=== PATIENT | male | born 1955 | race Two or more races ===

== ENCOUNTER 2020-02-11 11:14 | Outpatient (REF) | payer MEDICAID, SELFPAY ==
[2020-02-11 12:42] LABS: Anion Gap 13 (12-20); Blood Urea Nitrogen 17 mg/dL (9-16); Calcium 9.3 mg/dL (8.4-10.2); Carbon Dioxide 27 mmol/L (22-29); Chloride 105 mmol/L (96-108); Estimated Glomerular Filt Rate > 60; Glucose Random 96 mg/dL (60-115); Potassium 4.1 mmol/l (3.3-5.1); Sodium 141 mmol/L (135-145)
== END 2020-02-11 11:15 | disposition home or self-care (01) ==
LOC: HO.LAB 11:14
PROVIDERS: PCP Internal Medicine; Visit Provider Physician Assistant Medical
DX: I10 Essential (primary) hypertension (principal)
CPT/HCPCS: 80048

== ENCOUNTER 2020-03-25 12:41 | Outpatient (REF) | payer MEDICARE, MEDICAID, SELFPAY ==
[2020-03-25 14:29] LABS: Albumin Level 4.1 g/dL (3.5-5.0); Anion Gap 12 (12-20); Blood Urea Nitrogen 13 mg/dL (9-16); Calcium 9.3 mg/dL (8.4-10.2); Carbon Dioxide 28 mmol/L (22-29); Chloride 104 mmol/L (96-108); Estimated Glomerular Filt Rate > 60; Magnesium 2.3 mg/dL (1.6-2.6); Phosphorus 3.1 mg/dL (2.7-4.5); Potassium 3.9 mmol/l (3.3-5.1); Sodium 140 mmol/L (135-145)
[2020-03-25 14:44] LABS: Glucose Urine UA 100 MG/DL (NEG); Leukocyte Esterase Urine TRACE (NEG); Nitrite Urine NEG (NEG); PH 6.5 (5.0-8.0); Urine Blood NEG (NEG); Urine Ketones NEG (NEG); Urine Protein 2+ MG/DL (NEG-TRACE)
[2020-03-25 14:50] LABS: Appearance Urine HAZY; Color Urine YELLOW
[2020-03-25 15:06] LABS: Mucus Urine TRACE /LPF; RBC Urine 0 /HPF (0); Squamous Epithelial Cell Urine TRACE /LPF; WBC Urine 0-2 /HPF (0-4)
[2020-03-25 15:27] LABS: Creatinine Urine 194.05 mg/dL
[2020-03-25 15:28] LABS: Creatinine Urine 192.04 mg/dL
[2020-03-25 15:39] LABS: Renal w Reflex Lab Use Only Order verified
[2020-03-25 15:44] LABS: Protein/Creatinine Ratio, Ur 1.49 (<0.2); Total Protein Urine Random 287 mg/dL (<12)
[2020-03-25 15:58] LABS: Microalbum/Creatinine Ratio Ur 1035.8 ug/mg cr
[2020-03-26 12:12] LABS: Complement C3 168 mg/dL (82-185)
[2020-03-27 13:27] LABS: Anti Nuclear Antibody Screen NEGATIVE (NEGATIVE)
[2020-03-28 06:12] LABS: IgA 370 mg/dL (70-320); IgG 1319 mg/dL (600-1540); IgM 68 mg/dL (50-300)
== END 2020-03-25 12:42 | disposition home or self-care (01) ==
LOC: HO.LAB 12:41
PROVIDERS: PCP Internal Medicine; Visit Provider Internal Medicine Nephrology
DX: E11.9 Type 2 diabetes mellitus without complications (principal); E78.5 Hyperlipidemia, unspecified; I10 Essential (primary) hypertension
CPT/HCPCS: 36415; 80051; 81001; 82040; 82043; 82310; 82565; 82784; 83735; 84100; 84156; 84520; 86038; 86039; 86160; 86334; 87086

== ENCOUNTER 2020-08-13 10:23 | Outpatient (REF) | payer MEDICARE, MEDICAID, SELFPAY ==
[2020-08-13 11:42] LABS: Prostate Specific Antigen 0.61 ng/mL (<0.05-4.0)
== END 2020-08-13 10:24 | disposition home or self-care (01) ==
LOC: HO.LAB 10:23
PROVIDERS: PCP Internal Medicine; Visit Provider Urology
DX: N40.1 Benign prostatic hyperplasia with lower urinary tract symptoms (principal); Z12.5 Encounter for screening for malignant neoplasm of prostate
CPT/HCPCS: 36415; 84153

== ENCOUNTER 2020-12-25 10:38 | Outpatient (REF) | payer MEDICARE, MEDICAID, SELFPAY ==
[2020-12-25 11:12] LABS: MANUAL DIFF FLAG NO
[2020-12-25 11:27] LABS: Basophils Percent Auto 0.4 % (0-2); Eosinophils Absolute Auto 0.1 X10*3/uL (0.0-0.4); Eosinophils Percent Auto 1.2 % (0-4); Hemoglobin 14.1 g/dl (14.0-18.0); Imm Gran Abs Auto 0.02 X10*3/uL (0.00-0.03); Imm Gran Pct Auto 0.3 % (0.0-0.4); Lymphocytes Absolute Auto 2.2 X10*3/uL (1.2-4.9); Lymphocytes Percent Auto 28.5 % (20-40); Mean Corpuscular HGB Conc 33.6 g/dl (31.0-36.0); Mean Corpuscular Hemoglobin 29.6 pg (27.0-33.0); Mean Corpuscular Volume 88.1 fL (80-98); Mean Platelet Volume 10.8 fL (9.4-12.4); Monocytes Absolute Auto 0.7 X10*3/uL (0.1-1.2); Monocytes Percent Auto 8.6 % (2-11); Neutrophils Absolute Auto 4.7 X10*3/uL (2.0-8.3); Platelet Count 192 X10*3/uL (160-400); Red Blood Count 4.77 X10*6/uL (4.60-5.80); Red Cell Distribution Width 12.6 % (11.0-16.0); White Blood Count 7.6 X10*3/uL (4.8-10.8)
[2020-12-25 11:30] LABS: Glucose Urine UA NEG (NEG); Leukocyte Esterase Urine NEG (NEG); Nitrite Urine NEG (NEG); Specific Gravity - Urine 1.025 (1.005-1.025); Urine Blood NEG (NEG); Urine Ketones 5 MG/DL (NEG); Urine Protein 2+ MG/DL (NEG-TRACE)
[2020-12-25 11:32] LABS: Appearance Urine CLEAR; Color Urine YELLOW
[2020-12-25 11:44] LABS: Anion Gap 12 (12-20); Blood Urea Nitrogen 11 mg/dL (9-16); Carbon Dioxide 26 mmol/L (22-29); Chloride 108 mmol/L (96-108); Estimated Glomerular Filt Rate > 60; Phosphorus 2.6 mg/dL (2.7-4.5); Potassium 3.8 mmol/L (3.3-5.1); Sodium 142 mmol/L (135-145); Total Protein 7.7 g/dL (6.5-8.0)
[2020-12-25 12:05] LABS: Mucus Urine 2+ /LPF; RBC Urine 0-2 /HPF (0); Squamous Epithelial Cell Urine TRACE /LPF; WBC Urine 0-2 /HPF (0-4)
[2020-12-25 12:21] LABS: Creatinine Urine 309.04 mg/dL; Protein/Creatinine Ratio, Ur 0.54 (<0.2); Total Protein Urine Random 168 mg/dL (<12)
[2020-12-25 12:36] LABS: Microalbum/Creatinine Ratio Ur 332.9 ug/mg cr
[2020-12-25 12:41] LABS: Calcium 9.2 mg/dL (8.4-10.2)
[2020-12-25 12:42] LABS: Renal w Reflex Lab Use Only Order verified
[2020-12-26 17:51] LABS: Calcium (PTHI) 9.2 mg/dL (8.6-10.3); PTHI 45 pg/mL (14-64)
== END 2020-12-25 10:39 | disposition home or self-care (01) ==
LOC: HO.LAB 10:38
PROVIDERS: PCP Internal Medicine; Visit Provider Internal Medicine Nephrology
DX: E11.29 Type 2 diabetes mellitus with other diabetic kidney complication (principal); E78.5 Hyperlipidemia, unspecified; I12.9 Hypertensive chronic kidney disease with stage 1 through stage 4 chronic kidney disease, or unspecified chronic kidney disease; N18.1 Chronic kidney disease, stage 1; E11.22 Type 2 diabetes mellitus with diabetic chronic kidney disease; R80.8 Other proteinuria
CPT/HCPCS: 36415; 80051; 81001; 82043; 82306; 82308; 82310; 82565; 83970; 84100; 84155; 84156; 84520; 85025

== ENCOUNTER 2021-07-14 13:47 | Outpatient (REF) | payer MEDICARE, MEDICAID, SELFPAY ==
[2021-07-14 15:04] LABS: Anion Gap 14 (12-20); Blood Urea Nitrogen 11 mg/dL (9-16); Calcium 8.9 mg/dL (8.4-10.2); Carbon Dioxide 25 mmol/L (22-29); Chloride 105 mmol/L (96-108); Estimated Glomerular Filt Rate > 60; Sodium 140 mmol/L (135-145)
[2021-07-14 15:16] LABS: Creatinine Urine 136.43 mg/dL; Protein/Creatinine Ratio, Ur 0.39 (<0.2); Total Protein Urine Random 53 mg/dL (<12)
== END 2021-07-14 13:48 | disposition home or self-care (01) ==
LOC: HO.LAB 13:47
PROVIDERS: PCP Internal Medicine; Visit Provider Internal Medicine Nephrology
DX: I12.9 Hypertensive chronic kidney disease with stage 1 through stage 4 chronic kidney disease, or unspecified chronic kidney disease (principal); E11.22 Type 2 diabetes mellitus with diabetic chronic kidney disease; N18.1 Chronic kidney disease, stage 1; E11.21 Type 2 diabetes mellitus with diabetic nephropathy; R80.1 Persistent proteinuria, unspecified
CPT/HCPCS: 36415; 80051; 82043; 82310; 82565; 84156; 84520

== ENCOUNTER 2021-12-10 09:36 | Outpatient (REF) | payer MEDICARE, MEDICAID, SELFPAY ==
--- NOTE | 2021-12-10 09:39 | EMG_ITS ---
Right tibial and peroneal motor studies were performed. Right superficial peroneal and sural sensory studies were performed and tibial H-reflex was obtained. Paraspinal muscles were tested with a needle. IMPRESSION: [id number] axonal sensory motor peripheral neuropathy. MD WILIAM Jimenez/JANINE / [id number]
== END 2021-12-10 09:37 | disposition home or self-care (01) ==
LOC: HO.NEURO 09:36
PROVIDERS: PCP Internal Medicine; Visit Provider Internal Medicine
DX: M79.604 Pain in right leg (principal); M79.605 Pain in left leg
CPT/HCPCS: 95886; 95909

== ENCOUNTER 2022-05-13 15:45 | Outpatient (REF) | payer MEDICARE, MEDICAID, SELFPAY ==
--- NOTE | ~2022-05-13 | XR_ITS ---
EXAMINATION: XR RIBS, BILATERAL CLINICAL INFORMATION: Right-sided rib cage pain, status post fall COMPARISON: None TECHNIQUE: 3 views of the bilateral ribs were obtained. FINDINGS: The lungs are hypoexpanded with platelike atelectasis right lung base. Heart size and pulmonary vascularity is normal. There is moderate spondylosis mid and lower dorsal spine. XR/XR ribs BI min 4V w CXR1V IMPRESSION: 1. Platelike atelectasis right lung base. 2. Moderate spondylosis mid and lower dorsal spine.
== END 2022-05-13 15:46 | disposition home or self-care (01) ==
LOC: HO.XRAY 15:45
PROVIDERS: PCP Internal Medicine; Visit Provider Internal Medicine
DX: R07.81 Pleurodynia (principal)
CPT/HCPCS: 71111

== ENCOUNTER 2023-01-17 12:19 | Emergency (ER) | payer MEDICARE, SELFPAY ==
--- NOTE | ~2023-01-17 | CT_ITS ---
EXAMINATION: CT CERVICAL SPINE WITHOUT CONTRAST CLINICAL INFORMATION: Right posterior neck pain radiating down right arm COMPARISON: None available. TECHNIQUE: Axial images through the cervical spine without contrast. Sagittal images workstation were performed. This CT examination was performed using dose optimization techniques as appropriate, variously including the following: *Automated exposure control *Adjustment of mA and/or kV according to patient size (this includes techniques or standardized protocols for targeted exams where dose is matched to indication/reason for exam; i.e. extremities or head) *Use of iterative reconstruction technique DLP: 662 mGy-cm FINDINGS: Bone alignment is normal. No fracture or dislocation. Degenerative spondylosis at C5-C6 and C6-C7. At C2-C3 there is left paracentral disc bulge. At C3-C4 and C4-C5 there is central disc protrusion. At C5-C6 there is diffuse bulge. At C6-C7 and C7-T1 there is no disc herniation protrusion or bulge. Prevertebral soft tissues are normal. Lung apices are clear. CT/CT cervical spine wo IV con IMPRESSION: Mild degenerative changes. Fleischner guidelines were followed.
--- NOTE | 2023-01-17 13:10 | ED_ITS ---
HPI - General Adult General Chief complaint: Ear Problems Stated complaint: pain r side Time Seen by Provider: 01/17/23 16:13 Source: patient Mode of arrival: ambulatory Limitations: no limitations History of Present Illness HPI narrative: 67-year-old male presents to ED for posterior neck pain radiating down right shoulder right neck for the past 3 days. Patient denies any trauma, weakness right upper extremity, dizziness, headache, chest pain, or shortness of breath. Denies any facial droop or new weakness. Patient has chronic left upper and left lower extremity weakness due to stroke in the past. Patient denies any recent neck trauma or recent neck work by chiropractor. Related Data Previous Rx's Medication Instructions Recorded acetaminophen 325 mg capsule 325 mg PO QID PRN fever or pain 7 01/17/23 days #28 caps oxycodone 5 mg capsule 5 mg PO TID PRN pain 3 days #9 caps 01/17/23 prednisone 20 mg tablet 40 mg (2 x 20 mg) PO DAILY 5 days 01/17/23 #10 tabs Allergies Allergy/AdvReac Type Severity Reaction Status Date / Time niacin [NIACIN] Allergy Intermediate RASH Unverified 01/10/20 15:56 Review of Systems 2 Review of Systems: Posterior neck pain radiating down right shoulder Yes all other systems are reviewed and are negative PMFSH Social History Social History Advance Directives: No Advance Directives Information Provided: No Physical Exam ED Vital Signs: Vital Signs - 24 hr 01/17/23 17:53 Temperature 97.4 F Pulse Rate 60 Respiratory Rate 16 Blood Pressure 147/58 H Pulse Oximetry 98 Oxygen Delivery Method Room Air BMI result Body Mass Index 39.0 Const General: cooperative, healthy appearing, comfortable, no acute distress, well developed, alert, awake and Physically active Orientation/consciousness: oriented to person, oriented to place, oriented to time and patient oriented x3 HENMT Head: Yes normal to inspection, Yes No palpable skull fracture present, Yes normocephalic, Yes atraumatic and No abrasion Ears: hearing grossly normal bilaterally, external ears normal, TM's normal bilaterally, TM normal on the right, TM normal on the left, EAC's normal, mastoids normal and no periauricular adenopathy Eyes General: appearance normal, both eyes and all related structures Neck Neck: Yes normal visual inspection, Yes full ROM, Yes no lymphadenopathy, Yes no meningeal signs, Yes trachea midline, Yes supple, No anterior neck swelling and Yes tender (Posterior Cervical Tenderness) Neck images: 2 1. positive for tenderness on palpation. Negative for crepitus, ecchymosis, or deformity Chest Chest palpation & inspection: normal inspection of the chest and normal palpation of entire chest wall Resp Effort & Inspection: normal respiratory effort and able to speak in complete sentences Auscultation: clear to auscultation bilaterally Cardio Jugular venous distension: no JVD Heart sounds: S1 normal heart sound present and S2 normal heart sound present GI Inspection: Yes normal to inspection and No abdominal wall ecchymosis Palpation (GI): Soft to palpation, not firm, nontender, no guarding and not rigid General: No CVA tenderness and Yes no CVA tenderness Back/Spine/Pelvis Back: no CVA tenderness, No CVA tenderness and No back tenderness Skin General skin exam: no rashes or lesions noted and elasticity normal Neuro Other: chronic left upper and left lower extremity as stated by patient. General: oriented to person, oriented to place, oriented to time, patient oriented x3, gait normal, tone normal, moves all extremities, Normal light touch and pain sensation, no meningeal signs, no focal motor deficits, CN's II-XI intact bilaterally and normal sensation to monofilament Extrem General: Yes normal to inspection and Yes full ROM Psych Appearance: grossly normal, well kempt and not disheveled Course Course Course Narrative: RME performed by Kym Silva PA-C. Patient is a 67 year old assigned male at presenting to the emergency department with right sided neck pain that radiates from his right ear into his right shoulder. Pain is worse with movement. Patient has taken advil will no relief. Patient placed back in the waiting room pending room availability. Medications Administered Discontinued Medications Generic Name Dose Route Start Last Admin Trade Name Freq PRN Reason Stop Dose Admin Ketorolac Tromethamine 30 mg 01/17/23 19:06 01/17/23 19:19 Ketorolac Tromethamine 30 Mg/Ml Vial IM 01/17/23 19:07 30 mg ONCE ONE Administration Prednisone 40 mg 01/17/23 19:06 01/17/23 19:19 Prednisone 20 Mg Tablet PO 01/17/23 19:07 40 mg ONCE ONE Administration Medical Decision Making Medical Decision Making MDM Narrative: 67-year-old male presents to ED for posterior neck pain radiating down the right side of neck and right shoulder for the past 3 days patient states pain on range of motion. Patient denies any slurred speech, facial droop, paralysis of extremities, recent trauma, or any recent head neck manipulation by chiropractor. Patient denies any recent aggressive of sudden neck movement or exercises. Patient is sent for cervical spine CT scan to rule out radiculopathy. Sign out to ASHTYN CARTER. negative for any neuro deficits. Negative for signs of meningitis Differential Diagnosis Differential Diagnoses: The differential diagnosis associated with the presentation includes ( cervical spine fracture, meningitis, cervical spine strain. Tension headache) Admission/Observation Consideration of admission/observation: Escalation of care including admission/observation considered Discharge Plan Discharge Clinical Impression: Cervical radiculopathy Patient Disposition: Home, Self-Care Instructions: Cervical Radiculopathy (ED) Additional Instructions: Regrese al servicio de urgencias de inmediato si el dolor de mathew empeora, debilidad o par?lisis de las extremidades superiores, dificultad para hablar, ca?da facial, dolor de laura, dolor de pecho, dificultad para respirar, dolor de o?do, babeo, p?rdida de visi?n, empeoramiento del dolor de mathew o cualquier otro s?ntoma preocupante. . Por favor pranay un seguimiento con el proveedor de atenci?n primaria. Prescriptions: New prednisone 20 mg tablet 40 mg PO DAILY 5 Days Qty: 10 0RF oxycodone 5 mg capsule 5 mg PO TID PRN (Reason: pain) 3 Days Qty: 9 0RF Rx Instructions: Partial Fill upon patient request. acetaminophen 325 mg capsule 325 mg PO QID PRN (Reason: fever or pain) 7 Days Qty: 28 0RF Discharge Date/Time: 01/17/23 19:54 Print Language: Bur[place]ian
[2023-01-17 13:11] VITALS: BP 156/72; PULSE 63; RESP 20; TEMP 36.4; O2SAT 98; BMI 39.0
[2023-01-17 17:53] VITALS: BP 147/58; PULSE 60; RESP 16; TEMP 36.3; O2SAT 98
[2023-01-17] MEDS: predniSONE 20 MG TABLET 40 MG PO (19:19)
[2023-01-17] MEDS: Ketorolac Tromethamine 30 MG/ML VIAL IM (19:19)
== END 2023-01-17 19:54 | disposition home or self-care (01) ==
PROVIDERS: Emergency Provider Emergency Medicine; PCP Internal Medicine
DX: M54.12 Radiculopathy, cervical region (principal)
CPT/HCPCS: 72125; 96372; 99283; 99284; J1885

== ENCOUNTER 2023-02-09 11:35 | Outpatient (REF) | payer OTHER, MEDICAID, SELFPAY ==
[2023-02-09 13:04] LABS: Appearance Urine Clear; Color Urine Yellow; Glucose Urine UA >=1000 mg/dL (Negative); Leukocyte Esterase Urine Negative (Negative); Nitrite Urine Negative (Negative); PH 6.5 (5.0-9.0); UMIC TRIGGER UA YES; Urine Blood Negative (Negative); Urine Ketones Negative (Negative); Urine Protein 300 (3+) mg/dL (Neg-Trace)
[2023-02-09 13:06] LABS: Bacteria Urine None Seen (None Seen); Hyaline Casts Urine 0-2 /LPF (0-2); RBC Urine 0-2 /HPF (0-2); Squamous Epithelial Cell Urine 0-2 /HPF (0-2); WBC Urine 0-5 /HPF (0-5)
[2023-02-09 13:13] LABS: Anion Gap 13 (12-20); Blood Urea Nitrogen 9 mg/dL (9-16); Carbon Dioxide 27 mmol/L (22-29); Chloride 105 mmol/L (96-108); Estimated Glomerular Filt Rate > 60; Potassium 3.7 mmol/L (3.3-5.1); Sodium 141 mmol/L (135-145)
[2023-02-09 15:39] LABS: Creatinine Urine 27.81 mg/dL
[2023-02-09 16:25] LABS: Protein/Creatinine Ratio, Ur 8.34 (<0.2); Total Protein Urine Random 232 mg/dL (<12)
== END 2023-02-09 11:36 | disposition home or self-care (01) ==
LOC: HO.LAB 11:35
PROVIDERS: Visit Provider Internal Medicine Nephrology
DX: E11.22 Type 2 diabetes mellitus with diabetic chronic kidney disease (principal); N18.2 Chronic kidney disease, stage 2 (mild); R80.9 Proteinuria, unspecified
CPT/HCPCS: 36415; 80051; 81001; 82043; 82310; 82565; 82570; 84156; 84520

== ENCOUNTER 2023-02-24 15:57 | Outpatient (REF) | payer OTHER, SELFPAY ==
[2023-02-24 17:38] LABS: Prothrombin Time 11.9 SEC (11.1-13.3)
[2023-02-24 17:38] LABS: Appearance Urine Clear; Color Urine Yellow; Glucose Urine UA >=1000 mg/dL (Negative); Leukocyte Esterase Urine Negative (Negative); Nitrite Urine Negative (Negative); Specific Gravity - Urine 1.025 (1.005-1.025); UMIC TRIGGER UA YES; Urine Blood Trace (Negative); Urine Ketones Negative (Negative); Urine Protein 300 (3+) mg/dL (Neg-Trace)
[2023-02-24 17:44] LABS: Bacteria Urine None Seen (None Seen); Hyaline Casts Urine 0-2 /LPF (0-2); RBC Urine 0-2 /HPF (0-2); Squamous Epithelial Cell Urine 0-2 /HPF (0-2); WBC Urine 0-5 /HPF (0-5)
[2023-02-24 17:57] LABS: Creatinine Urine 73.24 mg/dL
[2023-02-24 18:15] LABS: Microalbum/Creatinine Ratio Ur 2730.7 ug/mg cr (<30); Microalbumin Urine > 2000.0 mg/L
[2023-03-11 10:13] LABS: Phospholipase A2 IgG ELISA <4 RU/mL; Phospholipase A2 IgG IFA NEGATIVE (NEGATIVE)
== END 2023-02-24 15:58 | disposition home or self-care (01) ==
LOC: HO.LAB 15:57
PROVIDERS: PCP Internal Medicine; Visit Provider Internal Medicine Nephrology
DX: R80.1 Persistent proteinuria, unspecified (principal); E11.22 Type 2 diabetes mellitus with diabetic chronic kidney disease; N18.9 Chronic kidney disease, unspecified
CPT/HCPCS: 36415; 81001; 82043; 82570; 83520; 85610; 86255

== ENCOUNTER 2023-05-08 12:38 | Emergency (ER) | payer OTHER, SELFPAY ==
[2023-05-08] VITALS (7 sets, daily range): BP systolic 162–210; BP diastolic 44–91; PULSE 62–78; RESP 10–20; TEMP 36.7–37.2; O2SAT 96–97; BMI 35.3
--- NOTE | ~2023-05-08 | CT_ITS ---
EXAMINATION: CT HEAD WITHOUT CONTRAST CLINICAL INFORMATION: Left-sided weakness. COMPARISON: Head CT 12/27/2019. TECHNIQUE: Contiguous axial imaging was performed from the skull base to vertex without intravenous administration of contrast. This CT examination was performed using dose optimization techniques as appropriate, variously including the following: *Automated exposure control *Adjustment of mA and/or kV according to patient size (this includes techniques or standardized protocols for targeted exams where dose is matched to indication/reason for exam; i.e. extremities or head) *Use of iterative reconstruction technique DLP: 705 mGy-cm. FINDINGS: There is no intracranial hemorrhage, extra-axial collection, mass effect, or acute large territorial infarction. 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 There is moderate to severe hypoattenuation within the white matter typical of chronic microangiopathy. There is a mild degree of brain parenchymal volume loss. The calvarium is unremarkable. The paranasal sinuses and mastoid air cells are clear. CT/CT head/brain wo IV con IMPRESSION: No acute intracranial abnormality. 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 If there is concern for acute ischemia an MRI could be performed. Background changes of chronic microangiopathy and mild brain parenchymal volume loss.
--- NOTE | ~2023-05-08 | CT_ITS ---
EXAMINATION: CT ABDOMEN AND PELVIS WITH CONTRAST CLINICAL INFORMATION: Abdominal pain and vomiting. COMPARISON: CT abdomen 11/28/2017 TECHNIQUE: Multidetector volumetric images were obtained from the superior aspect of the liver through the pubic symphysis following administration 85 mL of Omnipaque 350 intravenous contrast. Sagittal and coronal reformatted images were obtained on the technologist's workstation. Oral contrast: No This CT examination was performed using dose optimization techniques as appropriate, variously including the following: *Automated exposure control *Adjustment of mA and/or kV according to patient size (this includes techniques or standardized protocols for targeted exams where dose is matched to indication/reason for exam; i.e. extremities or head) *Use of iterative reconstruction technique DLP: 806 mGy-cm FINDINGS: LUNG BASES: The visualized lung bases are unremarkable. LIVER, GALLBLADDER, AND BILIARY TREE: The liver is normal in size, shape, and attenuation. No focal hepatic lesion or biliary ductal dilatation is present. The gallbladder is unremarkable with no evidence of radiopaque gallstones, gallbladder wall thickening, or obvious pericholecystic inflammatory changes. PANCREAS: Unremarkable. SPLEEN: The spleen is normal size with punctate calcified granulomas. ADRENAL GLANDS: Unremarkable. KIDNEYS AND URETERS: The kidneys are normal in size, shape, and attenuation. No hydronephrosis, hydroureter, or calculi seen. No perinephric stranding. BLADDER: The bladder is mildly distended. No bladder wall thickening or radiopaque calculi. GASTROINTESTINAL TRACT: There is moderate scattered stool and gas seen throughout the colon without any significant distention. There is no mural thickening or pericolic fat stranding. Small bowel loops are normal caliber. Appendix is normal caliber. ABDOMINAL WALL: Small umbilical hernia containing fat is noted. LYMPH NODES: Normal. VASCULAR: Unremarkable. PELVIC VISCERA: The prostate gland is mildly enlarged. No abnormal pelvic lymph nodes. No inguinal hernia seen. OSSEOUS STRUCTURES: Mild ventral spondylosis seen throughout lumbar spine. CT/CT abdomen pelvis w IV con IMPRESSION: 1. No acute intra-abdominal process seen. 2. Mild constipation. Fleischner guidelines were followed.
--- NOTE | 2023-05-08 14:01 | ED_ITS ---
HPI - Abdominal Pain General Chief Complaint: Weakness Stated Complaint: Abd pain/Vomiting Time Seen by Provider: 05/08/23 19:07 Source: patient, family, RN notes reviewed, old records reviewed and research intern Mode of arrival: ambulatory Limitations: language barrier History of Present Illness HPI narrative: 68-year-old male past medical history significant for CVA, diabetes, hypertension presents for evaluation of multiple complaints Apparently the patient has been decompensating over the last 2 weeks. He has had increased weakness of last 2 weeks. Since this morning the patient has been unable to ambulate Per his family the patient was lying in bed all day yesterday and did not get out of bed at all He was vomiting several times earlier this morning and has been incontinent of urine He had a previous CVA approximately 3 years ago Family seem think he has had increased left-sided weakness but is unsure exactly of the onset The patient's family also reports some facial asymmetry over the last 2 weeks but is unable to specify exactly what looks different Related Data Previous Rx's Medication Instructions Recorded acetaminophen 325 mg capsule 325 mg PO QID PRN fever or pain 7 01/17/23 days #28 caps oxycodone 5 mg capsule 5 mg PO TID PRN pain 3 days #9 caps 01/17/23 prednisone 20 mg tablet 40 mg (2 x 20 mg) PO DAILY 5 days 01/17/23 #10 tabs Allergies Allergy/AdvReac Type Severity Reaction Status Date / Time niacin [NIACIN] Allergy Intermediate RASH Verified 05/08/23 19:24 Review of Systems Constitutional: Denies body ache(s), Denies chills, Denies fever(s), Reports malaise and Reports weakness Eyes: Denies blurry vision Denies sore throat Cardiovascular: Denies chest pain and Denies dyspnea Respiratory: Denies cough and Denies dyspnea Gastrointestinal: Reports abdominal pain, Reports nausea and Reports vomiting Musculoskeletal: Denies back pain Skin/Breast: Denies rash Reports focal weakness and Reports weakness PMFSH Social History Social History Smoked in Last 30 Days: No Use of substances other than those prescribed or required for medical reasons: No Advance Directives: No Advance Directives Information Provided: No Physical Exam ED Vital Signs: Vital Signs - 24 hr 05/08/23 14:07 05/08/23 17:32 05/08/23 18:31 Temperature 98.1 F 98.9 F Pulse Rate 78 62 66 Respiratory Rate 18 10 L 20 Blood Pressure 162/75 H 192/75 H 180/84 H Pulse Oximetry 97 97 97 Oxygen Delivery Method Room Air Room Air 05/08/23 20:27 05/08/23 20:53 05/08/23 22:27 Temperature 98.9 F Pulse Rate 63 67 62 Respiratory Rate 15 15 14 Blood Pressure 183/79 H 190/77 H 177/44 H Pulse Oximetry 96 97 97 Oxygen Delivery Method Room Air Room Air Room Air BMI result Body Mass Index 35.3 Const General: healthy appearing, comfortable, no acute distress, alert and awake Nutritional Appearance: well nourished Orientation/consciousness: patient oriented x3 HENMT Head: Yes normocephalic and Yes atraumatic Eyes Eyelids: Yes eyelids normal Conjunctivae: conjunctivae normal Sclerae: sclerae normal Corneas: corneas normal Pupils: Equal, round and reactive pupils present EOM: EOMs intact bilaterally Neck Neck: Yes full ROM Resp Effort & Inspection: normal respiratory effort, able to speak in complete sentences, no audible wheezes and not labored Auscultation: clear to auscultation bilaterally Cardio Rate: regular rate Rhythm: regular rhythm GI Other: Soft, distended abdomen, no guarding on palpation. Palpation (GI): Soft to palpation, not firm, nontender, no guarding and not rigid Skin General skin exam: elasticity normal Neuro Other: Patient appears to have global 4/5 weakness however his left lower extremity appears slightly weaker with 3/5 strength to major muscle groups. There is no left upper extremity weakness when compared to his right upper extremity General: patient oriented x3 Cranial nerves: Yes CN's II-XII intact bilaterally, Yes Equal, round and reactive pupils present and Yes Bilaterally intact EOM present Cognition (Neuro): normal cognition Motor exam (neuro): strength not 5/5 throughout, No no tremor noted, No no asterixis and fasciculations noted Extrem Other: Moving all extremities well without any obvious deformities Course Course Course Narrative: This is an RME: Additional HPI, ROS, PE not included below will be deferred to primary provider. This is a [id number]-male, with a hx of CVA, diabetes, HLD, presenting to the emergency department with a complaint of increased left-sided weakness. Patient states that he noticed 2 weeks ago he has had decreased appetite, weakness. He states that this morning he has had difficulty ambulating given left-sided weakness specifically in his leg. Patient reports that he did have a fall 2 weeks ago, was seen by primary care Plan: Labs, CT head, POC Reevaluation(s) Reevaluation #1: Patient was given a L of IV fluids for mild CLAUDY Time: 22:13 Reevaluation #2: Patient's workup largely unremarkable, he is on Plavix for TIA/CVA prophylaxis as he has a history of both. His workup today was nonfocal, CT scan did not show any acute findings. Given the failure to thrive I offered consideration for rehab placement in the patient and family declined. They collectively feel that he is safe at home and has family around for support. He was instructed to return for any new or worsening symptoms. He was instructed to follow up with his primary doctor for his increasing weakness. Patient's blood pressure improved with labetalol Time: 22:57 Medical Decision Making Medical Decision Making [facility] Narrative: 68-year-old male with past medical history significant for CVA, diabetes presents for evaluation of multiple complaints. Reports increasing weakness over the last 2 weeks. It is possible he had a subacute CVA, CT scan is not show any acute findings but does show small lacunar infarcts. Given that his symptoms started over 2 weeks ago, angiography was not ordered, as the patient is well outside any window for thrombectomy and has a reassuring neruo exam. Given the vomiting earlier today will get a CT scan the abdomen pelvis. Patient's labs did not show any concerning findings. He has a slightly elevated creatinine of 1.45, glucose 215 without any evidence of DKA. Patient is quite hypertensive as high as 208 over 112. Will treat with labetalol Differential Diagnosis Differential Diagnoses: The differential diagnosis associated with the presentation includes Subacute CVA TIA CVA Hypertensive urgency Diabetes DKA Failure to thrive Viral syndrome Admission/Observation Consideration of admission/observation: Escalation of care including admission/observation considered Lab Data [facility] Lab Attestation statement: I reviewed the patient's lab results. No leukocytosis or anemia, no significant electrolyte abnormalities. Mild creatinine elevation to 1.45. Mild hyperglycemia 05/27/2016, no evidence of DKA 05/08/23 15:52 05/08/23 14:56 Labs: Lab Results 05/08/23 05/08/23 05/08/23 Range/Units 14:56 15:01 15:52 WBC 9.6 (4.8-10.8) X10*3/uL RBC 5.14 (4.60-5.80) X10*6/uL Hgb 15.2 (14.0-18.0) g/dl Hct 43.9 (42.0-52.0) % MCV 85.4 (80.0-98.0) fL MCH 29.6 (27.0-33.0) pg MCHC 34.6 (31.0-36.0) g/dl RDW 13.1 (11.0-16.0) % Plt Count 175 (160-400) X10*3/uL MPV 11.0 (9.4-12.4) fL Immature Gran % (Auto) 0.3 (0.0-0.4) % Neut % (Auto) 74.0 H (45-73) % Lymph % (Auto) 18.3 L (20-40) % Foard % (Auto) 6.4 (2-11) % Eos % (Auto) 0.6 (0-4) % Baso % (Auto) 0.4 (0-2) % Lymph # (Auto) 1.8 (1.2-4.9) X10*3/uL Foard # (Auto) 0.6 (0.1-1.2) X10*3/uL Eos # (Auto) 0.1 (0.0-0.4) X10*3/uL Baso # (Auto) 0.0 (0.0-0.2) X10*3/uL Abs Immat Gran (auto) 0.03 (0.00-0.03) X10*3/uL Absolute Neuts (auto) 7.1 (2.0-8.3) x10*3/uL Absolute Nucleated RBC 0.000 (0.0-0.012) X10*3/uL Nucleated RBC % (auto) 0.0 (0.0-0.2) /100WBC PT 12.1 (11.1-13.3) SEC INR 1.0 (0.9-1.1) APTT 29.1 (26.0-36.4) SEC VBG pH 7.54 H (7.32-7.43) VBG pCO2 28 mmHg VBG pO2 75 mmHg VBG HCO3 24 (22-26) mmol/L VBG O2 Saturation 98.0 % VBG Base Excess 3.6 mmol/L Sodium 142 (135-145) mmol/L Potassium 3.4 (3.3-5.1) mmol/L Chloride 105 (96-108) mmol/L Carbon Dioxide 27 (22-29) mmol/L Anion Gap 13 (12-20) BUN 12 (9-16) mg/dL Creatinine 1.45 H (0.5-1.4) mg/dL Estim Creat Clear Calc 51.9 Estimated GFR 48 POC Glucose (60-115) mg/dL Random Glucose 217 H (60-115) mg/dL Calcium 9.4 (8.4-10.2) mg/dL Magnesium 2.2 (1.6-2.6) mg/dL Total Bilirubin 0.7 (0.0-1.0) mg/dL Direct Bilirubin 0.2 (0.0-0.5) mg/dL AST 19 (5-37) U/L ALT 11 (0-40) U/L Alkaline Phosphatase 117 (39-117) U/L Troponin I High Sens 16.4 (<3.5-35.0) ng/L Total Protein 7.5 (6.5-8.0) g/dL Albumin 3.2 L (3.5-5.0) g/dL Lipase 8 (8-78) U/L Beta-Hydroxybutyrate 0.48 H (0.02-0.27) mmol/L Urine Color Urine Appearance Urine pH (5.0-9.0) Ur Specific [place] (1.005-1.025) Urine Protein (Neg-Trace) mg/dL Urine Glucose (UA) (Negative) mg/dL Urine Ketones (Negative) mg/dL Urine Blood (Negative) Urine Nitrite (Negative) Ur Leukocyte Esterase (Negative) Urine RBC (0-2) /HPF Urine WBC (0-5) /HPF Ur Squamous Epith Cells (0-2) /HPF Urine Bacteria (None Seen) Hyaline Casts (0-2) /LPF Granular Casts COVID-19 (SHAN) Negative (Negative) COVID-19 Clin Com See Note Influenza Type A (MARYAN) Negative (Negative) Influenza Type B (MARYAN) Negative (Negative) Influenza A & B Note See Note 05/08/23 05/08/23 Range/Units 17:30 20:51 WBC (4.8-10.8) X10*3/uL RBC (4.60-5.80) X10*6/uL Hgb (14.0-18.0) g/dl Hct (42.0-52.0) % MCV (80.0-98.0) fL MCH (27.0-33.0) pg MCHC (31.0-36.0) g/dl RDW (11.0-16.0) % Plt Count (160-400) X10*3/uL MPV (9.4-12.4) fL Immature Gran % (Auto) (0.0-0.4) % Neut % (Auto) (45-73) % Lymph % (Auto) (20-40) % Foard % (Auto) (2-11) % Eos % (Auto) (0-4) % Baso % (Auto) (0-2) % Lymph # (Auto) (1.2-4.9) X10*3/uL Foard # (Auto) (0.1-1.2) X10*3/uL Eos # (Auto) (0.0-0.4) X10*3/uL Baso # (Auto) (0.0-0.2) X10*3/uL Abs Immat Gran (auto) (0.00-0.03) X10*3/uL Absolute Neuts (auto) (2.0-8.3) x10*3/uL Absolute Nucleated RBC (0.0-0.012) X10*3/uL Nucleated RBC % (auto) (0.0-0.2) /100WBC PT (11.1-13.3) SEC INR (0.9-1.1) APTT (26.0-36.4) SEC VBG pH (7.32-7.43) VBG pCO2 mmHg VBG pO2 mmHg VBG HCO3 (22-26) mmol/L VBG O2 Saturation % VBG Base Excess mmol/L Sodium (135-145) mmol/L Potassium (3.3-5.1) mmol/L Chloride (96-108) mmol/L Carbon Dioxide (22-29) mmol/L Anion Gap (12-20) BUN (9-16) mg/dL Creatinine (0.5-1.4) mg/dL Estim Creat Clear Calc Estimated GFR POC Glucose 215 H (60-115) mg/dL Random Glucose (60-115) mg/dL Calcium (8.4-10.2) mg/dL Magnesium (1.6-2.6) mg/dL Total Bilirubin (0.0-1.0) mg/dL Direct Bilirubin (0.0-0.5) mg/dL AST (5-37) U/L ALT (0-40) U/L Alkaline Phosphatase (39-117) U/L Troponin I High Sens (<3.5-35.0) ng/L Total Protein (6.5-8.0) g/dL Albumin (3.5-5.0) g/dL Lipase (8-78) U/L Beta-Hydroxybutyrate (0.02-0.27) mmol/L Urine Color Yellow Urine Appearance Clear Urine pH 6.5 (5.0-9.0) Ur Specific [place] >= 1.030 H (1.005-1.025) Urine Protein >=1000 (4+) H (Neg-Trace) mg/dL Urine Glucose (UA) >=1000 H (Negative) mg/dL Urine Ketones Trace (Negative) mg/dL Urine Blood Trace H (Negative) Urine Nitrite Negative (Negative) Ur Leukocyte Esterase Negative (Negative) Urine RBC 3-5 H (0-2) /HPF Urine WBC 0-5 (0-5) /HPF Ur Squamous Epith Cells 3-5 (0-2) /HPF Urine Bacteria None Seen (None Seen) Hyaline Casts >20 (0-2) /LPF Granular Casts Present COVID-19 (SHAN) (Negative) COVID-19 Clin Com Influenza Type A (MARYAN) (Negative) Influenza Type B (MARYAN) (Negative) Influenza A & B Note Independent Interpretation I performed an independent interpretation of an: EKG (Normal sinus rhythm with a rate of 70 beats per minute. No ST segment elevation TX) and CT Scan (Agree with radiology interpretation) Radiology Impression Discussion of test interpretation with radiology: I have reviewed the radiologist's reading. Radiologist Impression: No acute intracranial abnormality. Multiple chronic lacunar infarcts are seen in the bilateral basal ganglia, thalami and uriah. If there is concern for acute ischemia an MRI could be performed Medications Administered Generic Name Dose Route Start Last Admin Trade Name Freq PRN Reason Stop Dose Admin Sodium Chloride 1,000 mls @ 999 mls/hr 05/08/23 22:15 05/08/23 22:26 Ns IV 05/08/23 23:15 999 mls/hr .Q1H1M REBECCA Administration Discontinued Medications Generic Name Dose Route Start Last Admin Trade Name Freq PRN Reason Stop Dose Admin Sodium Chloride 1,000 mls @ 999 mls/hr 05/08/23 19:15 05/08/23 22:04 Ns IV 05/08/23 20:15 Infused .Q1H1M REBECCA Infusion Iohexol 85 ml 05/08/23 20:39 05/08/23 20:39 Iohexol 350 Mg/Ml 100 Ml Infus..Btl IV 05/08/23 20:40 85 ml ONCE ONE Administration Labetalol HCl 10 mg 05/08/23 19:09 05/08/23 20:20 Labetalol Hcl 100 Mg/20 Ml Vial IVPUSH 05/08/23 19:10 10 mg ONCE ONE Administration Discharge Plan Discharge Clinical Impression: Weakness, Hyperglycemia, Hypertension Patient Disposition: Home, Self-Care Instructions: Weakness (ED) Additional Instructions: Your workup in the emergency room today was reassuring This includes your CT scans, blood work Your blood pressure was high and was treated in the ER I recommend that you call your primary doctor tomorrow morning to schedule follow-up for your increasing weakness and your blood pressure Return for new or worsening symptoms Prescriptions: No Action prednisone 20 mg tablet 40 mg PO DAILY 5 Days Qty: 10 0RF oxycodone 5 mg capsule 5 mg PO TID PRN (Reason: pain) 3 Days Qty: 9 0RF Rx Instructions: Partial Fill upon patient request. acetaminophen 325 mg capsule 325 mg PO QID PRN (Reason: fever or pain) 7 Days Qty: 28 0RF
--- NOTE | 2023-05-08 14:10 | ECG_ITS ---
Test Reason : WEAKNESS Blood Pressure : / mmHG Vent. Rate : 070 BPM Atrial Rate : 070 BPM P-R Int : 130 ms QRS Dur : 086 ms QT Int : 406 ms P-R-T Axes : 056 037 162 degrees QTc Int : 438 ms Normal sinus rhythm Minimal voltage criteria for LVH, may be normal variant ( Henrique product ) ST & T wave abnormality, consider lateral ischemia Abnormal ECG When compared with ECG of 16-DEC-2019 06:49, Criteria for Inferior infarct are no longer Present Referred By: Jojo Walker Electronically Signed By:NATALIE HUGHES
[2023-05-08 15:09] LABS: VBG Base Excess 3.6 mmol/L; VBG HCO3 24 mmol/L (22-26); VBG pCO2 28 mmHg; VBG pH 7.54 (7.32-7.43); VBG pO2 75 mmHg
[2023-05-08 15:11] LABS: Prothrombin Time 12.1 SEC (11.1-13.3)
[2023-05-08 15:14] LABS: Partial Thromboplastin Time 29.1 SEC (26.0-36.4)
[2023-05-08 15:19] LABS: Venous Blood Gas Refer to POC result
[2023-05-08 15:21] LABS: Beta-Hydroxybutyrate 0.48 mmol/L (0.02-0.27); COVID-19 Test Negative (Negative); IDNOW Serial# 08D9AD1C; IDNOW Serial# 152EDE1D
[2023-05-08 15:22] LABS: Influenza A Negative (Negative); Influenza B2 Negative (Negative)
[2023-05-08 15:24] LABS: Alanine Aminotransferase 11 U/L (0-40); Albumin Level 3.2 g/dL (3.5-5.0); Alkaline Phosphatase 117 U/L (39-117); Anion Gap 13 (12-20); Aspartate Amino Transferase 19 U/L (5-37); Bilirubin Direct 0.2 mg/dL (0.0-0.5); Bilirubin Total 0.7 mg/dL (0.0-1.0); Blood Urea Nitrogen 12 mg/dL (9-16); Calcium 9.4 mg/dL (8.4-10.2); Carbon Dioxide 27 mmol/L (22-29); Chloride 105 mmol/L (96-108); Creatinine Clr Calc Pharmacy 51.9; Estimated Glomerular Filt Rate 48; Glucose Random 217 mg/dL (60-115); Lipase 8 U/L (8-78); Magnesium 2.2 mg/dL (1.6-2.6); Potassium 3.4 mmol/L (3.3-5.1); Sodium 142 mmol/L (135-145); Total Protein 7.5 g/dL (6.5-8.0)
[2023-05-08 15:30] LABS: Troponin-I High Sensitivity 16.4 ng/L (<3.5-35.0)
[2023-05-08 16:15] LABS: Basophils Percent Auto 0.4 % (0-2); Eosinophils Absolute Auto 0.1 X10*3/uL (0.0-0.4); Eosinophils Percent Auto 0.6 % (0-4); Hematocrit 43.9 % (42.0-52.0); Hemoglobin 15.2 g/dl (14.0-18.0); Imm Gran Abs Auto 0.03 X10*3/uL (0.00-0.03); Imm Gran Pct Auto 0.3 % (0.0-0.4); Lymphocytes Absolute Auto 1.8 X10*3/uL (1.2-4.9); Lymphocytes Percent Auto 18.3 % (20-40); Mean Corpuscular HGB Conc 34.6 g/dl (31.0-36.0); Mean Corpuscular Hemoglobin 29.6 pg (27.0-33.0); Mean Corpuscular Volume 85.4 fL (80.0-98.0); Monocytes Absolute Auto 0.6 X10*3/uL (0.1-1.2); Monocytes Percent Auto 6.4 % (2-11); Neutrophils Absolute Auto 7.1 x10*3/uL (2.0-8.3); Platelet Count 175 X10*3/uL (160-400); Red Blood Count 5.14 X10*6/uL (4.60-5.80); Red Cell Distribution Width 13.1 % (11.0-16.0); White Blood Count 9.6 X10*3/uL (4.8-10.8)
[2023-05-08 17:35] LABS: Glucose, Whole Blood 215 mg/dL (60-115)
--- NOTE | 2023-05-08 20:14 | PC.NURSE ---
medication delayed. pt a hard stick
[2023-05-08] MEDS: 0.9 % Sodium Chloride 1,000 ML 999 ML IV ×2 (20:19→22:26)
[2023-05-08] MEDS: Labetalol HCL 100 MG/20 ML VIAL 10 MG IVPUSH ×2 (20:20→23:35)
[2023-05-08] MEDS: iohexoL 350 MG/ML 100 ML INFUS..BTL 85 ML IV (20:39)
[2023-05-08 21:20] LABS: Appearance Urine Clear; Color Urine Yellow; Glucose Urine UA >=1000 mg/dL (Negative); Leukocyte Esterase Urine Negative (Negative); Nitrite Urine Negative (Negative); PH 6.5 (5.0-9.0); Specific Gravity - Urine >= 1.030 (1.005-1.025); UMIC TRIGGER UACC YES; Urine Blood Trace (Negative); Urine Ketones Trace mg/dL (Negative); Urine Protein >=1000 (4+) mg/dL (Neg-Trace)
[2023-05-08 21:35] LABS: Bacteria Urine None Seen (None Seen); Granular Casts Urine Present; Hyaline Casts Urine >20 /LPF (0-2); WBC Urine 0-5 /HPF (0-5)
--- NOTE | 2023-05-08 23:53 | PC.NURSE ---
BP high, provider aware. medicated per MAR.
[2023-05-09 00:45] VITALS: BP 174/66; PULSE 64; RESP 18; TEMP 37.1; O2SAT 96
== END 2023-05-09 00:54 | disposition home or self-care (01) ==
PROVIDERS: Emergency Medicine; Physician Assistant Medical; Emergency Provider Internal Medicine; PCP Internal Medicine
DX: R53.1 Weakness (principal); I10 Essential (primary) hypertension; E11.65 Type 2 diabetes mellitus with hyperglycemia; R11.10 Vomiting, unspecified; R10.9 Unspecified abdominal pain; R26.2 Difficulty in walking, not elsewhere classified; R32 Unspecified urinary incontinence; Z11.52 Encounter for screening for COVID-19; Z79.899 Other long term (current) drug therapy; Z86.73 Personal history of transient ischemic attack (TIA), and cerebral infarction without residual deficits
CPT/HCPCS: 36415; 70450; 74177; 80053; 81001; 81003; 82010; 82248; 82803; 82947; 83690; 83735; 84484; 85025; 85610; 85730; 87502; 87635; 93005; 96361; 96374; 96376; 99284; 99285; J1920; Q9967

== ENCOUNTER → 2023-05-08 14:10 | Outpatient (BNV) | payer OTHER, SELFPAY | PROVIDERS: Emergency Provider Internal Medicine; PCP Internal Medicine; Visit Provider Internal Medicine | DX: R94.31 Abnormal electrocardiogram [ECG] [EKG] (principal) | CPT/HCPCS: 93010 ==

== ENCOUNTER 2023-05-25 10:16 | Outpatient (REF) | payer OTHER, SELFPAY ==
--- NOTE | ~2023-05-25 | US_ITS ---
EXAMINATION: US ABDOMEN LIMITED CLINICAL INFORMATION: Abdominal wall masses. COMPARISON: CT abdomen and pelvis with contrast 05/08/2023. Ultrasound abdomen complete 01/23/2015. TECHNIQUE: Real-time imaging of the right lower quadrant and left lower quadrant at level of umbilicus. FINDINGS: The cutaneous and fascial layers are unremarkable. In the anterior abdominal subcutaneous layer, there are 2 bilateral prominent foci of subcutaneous fat, without focal abnormality. Specifically, no mass, cyst or fluid collection is seen. There is no lymphadenopathy. No foreign body is seen. US/US abdomen limited IMPRESSION: There are bilateral abdominal foci of increased subcutaneous fat, without associated focal mass, fluid or lymphadenopathy. This corresponds with CT findings dated 05/08/2023.
[2023-05-25 13:46] LABS: Alanine Aminotransferase 11 U/L (0-40); Alkaline Phosphatase 107 U/L (39-117); Anion Gap 11 (12-20); Aspartate Amino Transferase 16 U/L (5-37); Bilirubin Direct 0.2 mg/dL (0.0-0.5); Bilirubin Total 0.4 mg/dL (0.0-1.0); Blood Urea Nitrogen 12 mg/dL (9-16); Calcium 8.8 mg/dL (8.4-10.2); Carbon Dioxide 28 mmol/L (22-29); Chloride 104 mmol/L (96-108); Cholesterol 245 mg/dL (<200); Estimated Glomerular Filt Rate 50; Glucose Random 268 mg/dL (60-115); HDL Cholesterol 33 mg/dL (>40); Potassium 2.8 mmol/L (3.3-5.1); Sodium 140 mmol/L (135-145); Triglycerides 538 mg/dL (<150)
[2023-05-25 13:51] LABS: Appearance Urine Clear; Color Urine Yellow; Glucose Urine UA >=1000 mg/dL (Negative); Leukocyte Esterase Urine Negative (Negative); Nitrite Urine Negative (Negative); PH 5.5 (5.0-9.0); Specific Gravity - Urine >= 1.030 (1.005-1.025); UMIC TRIGGER UA YES; Urine Blood Trace (Negative); Urine Ketones Negative (Negative); Urine Protein >=1000 (4+) mg/dL (Neg-Trace)
[2023-05-25 14:08] LABS: Creatinine Urine 158.46 mg/dL
[2023-05-25 14:17] LABS: Bacteria Urine None Seen (None Seen); Hyaline Casts Urine >20 /LPF (0-2); RBC Urine 0-2 /HPF (0-2); WBC Urine 0-5 /HPF (0-5)
[2023-05-25 14:25] LABS: Microalbum/Creatinine Ratio Ur 1262.1 ug/mg cr (<30); Microalbumin Urine > 2000.0 mg/L
[2023-05-25 14:28] LABS: Reflex LDLD? Yes
[2023-05-26 18:14] LABS: LDL Cholesterol Direct 96 mg/dL (<100)
[2023-06-02 12:39] LABS: Phospholipase A2 IgG ELISA <4 RU/mL; Phospholipase A2 IgG IFA NEGATIVE (NEGATIVE)
== END 2023-05-25 10:17 | disposition home or self-care (01) ==
LOC: HO.HMGCX 10:16
PROVIDERS: Internal Medicine Nephrology; PCP Internal Medicine; Visit Provider Internal Medicine
DX: R80.1 Persistent proteinuria, unspecified (principal); E11.22 Type 2 diabetes mellitus with diabetic chronic kidney disease; I12.9 Hypertensive chronic kidney disease with stage 1 through stage 4 chronic kidney disease, or unspecified chronic kidney disease; N18.9 Chronic kidney disease, unspecified; R22.2 Localized swelling, mass and lump, trunk; E87.6 Hypokalemia
CPT/HCPCS: 36415; 76705; 80048; 80061; 80076; 81001; 82043; 82570; 83520; 83721; 85610; 86255

== ENCOUNTER 2023-06-28 11:01 | Outpatient (REF) | payer OTHER, SELFPAY ==
[2023-06-28 12:27] LABS: Anion Gap 10 (12-20); Blood Urea Nitrogen 13 mg/dL (9-16); Calcium 9.4 mg/dL (8.4-10.2); Carbon Dioxide 24 mmol/L (22-29); Chloride 108 mmol/L (96-108); Estimated Glomerular Filt Rate 42; Glucose Random 195 mg/dL (60-115); Magnesium 2.3 mg/dL (1.6-2.6); Sodium 138 mmol/L (135-145)
== END 2023-06-28 11:02 | disposition home or self-care (01) ==
LOC: HO.HHCL 11:01
PROVIDERS: Visit Provider Internal Medicine
DX: E87.6 Hypokalemia (principal)
CPT/HCPCS: 36415; 80048; 83735

== ENCOUNTER 2023-08-30 12:35 | Outpatient (REF) | payer OTHER, SELFPAY ==
[2023-08-30 13:27] LABS: MANUAL DIFF FLAG NO
[2023-08-30 13:32] LABS: Basophils Percent Auto 0.4 % (0-2); Eosinophils Absolute Auto 0.2 X10*3/uL (0.0-0.4); Eosinophils Percent Auto 1.8 % (0-4); Hematocrit 41.7 % (42.0-52.0); Hemoglobin 14.2 g/dl (14.0-18.0); Imm Gran Abs Auto 0.05 X10*3/uL (0.00-0.03); Imm Gran Pct Auto 0.6 % (0.0-0.4); Lymphocytes Absolute Auto 2.3 X10*3/uL (1.2-4.9); Lymphocytes Percent Auto 25.2 % (20-40); Mean Corpuscular HGB Conc 34.1 g/dl (31.0-36.0); Mean Corpuscular Hemoglobin 30.3 pg (27.0-33.0); Mean Corpuscular Volume 89.1 fL (80.0-98.0); Mean Platelet Volume 11.5 fL (9.4-12.4); Monocytes Absolute Auto 0.6 X10*3/uL (0.1-1.2); Monocytes Percent Auto 6.7 % (2-11); Neutrophils Absolute Auto 5.9 x10*3/uL (2.0-8.3); Neutrophils Percent Auto 65.3 % (45-73); Platelet Count 205 X10*3/uL (160-400); Red Blood Count 4.68 X10*6/uL (4.60-5.80); Red Cell Distribution Width 13.1 % (11.0-16.0)
[2023-08-30 17:14] LABS: Alanine Aminotransferase 7 U/L (0-40); Albumin Level 3.9 g/dL (3.5-5.0); Alkaline Phosphatase 75 U/L (39-117); Anion Gap 15 (12-20); Aspartate Amino Transferase 12 U/L (5-37); Bilirubin Total 0.3 mg/dL (0.0-1.0); Blood Urea Nitrogen 22 mg/dL (9-16); Calcium 9.9 mg/dL (8.4-10.2); Carbon Dioxide 23 mmol/L (22-29); Chloride 106 mmol/L (96-108); Estimated Glomerular Filt Rate 42; Glucose Random 92 mg/dL (60-115); Sodium 140 mmol/L (135-145)
== END 2023-08-30 12:36 | disposition home or self-care (01) ==
LOC: HO.HHCL 12:35
PROVIDERS: Visit Provider Internal Medicine
DX: E11.22 Type 2 diabetes mellitus with diabetic chronic kidney disease (principal); N18.1 Chronic kidney disease, stage 1; Z79.4 Long term (current) use of insulin
CPT/HCPCS: 36415; 80053; 85025

== ENCOUNTER 2024-01-19 13:44 | Outpatient (REF) | payer OTHER, SELFPAY ==
[2024-01-19 16:21] LABS: MANUAL DIFF FLAG NO
[2024-01-19 16:24] LABS: Basophils Absolute Auto 0.1 X10*3/uL (0.0-0.2); Basophils Percent Auto 0.6 % (0-2); Eosinophils Absolute Auto 0.2 X10*3/uL (0.0-0.4); Eosinophils Percent Auto 2.4 % (0-4); Hematocrit 42.3 % (42.0-52.0); Hemoglobin 14.2 g/dl (14.0-18.0); Imm Gran Abs Auto 0.02 X10*3/uL (0.00-0.03); Imm Gran Pct Auto 0.2 % (0.0-0.4); Lymphocytes Absolute Auto 2.2 X10*3/uL (1.2-4.9); Lymphocytes Percent Auto 24.4 % (20-40); Mean Corpuscular HGB Conc 33.6 g/dl (31.0-36.0); Mean Corpuscular Hemoglobin 30.1 pg (27.0-33.0); Mean Corpuscular Volume 89.8 fL (80.0-98.0); Monocytes Absolute Auto 0.6 X10*3/uL (0.1-1.2); Monocytes Percent Auto 6.9 % (2-11); Neutrophils Absolute Auto 5.9 x10*3/uL (2.0-8.3); Neutrophils Percent Auto 65.5 % (45-73); Platelet Count 197 X10*3/uL (160-400); Red Blood Count 4.71 X10*6/uL (4.60-5.80); Red Cell Distribution Width 13.5 % (11.0-16.0)
[2024-01-19 16:53] LABS: Alanine Aminotransferase 13 U/L (0-40); Albumin Level 3.9 g/dL (3.5-5.0); Alkaline Phosphatase 87 U/L (39-117); Anion Gap 12 (12-20); Aspartate Amino Transferase 16 U/L (5-37); Bilirubin Total 0.4 mg/dL (0.0-1.0); Blood Urea Nitrogen 15 mg/dL (9-16); Calcium 9.6 mg/dL (8.4-10.2); Carbon Dioxide 24 mmol/L (22-29); Chloride 109 mmol/L (96-108); Cholesterol 205 mg/dL (<200); Estimated Glomerular Filt Rate 50; Glucose Random 80 mg/dL (60-115); HDL Cholesterol 31 mg/dL (>40); LDL Cholesterol Calculated 106 mg/dL (<100); Potassium 4.2 mmol/L (3.3-5.1); Sodium 141 mmol/L (135-145); Total Protein 7.9 g/dL (6.5-8.0); Triglycerides 341 mg/dL (<150)
== END 2024-01-19 13:45 | disposition home or self-care (01) ==
LOC: HO.HHCL 13:44
PROVIDERS: Referring Provider Nurse Practitioner Family; Visit Provider Internal Medicine
DX: I10 Essential (primary) hypertension (principal); I63.9 Cerebral infarction, unspecified; F01.50 Vascular dementia, unspecified severity, without behavioral disturbance, psychotic disturbance, mood disturbance, and anxiety; E78.2 Mixed hyperlipidemia
CPT/HCPCS: 36415; 80053; 80061; 85025

== ENCOUNTER 2024-05-24 12:19 | Outpatient (REF) | payer OTHER, SELFPAY ==
[2024-05-24 13:53] LABS: Anion Gap 9 (12-20); Blood Urea Nitrogen 16 mg/dL (9-16); Calcium 8.4 mg/dL (8.4-10.2); Carbon Dioxide 24 mmol/L (22-29); Chloride 111 mmol/L (96-108); Estimated Glomerular Filt Rate > 60; Glucose Random 106 mg/dL (60-115); Potassium 3.9 mmol/L (3.3-5.1); Sodium 140 mmol/L (135-145)
--- OUTSIDE RECORDS SUMMARY | 2024-05-24 16:07 | XMS_ITS | Encounter Summary ---
Author Organization [employer] Address [address] [facility] [address] [place] [address] Care Team Providers Care Game Programer Name Role Phone Felipe Rogers MD Primary Care Provide r Annabel Hope PharmD Unavailable [phone] Reason for Visit * Reason Onset Date Comments Durable Medical Equipment 11/11/2023 Encounter Details Date Type Department Care Team (Late st Contact Info) Description 11/11/2023 Telephone [facility] [address] [place], [place] [phone] Felipe Rogers MD [address] [place], [place] [phone] Durable Medical Equipment Social History Tobacco Use Types Packs/Day Years Used Date Smoking Tobacco: Never Passive Smoke Exposure: Never Smokeless Tobacco: Never Alcohol Use Standard Drinks/Week Comments Never 0 (1 standard drink = 0.6 oz pur e alcohol) Depression Answer Date Recorded Patient Health Questionnaire-9 Score 11 06/28/2023 Patient Health Questionnaire-9 Score 11 06/28/2023 Last PHQ-9: Questionnaire Data Not on file 0 06/28/2023 Housing Stability Answer Date Recorded What is your housing situation today? I have faizan mcdermott 06/03/[address] you li ve. Do you have problems with any of the following? None of the above 06/03/2023 Food Insecurity Answer Date Recorded Within the past 12 months, y ou worried that your food would run out before you got money to buy more: Never True 06/03/2023 Within the past 12 months,th e food you bought just didn't last and you didn't have enough money to get more: Never True 12/2023 Transportation Answer Date Recorded In the past 12 months, has l ack of transportation kept you from medical appts, meetings, work or from getting things needed for daily living? No 06/03/2023 Utilities Answer Date Recorded In the past 12 months, has t he electric, gas, oil or water company threatened to shut off services in your home? No 06/03/2023 Depression Answer Date Recorded Patient Health Questionnaire-2 Score 3 06/28/2023 Sex and Gender Information Value Date Recorded Sex Assigned at Male 02/22/2022 10:14 AM EDT Legal Sex Male 10:14 AM EDT Gender Identity Male 02/22/2022 10:14 AM EDT Sexual Orientation Choose not to disclose 2021 10:14 AM EDT documented as of this encounter Miscellaneous Notes * Telephone Encounter - Marilyn Hope - 11/11/2023 2:04 PM EDT Tc from Leah requesting DME (Electric recliner) To be fax to [employer] documented in this encounter Plan of Treatment Upcoming Encounters Date Type Department Care Team (Late st Contact Info) Description 05/28/2024 11:30 AM EST Medication Management [facility] [address] [place] [address] Annabel Hope PharmD [address] [place] [address] documented as of this encounter Visit Diagnoses Not on filedocumented in this encounter Additional Health Concerns Assessment Noted Time PHQ-9 Depression Total Score: 11 024 10:52 AM EST documented as of this encounter Care Teams Game Programer Relationship Specialty Start Date End Date Felipe Rogers MD [address] [place] [id number] PCP - General Internal Medicine 03/16/16 Annabel Hope PharmD [address] [place] [id number] Pharmacist Internal Medicine 03/30/24 [employer] 09/03/23 documented as of this encounter
--- OUTSIDE RECORDS SUMMARY | 2024-05-24 16:07 | XMS_ITS | Encounter Summary ---
Author Organization [facility] Address [address] [place] [address] 7 [place] [address] Care Team Providers Care Supervisor Byproducts Name Role Phone Felipe Rogers MD Primary Care Provide r Annabel Hope PharmD Unavailable [phone] Encounter Details Date Type Department Care Team (Late st Contact Info) Description 04/14/2022 Orders Only [facility] [address] [place] [address] Fartun Mesa LPN Social History Tobacco Use Types Packs/Day Years Used Date Smoking Tobacco: Never Assessed Sex and Gender Information Value Date Recorded Sex Assigned at Male 02/22/2022 10:14 AM EDT Legal Sex Male 10:14 AM EDT Gender Identity Male 02/22/2022 10:14 AM EDT Sexual Orientation Choose not to disclose 2021 10:14 AM EDT documented as of this encounter Plan of Treatment Upcoming Encounters Date Type Department Care Team (Late st Contact Info) Description 05/28/2024 11:30 AM EST Medication Management [facility] [address] [place] [address] Annabel Hope PharmD [address] [place] [address] documented as of this encounter Visit Diagnoses Not on filedocumented in this encounter Care Teams Supervisor Byproducts Relationship Specialty Start Date End Date Felipe Rogers MD [address] [place] [address] PCP - General Internal Medicine 03/16/16 Annabel Hope PharmD [address] [place] [phone] Pharmacist Internal Medicine 03/30/24 [email or web address] 09/03/23 documented as of this encounter
--- OUTSIDE RECORDS SUMMARY | 2024-05-24 16:07 | XMS_ITS | Encounter Summary ---
Author Organization [employer] Address [address] [facility] [address] [place] [address] Care Team Providers Care Upsetter Helper Name Role Phone Felipe Rogers MD Primary Care Provide r Annabel Hope PharmD Unavailable [phone] Reason for Visit * Reason Comments Pre-visit Planning SDOH Screening negat zeyad and Tobacco screening negative Encounter Details Date Type Department Care Team ([facility] st Contact Info) Description 05/11/2024 Patient Outreach [facility] [address] [place], [place] [phone] Felipe Rogers MD [address] [place], [place] [phone] Pre-visit Planning (SDOH Screening negative and Tobacco screening negative) Social History Tobacco Use Types Packs/Day Years Used Date Smoking Tobacco: Never Passive Smoke Exposure: Never Smokeless Tobacco: Never Alcohol Use Standard Drinks/Week Comments Never 0 (1 standard drink = 0.6 oz pur e alcohol) Depression Answer Date Recorded Patient Health Questionnaire-9 Score 0 01/19/2024 Patient Health Questionnaire-9 Score 0 01/19/2024 Last PHQ-9: Questionnaire Data Not on file 0 01/19/2024 Housing Stability Answer Date Recorded What is [...] Answer Date Recorded Patient Health Questionnaire-2 Score 0 01/19/2024 Internet Access Answer Date Recorded Internet Access Q1 Yes 05/11/2024 Internet Access Q2 Not on file 05/11/2024 Sex and Gender Information Value Date Recorded Sex Assigned at Male 02/22/2022 10:14 AM EDT Legal Sex Male 10:14 AM EDT Gender Identity Male 02/22/2022 10:14 AM EDT Sexual Orientation Choose not to disclose 2021 10:14 AM EDT documented as of this encounter Progress Notes * Jennifer Aviles - 05/11/2024 2:19 PM EST CC Jennifer Tyler placed successful outbound call to patient for pre-visit planning. Patient name and confirmed. Patient confirms appt date and time, and has transportation arrangements. Biggest concern for appointment at this time is no concerns for now. Patient advised to bring to appointment a photo id and insurance card. Appropriate screenings completed in anticipation of appointment. documented in this encounter Plan of Treatment Upcoming Encounters Date Type Department Care Team (Late st Contact Info) Description 05/28/2024 11:30 AM EST Medication Management [facility] [address] [place] [address] Annabel Hope, PharmD [address] [place] [address] documented as of this encounter Visit Diagnoses Not on filedocumented in this encounter Additional Health Concerns Assessment Noted Time PHQ-9 Depression Total Score: 0 01/19/20 24 1:15 PM EDT documented as of this encounter Care Teams Upsetter Helper Relationship Specialty Start Date End Date Felipe Rogers MD [address] [place] [address] PCP - General Internal Medicine 03/16/16 Annabel Hope PharmD [address] [place] [address] Pharmacist Internal Medicine 03/30/24 [facility] 09/03/23 documented as of this encounter
--- OUTSIDE RECORDS SUMMARY | 2024-05-24 16:07 | XMS_ITS | Clinical Summary ---
Author Organization [facility] Address [address] [place] [address] Phone Care Team Providers Care Signal Operator Technical Name Role Phone Felipe Barrett MD Primary Care Provi caron Allergies Active Allergy Reactions Criticality Noted Date Comments Morphine Unknown 09/11/2023 Niacin 09/11/2023 Other Reaction(s): PER PACU ASSESSMENT Medications Medication Sig Dispensed Refills Start Date End Date Status atorvastatin (LIPITOR) 80 mg tablet Take 1 tablet (80 mg total) by mouth at bedtime. 11/02/2023 Active clopidogreL (PLAVIX) 75 mg tablet Take 1 tablet (75 mg total) by mouth 1 (one) time each day in the morning. 11/29/2023 Active famotidine (PEPCID) 20 mg tablet Take 1 tablet (20 mg total) by mouth 2 times daily. 12/22/2020 Active hydrALAZINE (APRESOLINE) 50 mg tablet 1 tablet (50 mg total) 3 (three) times a day. Active memantine (NAMENDA) 10 mg tablet Take 1 tablet (10 mg total) by mouth 2 (two) times a day. Active metoprolol succinate (TOPROL-XL) 25 mg 24 hr tablet Take 1 tablet (25 mg total) by mouth 1 (one) time each day in the morning. Active Januvia 50 mg tablet Take 1 tablet (50 mg total) by mouth 1 (one) time each day. 03/28/2024 Active terazosin (HYTRIN) 2 mg capsule Take 1 capsule (2 mg total) by mouth 1 (one) time each day in the evening. Active valsartan (DIOVAN) 320 mg tablet Take 1 tablet (320 mg total) by mouth 1 (one) time each day in the morning. Active furosemide (LASIX) 20 mg tablet Take 1 tablet (20 mg total) by mouth 1 (one) time each day. Active insulin degludec (TRESIBA) 100 unit/mL injection Inject 40 Units under the skin at bedtime. 05/02/2024 Active insulin degludec (TRESIBA) 100 unit/mL injection Inject 60 Units under the skin at bedtime. 05/02/2024 Discontinued Active Problems Problem Noted Date Diagnosed Date TIA (transient ischemic attack) 05/01/2024 Abdominal wall mass 04/26/2023 Vascular dementia, unspecifi ed severity, without behavioral disturbance, psychotic disturbance, mood disturbance, and anxiety 09/14/2022 Overview (05/01/2024): Last Assessment & Plan: Pt with hx of previous thalamic infarcts, now with c/o worsening forgetfulness. Most recent CT of brain 05/2022 showed brain volume loss Early Dementia ? Neurology consult with Dr Farr\ appreciated diagnosed with vasculr dementia started on Memantine 5 mg BID Diabetic peripheral neuropathy 05/13/2022 Overview (05/01/2024): Last Assessment & Plan: Pt with c/o bilateral LE pain described as burning, mainly on his lower legs and feet, with associated tingling EMG showed: [id number] axonal sensory motor peripheral neuropathy. On Gabapentin 300 mg po TID I recommended a transport wheelchair given his severe peripheral neuropathy Thalamic infarction 05/13/2022 Overview (05/01/2024): Last Assessment & Plan: Pt doing ok at the moment Previously admitted to [facility] after he had been c/o one week of left sided numbness. patient is very poor historian. He was initially brought o [facility] by ambulance to rule out CVA. CTA head and neck at that time was negative for acute stroke. He subsequently developed facial numbness and eventually was admitted to rule out TIA/CVA. MRI showed acute bilateral thalamic CVAs. He was seen by Neurology and Cardiology who recommended outpatient event monitor. Patient was seen by physical therapy recommended acute rehab however patient refused and was sent home with VNA. He was to continue aspirin 81 mg and his Lipitor was increased to 80 mg, he was also started on Plavix 75 mg daily. Pt reports left sided weakness, numbness and unsteady gait Pt has been already seen by Cardiology and was also seen by Dr Yordan Painter (Neurologist ) 12/24/2019 who recommended to continue aggressive risk factor modification Class 2 obesity 01/21/2022 Type 2 diabetes mellitus wit h diabetic chronic kidney disease 01/21/2022 Overview (05/01/2024): Pharmacotherapy: Updated 11/14/23 - Humalog Kiwkpen 13 units breakfast, 25 units with lunch and dinner. - Januvia 50mg daily - Tresiba 60 units daily History: Updated 11/14/23 Established CDTM 11/14/23. takes care of patient. Hx of CVA. Metformin in past, stopped - unknown. Januvia stopped in past due to beth infection in genital area. reports at home BG within 70-130 for fasting and less than 180 for post prandial. Discussed importance of DM control today. Not interested in using CGM, continue with onetouch fingerstick. - On ASA: Y - On Statin: Y - Last Eye Exam: unknown - Last Dental Exam: unknown Chronic back pain 07/17/2021 Overview (05/01/2024): Last Assessment & Plan: He has chronic low back pain Previous NCS showed evidence of a peroneal neuropathy and bilateral chronic lumbar radiculopathy, MRI of his LS spine was done on 06/04/2013 showed: Stable postsurgical changes after left-sided decompression at L4-L5. Stable small left paracentral disc extrusion, possibly contacting the ventral margin of the traversing left L5 nerve root. Left sided epidural enhancement compatible with granulation tissue/scar, unchanged. Otherwise stable minimal spondylosis. Of note pt has a Hx of chronic low back pain. Plan: Continue Tramadol 50 mg po q 8 hrs prn, add Tizanidine 2 mg q 8 hrs prn . He was seen at [facility] and completed PT with good results he was last seen 08/09/2018 Benign hypertensive renal disease 01/05/2021 Essential hypertension 01/05/2021 Hyperlipidemia 02/19/2013 Benign prostatic hyperplasia 10/07/2011 Erectile dysfunction 10/07/2011 Resolved Problems Problem Noted Date Diagnosed Date Resolved Date Hypokalemia 06/28/2023 05/02/2024 Encounters Date Type Department Care Team Description 05/01/2024 2:31 PM EST - 05/02/2024 5:48 PM EST Emergency [facility] [address] [place] [id number] Jovanni Jacome DO Bukalo, Nermina, MD Seralathan, Manikandan, MD TIA (transient ischemic attack) (Primary Dx); CLAUDY (acute kidney injury) ([facility]) Discharge Disposition: Home-Health Care Svc from Last 3 Months Medical History Medical History Date Comments Diabetes mellitus ([facility]) GERD (gastroesophageal reflux disease) Hypercholesteremia Hypertension Chronic kidney disease Neuromuscular disorder ([facility]) CVA (cerebral vascular accident) ([facility]) Social History Tobacco Use Types Packs/Day Years Used Date Smoking Tobacco: Never Smokeless Tobacco: Never Tobacco Cessation:Counseling Given: Not Answered Alcohol Use Standard Drinks/Week Comments Not Currently 0 (1 standard drink = 0.6 oz pur e alcohol) Interpersonal Safety Answer Date Record ed Physical Abuse 05/02/2024 Verbal Abuse 05/02/2024 Sex and Gender Information Value Date Recorded Sex Assigned at Not on file Gender Identity Not on file Sexual Orientation Not on file Job Start Date Occupation Industry Not on file Not on file Not on file Obstetrics History Last Filed Vital Signs Vital Sign Reading Time Taken Comments Blood Pressure 153/77 05/02/2024 11:23 AM EST Pulse 65 05/02/2024 11:23 AM EST Temperature 36.9 ??C (98.5 ??F) 05/02/2024 11:[address] Respiratory Rate 18 05/02/2024 11:23 AM EST Oxygen Saturation 97% 05/02/2024 11:23 AM EST Inhaled Oxygen Concentration - - Weight 91.2 kg (201 lb 1.6 oz) 05/01/2024 2:56 P M EST Height 167.6 cm (5' 6 ) 05/01/2024 2:56 PM EST Body Mass Index 32.46 05/01/2024 2:56 PM EST Plan of Treatment Health Maintenance Due Date Last Done Comments Diabetes: Annual Foot Exam 1965 Diabetes: Annual Retina Eye Exam 1965 Hepatitis B Vaccines (2 of 3 - 19+ 3-dose series) 10/13/2006 09/15/2006 Pneumococcal Vaccine: 65+ Years (2 of 2 - PCV) 03/03/2011 03/03/2010 RSV Immunization Patients 60+ Years Old (1 - Risk 60-74 years 1-dose series) 2015 Zoster Vaccines (3 of 3) 04/06/2019 02/09/2019, 02/24 Colorectal Cancer Screening: Colonoscopy 05/20/2023 Hepatitis C Screening 05/20/2023 Social Influencers of Health Screening 05/20/2023 COVID-19 Vaccine ( season) 2023 03/18/2021, 08/04/2020, 07/07/2020 Diabetes: Annual Urine Albumin-Creatinine Ratio (uACR) 05/01/2024 Diabetes: Blood Sugar Control Test (HGBA1C) 10/30/2024 05/02/2024, 01/19/2024 Depression Screening 01/18/2025 01/19/2024 Diabetes: Annual GFR (Glomerular Filtration Rate) 05/02/2025 05/02/2024, 05/01/2024 Falls Risk Assessment 05/02/2025 05/02/2024 Hypertension/CHF/CAD Annual BMP Blood Test 05/02/2025 05/02/2024, 05/01/2024 DTaP,Tdap,and Td Vaccines (3 - Td or Tdap) 03/16/2026 03/16/2016, 01/14/2006 Cholesterol Screening (Lipid Panel) 05/02/2029 05/02/2024, 01/19/2024 Influenza Vaccine Completed 01/19/2024, , 01/14/2022, Additional history exists HIB Vaccines Aged Out No longer eligi ble based on patient's age to complete this topic HPV Vaccines Aged Out No longer eligi ble based on patient's age to complete this topic Hepatitis A Vaccines Aged Out No long er eligible based on patient's age to complete this topic IPV Vaccines Aged Out No longer eligi ble based on patient's age to complete this topic MMR Vaccines Aged Out No longer eligi ble based on patient's age to complete this topic Meningococcal ACWY Vaccine Aged Out N o longer eligible based on patient's age to complete this topic RSV Immunization Patients Under 20 months Aged Out No longer eligible based on patient's age to complete this topic Varicella Vaccines Aged Out No longer eligible based on patient's age to complete this topic Procedures Procedure Name Priority Date/Time Associated Diagnosis Comments POCT GLUCOSE BLOOD Routine 05/02/2024 11 :23 AM EST POCT GLUCOSE BLOOD Routine 05/02/2024 8: 02 AM EST HEMOGLOBIN A1C Routine 05/02/2024 5:59 AM EST LIPID PANEL WITH REFLEX TO DIRECT LDL Routine 05/02/2024 5:59 AM EST BASIC METABOLIC PANEL Routine 05/02/2024 5:59 AM EST POCT GLUCOSE BLOOD Routine 05/01/2024 8: 41 PM EST MR BRAIN WO CONTRAST Routine 05/01/2024 7:35 PM EST POCT GLUCOSE BLOOD Routine 05/01/2024 4: 40 PM EST XR CHEST 1 VIEW STAT 05/01/2024 4:23 PM EST CBC WITH AUTO DIFFERENTIAL STAT 05/01/2024 3:23 PM EST ACTIVATED PARTIAL THROMBOPLASTIN TIME STAT 05/01/2024 3:23 PM EST PROTHROMBIN TIME WITH INR STAT 05/01/2024 3:23 PM EST BASIC METABOLIC PANEL STAT 05/01/2024 3:23 PM EST CBC AND DIFFERENTIAL STAT 05/01/2024 3:23 PM EST ECG 12-LEAD STAT 05/01/2024 3:[address] ANGIO HEAD/NECK STROKE WO AND/OR W CONTRAST STAT 05/01/2024 2:[address] HEAD STROKE WO CONTRAST STAT 05/01/2024 2:50 PM EST ECG ANNOTATED 05/01/2024 from Last 3 Months Results * (ABNORMAL) POCT Glucose, blood (05/02/2024 11:23 AM EST) Only the most recent of4 resultswithin the time period is included. Glucose POCT 254(H) 70 - 100 mg/dL 05/02/2024 11:24 AM EST [facility] Blood Capillary blood specimen / Unknown 05/02/2024 11:23 AM EST 05/02/2024 11:26 AM EST Devan Li MD LAB POINT OF CA RE TEST DOCKED DEVICE UNSOLICITED RESULTS [facility] [address] [place] [address], [place] [phone] * (ABNORMAL) Lipid panel with reflex to direct LDL (05/02/2024 5:59 AM EST) [facility] Cholesterol 196 0 - 200 mg/dL LAB CHEMISTRY METHOD 05/02/2024 8:24 AM EST [facility] Triglycerides 280(H) 0 - 150 mg/dL LAB CHEMISTRY METHOD 05/02/2024 8:24 AM EST [facility] HDL 36(L) >=40 mg/dL LAB CHEMISTRY METHOD 05/02/2024 8:24 AM EST [facility] LDL Calculated 104(H) 0 - 100 mg/dL LAB CHEMISTRY METHOD 05/02/2024 8:24 AM [facility] VLDL Cholesterol Naman 56 mg/dL LAB CHEMISTRY METHOD 05/02/2024 8:24 AM [facility] Non HDL Chol. (LDL+VLDL) 160(H) <145 mg/dL LAB CHEMISTRY METHOD 05/02/2024 8:24 AM EST [facility] Chol/HDL Ratio 5.4(H) 0.0 - 4.4 LAB CHEMISTRY METHOD 05/02/2024 8:24 AM EST [facility] Blood Venous blood specimen / Unknown Venipuncture / Unknown 05/02/2024 5:59 AM EST 05/02/2024 7:17 AM EST Riri CHAMORRO LAB BLOOD ORDERABLES Performing Organization Address City/[facility]/ZIP Co de Phone Number [facility] [address] [place] [address], * (ABNORMAL) Hemoglobin A1c (05/02/2024 5:59 AM EST) Hemoglobin A1C 7.5(H) <6.5 % LAB CHEMISTRY METHOD 05/02/2024 1:04 PM EST [facility] Mean Bld Glu Estim. 169 mg/dL LAB CHEMISTRY METHOD 05/02/2024 1:04 PM EST [facility] Blood Venous blood specimen / Unknown Venipuncture / Unknown 05/02/2024 5:59 AM EST 05/02/2024 7:16 AM EST Riri CHAMORRO LAB BLOOD ORDERABLES Performing Organization Address City/[facility]/ZIP Co de Phone Number [facility] [address] [place] [address], [place] [phone] * (ABNORMAL) Basic metabolic panel (05/02/2024 5:59 AM EST) Only the most recent of2 resultswithin the time period is included. Sodium 140 133 - 145 mmol/L LAB CHEMISTRY METHOD 05/02/2024 8:24 AM EST [facility] Potassium 3.7 3.5 - 5.5 mmol/L LAB CHEMISTRY METHOD 05/02/2024 8:24 AM [facility] Chloride 107 96 - 110 mmol/L LAB CHEMISTRY METHOD 05/02/2024 8:24 AM [facility] CO2 25 21 - 32 mmol/L LAB CHEMISTRY METHOD 05/02/2024 8:24 AM [facility] Anion Gap 8 3 - 11 LAB CHEMISTRY METHOD 05/02/2024 8:24 AM [facility] Glucose 221(H) 70 - 100 mg/dL LAB CHEMISTRY METHOD 05/02/2024 8:24 AM [facility] BUN 17 5 - 25 mg/dL LAB CHEMISTRY METHOD 05/02/2024 8:24 AM [facility] Creatinine 1.36(H) 0.70 - 1.30 mg/dL LAB CHEMISTRY METHOD 05/02/2024 8:24 AM [facility] eGFR 56(L) >=60 mL/min/1. 73m2 LAB CHEMISTRY METHOD 05/02/2024 8:24 AM [facility] Comment:Calculation based on the??Chronic Kidney Disease Epidemiology Collaboration (CKD-EPI) equation refit??without adjustment for race. BUN/Creatinine Ratio 12.5 LAB CHEMISTRY METHOD 05/02/2024 8:24 AM [facility] Calcium 8.3(L) 8.5 - 10.5 mg/dL LAB CHEMISTRY METHOD 05/02/2024 8:24 AM [facility] Blood Venous blood specimen / Unknown Venipuncture / Unknown 05/02/2024 5:59 AM EST 05/02/2024 7:17 AM EST Cordell Centeno MD LAB BLOOD ORDERABLES [facility] [address] [place] [address], * MR Brain wo Contrast (05/01/2024 7:35 PM EST) Anatomical Region Laterality Modality Head and Neck Magnetic Resonan ce 05/01/2024 7:52 PM EST Impressions 05/01/2024 7:52 PM EST Impression: 1. No acute intracranial abnormalities. This document has been electronically signed by: Juan M Kiran MD on 05/01/2024 19:52:31 Narrative 05/01/2024 7:52 PM EST Exam: Nonenhanced MRI brain. Comparison: None. Findings: There is no cerebral edema or mass effect. White matter reveals diffuse multifocal areas of T2 hyperintensity common nonspecific although likely sequela of chronic microangiopathic ischemic disease. Moderate involutional changes are present.. Diffusion weighted imaging reveals no restricted diffusion or MR evidence of acute ischemia. Susceptibility weighted imaging reveals no susceptibility artifact or evidence of intracranial hemorrhage. No sellar or parasellar lesions. Ventricular size and configuration are within normal limits. Cerebral cisterns are preserved. No significant signal abnormality seen within the paranasal sinuses or mastoid air cells. Preserved flow signal voids are present within visualized intracranial vasculature. Procedure Note Juan M Kiran MD - 05/01/2024 Exam: Nonenhanced MRI brain. Comparison: None. Findings: There is no cerebral edema or mass effect. White matterreveals diffuse multifocal areas of T2 hyperintensity common nonspecificalthough likely sequela of chronic microangiopathic ischemic disease. Moderate involutional changes are present.. Diffusion weighted imaging reveals no restricted diffusion or MR evidence of acute ischemia. Susceptibility weighted imaging reveals no susceptibility artifact or evidence of intracranial hemorrhage. No sellar or parasellar lesions. Ventricular size and configuration are within normal limits. Cerebral cisterns are preserved. No significant signal abnormality seen within the paranasal sinuses or mastoid air cells. Preserved flow signal voids are present within visualized intracranial vasculature. IMPRESSION: Impression: 1. No acute intracranial abnormalities. This document has been electronically signed by: Juan M Kiran MD on 05/01/2024 19:52:31 Riri CHAMORRO IMG MRI PROCEDURES * XR Chest 1 View (05/01/2024 4:23 PM EST) Anatomical Region Laterality Modality Body Radiographic Dilma ging 05/01/2024 4:30 PM EST Impressions 05/01/2024 4:31 PM EST Impression: 1. Poor inspiration. 2. No active pulmonary process. Telerad ASHTYN ([id number]) -------- FINAL REPORT -------- Dictated By: Mayte Quinteros Dictated Date: 05/01/2024 16:30 ET Assigned Physician: Mayte Quinteros Reviewed and Electronically Signed By: Mayte Quinteros Signed Date: 05/01/2024 16:31 ET Workstation ID: [id number] Transcribed By: Self Edit Transcribed Date: 05/01/2024 16:30 ET Narrative 05/01/2024 4:31 PM EST History: Stroke. Comparison: 06/17/23 Findings: Portable AP upright chest at 4:20 PM. This is a poor inspiration. The cardiac silhouette appears mildly enlarged, unchanged. Hilar contours and pulmonary vascularity appear normal. The lungs are grossly clear. The costophrenic angles are sharp. Procedure Note Mayte Quinteros MD - 05/01/2024 History: Stroke. Comparison: 06/17/23 Findings: Portable AP upright chest at 4:20 PM. This is a poor inspiration. Thecardiac silhouette appears mildly enlarged, unchanged. Hilar contours andpulmonary vascularity appear normal. The lungs are grossly clear. Thecostophrenic angles are sharp. IMPRESSION: Impression: 1. Poor inspiration. 2. No active pulmonary process. Telerad ASHTYN ([id number]) -------- FINAL REPORT -------- Dictated By: Mayte Quinteros Dictated Date: 05/01/2024 16:30 ET Assigned Physician: Mayte Quinteros Reviewed and Electronically Signed By: Mayte Quinteros Signed Date: 05/01/2024 16:31 ET Workstation ID: [id number] Transcribed By: Self Edit Transcribed Date: 05/01/2024 16:30 ET Jovanni Jacome DO IMG XR PROCEDURES * (ABNORMAL) CBC auto differential (05/01/2024 3:23 PM EST) WBC 9.0 4.8 - 10.8 K/mcL LAB HEMETOLOGY METHOD 05/01/2024 3:49 PM [facility] RBC 4.50 4.50 - 5.50 M/mcL LAB HEMETOLOGY METHOD 05/01/2024 3:49 PM [facility] Hemoglobin 13.8 13.5 - 17.5 g/dL LAB HEMETOLOGY METHOD 05/01/2024 3:49 PM [facility] Hematocrit 41.0(L) 42.0 - 54.0 % LAB HEMETOLOGY METHOD 05/01/2024 3:49 PM [facility] MCV 90.9 79.0 - 98.0 FL LAB HEMETOLOGY METHOD 05/01/2024 3:49 PM [facility] MCH 30.6 27.0 - 32.0 pcg LAB HEMETOLOGY METHOD 05/01/2024 3:49 PM [facility] MCHC 33.7 32.0 - 37.0 g/dL LAB HEMETOLOGY METHOD 05/01/2024 3:49 PM [facility] RDW 13.0 11.0 - 15.0 % LAB HEMETOLOGY METHOD 05/01/2024 3:49 PM [facility] Platelets 173 130 - 400 K/mcL LAB HEMETOLOGY METHOD 05/01/2024 3:49 PM [facility] MPV 11.6(H) 7.0 - 11.0 FL LAB HEMETOLOGY METHOD 05/01/2024 3:49 PM [facility] NRBC 0.0 <1.0 % LAB HEMETOLOGY METHOD 05/01/2024 3:49 PM [facility] NRBC Absolute 0.00 <0.10 K/mcL LAB HEMETOLOGY METHOD 05/01/2024 3:49 PM [facility] Neutrophils Relative 71.8 % LAB HEMETOLOGY METHOD 05/01/2024 3:49 PM [facility] Lymphocytes Relative 17.7 % LAB HEMETOLOGY METHOD 05/01/2024 3:49 PM [facility] Monocytes Relative 8.0 % LAB HEMETOLOGY METHOD 05/01/2024 3:49 PM [facility] Eosinophils Relative 1.6 % LAB HEMETOLOGY METHOD 05/01/2024 3:49 PM [facility] Basophils Relative 0.3 % LAB HEMETOLOGY METHOD 05/01/2024 3:49 PM [facility] Immature Granulocytes Relative 0.6 % LAB HEMETOLOGY METHOD 05/01/2024 3:49 PM [facility] Neutrophils Absolute 6.49 1.50 - 7.00 K/mcL LAB HEMETOLOGY METHOD 05/01/2024 3:49 PM [facility] Lymphocytes Absolute 1.60 1.00 - 5.00 K/mcL LAB HEMETOLOGY METHOD 05/01/2024 3:49 PM [facility] Monocytes Absolute 0.72 0.20 - 1.00 K/mcL LAB HEMETOLOGY METHOD 05/01/2024 3:49 PM [facility] Eosinophils Absolute 0.14 0.00 - 0.50 K/mcL LAB HEMETOLOGY METHOD 05/01/2024 3:49 PM [facility] Basophils Absolute 0.03 0.00 - 0.20 K/mcL LAB HEMETOLOGY METHOD 05/01/2024 3:49 PM [facility] Immature Granulocytes Absolute 0.05(H) 0.00 - 0.03 K/mcL LAB HEMETOLOGY METHOD 05/01/2024 3:49 PM [facility] Blood Venous blood specimen / Unknown Venipuncture / Unknown 05/01/2024 3:23 PM EST 05/01/2024 3:45 PM EST Jovanni Jacome DO LAB BLOOD ORDERABLE S Performing Organization Address [facility]/ZIP Co de Phone Number [facility] [address] [place] [address], [place] [phone] * Activated partial thromboplastin time (05/01/2024 3:23 PM EST) aPTT 31.2 24.1 - 39.3 sec LAB COAGULATION METHOD 05/01/2024 3:59 PM EST [facility] Blood Venous blood specimen / Unknown Venipuncture / Unknown 05/01/2024 3:23 PM EST 05/01/2024 3:45 PM EST Jovanni Martin Michaelmatimaggie LAB BLOOD ORDERABLE S Performing Organization Address [facility] Co de Phone Number [facility] [address] [place] [address], * Prothrombin time with INR (05/01/2024 3:23 PM EST) Pathologist [facility] Protime 11.7 10.6 - 13.9 sec LAB COAGULATION METHOD 05/01/2024 3:59 PM EST [facility] INR 0.9 LAB COAGULATION METHOD 05/01/2024 3:59 PM EST [facility] Blood Venous blood specimen / Unknown Venipuncture / Unknown 05/01/2024 3:23 PM EST 05/01/2024 3:45 PM EST Jovanni Jacome DO LAB BLOOD ORDERABLE S Performing Organization Address City/[facility]/ZIP Co de Phone Number [facility] [address] [place] [address], [place] [phone] * ECG 12 lead (05/01/2024 3:02 PM EST) Ventricular Rate ECG 59 BPM GEMUSE Atrial Rate 59 BPM GEMUSE P-R Interval 148 ms GEMUSE QRS Duration 92 ms GEMUSE Q-T Interval 448 ms GEMUSE QTc 443 ms GEMUSE P Wave [place] 27 degrees GEMUSE T [place] 116 degrees GEMUSE ECG Interpretation Sinus bradycardia Voltage criteria for left ventricular hypertrophy Nonspecific T wave abnormality Abnormal ECG When compared with ECG of 11-SEP-2023 13:06, No significant change was found Confirmed by KIRILL WHALEY ([id number]) on 05/01/2024 8:44:40 PM GEMUSE 05/01/2024 3:02 PM EST 05/01/2024 8:44 PM EST Jovanni Jacome DO ECG ORDERABLES GEMUSE * CT Head Stroke wo Contrast (05/01/2024 2:50 PM EST) Anatomical Region Laterality Modality Head and Neck Computed Tomogra phy 05/01/2024 2:50 PM EST Impressions 05/01/2024 2:56 PM EST Impression: 1. No acute hemorrhage or intracranial mass effect. 2. 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 3. Extensive, nonspecific deep white matter changes compatible with chronic microvascular ischemia. The findings were conveyed to the referring provider at the time of interpretation on 05/01/24 by secure text message (Spreedly). Liliya CHAMORRO ([id number]) A Critical Document Only message has been documented for the office of JOVANNI JACOME in the [employer] Actionable Findings ??system on 05/01/2024 2:56 PM, Message ID [id number]. -------- FINAL REPORT -------- Dictated By: Mayte Quinteros Dictated Date: 05/01/2024 14:50 ET Assigned Physician: Mayte Quinteros Reviewed and Electronically Signed By: Mayte Quinteros Signed Date: 05/01/2024 14:56 ET Workstation ID: [id number] Transcribed By: Self Edit Transcribed Date: 05/01/2024 14:50 ET Narrative 05/01/2024 2:56 PM EST History: Stroke. Comparison: 09/11/23, brain MRI 09/11/23 Technique: Contiguous axial images were obtained at 2.5 mm intervals through the posterior fossa and at 5 mm intervals through the remainder of the brain without intravenous contrast. DLP: 808.85 mGy/cm GE Ici Montreuilpeed VCT Iterative reconstruction technique Findings: Moderate generalized cerebral volume loss is again demonstrated. Extensive patchy deep white matter hypodensity is again seen bilaterally, unaccompanied by mass effect or hemorrhage and unchanged. A chronic right thalamic lacunar infarct is again seen. There are discrete foci of diminished attenuation within the left paramidline uriah, consistent with a lacunar infarct, now chronic, that was acute at the time of the previous study. Chronic pontine small vessel ischemic changes are noted to the right of midline, unchanged. No abnormal intra- or extraaxial masses or fluid collections are seen. There is no evidence of acute intracranial hemorrhage. The included portions of the paranasal sinuses and mastoid air cells are clear. The calvarium is intact. Procedure Note Mayte Quinteros MD - 05/01/2024 History: Stroke. Comparison: 09/11/23, brain MRI 09/11/23 Technique: Contiguous axial images were obtained at 2.5 mm intervalsthrough the posterior fossa and at 5 mm intervals through the remainder ofthe brain without intravenous contrast. DLP: 808.85 mGy/cm GE Ici Montreuilpeed VCT Iterative reconstruction technique Findings: Moderate generalized cerebral volume loss is again demonstrated. Extensivepatchy deep white matter hypodensity is again seen bilaterally,unaccompanied by mass effect or hemorrhage and unchanged. A chronic rightthalamic lacunar infarct is again seen. There are discrete foci ofdiminished attenuation within the left paramidline uriah, consistent with alacunar infarct, now chronic, that was acute at the time of the previousstudy. Chronic pontine small vessel ischemic changes are noted to theright of midline, unchanged. No abnormal intra- or extraaxial masses or fluid collections are seen.There is no evidence of acute intracranial hemorrhage. The included portions of the paranasal sinuses and mastoid air cells areclear. The calvarium is intact. IMPRESSION: Impression: 1. No acute hemorrhage or intracranial mass effect. 2. 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 3. Extensive, nonspecific deep white matter changes compatible withchronic microvascular ischemia. The findings were conveyed to the referring provider at the time ofinterpretation on 05/01/24 by secure text message (haiku). Telerad ASHTYN ([id number]) A Critical Document Only message has been documented for the office ofMACHRISTEL JACOME in the [employer] system on05/01/2024 2:56 PM, Message ID [id number]. -------- FINAL REPORT -------- Dictated By: Mayte Quinteros Dictated Date: 05/01/2024 14:50 ET Assigned Physician: Mayte Quinteros Reviewed and Electronically Signed By: Mayte Quinteros Signed Date: 05/01/2024 14:56 ET Workstation ID: [id number] Transcribed By: Self Edit Transcribed Date: 05/01/2024 14:50 ET Jovanni Jacome DO IMG CT PROCEDURES * CT Angio Head/Neck Stroke wo and/or w Contrast (05/01/2024 2:50 PM EST) Anatomical Region Laterality Modality Head and Neck Computed Tomogra phy 05/01/2024 3:18 PM EST Impressions 05/01/2024 3:27 PM EST Stable exam compared to 09/11/2023. ??No high-grade stenosis or occlusion in the cervical or intracranial arterial vasculature. -------- FINAL REPORT -------- Dictated By: DOC MOSQUERA Dictated Date: 05/01/2024 15:18 ET Assigned Physician: DOC MOSQUERA Reviewed and Electronically Signed By: DOC MOSQUERA Signed Date: 05/01/2024 15:27 ET Workstation ID: [id number] Transcribed By: Self Edit Transcribed Date: 05/01/2024 15:18 ET Narrative 05/01/2024 3:27 PM EST PROCEDURE: Head/neck CTA INDICATION: Stroke TECHNIQUE: CTA of the head and neck with intravenous contrast. Multiplanar reformats. The examination was performed utilizing dose reduction techniques.3-D or MIP images were produced with postprocessing on an independent computer workstation. ??90 mL [id number]-370 injected intravenously without complication. COMPARISON: ??Same day head CT and CTA 09/11/2023 FINDINGS: ?? CTA Neck: There is a left-sided aortic arch. Major branching arteries arising from the aortic arch are patent. Common carotid and internal carotid arteries are patent in the neck. Cervical vertebral arteries are patent. Visualized lung apices are clear. ??Small left paraspinal lipoma at the level of C4 posteriorly. ??Soft tissues of the neck are otherwise within normal limits.. ??Mild degenerative changes seen throughout the cervical spine. CTA Head: Intracranial portions of the internal carotid arteries are patent. ??Atherosclerotic irregularity and calcified plaque throughout the carotid siphons without significant stenosis. M1 and A1 segments are patent. Distal middle cerebral and anterior cerebral arteries are patent. Vertebrobasilar system is patent. Unchanged narrowing of the distal right intracranial vertebral artery. ??Left intracranial vertebral artery is dominant. Unchanged atherosclerotic irregularity of the left posterior cerebral artery at the mid P2 segment without high-grade stenosis. ??Superior cerebellar and posterior cerebral arteries are patent. No intracranial aneurysm or vascular malformation. Procedure Note Doc Mosquera MD - 05/01/2024 PROCEDURE: Head/neck CTA INDICATION: Stroke TECHNIQUE: CTA of the head and neck with intravenous contrast. Multiplanarreformats. The examination was performed utilizing dose reductiontechniques.3-D or MIP images were produced with postprocessing on anindependent computer workstation. 90 mL ISOVUE-370 injected intravenouslywithout complication. COMPARISON: Same day head CT and CTA 09/11/2023 FINDINGS: CTA Neck: There is a left-sided aortic arch. Major branching arteries arising from the aortic arch are patent. Commoncarotid and internal carotid arteries are patent in the neck. Cervicalvertebral arteries are patent. Visualized lung apices are clear. Small left paraspinal lipoma at thelevel of C4 posteriorly. Soft tissues of the neck are otherwise withinnormal limits.. Mild degenerative changes seen throughout the cervicalspine. CTA Head: Intracranial portions of the internal carotid arteries are patent.Atherosclerotic irregularity and calcified plaque throughout the carotidsiphons without significant stenosis. M1 and A1 segments are patent. Distal middle cerebral and anteriorcerebral arteries are patent. Vertebrobasilar system is patent. Unchanged narrowing of the distal rightintracranial vertebral artery. Left intracranial vertebral artery isdominant. Unchanged atherosclerotic irregularity of the left posterior cerebralartery at the mid P2 segment without high-grade stenosis. Superiorcerebellar and posterior cerebral arteries are patent. No intracranial aneurysm or vascular malformation. IMPRESSION: Stable exam compared to 09/11/2023. No high-grade stenosis or occlusionin the cervical or intracranial arterial vasculature. -------- FINAL REPORT -------- Dictated By: DOC MOSQUERA Dictated Date: 05/01/2024 15:18 ET Assigned Physician: DOC MOSQUERA Reviewed and Electronically Signed By: DOC MOSQUERA Signed Date: 05/01/2024 15:27 ET Workstation ID: [id number] Transcribed By: Self Edit Transcribed Date: 05/01/2024 15:18 ET Jovanni Jacome DO IMG CT PROCEDURES * ECG-Annotated (05/01/2024) Provider Onbase ECG ORDERABLES from Last 3 Months Advance Directives Documents on File Type Date Recorded Patient X Ray Physician Expl anation Health Care Decision (hx) 09/13/2023 Leah MORGAN DIRECTIVE * Full Code - Default (Latest Code Status on File) Date Activated Date Inactivated Comments 05/01/2024 3:42 PM 05/02/2024 7:48 PM This is order is used when code status has not been discussed with the patient, or code status is otherwise unknown/unconfirmed To update the patient's code status, place a code status order. Do not modify or discontinue any currently active code status orders. Healthcare Agents on File Name Relationship Healthcare Agent [facility] Communication Leah Pitts Spouse Health Care Agent Care Teams Signal Operator Technical Relationship Specialty Start Date End Date Felipe Barrett MD [address] [place] [phone] PCP - General Internal Medicine 05/01/24
--- OUTSIDE RECORDS SUMMARY | 2024-05-24 16:07 | XMS_ITS | Encounter Summary ---
Author Organization [facility] Address [address] [facility] 7t [place] [address] Care Team Providers Care Rice Milling Supervisor Name Role Phone Felipe Rogers MD Primary Care Provide r Annabel Hope PharmD Unavailable [phone] Encounter Details Date Type Department Care Team (Late st Contact Info) Description 05/25/2023 Orders Only [facility] MEDICINE [address], [place] [phone] Edith Galeano MD [address] [place] [address] Social History Tobacco Use Types Packs/Day Years Used Date Smoking Tobacco: Never Passive Smoke Exposure: Never Smokeless Tobacco: Never Alcohol Use Standard Drinks/Week Comments Never 0 (1 standard drink = 0.6 oz pur e alcohol) Depression Answer Date Recorded Patient Health Questionnaire-9 Score 0 05/13/2022 Housing Stability Answer Date Recorded What is your housing situation today? I have faizan mcdermott 02/07/[address] you li ve. Do you have problems with any of the following? None of the above 02/07/2023 Food Insecurity Answer Date Recorded Within the past 12 months, y ou worried that your food would run out before you got money to buy more: Never True 02/07/2023 Within the past 12 months,th e food you bought just didn't last and you didn't have enough money to get more: Never True Transportation Answer Date Recorded In the past 12 months, has l ack of transportation kept you from medical appts, meetings, work or from getting things needed for daily living? No 02/07/2023 Utilities Answer Date Recorded In the past 12 months, has t he electric, gas, oil or water company threatened to shut off services in your home? No 02/07/2023 Depression Answer Date Recorded Patient Health Questionnaire-2 Score 0 05/13/2022 Sex and Gender Information Value Date Recorded [...] Description 05/28/2024 11:30 AM EST Medication Management [facility] MEDICINE [address] [place], [place] [phone] Annabel Hope, PharmD [address] [place], [place] [phone] documented as of this encounter Procedures Procedure Name Priority Date/Time Associated Diagnosis Comments DIRECT LDL Routine 05/25/2023 2:28 PM EST PHOSPHOLIPASE A2 RECEPTOR (PLA2R) AB PANEL Routine 05/25/2023 11:02 AM EST ALBUMIN, RANDOM URINE W/CREATININE Routine 05/25/2023 11:02 AM EST documented in this encounter Results * Direct LDL (05/25/2023 2:28 PM EST) LDL Direct 96 <100 mg/dL [facility] Comment:Greatly elevated Tri glycerides values (>1200 mg/dL)interfere with the dLDL assay. As no Triglyceridestesting was ordered, interpret results with caution.Desirable range <100 mg/dL for primary prevention;<70 mg/dL for patients with CHD or diabetic patientswith > or = 2 CHD risk factors.THIS TEST WAS PERFORMED AT:[facility] [place] [id number] GÓMEZ MD 05/25/2023 2:28 PM EST 05/25/2023 2:28 PM EST us Felipe Abrams MD LAB BLOOD ORDERABLES Final Result Performing Organization Address [facility] Co de Phone Number [facility] [address] [place] [phone] * Phospholipase A2 Receptor (PLA2R) Antibody Panel (05/25/2023 11:02 AM EST) Phospholipase A2 Receptor (PLA2R) Ab, CORONA <4 RU/mL [facility] Comment:Reference Range: <14 : NEGATIVE 14-19: BORDERLINE >19: POSITIVE Phospholipase A2 Receptor (PLA2R) Ab, IFA NEGATIVE NEGATIVE [facility] Comment:THIS TEST WAS PERFOR MED AT:[facility] [id number] [place] [id number] CURIEL MD,PHD,BAN 05/25/2023 11:0 2 AM EST 05/25/2023 1:03 PM EST us Generic External Data Provider LAB BLOOD ORDERAB LES Final Result Performing Organization Address [facility] Co de Phone Number [facility] [address] [place] [phone] * (ABNORMAL) Albumin, Random Urine W/Creatinine (05/25/2023 11:02 AM EST) Creatinine, Urine 158.46 mg/dL [facility] Microalbumin Urine >2,000.0 mg/L [facility] Microalbum Creatinine Ratio Ur 1,262.1(H ) <30 ug/mg cr [facility] Comment:Albumin/Creatinine R atio Reference Ranges: Normal: < 30 ug/mg creatinine Microalbuminuria: 30 - 300 ug/mg creatinineClinical Albuminuria: > 300 ug/mg creatinine 05/25/2023 11:0 2 AM EST 05/25/2023 1:21 PM EST us Generic External Data Provider LAB URINE ORDERAB LES Final Result [facility] [address] [place] [phone] [phone] documented in this encounter Visit Diagnoses Not on filedocumented in this encounter Additional Health Concerns Assessment Noted Time PHQ-9 Depression Total Score: 0 05/13/19 23 2:32 PM EST documented as of this encounter Care Teams Rice Milling Supervisor Relationship Specialty Start Date End Date Felipe Rogers MD [address] [place] [address] PCP - General Internal Medicine 03/16/16 Annabel Hope PharmD [address] [place] [address] Pharmacist Internal Medicine 03/30/24 [employer] 09/03/23 documented as of this encounter
--- OUTSIDE RECORDS SUMMARY | 2024-05-24 16:07 | XMS_ITS | Encounter Summary ---
Author Organization [facility] Address [address] [place] [address] 7 [place] [address] Care Team Providers Care Candles Pourer Name Role Phone Felipe Rogers MD Primary Care Provide r Annabel Hope PharmD Unavailable [phone] Reason for Visit * Reason Comments Med Refill Encounter Details Date Type Department Care Team (Late st Contact Info) Description 04/01/2022 Refill [facility] [address] [place] [phone] Rosina Greer ANP [address] [place] [address] Social History Tobacco Use Types Packs/Day Years [...] Description 05/28/2024 11:30 AM EST Medication Management [facility] MEDICINE [address] [place] [address] Annabel Hope, PharmD [address] [place] [address] documented as of this encounter Visit Diagnoses Not on filedocumented in this encounter Care Teams Candles Pourer Relationship Specialty Start Date End Date Felipe Rogers MD [address] [place] [address] PCP - General Internal Medicine 03/16/16 Annabel Hope PharmD [address] [place] [address] Pharmacist Internal Medicine 03/30/24 [employer] 09/03/23 documented as of this encounter
--- OUTSIDE RECORDS SUMMARY | 2024-05-24 16:07 | XMS_ITS | Encounter Summary ---
Author Organization [employer] Address [address] [facility] 7t [place] [address] Care Team Providers Care Cask Maker Name Role Phone Felipe Rogers MD Primary Care Provide r Annable Hope PharmD Unavailable [phone] Reason for Visit * Reason Comments Med Refill Encounter Details Date Type Department Care Team (Late st Contact Info) Description 04/26/2024 Refill [facility] MEDICINE [address] [place], [place] [phone] Rosina Greer ANP [address] [place] [address] Diabetic peripheral neuropathy (CMS/HCC) Social History Tobacco Use Types Packs/Day Years [...] Recorded Patient Health Questionnaire-2 Score 0 01/19/2024 Sex and Gender Information Value Date Recorded [...] Description 05/28/2024 11:30 AM EST Medication Management [facility] [address] [place] [phone] Annabel Hope PharmD [address] [place] [address] documented as of this encounter Visit Diagnoses Diagnosis Diabetic peripheral neuropathy (CMS/HCC) Type II or unspecified type diabetes mellitus with neurological manifestations, not stated as uncontrolled documented in this encounter Additional Health Concerns Assessment Noted Time PHQ-9 Depression Total Score: 0 01/19/20 24 1:15 PM EDT documented as of this encounter Care Teams Cask Maker Relationship Specialty Start Date End Date Felipe Rogers MD [address] [place] [phone] PCP - General Internal Medicine 03/16/16 Annabel Hope PharmD [address] [place] [address] [phone] Pharmacist Internal Medicine 03/30/24 [employer] 09/03/23 documented as of this encounter
--- OUTSIDE RECORDS SUMMARY | 2024-05-24 16:07 | XMS_ITS | Encounter Summary ---
Author Organization [employer] Address [address] [facility] 7t [place] [address] Care Team Providers Care Appliance Line Assembler Name Role Phone Felipe Rogers MD Primary Care Provide r Annabel Hope PharmD Unavailable [phone] Encounter Details Date Type Department Care Team (Late st Contact Info) Description 04/27/2024 Refill [facility] MEDICINE [address] [place], [place] [phone] Felipe Rogers MD [address] [place], [place] [phone] Diabetic peripheral neuropathy (CMS/HCC) Social History Tobacco [...] your housing situation today? I have faizan baldemar 06/03/[address] you li [...] Description 05/28/2024 11:30 AM EST Medication Management [facility] MEDICINE [address] [place] [phone] Annabel Hope PharmD [address] [place] [phone] documented as of this encounter Visit Diagnoses Diagnosis Diabetic peripheral neuropathy (CMS/[facility]) Type II or unspecified type diabetes mellitus with neurological manifestations, not stated as uncontrolled documented in this encounter Additional Health Concerns Assessment Noted Time PHQ-9 Depression Total Score: 0 01/19/20 24 1:15 PM EDT documented as of this encounter Care Teams Appliance Line Assembler Relationship Specialty Start Date End Date Felipe Rogers MD [address] [place] [phone] PCP - General Internal Medicine 03/16/16 Annabel Hope PharmD [address] [place] [phone] Pharmacist Internal Medicine 03/30/24 [employer] 09/03/23 documented as of this encounter
--- OUTSIDE RECORDS SUMMARY | 2024-05-24 16:07 | XMS_ITS | Clinical Summary ---
Author Organization [employer] Address [address] [facility] [address] [place] [address] Care Team Providers Care Puppy Sitter Name Role Phone Felipe Rogers MD Primary Care Provide r Annabel Hope PharmD Unavailable [phone] Allergies Active Allergy Reactions Criticality Noted Date Comments Metformin 07/20/2021 Other reaction(s): GI pain Morphine Other 01/19/2024 Niacin Rash Medium 04/11/2012 Rosiglitazone 11/22/2019 Medications valsartan (Diovan) 320 MG tablet Take 320 mg by mouth in the morning. 022 Active Easy Touch Pen [place] 31G X 5 MM misc USE DIRECTED FIVE TIMES DAILY 022 Active albuterol (2.5 MG/3ML) 0.083% nebulizer solution Take 2.5 mg by nebulization if needed in the morning, at noon, in the evening, and at bedtime. 021 Active Ventolin HFA 108 (90 Base) MCG/ACT inhaler INHALE 2 PUFFS BY MOUTH EVERY 4 TO 6 HOURS NEEDED 18 g 11 023 Active Acetaminophen Extra Strength 500 MG tabletIndicatio ns:Knee pain, unspecified chronicity, unspecified laterality TAKE 1 TABLET BY MOUTH EVERY 8 HOURS NEEDED FOR PAIN OR FEVER 30 tablet 1 023 Active ketotifen (Zaditor) 0.025 % ophthalmic solution INSTILL 1 DROP INTO THE AFFECTED EYE(S) EVERY 12 HOURS DIRECTED 5 mL 3 024 Active memantine (Namenda) 10 MG tablet Take 10 mg by mouth 2 times daily. 023 Active terazosin (Hytrin) 2 MG capsule Take 2 mg by mouth at bedtime. 014 Active furosemide (Lasix) 20 MG tablet TAKE 2 TABLETS BY MOUTH ONCE DAILY IN THE MORNING Active oxybutynin XL (Ditropan-XL) 5 MG 24 hr tablet Take 5 mg by mouth at bedtime. Active atorvastatin (Lipitor) 80 MG tablet TAKE 1 TABLET BY MOUTH AT BEDTIME 90 tablet 3 024 Active hydrALAZINE (Apresoline) 50 MG tablet Take 50 mg by mouth 3 times daily. Active clotrimazole (Lotrimin) 1 % cream APPLY TO THE AFFECTED AREA(S) TOPICALLY TWICE DAILY FOR 28 DAYS Active clopidogrel (Plavix) 75 MG tabletIndicatio ns:Type 2 diabetes mellitus with stage 1 chronic kidney disease, with long-term current use of insulin (CMS/[facility]) TAKE 1 TABLET BY MOUTH EVERY MORNING 90 tablet 3 024 Active docusate sodium (Colace) 100 MG capsule TAKE 1 CAPSULE BY MOUTH EVERY TWELVE HOURS 180 capsule 1 Active Continuous Glucose Hotel Concierge (FreeStyle Martín 3 [place]) deviceIndicatio ns:Type 2 diabetes mellitus with stage 3a chronic kidney disease, with long-term current use of insulin (CMS/HCC) 1 each 3 times daily. Use daily as directed for CGM 1 each Active glucose blood (FreeStyle Precision Anish Test) test stripIndication s:Type 2 diabetes mellitus with stage 3a chronic kidney disease, with long-term current use of insulin (CMS/HCC) Use to test blood sugar up to 5 times daily, as directed 100 each 11 Active Continuous Glucose Sensor (FreeStyle Martín 3 Sensor) miscIndications :Type 2 diabetes mellitus with stage 3a chronic kidney disease, with long-term current use of insulin (CMS/HCC) 1 each every 14 (fourteen) days. Apply 1 sensor as directed every 14 days for CGM. 2 each Active TRUEplus Lancets 33G miscIndications :Type 2 diabetes mellitus with stage 3a chronic kidney disease, with long-term current use of insulin (CMS/[facility]) Use to test blood sugar 5 time(s) daily 100 each Active Alcohol Swabs (Alcohol Prep Pad) 70 % padsIndications :Type 2 diabetes mellitus with stage 3a chronic kidney disease, with long-term current use of insulin ([facility]) 1 each 5 (five) times a day. For insulin or blood glucose monitoring 100 each Active glucose 4 g chewable tablet Chew 4 tablets (16 g) if needed for low blood sugar. 20 tablet 11 2024 Active Tresiba FlexTouch 100 UNIT/ML injectionIndica tions:Type 2 diabetes mellitus with stage 1 chronic kidney disease, with long-term current use of insulin ([facility]) Inject 60 Units under the skin at bedtime. 15 mL Active hydrALAZINE (Apresoline) 25 MG tabletIndicatio ns:Essential hypertension TAKE 1 TABLET BY MOUTH THREE TIMES DAILY IN THE MORNING, AT NOON, AND AT BEDTIME WITH 50MG TABLETS Active HumaLOG KWIKPEN 100 UNIT/ML injectionIndica tions:Type 2 diabetes mellitus with stage 1 chronic kidney disease, with long-term current use of insulin ([facility]) Inject TID AC as directed by sliding scale: If BG<100 mg/dL- 0 units of insulin; BG 101-150 mg/dL -10 units; BG 151-200 -12 units; BG 201-250 -14 units; BG 251-300 -16 units; >300 -18 units & call provider 10 mL 11 Active gabapentin (Neurontin) 300 MG capsuleIndicati ons:Diabetic peripheral neuropathy (CMS/HCC) TAKE 1 CAPSULE BY MOUTH THREE TIMES DAILY 90 capsule 025 Active Januvia 50 MG tablet TAKE 1 TABLET BY MOUTH EVERY MORNING 30 tablet 1 025 Active metoprolol succinate XL (Toprol XL) 25 MG 24 hr tabletIndicatio ns:Essential hypertension Take 0.5 tablets (12.5 mg) by mouth Once per day. Do not crush or chew. 15 tablet 3 025 Active metoprolol succinate XL (Toprol-XL) 25 MG 24 hr tablet Take 25 mg by mouth at bedtime. 024 2024 Discontinued(D ose adjustment) gabapentin (Neurontin) 300 MG capsuleIndicati ons:Diabetic peripheral neuropathy (CMS/HCC) TAKE 1 CAPSULE BY MOUTH THREE TIMES DAILY 90 capsule 024 2024 Discontinued Januvia 50 MG tablet Take 1 tablet (50 mg) by mouth in the morning. 30 tablet 1 024 2024 Discontinued Active Problems Problem Noted Date Diagnosed Date Bradycardia 05/24/2024 Assessment & Plan (05/24/2024 12:39 PM EST): HR 60, at home reports lower HR He is on Metoprolol XR 25 mg po daily (prescribed by cardiology) upon discharge he was instructed to HOLD it, but did not Plan: lower dose to 12.5 mg po daily Follow with cardiology Fecal incontinence 11/03/2023 Assessment & Plan (11/03/2023 9:08 AM EDT): After the CVA CVA (cerebral vascular accident) 09/16/2023 Overview (09/16/2023): Acute or subacute left paramedian pontine manager of regulatory affairs infarct 08/2023 Assessment & Plan (05/24/2024 12:03 PM EST): Pt here for a follow up Pt s/p CVA- pt was hospitalized at [facility] 09/10-09/12hx of left sided hemiparesis from previous stroke, on morning of 09/10 noted right sided weakness, pt was transported to hospital via ambulance, CTA of brain and neck demonstrated mild atheroscleorisis and luminal narrowing of right carotid siphon. MRI of brain demonstrated acute or subacute paramedian pontine manager of regulatory affairs infarct. Pt was started on plavix (hold aspirin) continue atorvastatin, thickened liquids Echo unremarkable, PT/OT evaluations, pt recommended for rehab but family and pt refused and he was subsequently discharged home Over the phone, pt's reports he is now completely disabled Has to do everything little by little with food and medication has difficulty swallowing Adequate food intake, good uop. 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 Has home supports - He was seen at [facility] 05/01/2024 presented to the emergency room when witnessed by family patient had acute confusion. According to family he was not responding as he normally would somewhat resistant to care. Also at that time [id number] was checked and was 68. Patient came into the emergency room for further medical follow-up. Electrolytes checked and essentially negative CT of the head showed no hemorrhage hemorrhagic or intracranial mass effect. Old old right thalamic and left pontine infarct was noted however EGD showed bradycardia normal sinus rhythm rest x-ray negative for acute infection. Patient was admitted for MRI of the brain for further follow-up and assessment. MRI results, no acute intracranial abnormalities noted. Per ED note Working diagnosis was suspected TIA, hypoglycemic episode causing mental status change. Pt's family told me that after he came out of the Hospital they increased the dose of his insulin again from 40 to 60 given hyperglycemia Assessment & Plan (11/03/2023 8:26 AM EDT): Televisit Pt s/p CVA- pt was hospitalized at [facility] 09/10-09/12hx of left sided hemiparesis from previous stroke, on morning of 09/10 noted right sided weakness, pt was transported to hospital via ambulance, CTA of brain and neck demonstrated mild atheroscleorisis and luminal narrowing of right carotid siphon. MRI of brain demonstrated acute or subacute paramedian pontine manager of regulatory affairs infarct. Pt was started on plavix (hold aspirin) continue atorvastatin, thickened liquids Echo unremarkable, PT/OT evaluations, pt recommended for rehab but family and pt refused and he was subsequently discharged home Over the phone, pt's reports he is now completely disabled Has to do everything little by little with food and medication has difficulty swallowing Adequate food intake, good uop. 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 Has home supports - [employer], 3 days per week, Ot- referred in home Plan: Continue with thickened liquids, monitor uop, ot and pt set up in home as well as visiting nursing. Assessment & Plan (10/28/2023 6:47 PM EDT): Continue with thickened liquids, monitor uop, pt was candidate for rehab admission, family declines, ot and pt set up in home as well as visiting nursing Will need updated in home supplies for new baseline Tinea cruris 08/30/2023 Assessment & Plan (08/30/2023 3:45 PM EDT): Evidence suggestive of this on exam Lamisil cream BID , continue x 1 week after symptom resolution Improve diabetes control Instructed follow up if no improvement or worsening Hospital discharge follow-up 06/28/2023 Assessment & Plan (06/28/2023 10:48 AM EST): Pt here for a HDF Admitted to [facility] from 06/23/2023 until 06/19/2023/ he presented to the hospital with altered mental status, reportedly he was noted to have his eyes rolled back of his head and he went down to the ground. No seizurelike activity was described. When he arrived to the Hospital CGS was 12 and glucose was normal. CTA head did not sjhow any acute findings and showed lacunar infarct in right thalamus. CT head and neck demonstrated intracranial atherosclerosis with moerate stenosis of right P2 segment ICE CREAM MIXER and focal short segment mid to moderate stenosis of the right P2 segment ICE CREAM MIXER and focal short segment mid to moderate stenosis of the left P3 segment ICE CREAM MIXER. MRI of the brain showed no acute strole. He was intubated for airway protection and admitted to the ICU. Routine testing also revealed that he was positive for Covid-19. Pt was extubated and transferred to medical floor on 06/16/2023 Pt needs a positioning bed, Metabolic encephalopathy 06/28/2023 Assessment & Plan (06/28/2023 10:44 AM EST): Pt here today, feels better , oriented in place During his hospitalization, Initial BP in the ED was 87/52 bot BP remained elevated in the hospital. EEG was done showed moderate encephalopathy but no epileptoid discharges. Neurology thought etiology could have been syncope or TIA, recommended to continue Plavix and statins. Pt recommended to go to rehab but family declined Pt has a follow up with neurology according to his son 07/12/2023 COVID-19 06/28/2023 Assessment & Plan (06/28/2023 10:10 AM EST): Treated with 3 days of remdesevir Hypokalemia 06/28/2023 Assessment & Plan (06/28/2023 10:12 AM EST): On replacement will repeat BMP Urinary incontinence 04/26/2023 Assessment & Plan (04/26/2023 12:37 PM EST): New onset of stress urinary incontinence Will refer to Urologist, script for adult diapers will be sent to [facility] Abdominal wall mass 04/26/2023 Assessment & Plan (04/26/2023 12:41 PM EST): Examination with 2 large bulging areas superficial abdomen, 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 family would like to proceed with an US for reassurance purposes Vascular dementia 09/14/2022 Assessment & Plan (10/28/2023 6:38 PM EDT): Continue atorvastatin 80 mg, plavix, hold aspirin Assessment & Plan (08/30/2023 12:05 PM EDT): Pt with hx of previous thalamic infarcts, with c/o worsening forgetfulness. CT of brain 05/2022 showed brain volume loss Seen by Neurology last note 06/14/2023 He is on Memantine thinks this is Multifactorial Dementia. Pt already has a follow up appointment with him in September Assessment & Plan (04/26/2023 12:35 PM EST): Pt with hx of previous thalamic infarcts, with c/o worsening forgetfulness. CT of brain 05/2022 showed brain volume loss Seen by Neurology 10/2022 started on Memantine thinks this is Multifactorial Dementia. Pt already has a follow up appointment with him later this month Assessment & Plan (12/07/2022 2:25 PM EDT): Pt with hx of previous thalamic infarcts, now with c/o worsening forgetfulness. Most recent CT of brain 05/2022 showed brain volume loss Early Dementia ? Neurology consult with Dr Farr\ appreciated diagnosed with vasculr dementia started on Memantine 5 mg BID Assessment & Plan (09/14/2022 10:35 AM EDT): Pt with hx of previous thalamic infarcts, now with c/o worsening forgetfulness. Most recent CT of brain 05/2022 showed brain volume loss Early Dementia ? Plan: Neurology consult. Seen in the past by Dr Farr, will refer back Thalamic infarction 05/13/2022 Assessment & Plan (05/13/2022 2:32 PM EST): Pt doing ok at the moment Previously admitted to [facility] after he had been c/o one week of left sided numbness. patient is very poor historian. He was initially brought o [facility] by ambulance to rule out CVA. CTA [...] recommended to continue aggressive risk factor modification Diabetic peripheral neuropathy 05/13/2022 Assessment & Plan (08/30/2023 12:09 PM EDT): Pt with c/o bilateral LE pain described as burning, mainly on his lower legs and feet, with associated tingling EMG showed: [id number] axonal sensory motor peripheral neuropathy. On Gabapentin 300 mg po TID I recommended a transport wheelchair given his severe peripheral neuropathy Assessment & Plan (05/13/2022 12:48 PM EST): Pt with c/o bilateral LE pain described as burning, mainly on his lower legs and feet, with associated tingling EMG showed: [id number] axonal sensory motor peripheral neuropathy. On Gabapentin 300 mg po TID I recommended a transport wheelchair given his severe peripheral neuropathy Other irritable bowel syndrome 05/13/2022 Assessment & Plan (05/13/2022 12:52 PM EST): Pt currently doing well. Hx of IBS Pt had a previous CT of his abdomen and pelvis with contrast and found NO significant abnormality. Pt has been evaluated for similar complaints in the past. He saw a GI specialist Dr Chan who did an EGD, Colonoscopy (03/2006). It as thought that his symptoms were likely due to IBS and was prescribed Bentyl at some point. Pt never followed up with them because symptoms had disappeared, He was evaluated by Dr Hood at [facility] on 05/26/2012 who recommended an EGD done on 06/06/12 that showed gastritis. and abdominal US done on 06/09/2012 [facility] care 05/13/2022 Assessment & Plan (05/13/2022 12:54 PM EST): Colonoscopy: Normal 2005 Dr Chan had repeat 05/18/2016: Syncope 05/13/2022 Assessment & Plan (04/26/2023 12:40 PM EST): Patient here with his son for a follow up, Apparently he had what it sounds like another brief syncopal episode at home. They did not seek medical attention attributing it to high blood sugars and high blood pressure Unclear etiology, vasovagal ? Work up done for previous episode included: US Carotids 05/26/2022 was Normal, Head CT showed microangiopathy and chronic lacunar infarcts ECHO 12/23/2022 unremarkable Last seen by his Plsql Developer 04/14/2023, Has an upcoming appointment for a f/u with his Neurologist I discussed with his son if he has further syncopal events he needs to be brought in to the ER. They verbalized understanding Assessment & Plan (12/07/2022 2:36 PM EDT): Patient here with his for a follow up, Previous visit they mentioned that apparently he had what it seemed like a syncopal episode at home a couple of weeks after he had his colonoscopy, paramedics went to his home but he had already regained consciousness and declined to be taken to the ER. Unclear etiology, vasovagal ? ( since pt had to take a bowel prep In the weeks prior ) Nevertheless he is a very high risk US Carotids 05/26/2022 was Normal, Head CT showed microangiopathy and chronic lacunar infarcts ECHO scheduled for 12/23/2022 He has a follow up with his flattening machine operator Assessment & Plan (09/14/2022 10:30 AM EDT): Patient here with his for a follow up, Previous visit they mentioned that apparently he had what it seemed like a syncopal episode at home a couple of weeks after he had his colonoscopy, paramedics went to his home but he had already regained consciousness and declined to be taken to the ER. Unclear etiology, vasovagal ? ( since pt had to take a bowel prep In the weeks prior ) Nevertheless he is a very high risk Plan: US Carotids 05/26/2022 was Normal, Head CT showed microangiopathy and chronic lacunar infarcts ECHO He has a follow up with his flattening machine operator Assessment & Plan (05/13/2022 4:54 PM EST): Patient here with his , apparently had what it seems like a syncopal episode at home a couple of weeks after he had his colonoscopy, paramedics went to his home but he had already regained consciousness and declined to be taken to the ER. Unclear etiology, vasovagal ? ( since pt had to take a bowel prep In the weeks prior ) Nevertheless he is a very high risk Plan: ECHO, US Carotids and Head CT. He has a follow up with his flattening machine operator as well per at some point Follow up after initial testing Stage 3a chronic kidney disease 01/21/2022 Assessment & Plan (05/24/2024 12:41 PM EST): Under the care of Dr witt, last seen 01/23/2024 Repeat BMP Assessment & Plan (01/19/2024 1:24 PM EDT): Under the care of Dr witt, last seen 06/06/2023 Has a follow up with him on Luis Assessment & Plan (11/03/2023 8:28 AM EDT): Under the care of Dr witt, last seen 05/2023 Assessment & Plan (10/28/2023 6:46 PM EDT): Hospital with aretha noted, will repeat labs Assessment & Plan (06/28/2023 4:52 PM EST): Under the care of Dr witt, last seen 05/2023 Class 2 obesity 01/21/2022 Type 2 diabetes mellitus wit h diabetic chronic kidney disease 01/21/2022 Overview (11/21/2023): Pharmacotherapy: Updated 11/14/23 - Humalog Kiwkpen 13 [...] Exam: unknown - Last Dental Exam: unknown Assessment & Plan (05/24/2024 12:05 PM EST): Patient is here for a follow up Did not bring Glucometer : Patient was under the care of Train Gateman at [facility] . 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 Eye exam was last done on: 01/2018 by (air traffic control equipment repairer) Dr Sherman Microalbumin checked on: 07/14/2021 was: 322 Pt on an ARB. pt is Not on an STEFFANIE due to cough Foot check risk of zero Pt reports compliance with Plavix 75 mg po daily 3 months f/u. Plan: lower Lantus to 50 units subcutaneous qhs Pt advised to: adhere to diabetic diet check your blood sugars regularly check your feet on a daily basis Assessment & Plan (01/19/2024 1:18 PM EDT): Patient is here for a follow up Did not bring Glucometer : Patient was under the care of Train Gateman at [facility] . 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 Eye exam was last done on: 01/2018 by (air traffic control equipment repairer) Dr Sherman Microalbumin checked on: 07/14/2021 was: 322 Pt on an ARB. pt is Not on an STEFFANIE due to cough Foot check risk of zero Pt reports compliance with Plavix 75 mg po daily 3 months f/u. Pt advised to: adhere to diabetic diet check your blood sugars regularly check your feet on a daily basis Assessment & Plan (11/21/2023 6:33 PM EDT): Assessment: - NOT at goal of A1c less than 7% or fasting BG between 70-130 mg/dL per ADA guidelines. Plan/ Recommendations: - F/U in 1 month to check at home SMBG. - REPEAT A1c at next visit Monitoring: Hemoglobin A1c (% of total Hgb) Date Value 10/22/2020 7.8 (H) 10/23/2019 9.4 (H) 10/23/2019 9.4 (H) 10/23/2019 9.4 (H) 10/23/2019 9.4 (H) Hemoglobin A1C (%) Date Value 08/30/2023 10.0 (A) 06/28/2023 9.3 (A) LDL Cholesterol (mg/dL (calc)) Date Value 06/16/2021 SEE COMMENT HDL Cholesterol (mg/dL) Date Value 06/16/2021 32 (L) No results found for: B12 Assessment & Plan (11/03/2023 8:30 AM EDT): Televisit Glucometer : Patient was under the care of Train Gateman at [facility] . He is on a regimen of: Tresiba 60 units sc q pm and Novolog 13 units with breakfast and 25 with lunch and 25 for dinner as well and Januvia 50 mg daily Pt developed beth infections in his penis due to farxiga (started by Dr witt) No longer on Metformin, No longer on Trulicity Hgb A1c 08/30/2023 was: 10 Previous visit he was referred to [facility], they decline to see him due to the fact that his Hgb A1c is < 8 Eye exam was last done on: 01/2018 by (air traffic control equipment repairer) Dr Sherman Microalbumin checked on: 07/14/2021 was: 322 Pt on an ARB. pt is Not on an STEFFANIE due to cough Foot check risk of zero Pt reports compliance with Plavix 75 mg po daily Patient tells me due to a change in his insurance his crusher supervisor told him they cannot longer see him Last visit he was referred back to endocrinology now that his A1c is 10 3 months f/u. Pt advised to: adhere to diabetic diet check your blood sugars regularly check your feet on a daily basis Assessment & Plan (08/30/2023 12:07 PM EDT): Pt here for a f/u, Did not bring Glucometer again Patient was under the care of Train Gateman at [facility] . He is on a regimen of: Tresiba 60 units sc q pm and Novolog 13 units with breakfast and 25 with lunch and 25 for dinner as well and Januvia 50 mg daily Pt developed beth infections in his penis due to farxiga (started by Dr witt) No longer on Metformin, No longer on Trulicity Hgb A1c 08/30/2023 was: 10 Previous visit he was referred to [facility], they decline to see him due to the fact that his Hgb A1c is < 8 Eye exam was last done on: 01/2018 by (air traffic control equipment repairer) Dr Sherman Microalbumin checked on: 07/14/2021 was: 322 Pt on an ARB. pt is Not on an STEFFANIE due to cough Foot check risk of zero Pt reports compliance with Plavix 75 mg po daily Patient tells me due to a change in his insurance his crusher supervisor told him they cannot longer see him Plan: Refer back to endocrinology now that his A1c is 10 3 months f/u. Pt advised to: adhere to diabetic diet check your blood sugars regularly check your feet on a daily basis Assessment & Plan (06/28/2023 10:45 AM EST): Pt here for a f/u, Did not bring Glucometer Patient was under the care of Train Gateman at [facility] . He is on a regimen of: Tresiba 60 units sc q pm and Novolog 13 units with breakfast and 25 with lunch and 25 for dinner as well and Januvia 50 mg daily Pt developed beth infections in his penis due to farxiga (started by Dr witt) No longer on Metformin, No longer on Trulicity Hgb A1c 06/28/2023 was: 9.3 Previous visit he was referred to [facility], they decline to see him due to the fact that his Hgb A1c is < 8 Eye exam was last done on: 01/2018 by (air traffic control equipment repairer) Dr Sherman Microalbumin checked on: 07/14/2021 was: 322 Pt on an ARB. pt is Not on an STEFFANIE due to cough Foot check risk of zero Pt reports compliance with Plavix 75 mg po daily Patient tells me due to a change in his insurance his crusher supervisor told him they cannot longer see him Plan: continue current regimen for now 3 months f/u. Pt advised to: adhere to diabetic diet check your blood sugars regularly check your feet on a daily basis Assessment & Plan (04/26/2023 12:38 PM EST): Pt here for a f/u, Glucometer shows BG between 75 and 255 Patient was under the care of [facility] at [facility] . He is on a regimen of: Tresiba 60 units sc q pm and Novolog 13 units with breakfast and 25 with lunch and 25 for dinner as well and Januvia 50 mg daily Pt developed beth infections in his penis due to farxiga (started by Dr witt) No longer on Metformin, No longer on Trulicity Hgb A1c 04/26/2023 was: 7.8 Previous visit he was referred to [facility], they decline to see him due to the fact that his Hgb A1c is < 8 Eye exam was last done on: 01/2018 by (air traffic control equipment repairer) Dr Sherman Microalbumin checked on: 07/14/2021 was: 322 Pt on an ARB. 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 Pt advised to: adhere to diabetic diet check your blood sugars regularly check your feet on a daily basis Assessment & Plan (12/07/2022 2:35 PM EDT): Pt here for a f/u, He forgot his glucometer Patient was under the care of [facility] at [facility] . He is on a regimen of: Tresiba 60 units sc q pm and Novolog 13 units with breakfast and 25 with lunch and 25 for dinner as well and Januvia 50 mg daily Pt developed beth infections in his penis due to farxiga (started by Dr witt) No longer on Metformin, No longer on Trulicity Hgb A1c 12/07/2022 was: 7.9 Previous visit he was referred to [facility], they decline to see him due to the fact that his Hgb A1c is < 8 Eye exam was last done on: 01/2018 by (air traffic control equipment repairer) Dr Sherman Microalbumin checked on: 07/14/2021 was: 322 Pt on an ARB. 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 Pt advised to: adhere to diabetic diet check your blood sugars regularly check your feet on a daily basis Assessment & Plan (09/14/2022 10:48 AM EDT): Pt here for a f/u Patient was under the care of [facility] at [facility] . He is on a regimen of: Tresiba 50 units sc q pm and Novolog 13 units with breakfast and 25 with lunch and 25 for dinner as well and Noeuvia Pt developed beth infections in his penis due to farxiga (started by Dr witt) No longer on Metformin, No longer on Trulicity Hgb A1c 09/14/2022 was: 7.6 Eye exam was last done on: 01/2018 by (air traffic control equipment repairer) Dr Sherman Microalbumin checked on: 07/14/2021 was: 322 Pt on an ARB. 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 Pt advised to: adhere to diabetic diet check your blood sugars regularly check your feet on a daily basis Assessment & Plan (05/13/2022 2:36 PM EST): Pt here for a f/u Patient under the care of [facility] at [facility] . He is on a regimen of: Tresiba 50 units sc q pm and Novolog 13 units with breakfast and 25 with lunch and 25 for dinner as well and Noeuvia Pt developed beth infections in his penis due to farxiga (started by Dr witt) I contacted our Pharmacy to discontinue, [facility] is aware. No longer on Metformin, No longer on Trulicity Hgb A1c 05/13/2022 was: Eye exam was last done on: 01/2018 by (air traffic control equipment repairer) Dr Sherman Microalbumin checked on: 07/14/2021 was: 322 Pt on an ARB. pt is Not on an STEFFANIE due to cough Foot check risk of zero Pt reports compliance with Plavix 75 mg po daily Plan: continue to follow with Endocrinology 4 months f/u. Pt advised to: adhere to diabetic diet check your blood sugars regularly check your feet on a daily basis Chronic back pain 07/17/2021 Assessment & Plan (05/13/2022 2:45 PM EST): He has chronic low back pain Previous [...] hrs prn . He was seen at [facility] and completed PT with good results he was last seen 08/09/2018 Vitamin D deficiency 07/17/2021 Essential hypertension 01/05/2021 Assessment & Plan (05/24/2024 12:40 PM EST): Here for a follow up He is on metoprolol XR 25 mg daily, Hydralazine 50 mg TID (increased again by Cardiology) and Valsartan 320 mg po daily Off Norvasc 7.5 mg po daily, and Furosemide 20 mg po daily previously started by Nephrology Most recent electrolytes, Bun and Creatinine done on: 11/17/2023 showed a Scr 1.68 Plan: Lower Metoprolol XR to 12.5 mg po daily patient advised to adhere to a low sodium diet, encouraged about medication compliance, counseled about weight loss. Assessment & Plan (01/19/2024 1:12 PM EDT): Here for a follow up He is on metoprolol 25 mg BID, Hydralazine 50 mg TID (increased again by Cardiology) and Valsartan 320 mg po daily Off Norvasc 7.5 mg po daily, and Furosemide 20 mg po daily previously started by Nephrology Most recent electrolytes, Bun and Creatinine done on: 11/17/2023 showed a Scr 1.68 Plan: Continue current regimen patient advised to adhere to a low sodium diet, encouraged about medication compliance, counseled about weight loss. Assessment & Plan (11/03/2023 8:28 AM EDT): Televisit He is on metoprolol 25 mg BID, Hydralazine 50 mg TID (increased again by Cardiology) and Valsartan 320 mg po daily Off Norvasc 7.5 mg po daily, and Furosemide 20 mg po daily previously started by Nephrology Most recent electrolytes, Bun and Creatinine done on: 08/30/2023 were abnormal Today I have placed an order for repeat labs Plan: Continue current regimen patient advised to adhere to a low sodium diet, encouraged about medication compliance, counseled about weight loss. Assessment & Plan (06/28/2023 10:44 AM EST): Pt is here for a f/u, BP low today 96/56 Post Hospital discharge he is on metoprolol 25 mg BID, Hydralazine 50 mg TID and Valsartan 320 mg po daily Off Norvasc 7.5 mg po daily, and Furosemide 20 mg po daily previously started by Nephrology Most recent electrolytes, Bun and Creatinine done on: 05/25/2023 were abnormal Today I have placed an order for repeat labs Plan:Lower hydralazine to 25 mg po TID patient advised to adhere to a low sodium diet, encouraged about medication compliance, counseled about weight loss. Assessment & Plan (04/26/2023 12:36 PM EST): Pt is here for a f/u He is supposed to be on a regimen of: Diovan 320 mg po daily, Norvasc 7.5 mg po daily, Toprol XL 25 mg po daily, and Furosemide 20 mg po daily started by Nephrology Most recent electrolytes, Bun and Creatinine done on: 07/14/2021 were wnl. Today I have placed an order for repeat labs Plan: continue current regimen as per Nephrology patient advised to adhere to a low sodium diet, encouraged about medication compliance, counseled about weight loss. Assessment & Plan (05/13/2022 2:33 PM EST): Pt is here for a f/u He is on a regimen of: Diovan 320 mg po daily, Norvasc 7.5 mg po daily, Toprol XL 25 mg po daily, and Furosemide 20 mg po daily started by Nephrology Most recent electrolytes, Bun and Creatinine done on: 07/14/2021 were wnl Plan: continue current regimen patient advised to adhere to a low sodium diet, encouraged about medication compliance, counseled about weight loss. Proteinuria 01/05/2021 Assessment & Plan (05/13/2022 12:53 PM EST): Under the care of Dr Witt, last seen 01/05/2021 recommended 6 month f/u 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 01/05/2021 Moderate persistent asthma without complication 08/04/2017 Assessment & Plan (05/13/2022 12:49 PM EST): No recent exacerbations Pt uses his inhalers daily he is on a regimen of: Spiriva, Flovent 110 mcg 1 puff BID, and Proair PRN Hyperlipidemia 02/19/2013 Assessment & Plan (05/24/2024 11:06 AM EST): Pt here for a f/u Most recent lipid profile from: Lab Results Component Value Date TRIG 341 (H) 01/19/2024 TRIG 538 (H) 05/25/2023 CHOL 205 (H) 01/19/2024 CHOL 245 (H) 05/25/2023 LDLCHOLCAL 106 (H) 01/19/2024 LDLCHOLCAL TNP 05/25/2023 HDL 31 (L) 01/19/2024 HDL 33 (L) 05/25/2023 Currently on a regimen of: Atorvastatin 80 mg po qhs,. Pt has a med box Plan: Continue current regimen and adherence to low fat diet, repeat Lipid profile advised to try to adhere to a low cholesterol diet, counseled and educated about diet and exercise, Patient encouraged to come up with a personal goal for weight loss. f/u 4 months Assessment & Plan (01/19/2024 1:30 PM EDT): Pt here for a f/u Most recent lipid profile from: Lab Results Component Value Date TRIG 538 (H) 05/25/2023 CHOL 245 (H) 05/25/2023 LDLCHOLCAL TNP 05/25/2023 HDL 33 (L) 05/25/2023 Currently on a regimen of: Atorvastatin 80 mg po qhs,. Pt has a med box Plan: Continue current regimen and adherence to low fat diet, repeat Lipid profile advised to try to adhere to a low cholesterol diet, counseled and educated about diet and exercise, Patient encouraged to come up with a personal goal for weight loss. f/u 4 months Assessment & Plan (05/13/2022 12:47 PM EST): Pt here for a f/u Most recent lipid profile from: 06/16/2021 shows a total cholesterol of: 172 triglycerides of: 457 HDL of: 32 and LDL of: TNP Currently on a regimen of: Atorvastatin 80 mg po qhs, and Fenofibrate 200 mg po daily . Pt has a med box Plan: Continue current regimen and adherence to low fat diet, repeat Lipid profile advised to try to adhere to a low cholesterol diet, counseled and educated about diet and exercise, Patient encouraged to come up with a personal goal for weight loss. f/u 4 months Sleep apnea 11/29/2011 Benign prostatic hyperplasia 10/07/2011 Depression, recurrent 10/07/2011 Assessment & Plan (11/03/2023 8:31 AM EDT): Pt used to have a psychiatrist at [facility] but they no longer see adults and I have continued to prescribe his medications. In the past I prompted him to try to open his case at a different agency such as [facility]. Assessment & Plan (05/13/2022 12:52 PM EST): Pt used to have a psychiatrist at [facility] but they no longer see adults and I have continued to prescribe his medications for now. I have prompted him to try to open his case at a different agency such as [facility]. Erectile dysfunction 10/07/2011 Encounters Date Type Department Care Team Description 05/24/2024 11:30 AM EST Office Visit [facility] [address] [place] [phone] Felipe Rogers MD Type 2 diabetes mellitus with stage 1 chronic kidney disease, with long-term current use of insulin ([facility]) (Primary Dx); Essential hypertension; Mixed hyperlipidemia; Cerebrovascular accident (CVA), unspecified mechanism ([facility]); Bradycardia; Stage 3a chronic kidney disease ([facility]) 05/24/2024 Travel 05/13/2024 Refill [facility] [address] [place] [address] Cookie Zuniga MD 05/11/2024 Patient Outreach [facility] [address] [place] [address] Felipe Rogers MD Pre-visit Planning (SDOH Screening negative and Tobacco screening negative) 05/11/2024 Telephone [facility] [address] [place] [address] Felipe Rogers MD Chart Prep 05/04/2024 Telephone [facility] [address] [place] [address] Felipe Rogers MD DME [facility] 04/27/2024 Refill [facility] [address] [place] [address] Felipe Rogers MD Diabetic peripheral neuropathy ([facility]) 04/26/2024 Refill [facility] [address] [place] [address] Rosina Greer ANP Diabetic peripheral neuropathy ([facility]) 04/20/2024 Refill [facility] [address] [place] [address] Rosina Greer ANP Diabetic peripheral neuropathy ([facility]) 04/19/2024 Telephone [facility] [address] [place] [address] Ericka Pappas MA DME from [facility] 03/30/2024 1:00 PM EST Telemedicine [facility] [address] [place], [place] [phone] Annabel Hope, PharmD Type 2 diabetes mellitus with stage 1 chronic kidney disease, with long-term current use of insulin ([facility]) (Primary Dx); Essential hypertension; Stage 3a chronic kidney disease ([facility]); Type 2 diabetes mellitus with stage 3a chronic kidney disease, with long-term current use of insulin ([facility]); Encounter for immunization 03/30/2024 Travel 03/28/2024 Refill [facility] [address] [facility] [place] [address] Felipe Rogers MD 03/22/2024 Refill [facility] [address] [place] [address] Felipe Rogers MD Diabetic peripheral neuropathy ([facility]) 03/16/2024 Telephone [facility] [address] [place] [address] Annabel Hope PharmD 03/07/2024 2:00 PM EST Telemedicine [facility] [address] [place] [address] Annabel Hope PharmD Type 2 diabetes mellitus with stage 1 chronic kidney disease, with long-term current use of insulin ([facility]) 03/07/2024 Travel 2024 11:30 AM EST Telemedicine [facility] [address] [place] [address] Annabel Hope PharmD Type 2 diabetes mellitus with stage 1 chronic kidney disease, with long-term current use of insulin ([facility]) 03/01/2024 Telephone [facility] [address] [place] [address] Felipe Rogers MD Verbal order 02/27/2024 Refill [facility] [address] [place] [address] Felipe Rogers MD Diabetic peripheral neuropathy ([facility]) from Last 3 Months Immunizations Name Administration Dates Next Due Hep B, adult 09/15/2006 INFLUENZA INJECTABLE QUADRIV ALANT CCIIV4 MDCK Multi-dose vial 01/12/2020 Influenza High-dose Quadriva lent Preservative Free 01/27/2023,01/14/2022 Influenza Injectable Quadriv alant Preservative Free IIV4 MDCK 01/08/2019 Influenza injectable quadriv alent IIV4 with preservative 01/15/2016,02/25/2015 Influenza injectable quadriv alent preservative free 01/21/2018,12/24/2016 Influenza, High Dose Seasona l, Preservative Free 01/19/2024 Influenza, IIV3, injectable 01/23/2014, 2,12/24/2010 Influenza, Split (incl. hemanth fied surface antigen) 01/22/2013 Influenza, Unspecified 01/23/2014,03/03/2012,04/2010 Pneumococcal Polysaccharide PPSV23 03/03/2010 TD (adult), 2 Lf tetanus tox oid, preservative free, adsorbed 01/14/2006 Tdap 03/16/2016 Zoster, Recombinant 02/09/2019 Zoster, live 03/16/2016 Social History Tobacco Use Types Packs/Day Years Used Date Smoking Tobacco: Never Passive Smoke Exposure: Never Smokeless Tobacco: Never Tobacco Cessation:Counseling Given: Not Answered Alcohol Use Standard Drinks/Week Comments Never 0 [...] not to disclose 2021 10:14 AM EDT Last Filed Vital Signs Vital Sign Reading Time Taken Comments Blood Pressure 156/84 05/24/2024 11:58 AM EST Pulse 60 05/24/2024 11:58 AM EST Temperature 36.3 ??C (97.3 ??F) 05/24/2024 11:[address] Respiratory Rate 16 05/24/2024 11:58 AM EST Oxygen Saturation 98% 05/24/2024 11:58 AM EST Inhaled Oxygen Concentration - - Weight 80.7 kg (178 lb) 05/24/2024 11:58 AM EST Height 165.1 cm (5' 5 ) 05/24/2024 11:58 AM EST Body Mass Index 29.62 05/24/2024 11:58 AM EST Plan of Treatment Upcoming Encounters Date Type Department Care Team (Late st Contact Info) Description 05/28/2024 11:30 AM EST Medication Management [facility] [address] [place] [address] Annabel Hope, PharmD [address] [place] [address] Health Maintenance Due Date Last Done Comments CT Colonography 1955 FIT DNA/Cologuard 1955 FIT 1955 FOBT 1955 Sigmoidoscopy 1955 Diabetes: Foot Exam 1965 Eye Exam 1965 Alcohol/Substance Use Screening 1967 Hepatitis C Screening 1973 Hepatitis B Vaccines (2 of 3 - 19+ 3-dose series) 10/13/2006 09/15/2006 Pneumococcal Vaccine: 50+ Years (2 of 2 - PCV) 03/03/2011 03/03/2010 RSV Patients and Patients Aged 60 years or older (1 - Risk 60-74 years 1-dose series) 2015 Zoster Vaccines (3 of 3) 04/06/2019 02/09/2019, 02/24 Colonoscopy 05/18/2021 05/18/2016 Colorectal Cancer Screening 05/18/2021 COVID-19 Vaccine ( season) 2023 03/18/2021, 08/04/2020, 07/07/2020 Diabetes: Hemoglobin A1C 04/19/2024 024, 08/30/2023, 06/28/2023, Additional history exists SDOH Screening 06/03/2024 06/03/2023 Depression Screening 01/18/2025 01/19/2024, 01/19/20 Lipid Panel 01/18/2025 01/19/2024, 04/27, 05/25/2023, Additional history exists Tobacco Screening 05/24/2025 05/24/2024 DTaP/Tdap/Td Vaccines (2 - Td or Tdap) 03/16/2026 03/16/2016, 01/14/2006 Influenza Vaccine Completed 01/19/2024, , 01/14/2022, Additional [...] patient's age to complete this topic Meningococcal Vaccine Aged Out No carole rolando eligible based on patient's age to complete this topic RSV under 20 months Aged Out No longe r eligible based on patient's age to complete this topic Rotavirus Vaccines Aged Out No longer eligible based on patient's age to complete this topic Procedures Procedure Name Priority Date/Time Associated Diagnosis Comments BASIC METABOLIC PANEL Routine 05/24/2024 12:20 PM EST Essential hypertension POCT GLUCOSE Routine 05/24/2024 12:00 PM EST Type 2 diabetes mellitus with stage 1 chronic kidney disease, with long-term current use of insulin ([facility]) LIPID PANEL, STANDARD Routine 01/19/2024 1:54 PM EDT Mixed hyperlipidemia POCT GLYCATED HEMOGLOBIN, TOTAL Routine 01/19/2024 1:15 PM EDT Type 2 diabetes mellitus with stage 1 chronic kidney disease, with long-term current use of insulin ([facility]) COLONOSCOPY Routine 05/18/2016 from Last 3 Months or Most Recently Relevant to Health Maintenance Results * (ABNORMAL) Basic Metabolic Panel (05/24/2024 12:20 PM EST) Sodium 140 135 - 145 mmol/L [facility] Potassium 3.9 3.3 - 5.1 mmol/L [facility] Chloride 111(H) 96 - 108 mmol/L [facility] Carbon Dioxide 24 22 - 29 mmol/L [facility] Anion Gap 9(L) 12 - 20 [facility] Urea Nitrogen (BUN) 16 9 - 16 mg/dL [facility] Creatinine, Serum 1.07 0.5 - 1.4 mg/dL [facility] Estimated Glomerular Filt Rate >60 [facility] Comment:Chronic Kidney Disea se: Estimated GFR < 60 mL/min/[id number] Kidney Disease: Estimated GFR < 15 mL/min/1.73m2 Glucose 106 60 - 115 mg/dL [facility] Calcium 8.4 8.4 - 10.2 mg/dL [facility] Blood Venous blood specimen / Unknown 05/24/2024 12:20 PM EST 05/24/2024 12:55 PM EST Felipe Abrams MD LAB BLOOD ORDERABLES Final Result [facility] [address] [place] [phone] * POCT Glucose (05/24/2024 12:00 PM EST) Glucose Blood, POC 114 60 - 200 mg/dL QC Media Lot # [id number] Lot# Expiration Date Blood Capillary blood specimen / Unknown 05/24/2024 12:00 PM EST Felipe Abrams MD POINT OF CARE TEST EN TER/EDIT ORDERABLES Final Result * (ABNORMAL) Lipid Panel, Standard (01/19/2024 1:54 PM EDT) Triglycerides 341(H) <150 mg/dL [facility] Comment:Desirable Triglyceri de: less than 150 mg/dLBorderline High Triglyceride 150-199 mg/dLHigh Triglyceride: 200-499 mg/dLVery High Triglyceride: greater than or equal to 5OO mg/dL Cholesterol 205(H) <200 mg/dL [facility] Comment:Desirable Cholestero l: less than 200 mg/dLBorderline High Cholesterol: 200-239 mg/dLHigh Cholesterol: greater than 239 mg/dL LDL Cholesterol Calculated 106(H) <100 mg/dL [facility] Comment:Desirable LDL: less than 100 mg/dLNear Optimal/Above Optimal LDL: 110- 129 mg/dLBorderline High LDL: 130-159 mg/dLHigh LDL: 160-189 mg/dLVery High LDL: greater than or equal to 190 mg/dL HDL Cholesterol 31(L) >40 mg/dL [facility] Comment:Desirable HDL: great er than 40 mg/dL Note: This HDL assay may give artificially low results in patients with liver disease. Blood Venous blood specimen / Unknown 01/19/2024 1:54 PM EDT 01/19/2024 4:17 PM EDT Felipe Abrams MD LAB BLOOD ORDERABLES Final Result [facility] [address] [place] [phone] [phone] * (ABNORMAL) POCT HGB A1C (01/19/2024 1:15 PM EDT) Hemoglobin A1C 8.8(A) 4.0 - 6.0 % QC Media Lot # [id number] Lot# Expiration Date Blood 01/19/2024 1:15 PM EDT Felipe Abrams MD POINT OF CARE TEST EN TER/EDIT ORDERABLES Final Result * Colonoscopy (05/18/2016) Colonoscopy Normal Normal Historical Provider HEALTH MAINTENANCE Final Result from Last 3 Months or Most Recently Relevant to Health Maintenance Insurance Care Teams Puppy [employer]itter Relationship Specialty Start Date End Date Felipe Rogers MD [address] [place] [phone] PCP - General Internal Medicine 03/16/16 Annabel Hope PharmD [address] [place] [phone] Pharmacist Internal Medicine 03/30/24 [id number] 09/03/23
--- OUTSIDE RECORDS SUMMARY | 2024-05-24 16:07 | XMS_ITS | Encounter Summary ---
Author Organization 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 Installer Name Role Phone Felipe Barrett MD Primary Care Provi caron Reason for Visit * Reason Comments Stroke LKWT 12pm today via ems from home * Auth/Cert (Routine) Specialty Diagnoses / Procedures Referred By Wilder t Referred To Contact Diagnoses TIA (transient ischemic attack) Procedures [id number] Cordell Centeno MD [address] [place] [address] [address] Referral ID Status Reason Start Date Expiration Date Visits Re quested Visits Authorized [id number] 1 1 Encounter Details Date Type Department Care Team (Late st Contact Info) Description 05/01/2024 2:31 PM EST - 05/02/2024 5:[address] [facility] Care Unit [address] [place] [address] Jovanni Jacome DO [address] [place], [place] [id number] Cordell Centeno MD [address] [place] [address] Devan Li MD [address] [place], [place] [id number] TIA (transient ischemic attack) (Primary Dx); CLAUDY (acute kidney injury) (CMS/[facility]) Discharge Disposition: Home-Health Care Svc Social History Tobacco Use Types Packs/Day Years [...] file Not on file Not on file documented as of this encounter Last Filed Vital Signs Vital Sign Reading [...] Mass Index 32.46 05/01/2024 2:56 PM EST documented in this encounter Functional Status Functional Status Response Date of Assess ment Are you deaf or do you have serious difficulty h earing? No 05/01/2024 Are you blind or do you have serious difficulty seeing, even when wearing glasses? No 05/01/2024 Do you have serious difficul ty walking or climbing stairs? Yes 05/01/2024 Do you have serious difficulty dressing or bathi ng? Yes 05/01/2024 Because of a physical, menta l, or emotional condition, do you have serious difficulty doing errands alone such as visiting the doctor? Yes 05/01/2024 Cognitive Status Response Date of Assessm ent Because of a physical, menta l, or emotional condition, do you have serious difficulty concentrating, remembering, or making decisions? (5 years old or older) Yes 05/01/2024 documented as of this encounter Discharge Summaries * Devan Li MD - 05/02/2024 11:02 AM EST Images from the original note were not included. 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 Accordingto family he was not responding as he normally would somewhat resistant to care. Also at that time p [id number] was checked and was 68. Patient came into the emergency room for further medical follow-up. Electrolytes checked and essentially negative CT of the head showed no hemorrhage hemorrhagic or intracranial mass effect. Old old right thalamic and left pontine infarct was noted however EGD showed bradycardia normal sinus rhythm rest x-ray negative for acute infection. Patient will be admitted for MRI of the brain for further follow-up and assessment. Review of Systems At this time patient lying in bed his is at the bedside as well as son Mickie. Translation service used #[id number]. Family did not bring medication list in but called [facility] pharmacy and reviewed med list with patient's who is at the bedside. She states at baseline he has confusion and some mild right-sided weakness uses a wheeled walker for 10 to 15 feet of household distance. She states at the time of the incident he has some sort of electronic Dexcom which was alertingblood sugar to be 68. She states now as well as son confirming he is at a normal baseline for mental status. Eating and drinking well up through today no fever or chills no recent sick exposures other silva 14 point review of systems negative Hospital course # Altered mental status, resolved, suspect hypoglycemic episode, question TIA. # Vascular dementia -Patient has prior history of CVA, dementia. Upon chart review it appears that patient takes insulin at night and blood sugar in the morning was around 68. -Vital signs reviewed, patient was hypertensive upon presentation, blood pressure improved this morning. Labs reviewed, noted mild CLAUDY. Lipid panel abnormal with elevated triglycerides, LDL. Reviewed MRI results, no acute intracranial abnormalities noted. -Suspect TIA, hypoglycemic episode causing mental status change. Discussed with patient's son over the phone about management plan. Upon discharge we will decrease the nighttime insulin to 40 units and follow strict diabetic diet and monitor blood sugars closely. Patient is to follow-up with primary care physician regarding further management of diabetes. -Continue memantine for dementia. -Continue atorvastatin, clopidogrel. # Type 2 diabetes mellitus, insulin-dependent -Modified insulin regimen as mentioned above, decrease nighttime insulin to 40 units. -Monitor sugar levels closely to avoid hypoglycemia. # CLAUDY # Chronic kidney disease stage III -Creatinine 1.36. Recommended repeat BMP as outpatient to check creatinine. PCP follow-up. # History of hypertension -Patient takes metoprolol succinate 25 mg p.o. daily, valsartan 320 mg p.o. daily, hydralazine 50 mg 3 times daily. Will continue the same regimen. Given the bradycardia metoprolol was held. Patient needs to follow-up with applied mathematician as outpatient to further evaluate bradycardia. # Disposition -Pending physical therapy evaluation. Stable for discharge today. Management plan discussed with patient's family member over the phone. Total time spent 35minutes doing chart review, interviewing patient, gathering information, performing physical exam, formulating plan, explaining management plan to patient, coordinating care with son, coordinating care with RN, documentation and placing orders. This dictation was performed using voice recognition software. Word substitution may have occurred and may have gone unnoticed and uncorrected Follow-Up Instructions and Recommendations Felipe Barrett MD [address] [place] [id number] Schedule an appointment as soon as possible for a visit in 3 day(s) for transition of care visit Discharge Procedure Orders Basic metabolic panel Standing Status: Future Standing Exp. Date: 05/02/25 Discharge Diet: Cardiac Heart Healthy Diet (Low Cholesterol / Low Fat / No Added Salt); Fiber, fruits and vegetables are encouraged to avoid constipation. Order Specific Question Answer Comments Discharge diet you should follow at home Cardiac Heart Healthy Diet (Low Cholesterol / Low Fat / NoAdded Salt) General Instructions for your diet at home Fiber, fruits and vegetables are encouraged to avoid constipation. There are no outpatient Patient Instructions on file for this admission. Discharge Medications Your medication list CHANGE how you take these medications Instructions Last Dose Given Next Dose Due insulin degludec 100 unit/mL injection Commonly known as: TRESIBA What changed: how much to take Inject 40 Units under the skin at bedtime. CONTINUE taking these medications Instructions Last Dose Given Next Dose Due atorvastatin 80 mg tablet Commonly known as: LIPITOR Take 1 tablet (80 mg total) by mouth at bedtime. clopidogreL 75 mg tablet Commonly known as: PLAVIX Take 1 tablet (75 mg total) by mouth 1 (one) time each day in the morning. famotidine 20 mg tablet Commonly known as: PEPCID Take 1 tablet (20 mg total) by mouth 2 times daily. furosemide 20 mg tablet Commonly known as: LASIX Take 1 tablet (20 mg total) by mouth 1 (one) time each day. hydrALAZINE 50 mg tablet Commonly known as: APRESOLINE 1 tablet (50 mg total) 3 (three) times a day. Januvia 50 mg tablet Generic drug: SITagliptin phosphate Take 1 tablet (50 mg total) by mouth 1 (one) time each day. memantine 10 mg tablet Commonly known as: NAMENDA Take 1 tablet (10 mg total) by mouth 2 (two) times a day. metoprolol succinate 25 mg 24 hr tablet Commonly known as: TOPROL-XL Take 1 tablet (25 mg total) by mouth 1 (one) time each day in the morning. terazosin 2 mg capsule Commonly known as: HYTRIN Take 1 capsule (2 mg total) by mouth 1 (one) time each day in the evening. valsartan 320 mg tablet Commonly known as: DIOVAN Take 1 tablet (320 mg total) by mouth 1 (one) time each day in the morning. Where to Get Your Medications Information about where to get these medications is not yet available Ask your nurse or doctor about these medications insulin degludec 100 unit/mL injection Physical Exam at time of Discharge Physical Exam Constitutional: General: He is not in acute distress. Appearance: Normal appearance. He is not ill-appearing, toxic-appearing or diaphoretic. HENT: Head: Normocephalic and atraumatic. Mouth/Throat: Mouth: Mucous membranes are moist. Pharynx: No oropharyngeal exudate. Eyes: Conjunctiva/sclera: Conjunctivae normal. Cardiovascular: Rate and Rhythm: Normal rate and regular rhythm. Pulses: Normal pulses. Heart sounds: Normal heart sounds. Pulmonary: Effort: Pulmonary effort is normal. No respiratory distress. Breath sounds: Normal breath sounds. No wheezing. Abdominal: General: Bowel sounds are normal. There is no distension. Palpations: Abdomen is soft. Tenderness: There is no abdominal tenderness. There is no guarding. Neurological: Mental Status: He is alert. Mental status is at baseline. Psychiatric: Mood and Affect: Mood normal. Behavior: Behavior normal. Vitals Visit Vitals BP (!) 154/54 (BP Location: Right arm, Patient Position: Lying) Pulse 63 Temp 36.6 ??C (97.9 ??F) (Temporal) Resp 18 Temp (24hrs), Av.9 ??C (98.5 ??F), Min:36.6 ??C (97.9 ??F), Max:37.3 ??C (99.2 ??F) Body mass index is 32.46 kg/m??. No results found for: PTWT , PTHT documented in this encounter Discharge Instructions * Attachments The following attachments cannot be sent through Care Everywhere. * Diabetes: Carb Counting and Eating Well: General Info ([place]ian) * Hypoglycemia in Diabetes: General Info ([place]ian) documented in this encounter Medications at Time of Discharge Medication Sig Dispensed Refills Start Date End Date atorvastatin (LIPITOR) 80 mg tablet Take 1 tablet (80 mg total) by mouth at bedtime. 11/02/2023 clopidogreL (PLAVIX) 75 mg tablet Take 1 tablet (75 mg total) by mouth 1 (one) time each day in the morning. 11/29/2023 famotidine (PEPCID) 20 mg tablet Take 1 tablet (20 mg total) by mouth 2 times daily. 12/22/2020 furosemide (LASIX) 20 mg tablet Take 1 tablet (20 mg total) by mouth 1 (one) time each day. hydrALAZINE (APRESOLINE) 50 mg tablet 1 tablet (50 mg total) 3 (three) times a day. insulin degludec (TRESIBA) 100 unit/mL injection Inject 40 Units under the skin at bedtime. 05/02/2024 Januvia 50 mg tablet Take 1 tablet (50 mg total) by mouth 1 (one) time each day. 03/28/2024 memantine (NAMENDA) 10 mg tablet Take 1 tablet (10 mg total) by mouth 2 (two) times a day. metoprolol succinate (TOPROL-XL) 25 mg 24 hr tablet Take 1 tablet (25 mg total) by mouth 1 (one) time each day in the morning. terazosin (HYTRIN) 2 mg capsule Take 1 capsule (2 mg total) by mouth 1 (one) time each day in the evening. valsartan (DIOVAN) 320 mg tablet Take 1 tablet (320 mg total) by mouth 1 (one) time each day in the morning. documented as of this encounter Ordered Prescriptions Prescription Sig Dispensed Refills Start Date End Da te insulin degludec (TRESIBA) 100 unit/mL injection Inject 40 Units under the skin at bedtime. 05/02/2024 documented in this encounter Discharge Disposition Disposition Code Departure Means Destination Comment s Home-Health Care [facility] documented in this encounter Progress Notes * Ofelia Renae, PT - 05/02/2024 2:[address] [facility] Physical Therapy Evaluation & Treatment PT Discharge Recommendations: Home independent Staff Recommendations for safe patient handlin person assist with wwalker Precautions Medical Precautions: Fall Risk Safety Interventions: Call levine within reach, ID band on, Bed alarm, Side rails up x1 RUE Weight Bearing Status: Full LUE Weight Bearing Status: Full RLE Weight Bearing Status: Full LLE Weight Bearing Status: Full Fall prevention education provided including use of call light in hospital, use of appropriate assistive device, safe mobility techniques, and safety measures at home. PT Received On: 05/02/24 PT Start Time: 1200 PT Stop Time: 1230 PT Time Calculation (min): 30 min Precautions Medical Precautions: Fall Risk Safety Interventions: Call levine within reach, ID band on, Bed alarm, Side rails up x1 RUE Weight Bearing Status: Full LUE Weight Bearing Status: Full RLE Weight Bearing Status: Full LLE Weight Bearing Status: Full Cognition Overall Cognitive Status: Impaired Arousal/Alertness: Delayed responses to stimuli Orientation Level: Able to orient with prompts Hearing: Intact Vision: Intact Speech: Impaired Integumentary: intact History of Present Illness: Patient is a 69 y.o. male admitted to [facility] on 05/01/2024. Patient Active Problem List Diagnosis TIA (transient ischemic attack) Abdominal wall mass Benign hypertensive renal disease Benign prostatic hyperplasia Chronic back pain Class 2 obesity Diabetic peripheral neuropathy ([facility]) Erectile dysfunction Essential hypertension Hyperlipidemia Thalamic infarction ([facility]) Type 2 diabetes mellitus with diabetic chronic kidney disease ([facility]) Vascular dementia, unspecified severity, without behavioral disturbance, psychotic disturbance, mood disturbance, and anxiety ([facility]) Past Medical History: Diagnosis Date Chronic kidney disease CVA (cerebral vascular accident) ([facility]) Diabetes mellitus ([facility]) GERD (gastroesophageal reflux disease) Hypercholesteremia Hypertension Neuromuscular disorder ([facility]) History reviewed. No pertinent surgical history. Social History Home Living Environment: Home Living Type of Home: House Lives With: Family Home Adaptive Equipment: Walker - rolling Home Layout: One level Home Access: Stairs to enter with rails Entrance Stairs-Rails: Rail on the left going up Entrance Stairs-Number of Steps: 3 Prior Function Level of [place]: Independent with mobility and functional transfers Ambulation Status: Household ambulator Receives Help From: Family Indoor Mobility Assistance: Needed Some Help Stairs Assistance : Needed Some Help Prior Device Use: Walker Do you drive?: No Which is your dominant hand?: Right General Assessment 05/02/24 1200 PT Last Visit PT Received On 05/02/24 PT Time Calculation PT Start Time 1200 PT Stop Time 1230 PT Time Calculation (min) 30 min Precautions Medical Precautions Fall Risk Safety Interventions Call levine within reach;ID band on;Bed alarm;Side rails up x1 RUE Weight Bearing Status Full LUE Weight Bearing Status Full RLE Weight Bearing Status Full LLE Weight Bearing Status Full Oxygen Therapy Oxygen Therapy None (Room air) Cognition Overall Cognitive Status Impaired Arousal/Alertness Delayed responses to stimuli Orientation Level Able to orient with prompts Home Living Type of Home House Lives With Family Home Adaptive Equipment Walker - rolling Home Layout One level Home Access Stairs to enter with rails Entrance Stairs-Rails Rail on the left going up Entrance Stairs-Number of Steps 3 Prior Function Level of [place] Independent with mobility and functional transfers Ambulation Status Household ambulator Receives Help From Family Indoor Mobility Assistance Needed Some Help Stairs Assistance Needed Some Help Prior Device Use Walker Do you drive? No Activity Tolerance Endurance Tolerates 10 - 20 min exercise with multiple rests Sensation Light Touch No apparent deficits Static Sitting Balance Static Sitting-Level of Assistance Standby assistance Static Standing Balance Static Standing-Level of Assistance Standby assistance Bed Mobility Rolling Left and Right Assistance Minimum assistance Rolling Left and Right Deficit Steadying;Verbal cueing;Assist with left leg;Assist with right leg Lying to Sitting Assistance Minimum assistance Lying to Sitting Deficit Assist to push upper body to upright Transfers Sit to Stand Assistance Contact guard Sit to Stand Deficit Steadying;Verbal cueing;Supervision/safety awareness;Increased time to complete Chair/Bed to Chair/Bed Transfer Assistance Contact guard Chair/Bed to Chair/Bed Transfer Deficit Steadying;Supervision/safety awareness Ambulation Walking Assistance Standby assistance Walking Deficit Steadying;Verbal cueing;Supervision/safety awareness;Increased time to complete Device Rolling walker Distance Ambulated (ft) 60 Stairs Reason(s) not performed: Other (Comment) (family said they will help him up the stairs) RUE Assessment RUE Assessment Within Functional Limits LUE Assessment LUE Assessment Within Functional Limits RLE Assessment RLE Assessment Within Functional Limits LLE Assessment LLE Assessment Within Functional Limits PT Assessment PT Assessment Results At baseline Prognosis Good Evaluation/Treatment Tolerance Patient tolerated treatment well Medical Staff Made Aware Yes Plan PT Plan No skilled PT No Skilled PT Safe to return home PT Discharge Recommendations Home independent PT - Evaluation Status Complete PT - OK to Discharge Yes PT Evaluation Time Entry PT Evaluation (Moderate) Time Entry 30 Treatment performed during evaluation: None performed ADDITIONAL COMMENTS: Chart reviewed. RN clears pt for session. Pt agrees to participate and presented in in bed upon PT arrival. All lines in place. Gait belt utilized throughout treatment to maximize safety. Medical precautions observed appropriately. Initiated education on the importance of PT, bed mobility safety, Transfer Safety, Ambulation Safety , Therapy Plan of Care, Home Safety, Energy Conservations strategies, and importance of OOB activity . Pt verbalized understanding. EXIT STATUS: Session ended with patient in chair, tray table and call light within reach, and RN made aware. Physical Therapy Assessment/Plan Brain Kelly is a 69 y.o. male admitted to [facility] on 05/01/2024 for TIA (transient ischemic attack) [G45.9] . Pt presents with decreased BLE strength, balance deficits, decreased activity tolerance, and far below functional baseline. Pt performed bed mobility Minimal assist, Bedrail, HOB elevated, and Therapist assist, Transfers with Contact guard, FWW and ambulates Stand by assist and Contact guard with FWW 60 ft . Pt will benefit from skilled acute PT during hospital stay to improve the deficits listed above and optimize function. PT recommends Home independent when medically stable for safe discharge and to optimize functional mobility and independence. Goals Encounter Problems Encounter Problems (Active) There are no active problems. Encounter Problems (Resolved) There are no resolved problems. Education Documentation Home Exercise Program, taught by Ofelia Renae PT at 05/02/2024 2:03 PM. Learner: Family, Patient Readiness: Eager Method: Explanation, Demonstration Response: Verbalizes Understanding, Demonstrated Understanding Mobility Training, taught by Ofelia Renae PT at 05/02/2024 2:03 PM. Learner: Family, Patient Readiness: Eager Method: Explanation, Demonstration Response: Verbalizes Understanding, Demonstrated Understanding Education Comments No comments found. Ofelia Renae PT * Saray Sykes RN - 05/02/2024 1:55 PM EST 05/02/24 1355 Initial Transition Plan Initial Transition Plan Home Back up Transition Plan Back up Transition plan Home Discharge Planning Living Arrangements Spouse/significant other Type of Residence Private residence Assistive Devices None Support Systems Spouse/significant other Medication Coverage Has Med Coverage Under Insurance Plan Yes Medication Affordability No concerns related to payment for meds Anticipated Discharge Needs Discipline following for SNF placement [facility] Tester Informed Choice Informed Choice Given? Yes Transportation Transportation at discharge Family What day is the transport expected? 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 Accordingto family he was not responding as he normally would somewhat resistant to care. Also at that time p [id number] was checked and was 68. Patient came into the emergency room for further medical follow-up. Electrolytes checked and essentially negative CT of the head showed no hemorrhage hemorrhagic or intracranial mass effect. Old old right thalamic and left pontine infarct was noted however EGD showed bradycardia normal sinus rhythm rest x-ray negative for acute infection. Patient will be admitted for MRI of the brain for further follow-up and assessment. Review of Systems At this time patient lying in bed his is at the bedside as well as son Mickie. Translation service used #[id number]. Family did not bring medication list in but called [facility] pharmacy and reviewed med list with patient's who is at the bedside. She states at baseline he has confusion and some mild right-sided weakness uses a wheeled walker for 10 to 15 feet of household distance. She states at the time of the incident he has some sort of electronic Dexcom which was alertingblood sugar to be 68. She states now as well as son confirming he is at a normal baseline for mental status. Eating and drinking well up through today no fever or chills no recent sick exposures other silva 14 point review of systems negative Hospital course # Altered mental status, resolved, suspect hypoglycemic episode, question TIA. # Vascular dementia -Patient has prior history of CVA, dementia. Upon chart review it appears that patient takes insulin at night and blood sugar in the morning was around 68. -Vital signs reviewed, patient was hypertensive upon presentation, blood pressure improved this morning. Labs reviewed, noted mild CLAUDY. Lipid panel abnormal with elevated triglycerides, LDL. Reviewed MRI results, no acute intracranial abnormalities noted. -Suspect TIA, hypoglycemic episode causing mental status change. Discussed with patient's son over the phone about management plan. Upon discharge we will decrease the nighttime insulin to 40 units and follow strict diabetic diet and monitor blood sugars closely. Patient is to follow-up with primary care physician regarding further management of diabetes. -Continue memantine for dementia. -Continue atorvastatin, clopidogrel. # Type 2 diabetes mellitus, insulin-dependent -Modified insulin regimen as mentioned above, decrease nighttime insulin to 40 units. -Monitor sugar levels closely to avoid hypoglycemia. # CLAUDY # Chronic kidney disease stage III -Creatinine 1.36. Recommended repeat BMP as outpatient to check creatinine. PCP follow-up. # History of hypertension -Patient takes metoprolol succinate 25 mg p.o. daily, valsartan 320 mg p.o. daily, hydralazine 50 mg 3 times daily. Will continue the same regimen. Given the bradycardia metoprolol was held. Patient needs to follow-up with applied mathematician as outpatient to further evaluate bradycardia. # Disposition -Pending physical therapy evaluation. Stable for discharge today. Management plan discussed with patient's family member over the phone. Total time spent 35minutes doing chart review, interviewing patient, gathering information, performing physical exam, formulating plan, explaining management plan to patient, coordinating care with son, coordinating care with RN, documentation and placing orders. This dictation was performed using voice recognition software. Word substitution may have occurred and may have gone unnoticed and uncorrected * Dakota Rios RN - 05/01/2024 11:29 PM EST Goals: Problem: Skin Integrity: Pressure Injury Actual or Risk of Goal: Will not develop new pressure injury Outcome: Progressing Goal: Skin integrity will improve Outcome: Progressing Goal: Risk for impaired skin integrity will decrease Outcome: Progressing Problem: Activity:Pressure Injury Actual or Risk of Goal: Mobility will improve Outcome: Progressing Problem: Nutritional:Pressure Injury Actual or Risk of Goal: Nutritional status will improve Outcome: Progressing Problem: Patient Specific Problem: Pressure Injury Actual or Risk of Goal: Patient Specific Outcome Outcome: Progressing Identify possible barriers to meeting goals/advancing plan of care: neurovascular status Stability of the patient: Moderately Stable - Low risk of patient condition declining or worsening End of Shift Summary: * Nguyen Amezcua RN - 05/01/2024 6:43 PM EST ED RN HANDOFF (All Carrillo Below Must Be Completed) Reason/Diagnosis for Admission: MRI of brain and further follow up Type of Admission: [] Medsurg, [x] Telemetry Already in a Hospital Bed: [] Yes / [x] No Room Considerations/Precautions (ex: fever, diarrhea, or any infectious concerns): [] Yes / [x] No Residential Team Leader: [x] Yes / [] No If YES, Cardiac Rhythm: [] NSR, [x] SB, [] ST, [] A-FIB, [] A-Flutter, [] Pacemaker, [] 1st Degree HB, [] 2nd Degree HB, [] 3rd Degree HB Reason for Residential Team Leader: Sinus Marino VS: Visit Vitals BP (!) 183/52 (BP Location: Left arm, Patient Position: Sitting) Pulse (!) 48 Temp 36.8 ??C (98.3 ??F) (Oral) Resp 14 Ht 1.676 m (66 ) Wt 91.2 kg (201 lb 1.6 oz) SpO2 97% BMI 32.46 kg/m?? Smoking Status Never BSA 2 m?? Current Mental Status: A/O x []4, []3, []2, [x]1 Dementia, Current Ambulation Status: Unknown IV Access: [x] Yes / [] No Field IV present: [] Yes / [x] No Hx of Violence: [] Yes / [x] No / [] Unknown Fall Risk:[x] Yes / [] No Yellow Bracelet Applied [x] Yes / [] No Yellow Socks Applied [x] Yes / [] No Patient Belongings inventoried and BL completed: [x] Yes / [] No Patient belongings stored in the security closet: [] Yes (If Yes please supply Security bag #): [x] No Patient Medications stored in Pharmacy: [] Yes (If Yes please supply Medication Security bag #): [x] No ED Summary of Care: Pt initially a stroke rule-out, CT scan negative. Hx of CVA. Sinus marino on monitor, informed this RN his HR is usually in the 50's. POC at 1640 = 90, insulin held. Lantus ordered however questioned provider whether or not it should be held due to low sugars today. Providerinstructed to feed pt dinner then recheck POC and give Lantus at 2100 if POC is above 100. Dementia, cymro speaking. Submitted by and Phone Extension: Nguyen Rivera RN * Nguyen Amezcua RN - 05/01/2024 6:39 PM EST NURSING SWALLOW SCREEN Exclusing Criteria: (choose one) exclusion criteria: No Exclusion Criteria - Proceed to 3 oz water trial Please Note: Only proceed with screen if 'No exclusion criteria' is selected. If 'no risk factors' selected proceed with diet per order. This is for someone with No aspiration risk factor. Stroke pts ARE a risk factor. If any exclusion criteria selected (except for 'No Risk Foctors' or 'No Exclusion Criteria') order Swallowing Evaluation /FEES by Speech /Language Pathologist. Screen may be repeated if patient shows clinical improvement (Clinical improvement is defined as patient not showing signs of any exclusion criteria. Assessment (3 oz Water Swallow Challenge): Pass/Fail: Pass Perform Water Swallow Challenge and Document Pass/Fail Instructions for completing water swallow challenge >Sit patient upright 80-90 degrees > Patients with HOB elevated 30-80 degrees are eligible for aspiration screen >Ask patient to drink 3 oz water (90 ml) from cup or through straw in sequential swallows without stopping (cup or straw can be held by patient or staff) >Assess for coughing, choking, or cleonng throat during swallowing immediately after completion of drinking Pass: Able to drink 3 ounces of i-rater with sequential swallows without coughing, clearing throat,or change in vocal quality during and / or immediately after. Notify MD of results and obtain diet order Fail: Inability to perform sequential swallows Cough, clearing throat, or change in vocal quality during and/or immediately after drinking. Notify MD of results Keep NPO including medication. Order Swallov Evaluation / FEES by Speech / Language Pathologist. 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 Emergency Physician: Jovanni Jacome DO History of Present Illness Chief Complaint: Chief Complaint Patient presents with Stroke LKWT 12pm today via ems from home HPI: History is obtained via EMS and prior chart reviews. 69-year-old male with a history of vascular dementia presents today via EMS for stroke. Reportedly patient was eating lunch today around 12:00 PM when he slumped over to the right and was drooling. Family concern for stroke so they called EMS, upon arrival of EMS they noted that he had some right arm weakness. Speech was somewhat garbled per family. .ROS: I have performed a ROS with the pertinent positives and negatives documented in the history of present illness. Previous History No past medical history on file. No past surgical history on file. No family history on file. is allergic to morphine and niacin. No current facility-administered medications on file prior to encounter. No current outpatient medications on file prior to encounter. Physical Exam ED Triage Vitals Temp Pulse Resp BP -- -- -- -- SpO2 Temp src Heart Rate Source Patient Position -- -- -- -- BP Location FiO2 (%) -- -- General: awake, calm, cooperative, lying on stretcher Skin: warm, dry Eyes: PERRLA, EOMI ENT: mucosa moist, Neck: soft/supple, full range of motion Respiratory: clear to auscultation Cardiovascular: regular rate and rhythm Musculoskeletal: moving all extremities Neurological: Alert to person, place and time, follows commands, strength 5/5 upper and lower extremities, no pronator drift, mild dysarthria (unsure if baseline?) Psychiatric: stable mood and affect Results Labs Reviewed CBC AND DIFFERENTIAL Narrative: The following orders were created for panel order CBC and differential. Procedure Abnormality Status --------- ------ CBC auto differential[[id number]] Please view results for these tests on the individual orders. BASIC METABOLIC PANEL PROTHROMBIN TIME WITH INR ACTIVATED PARTIAL THROMBOPLASTIN TIME CBC WITH AUTO DIFFERENTIAL POC GLUCOSE Abnormal Labs Reviewed - No abnormal labs to display CT Head Stroke wo Contrast Final Result Impression: 1. No acute hemorrhage or intracranial mass effect. 2. 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 3. Extensive, nonspecific deep white matter changes compatible with chronic microvascular ischemia. The findings were conveyed to the referring provider at the time of interpretation on 05/01/24 by secure text message (Vigme). Arctrievalsudhakar CHAMORRO ([id number]) A Critical Document Only message has been documented for the office of JOVANNI JACOME in the Face[employer] system on 05/01/2024 2:56 PM, Message ID [id number]. -------- FINAL REPORT -------- Dictated By: Mayte Quinteros Dictated Date: 05/01/2024 14:50 ET Assigned Physician: Mayte Quinteros Reviewed and Electronically Signed By: Mayte Quinteros Signed Date: 05/01/2024 14:56 ET Workstation ID: [id number] Transcribed By: Self Edit Transcribed Date: 05/01/2024 14:[address] Angio Head/Neck Stroke wo and/or w Contrast Final Result Stable exam compared to 09/11/2023. No high-grade stenosis or occlusion in the cervical or intracranial arterial vasculature. -------- FINAL REPORT -------- Dictated By: DOC DUENAS Dictated Date: 05/01/2024 15:18 ET Assigned Physician: DOC DUENAS Reviewed and Electronically Signed By: DOC DUENAS Signed Date: 05/01/2024 15:27 ET Workstation ID: [id number] Transcribed By: Self Edit Transcribed Date: 05/01/2024 15:18 ET XR Chest 1 View (Results Pending) I have discussed the incidental/abnormal imaging and/or lab abnormalities with the patient and haveinstructed them the need for further evaluation and workup with their primary care doctor. I have provided the patient with a paper copy of the abnormality. The laboratory results, imaging results and other diagnostic exam results were reviewed in the EMR. EKG Interpretation Critical Care Time None ? Medical Decision Making 69 year old male with history of vascular dementia presents today as a stroke alert via EMS. Patient has an NIH stroke scale of 1 due to mild dysarthria this is baseline, regardless a stroke alert was called. Patient CT scan is negative, pending CTA of head and neck. If these are negative would consider admission for MRI given his history of CVA's. Medications sodium chloride 0.9 % flush 10 mL (10 mL intravenous Given 05/01/24 1443) iopamidoL (ISOVUE-370) 370 mg iodine /mL (76 %) injection 90 mL (90 mL intravenous Given 05/01/24 1444) ED Course as of 05/01/24 1536 Tue May 01, 2024 1507 IMPRESSION: Impression: 1. No acute hemorrhage or intracranial mass effect. 2. 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 3. Extensive, nonspecific deep white matter changes compatible with chronic microvascular ischemia. [MC] 1522 Patient signed out end of his shift pending CTA and blood work. [NG] 1535 Nonacute. CTA does not show any LVO. Patient will be brought to the hospital for workup for TIA versus stroke not seen on CT. He had no indication for lytics given NIH score of essentially 0 with baseline dementia. [MC] ED Course User Index [MC] Jovanni Jacome DO [NG] ASHTYN Olea Clinical Impressions as of 05/01/24 1536 TIA (transient ischemic attack) Procedures Procedures Diagnosis 1. TIA (transient ischemic attack) Disposition Admit to Inpatient ED Prescriptions None Physician Attestation This is a split/shared visit with ASHTYN Olea. I personally performed the medical decision making (MDM) for the care of this patient on 05/01/24 as documented below Patient seen and examined. This was a stroke alert from EMS. Patient was sitting and eating with family. Last well-known time is 12:00 today 05/01/2024. He started did not talk normal and was drooling and slumped to the right. According to family and EMS the patient has some dementia but his speech and cognition was baseline on their arrival per the family which is how he arrives here to the emergency department. In addition EMS states he was not talking much at all and not really responding appropriately at the house and possibly had some weakness in the right arm. All of this is resolved. He was seen out at triage and a stroke alert was called and continued. Patient is euglycemic. There is no seizure history. In August he had a stroke with a positive MRI for right-sided symptoms. He had subacute stroke on imaging. His medical record reports left- sided hemiaplasia although I examined this patient and he does not appear to have any lateralizing weakness. His speech is somewhat slow and unclear but as reported above this is baseline. He does not have any drift. He answers basic questions.He does not have any gross ataxia. His NIH score is 1. This NIH score is based on his speech which is baseline. The patient does not appear to have any new or lasting neurologic symptoms and is not acandidate for lytic therapy. He will undergo the stroke alert to get imaging. Will need reevaluation following imaging. Doubtful this is an LVO Jovanni Jacome DO 05/01/24 3:36 PM EST DO Monse Valiente PA 05/01/24 1432 Monse Andrestas, PA 05/01/24 1436 Monse S [place], PA 05/01/24 1438 Jovanni Jacome DO 05/01/24 1442 Monse S [place], ASHTYN 05/01/24 1444 Monse Andrestas, PA 05/01/24 1509 Monse S [place], PA 05/01/24 1523 Jovanni Jacome DO 05/01/24 1536 documented in this encounter H&P Notes * ASHTYN Saha - 05/01/2024 5:22 PM EST Images from the original note were not included. [facility] Please contact author [ASHTYN Saha] via [employer]. 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 According to family he was not responding as he normally would somewhat resistant to care. Also at that time po int-of-care was checked and was 68. Patient came into the emergency room for further medical follow-up. Electrolytes checked and essentially negative CT of the head showed no hemorrhage hemorrhagic or intracranial mass effect. Old old right thalamic and left pontine infarct was noted however EGD showed bradycardia normal sinus rhythm rest x-ray negative for acute infection. Patient will be admitted for MRI of the brain for further follow-up and assessment. Review of Systems At this time patient lying in bed his is at the bedside as well as son Mickie. Translation service used #[id number]. Family did not bring medication list in but called [facility] pharmacy and reviewed med list with patient's who is at the bedside. She states at baseline he has confusion and some mild right-sided weakness uses a wheeled walker for 10 to 15 feet of household distance. She states at the time of the incident he has some sort of electronic Dexcom which was alertingblood sugar to be 68. She states now as well as son confirming he is at a normal baseline for mental status. Eating and drinking well up through today no fever or chills no recent sick exposures other silva 14 point review of systems negative MEDICAL HISTORY Past Medical History CVA thalamic right-sided hemiparesis Vascular dementia Diabetes insulin-dependent GERD Dyslipidemia Hypertension Stage III kidney disease secondary to diabetes Hypertension BPH Past Surgical History History reviewed. No pertinent surgical history. Social History reports that he has never smoked. He has never used smokeless tobacco. He reports that he does not currently use alcohol. Family History family history is not on file. Allergies is allergic to morphine and niacin. Home Medications No current facility-administered medications on file prior to encounter. Current Outpatient Medications on File Prior to Encounter Medication Sig Dispense Refill atorvastatin (LIPITOR) 80 mg tablet Take 1 tablet (80 mg total) by mouth at bedtime. clopidogreL (PLAVIX) 75 mg tablet Take 1 tablet (75 mg total) by mouth 1 (one) time each day in themorning. famotidine (PEPCID) 20 mg tablet Take 1 tablet (20 mg total) by mouth 2 times daily. hydrALAZINE (APRESOLINE) 50 mg tablet 1 tablet (50 mg total) 3 (three) times a day. insulin degludec (TRESIBA) 100 unit/mL injection Inject 60 Units under the skin at bedtime. Januvia 50 mg tablet Take 1 tablet (50 mg total) by mouth 1 (one) time each day. memantine (NAMENDA) 10 mg tablet Take 1 tablet (10 mg total) by mouth 2 (two) times a day. metoprolol succinate (TOPROL-XL) 25 mg 24 hr tablet Take 1 tablet (25 mg total) by mouth 1 (one) time each day in the morning. terazosin (HYTRIN) 2 mg capsule Take 1 capsule (2 mg total) by mouth 1 (one) time each day in the evening. valsartan (DIOVAN) 320 mg tablet Take 1 tablet (320 mg total) by mouth 1 (one) time each day in themorning. OBJECTIVE Vitals Visit Vitals BP (!) 178/59 (BP Location: Right arm) Pulse 60 Temp 36.8 ??C (98.3 ??F) (Oral) Resp 16 Temp (24hrs), Av.8 ??C (98.3 ??F), Min:36.8 ??C (98.3 ??F), Max:36.8 ??C (98.3 ??F) Body mass index is 32.46 kg/m??. No results found for: PTWT , PTHT Physical Examination Patient lying in bed in no acute distress. HEENT: Head is normocephalic and atraumatic, PERRLA, EOMI, no JVD Cardiac: S1-S2 regular rate and rhythm no rubs murmurs gallops Lungs: Clear to auscultation bilaterally Abdomen: Soft, nontender,bowel sounds in all 4 quadrants Extremities: Patient without pitting edema. 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 Poor inspiration. 2. No active pulmonary process. Liliya CHAMORRO () -------- FINAL REPORT -------- Dictated By: Mayte Quinteros Dictated Date: 05/01/2024 16:30 ET Assigned Physician: Mayte Quinteros Reviewed and Electronically Signed By: Mayte Quinteros Signed Date: 05/01/2024 16:31 ET Workstation ID: [id number] Transcribed By: Self Edit Transcribed Date: 05/01/2024 16:[address] Head Stroke wo Contrast Final Result Impression: 1. No acute hemorrhage or intracranial mass effect. 2. 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 3. Extensive, nonspecific deep white matter changes compatible with chronic microvascular ischemia. The findings were conveyed to the referring provider at the time of interpretation on 05/01/24 by secure text message (Vigme). Liliya CHAMORRO () A Critical Document Only message has been documented for the office of JOVANNI JACOME in the [employer] system on 05/01/2024 2:56 PM, Message ID [id number]. -------- FINAL REPORT -------- Dictated By: Mayte Quinteros Dictated Date: 05/01/2024 14:50 ET Assigned Physician: Mayte Quinteros Reviewed and Electronically Signed By: Mayte Quinteros Signed Date: 05/01/2024 14:56 ET Workstation ID: [id number] Transcribed By: Self Edit Transcribed Date: 05/01/2024 14:[address] Angio Head/Neck Stroke wo and/or w Contrast Final Result Stable exam compared to 09/11/2023. No high-grade stenosis or occlusion in the cervical or intracranial arterial vasculature. -------- FINAL REPORT -------- Dictated By: DOC DUENAS Dictated Date: 05/01/2024 15:18 ET Assigned Physician: DOC DUENAS Reviewed and Electronically Signed By: DOC DUENAS Signed Date: 05/01/2024 15:27 ET Workstation ID: [id number] Transcribed By: Self Edit Transcribed Date: 05/01/2024 15:18 ET MR Brain wo Contrast (Results Pending) ASSESSMENT & PLAN #Neuro: Acute mental status change Patient with a history of CVA right thalamic and left pontine infarcts with acute mental status change witnessed by family now resolved. CT scan of the head negative as well as CTA. Will obtain MRI of the brain for further assessment Monitor on telemetry. If MRI is positive we will proceed with neurology consultation Patient is maintained on Plavix and high-dose statin check HA1C, TSH and lipid panel in a.m. Is possible patient had a hypoglycemic reaction as an acute mental status change. 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 Low bloodsugar was noted this morning during this event at 68. Will interchange to Lantus generally have to dose reduce by 20% per pharmacy recommendations for now we will use 30 units. Blood sugar at this time is 90 he will eat dinner if blood sugars greater than 110 would give basilar insulin Continues on Januvia for diabetic control #Hypertension uncontrolled at this time systolic blood pressure 179 due for hydralazine 50 mg 3 times a day Also on losartan 320 mg daily and metoprolol 25 mg daily. Family does note he has a history of low heart rate today ranging between 40 and 50 would hold metoprolol. Denies any known history of prior DE. Is seen outpatient by [facility] PCP notes reviewed no specific mention of cardiomyopathy or CHF but does have Lasix 20 units daily in the morning as well #Vascular dementia continue Namenda 10 mg daily family denies any impulsive behavior would invoke healthcare proxy however #BPH with urinary incontinence No longer on oxybutynin according to Continue Hatch and 2 mg at at bedtime Case discussed with Dr. Centeno who agrees with the care plan above Admission checklist [x] Code status: Full Code - Default Dietary Orders (From admission, onward) Start Ordered 05/01/24 1719 Adult diet [facility]; Diabetic; 60 gm carb/Meal Diet effectivenow Question Answer Comment Location [facility] Diet Type (req) Diabetic Diabetic 60 gm carb/Meal 05/01/24 1720 Health Care proxy Leah [phone] Associated attestation - Cordell Centeno MD - 05/02/2024 5:55 PM EST This is a split/shared visit with ASHTYN Saha. I personally performed the medical decision making (MDM) for the care of this patient on 05/01/24 as documented below This is a 69-year-old male with vascular dementia and history of thalamic infarct with right-sided hemiparesis at baseline as well as type 2 diabetes and stage III chronic kidney disease who is currently presenting with acute confusional state. Hypoglycemic. I reviewed CT of the head and there was no intracranial hemorrhage or intracranial masses. EKG did show sinus bradycardia. X-ray was negative for acute pneumonia. Vital signs are within normal limits except slightly elevated blood pressure. Patient has been held with the emergency room team and final decision has been made to admit the patient to the hospital for further evaluation and treatment. Differential diagnosis would be acute CVA resulting in behavioral disturbance versus worsening dementia with behavioral disturbance versus sleep deprivation. Continue Plavix and aspirin, MRI of the brain for further assessment. Watch blood sugar. Do not cover with Lantus or short acting insulin for now. I agree with dose reduction of Lantus as of tomorrow. Hold Kenia Centeno MD 05/02/24 5:52 PM EST documented in this encounter Plan of Treatment Pending Results Name Type Priority Associated Diagnoses Date /Time POC glucose manually resulted Point of Care Testing STAT 05/02/2024 9:49 AM EST Scheduled Orders Name Type Priority Associated Diagnoses Orde r Schedule POC glucose manually resulted Point of Care Testing STAT Once for 1 Occurrences starting 05/01/2024 until 05/01/2024 Basic metabolic panel Lab Routine CLAUDY (acute kidney injury) ([facility]) Expected: 05/09/2024, Expires: 05/02/2025 documented as of this encounter Procedures Procedure Name Priority Date/Time Associated Diagnosis Comments POCT GLUCOSE BLOOD Routine 05/02/2024 11 :23 AM EST POCT GLUCOSE BLOOD Routine 05/02/2024 8: 02 AM EST LIPID PANEL WITH REFLEX TO DIRECT LDL Routine 05/02/2024 5:59 AM EST HEMOGLOBIN A1C Routine 05/02/2024 5:59 AM EST BASIC METABOLIC [...] WITH INR STAT 05/01/2024 3:23 PM EST CBC AND DIFFERENTIAL STAT 05/01/2024 3:23 PM EST BASIC METABOLIC PANEL STAT 05/01/2024 3:23 PM EST ECG 12-LEAD STAT 05/01/2024 3:[address] HEAD STROKE WO CONTRAST STAT 05/01/2024 2:[address] ANGIO HEAD/NECK STROKE WO AND/OR W CONTRAST STAT 05/01/2024 2:50 PM EST ECG ANNOTATED 05/01/2024 documented in this encounter Results * (ABNORMAL) POCT Glucose, blood (05/02/2024 11:23 AM EST) Glucose POCT 254(H) 70 - 100 mg/dL 05/02/2024 11:24 AM EST [facility] Blood Capillary blood specimen / Unknown 05/02/2024 11:23 AM EST 05/02/2024 11:26 AM EST Devan Li MD LAB POINT OF CA RE TEST DOCKED DEVICE UNSOLICITED RESULTS [facility] [address] [place] [address], * (ABNORMAL) POCT Glucose, blood (05/02/2024 8:02 AM EST) Glucose POCT 236(H) 70 - 100 mg/dL 05/02/2024 8:03 AM EST [facility] Blood Capillary blood specimen / Unknown 05/02/2024 8:02 AM EST 05/02/2024 8:04 AM EST Devan Li MD LAB POINT OF CA RE TEST DOCKED DEVICE UNSOLICITED RESULTS Performing Organization Address City/[facility]/ZIP Co de Phone Number [facility] [address] [place] [address], [place] [phone] * (ABNORMAL) Hemoglobin A1c (05/02/2024 5:59 AM EST) Hemoglobin A1C 7.5(H) <6.5 % LAB CHEMISTRY METHOD 05/02/2024 1:04 PM EST [facility] Mean Bld Glu Estim. 169 mg/dL LAB CHEMISTRY METHOD 05/02/2024 1:04 PM [facility] Blood Venous blood specimen / Unknown Venipuncture / Unknown 05/02/2024 5:59 AM EST 05/02/2024 7:16 AM EST Rrii CHAMORRO LAB BLOOD ORDERABLES [facility] [address] [place] [address], [place] [phone] * (ABNORMAL) Lipid panel with reflex to direct LDL (05/02/2024 5:59 AM EST) Cholesterol 196 0 - 200 mg/dL LAB CHEMISTRY METHOD 05/02/2024 8:24 AM EST [facility] Triglycerides 280(H) 0 - 150 mg/dL LAB CHEMISTRY METHOD 05/02/2024 8:24 AM EST [facility] HDL 36(L) >=40 mg/dL LAB CHEMISTRY METHOD 05/02/2024 8:24 AM EST [facility] LDL Calculated 104(H) 0 - 100 mg/dL LAB CHEMISTRY METHOD 05/02/2024 8:24 AM EST [facility] VLDL Cholesterol Naman 56 mg/dL LAB CHEMISTRY METHOD 05/02/2024 8:24 AM EST [facility] Non HDL Chol. (LDL+VLDL) 160(H) <145 mg/dL LAB CHEMISTRY METHOD 05/02/2024 8:24 AM [facility] Chol/HDL Ratio 5.4(H) 0.0 - 4.4 LAB CHEMISTRY METHOD 05/02/2024 8:24 AM [facility] Blood Venous blood specimen / Unknown Venipuncture / Unknown 05/02/2024 5:59 AM EST 05/02/2024 7:17 AM EST Riri CHAMORRO LAB BLOOD ORDERABLES [facility] [address] [place] [address], * (ABNORMAL) Basic metabolic panel (05/02/2024 5:59 AM EST) Sodium 140 133 - 145 mmol/L LAB CHEMISTRY METHOD 05/02/2024 8:24 AM [facility] Potassium 3.7 3.5 - 5.5 mmol/L LAB CHEMISTRY METHOD 05/02/2024 8:24 AM [facility] Chloride 107 96 - 110 mmol/L LAB CHEMISTRY METHOD 05/02/2024 8:24 AM [facility] CO2 25 21 - 32 mmol/L LAB CHEMISTRY METHOD 05/02/2024 8:24 AM [facility] Anion Gap 8 3 - 11 LAB CHEMISTRY METHOD 05/02/2024 8:24 AM [facility] Glucose 221(H) 70 - 100 mg/dL LAB CHEMISTRY METHOD 05/02/2024 8:24 AM [facility] BUN 17 5 - 25 mg/dL LAB CHEMISTRY METHOD 05/02/2024 8:24 AM [facility] Creatinine 1.36(H) 0.70 - 1.30 mg/dL LAB CHEMISTRY METHOD 05/02/2024 8:24 AM EST [facility] eGFR 56(L) >=60 mL/min/1. 73m2 LAB CHEMISTRY METHOD 05/02/2024 8:24 AM EST [facility] Comment:Calculation based on the??Chronic Kidney Disease Epidemiology Collaboration (CKD-EPI) equation refit??without adjustment for race. BUN/Creatinine Ratio 12.5 LAB CHEMISTRY METHOD 05/02/2024 8:24 AM EST [facility] Calcium 8.3(L) 8.5 - 10.5 mg/dL LAB CHEMISTRY METHOD 05/02/2024 8:24 AM [facility] Blood Venous blood specimen / Unknown Venipuncture / Unknown 05/02/2024 5:59 AM EST 05/02/2024 7:17 AM EST Cordell Centeno MD LAB BLOOD ORDERABLES [facility] [address] [place] [address], [place] [phone] * (ABNORMAL) POCT Glucose, blood (05/01/2024 8:41 PM EST) [facility] Glucose POCT 138(H) 70 - 100 mg/dL 05/01/2024 8:42 PM EST [facility] Blood Capillary blood specimen / Unknown 05/01/2024 8:41 PM EST 05/01/2024 8:43 PM EST Cordell Centeno MD LAB POINT OF CARE TE ST DOCKED DEVICE UNSOLICITED RESULTS [facility] [address] [place] [address], [place] [phone] * MR Brain wo Contrast (05/01/2024 7:35 [...] Kiran MD on 05/01/2024 19:52:31 Riri CHAMORRO [facility] PROCEDURES * POCT Glucose, blood (05/01/2024 4:40 PM EST) Glucose POCT 90 70 - 100 mg/dL 05/01/2024 4:41 PM EST [facility] Blood Capillary blood specimen / Unknown 05/01/2024 4:40 PM EST 05/01/2024 4:42 PM EST Cordell Centeno MD LAB POINT OF CARE TE ST DOCKED DEVICE UNSOLICITED RESULTS [facility] [address] [place] [address], * XR Chest 1 View (05/01/2024 4:23 PM EST) Anatomical Region Laterality Modality Body Radiographic Dilma ging 05/01/2024 4:30 PM EST Impressions 05/01/2024 4:31 PM EST Impression: 1. Poor inspiration. 2. No active pulmonary process. Telerad ASHTYN ([id number]) -------- FINAL REPORT -------- Dictated By: Mayte Quinteros Dictated Date: 05/01/2024 16:30 ET Assigned Physician: Mayte Quinteros Reviewed and Electronically Signed By: Mayte Quinteros Signed Date: 05/01/2024 16:31 ET Workstation ID: [id number] Transcribed By: Self Edit Transcribed Date: 05/01/2024 [...] 2. No active pulmonary process. Telerad ASHTYN ([id number]) -------- FINAL REPORT -------- Dictated By: Mayte Quinteros Dictated Date: 05/01/2024 16:30 ET Assigned Physician: Mayte Quinteros Reviewed and Electronically Signed By: Mayte Quinteros Signed Date: 05/01/2024 16:31 ET Workstation ID: [id number] Transcribed By: Self Edit Transcribed Date: 05/01/2024 16:30 ET Jovanni Jacome DO IMG XR PROCEDURES * (ABNORMAL) CBC auto differential (05/01/2024 3:23 PM EST) [facility] WBC 9.0 4.8 - 10.8 K/mcL LAB HEMETOLOGY METHOD 05/01/2024 3:49 PM [facility] RBC 4.50 4.50 - 5.50 M/mcL LAB HEMETOLOGY METHOD 05/01/2024 3:49 PM [facility] Hemoglobin 13.8 13.5 - 17.5 g/dL LAB HEMETOLOGY METHOD 05/01/2024 3:49 PM [facility] Hematocrit 41.0(L) 42.0 - 54.0 % LAB HEMETOLOGY METHOD 05/01/2024 3:49 PM [facility] MCV 90.9 79.0 - 98.0 FL LAB HEMETOLOGY METHOD 05/01/2024 3:49 PM [facility] MCH 30.6 27.0 - 32.0 pcg LAB HEMETOLOGY METHOD 05/01/2024 3:49 PM [facility] MCHC 33.7 32.0 - 37.0 g/dL LAB HEMETOLOGY METHOD 05/01/2024 3:49 PM [facility] RDW 13.0 11.0 - 15.0 % LAB HEMETOLOGY METHOD 05/01/2024 3:49 PM [facility] Platelets 173 130 - 400 K/mcL LAB HEMETOLOGY METHOD 05/01/2024 3:49 PM [facility] MPV 11.6(H) 7.0 - 11.0 FL LAB HEMETOLOGY METHOD 05/01/2024 3:49 PM [facility] NRBC 0.0 <1.0 % LAB HEMETOLOGY METHOD 05/01/2024 3:49 PM [facility] NRBC Absolute 0.00 <0.10 K/mcL LAB HEMETOLOGY METHOD 05/01/2024 3:49 PM [facility] Neutrophils Relative 71.8 % LAB HEMETOLOGY METHOD 05/01/2024 3:49 PM [facility] Lymphocytes Relative 17.7 % LAB HEMETOLOGY METHOD 05/01/2024 3:49 PM [facility] Monocytes Relative 8.0 % LAB HEMETOLOGY METHOD 05/01/2024 3:49 PM [facility] Eosinophils Relative 1.6 % LAB HEMETOLOGY METHOD 05/01/2024 3:49 PM [facility] Basophils Relative 0.3 % LAB HEMETOLOGY METHOD 05/01/2024 3:49 PM [facility] Immature Granulocytes Relative 0.6 % LAB HEMETOLOGY METHOD 05/01/2024 3:49 PM [facility] Neutrophils Absolute 6.49 1.50 - 7.00 K/mcL LAB HEMETOLOGY METHOD 05/01/2024 3:49 PM [facility] Lymphocytes Absolute 1.60 1.00 - 5.00 K/mcL LAB HEMETOLOGY METHOD 05/01/2024 3:49 PM [facility] Monocytes Absolute 0.72 0.20 - 1.00 K/mcL LAB HEMETOLOGY METHOD 05/01/2024 3:49 PM [facility] Eosinophils Absolute 0.14 0.00 - 0.50 K/mcL LAB HEMETOLOGY METHOD 05/01/2024 3:49 PM [facility] Basophils Absolute 0.03 0.00 - 0.20 K/[facility] LAB HEMETOLOGY METHOD 05/01/2024 3:49 PM EST [facility] Immature Granulocytes Absolute 0.05(H) 0.00 - 0.03 [facility] LAB HEMETOLOGY METHOD 05/01/2024 3:49 PM EST [facility] Blood Venous blood specimen / Unknown Venipuncture / Unknown 05/01/2024 3:23 PM EST 05/01/2024 3:45 PM EST Jovanni Mario Jacome DO LAB BLOOD ORDERABLE S Performing Organization Address City/[facility]/ZIP Co de Phone Number [facility] [address] [place] [address], [place] [phone] * Activated partial thromboplastin time (05/01/2024 3:23 PM EST) aPTT 31.2 24.1 - 39.3 sec LAB COAGULATION METHOD 05/01/2024 3:59 PM EST [facility] Blood Venous blood specimen / Unknown Venipuncture / Unknown 05/01/2024 3:23 PM EST 05/01/2024 3:45 PM EST Jovanni Mario Jacome DO LAB BLOOD ORDERABLE S [facility] [address] [place] [address], [place] [phone] * Prothrombin time with INR (05/01/2024 3:23 PM EST) Protime 11.7 10.6 - 13.9 sec LAB COAGULATION METHOD 05/01/2024 3:59 PM EST [facility] INR 0.9 LAB COAGULATION METHOD 05/01/2024 3:59 PM EST [facility] Blood Venous blood specimen / Unknown Venipuncture / Unknown 05/01/2024 3:23 PM EST 05/01/2024 3:45 PM EST Jovanni Martin Naa CHONG LAB BLOOD ORDERABLE S [facility] [address] [place] [address], * (ABNORMAL) Basic metabolic panel (05/01/2024 3:23 PM EST) Sodium 136 133 - 145 mmol/L LAB CHEMISTRY METHOD 05/01/2024 4:08 PM [facility] Potassium 3.5 3.5 - 5.5 mmol/L LAB CHEMISTRY METHOD 05/01/2024 4:08 PM [facility] Chloride 105 96 - 110 mmol/L LAB CHEMISTRY METHOD 05/01/2024 4:08 PM [facility] CO2 26 21 - 32 mmol/L LAB CHEMISTRY METHOD 05/01/2024 4:08 PM [facility] Anion Gap 5 3 - 11 LAB CHEMISTRY METHOD 05/01/2024 4:08 PM [facility] Glucose 76 70 - 100 mg/dL LAB CHEMISTRY METHOD 05/01/2024 4:08 PM [facility] BUN 18 5 - 25 mg/dL LAB CHEMISTRY METHOD 05/01/2024 4:08 PM [facility] Creatinine 1.22 0.70 - 1.30 mg/dL LAB CHEMISTRY METHOD 05/01/2024 4:08 PM [facility] eGFR 64 >=60 mL/min/1. 73m2 LAB CHEMISTRY METHOD 05/01/2024 4:08 PM [facility] Comment:Calculation based on the??Chronic Kidney Disease Epidemiology Collaboration (CKD-EPI) equation refit??without adjustment for race. BUN/Creatinine Ratio 14.8 LAB CHEMISTRY METHOD 05/01/2024 4:08 PM EST [facility] Calcium 7.7(L) 8.5 - 10.5 mg/dL LAB CHEMISTRY METHOD 05/01/2024 4:08 PM EST [facility] ([facility] Blood Venous blood specimen / Unknown Venipuncture / Unknown 05/01/2024 3:23 PM EST 05/01/2024 3:45 PM EST Jovanni Jacome DO LAB BLOOD ORDERABLE S Performing Organization Address [facility] Co de Phone Number [facility] [address] [place] [address], [place] [phone] * ECG 12 lead (05/01/2024 3:02 PM EST) Ventricular Rate ECG 59 BPM GEMUSE Atrial Rate 59 BPM GEMUSE P-R Interval 148 ms GEMUSE QRS Duration 92 ms GEMUSE Q-T Interval 448 ms GEMUSE QTc 443 ms GEMUSE P Wave [place] 27 degrees GEMUSE T [place] 116 degrees GEMUSE ECG Interpretation Sinus bradycardia Voltage criteria for left ventricular hypertrophy Nonspecific T wave abnormality Abnormal ECG When compared with ECG of 11-SEP-2023 13:06, No significant change was found Confirmed by KIRILL WHALEY ([id number]) on 05/01/2024 8:44:40 PM GEMUSE 05/01/2024 3:02 PM EST 05/01/2024 8:44 PM EST Jovanni Jacome DO ECG ORDERABLES Performing Organization Address [facility] Co de Phone Number GEMUSE * CT Angio Head/Neck Stroke wo and/or w Contrast (05/01/2024 2:50 PM EST) Anatomical Region Laterality Modality Head and Neck Computed Tomogra phy 05/01/2024 3:18 PM EST Impressions 05/01/2024 3:27 PM EST Stable exam compared to 09/11/2023. ??No high-grade stenosis or occlusion in the cervical or intracranial arterial vasculature. -------- FINAL REPORT -------- Dictated By: DOC DUENAS Dictated Date: 05/01/2024 15:18 ET Assigned Physician: DOC DUENAS Reviewed and Electronically Signed By: DOC DUENAS Signed Date: 05/01/2024 15:27 ET Workstation ID: [id number] Transcribed By: Self Edit Transcribed Date: 05/01/2024 [...] aneurysm or vascular malformation. Procedure Note Doc Duenas MD - 05/01/2024 PROCEDURE: Head/neck CTA INDICATION: [...] -------- FINAL REPORT -------- Dictated By: DOC DUENAS Dictated Date: 05/01/2024 15:18 ET Assigned Physician: DOC DUENAS Reviewed and Electronically Signed By: DOC DUENAS Signed Date: 05/01/2024 15:27 ET Workstation ID: [id number] Transcribed By: Self Edit Transcribed Date: 05/01/2024 15:18 ET Jovanni Jacome DO IMG CT PROCEDURES * CT Head Stroke wo Contrast (05/01/2024 [...] interpretation on 05/01/24 by secure text message (Vigme). Telerad [place] ([id number]) A Critical Document Only message has been documented for the office of JOVANNI JACOME in the [facility] Actionable Findings ??system on 05/01/2024 2:56 PM, Message ID [id number]. -------- FINAL REPORT -------- Dictated By: Mayte Quinteros Dictated Date: 05/01/2024 14:50 ET Assigned Physician: Mayte Quinteros Reviewed and Electronically Signed By: Mayte Quinteros Signed Date: 05/01/2024 14:56 ET Workstation ID: [id number] Transcribed By: Self Edit Transcribed Date: 05/01/2024 14:50 ET Narrative 05/01/2024 2:56 PM EST History: Stroke. Comparison: 09/11/23, brain MRI 09/11/23 Technique: Contiguous axial images were obtained at 2.5 mm intervals through the posterior fossa and at 5 mm intervals through the remainder of the brain without intravenous contrast. DLP: 808.85 mGy/cm GE LightSpeed VCT Iterative reconstruction technique Findings: Moderate generalized [...] without intravenous contrast. DLP: 808.85 mGy/cm GE LightSpeed VCT Iterative reconstruction technique Findings: Moderate generalized [...] ofinterpretation on 05/01/24 by secure text message (Vigme). Telerad ASHTYN ([id number]) A Critical Document Only message has been documented for the office ofJOVANNI JACOME in the [employer] system on05/01/2024 2:56 PM, Message ID [id number]. -------- FINAL REPORT -------- Dictated By: Mayte Quinteros Dictated Date: 05/01/2024 14:50 ET Assigned Physician: Mayte Quinteros Reviewed and Electronically Signed By: Mayte Quinteros Signed Date: 05/01/2024 14:56 ET Workstation ID: [id number] Transcribed By: Self Edit Transcribed Date: 05/01/2024 14:50 ET Jovanni Jacome DO IMG CT PROCEDURES * ECG-Annotated (05/01/2024) Provider Onbase MD ECG ORDERABLES documented in this encounter Visit Diagnoses Diagnosis TIA (transient ischemic attack)- Primary Unspecified transient cerebral ischemia TIA (transient ischemic attack) Unspecified transient cerebral ischemia CLAUDY (acute kidney injury) (CMS/HCC) Type 2 diabetes mellitus with diabetic chronic kidney disease (CMS/HCC) Vascular dementia, unspecified severity, without behavioral disturbance, psychotic disturbance, mood disturbance, and anxiety (CMS/HCC) Abdominal wall mass Abdominal or pelvic swelling, mass or lump, unspecified site 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, or unspecified Benign prostatic hyperplasia Unspecified hyperplasia of prostate without urinary obstruction and other lower urinary tract symptoms (LUTS) Chronic back pain Unspecified backache Class 2 obesity Diabetic peripheral neuropathy (CMS/[facility]) Type II or unspecified type diabetes mellitus with neurological manifestations, not stated as uncontrolled Erectile dysfunction Impotence of organic origin Essential hypertension Unspecified essential hypertension Hyperlipidemia Other and unspecified hyperlipidemia Hypokalemia Hypopotassemia documented in this encounter Admitting Diagnoses Diagnosis TIA (transient ischemic attack) Unspecified transient cerebral ischemia documented in this encounter Administered Medications Inactive Administered Medications - up to 3 most recent administrations Medication Order MAR Action Action Date Dose Rate Site atorvastatin (LIPITOR) tablet 80 mg 80 mg, oral, Nightly, First dose on Tue05/01/24 at 2100 Given 05/01/2024 9:01 PM EST 80 mg clopidogreL (PLAVIX) tablet 75 mg 75 mg, oral, Every morning, First dose on Tue05/02/24 at 0700 Given 05/02/2024 6:17 AM EST 75 mg doxazosin (CARDURA) tablet 2 mg 2 mg, oral, Nightly, First dose on Tue05/01/24 at 2100 Given 05/01/2024 9:01 PM EST 2 mg famotidine (PEPCID) tablet 20 mg 20 mg, oral, 2 times daily, First dose on Tue05/01/24 at 2100 Given 05/02/2024 8:52 AM EST 20 mg Given 05/01/2024 9:01 PM EST 20 mg furosemide (LASIX) tablet 20 mg 20 mg, oral, Daily, First dose on Tue05/01/24 at 1807 Given 05/02/2024 8:52 AM EST 20 mg Given 05/01/2024 9:01 PM EST 20 mg hydrALAZINE (APRESOLINE) injection 5 mg 5 mg, intravenous, Once, On Tue05/01/24 at 2345, For 1 dose Given 05/01/2024 11:51 PM EST 5 mg hydrALAZINE (APRESOLINE) tablet 50 mg 50 mg, oral, 3 times daily, First dose on Tue05/01/24 at 2100 Given 05/02/2024 2:24 PM EST 50 mg Given 05/02/2024 8:52 AM EST 50 mg Given 05/01/2024 9:01 PM EST 50 mg insulin lispro injection 1-6 Units 1-6 Units, subcutaneous, 3 times daily before meals, First dose on Tue05/01/24 at 1721, Indication: Total Daily Dose (TDD) LESS than 40 units Correction Scale: Low Dose Administer with meal and/or mealtime dose of insulin to correct high blood glucose If mealtime insulin dose not given (e.g. patient NPO or not eating), still administer correction factor for high blood glucose Given 05/02/2024 12:15 PM EST 2 Units Left Lower Abdomen Given 05/02/2024 8:52 AM EST 2 Units Le ft Upper Arm (Back) iopamidoL (ISOVUE-370) 370 mg iodine /mL (76 %) injection 90 mL 90 mL, intravenous, Once in imaging, Starting on Tue05/01/24 at 1443, For 1 dose Given 05/01/2024 2:44 PM EST 90 mL memantine (NAMENDA) tablet 10 mg 10 mg, oral, 2 times daily, First dose on Tue05/01/24 at 2100 Given 05/02/2024 8:52 AM EST 10 mg Given 05/01/2024 9:01 PM EST 10 mg SITagliptin phosphate (JANUVIA) tablet 50 mg 50 mg, oral, Daily, First dose on Tue05/01/24 at 1721 Given 05/02/2024 8:53 AM EST 50 mg Given 05/01/2024 9:01 PM EST 50 mg sodium chloride 0.9 % flush 10 mL 10 mL, intravenous, Once, On Tue05/01/24 at 1444, For 1 dose Given 05/01/2024 2:43 PM EST 10 mL valsartan (DIOVAN) tablet 320 mg 320 mg, oral, Every morning, First dose on Tue05/02/24 at 0700 Given 05/02/2024 6:17 AM EST 320 mg documented in this encounter Discontinued Medications Medication Sig Discontinue Reason Start Date End Da te insulin degludec (TRESIBA) 100 unit/mL injection Inject 60 Units under the skin at bedtime. 05/02/2024 documented as of this encounter Historical Medications * This list may reflect changes made after this encounter. Medication Sig Dispensed Refills Start Date End Date furosemide (LASIX) 20 mg tablet Take 1 tablet (20 mg total) by mouth 1 (one) time each day. valsartan (DIOVAN) 320 mg tablet Take 1 tablet (320 mg total) by mouth 1 (one) time each day in the morning. terazosin (HYTRIN) 2 mg capsule Take 1 capsule (2 mg total) by mouth 1 (one) time each day in the evening. Januvia 50 mg tablet Take 1 tablet (50 mg total) by mouth 1 (one) time each day. 03/28/2024 metoprolol succinate (TOPROL-XL) 25 mg 24 hr tablet Take 1 tablet (25 mg total) by mouth 1 (one) time each day in the morning. memantine (NAMENDA) 10 mg tablet Take 1 tablet (10 mg total) by mouth 2 (two) times a day. hydrALAZINE (APRESOLINE) 50 mg tablet 1 tablet (50 mg total) 3 (three) times a day. famotidine (PEPCID) 20 mg tablet Take 1 tablet (20 mg total) by mouth 2 times daily. 12/22/2020 clopidogreL (PLAVIX) 75 mg tablet Take 1 tablet (75 mg total) by mouth 1 (one) time each day in the morning. 11/29/2023 atorvastatin (LIPITOR) 80 mg tablet Take 1 tablet (80 mg total) by mouth at bedtime. 11/02/2023 insulin degludec (TRESIBA) 100 unit/mL injection Inject 60 Units under the skin at bedtime. 05/02/2024 added in this encounter Active and Recently Administered Medications Times are shown in EST. Scheduled Medication Order 04/30/2024 05/01/2024 05/02/2024 atorvastatin (LIPITOR) tablet 80 mg 80 mg, oral, Nightly, First dose on Tue05/01/24 at 2100 2101 (Given - Provider: Dakota Rios RN) clopidogreL (PLAVIX) tablet 75 mg 75 mg, oral, Every morning, First dose on Tue05/02/24 at 0700 0617 (Given - Provid er: Dakota Rios RN) doxazosin (CARDURA) tablet 2 mg 2 mg, oral, Nightly, First dose on Tue05/01/24 at 2100 2101 (Given - Provider: Dakota Rios RN) famotidine (PEPCID) tablet 20 mg 20 mg, oral, 2 times daily, First dose on Tue05/01/24 at 2099 2100 (Given - Provider: Dakota Rios RN) 0852 (Given - Provider: Heidi Wilson RN) furosemide (LASIX) tablet 20 mg 20 mg, oral, Daily, First dose on Tue05/01/24 at 1807 2100 (Given - Provider: Dakota Rios RN) 0852 (Given - Provider: Heidi Wilson RN) hydrALAZINE (APRESOLINE) injection 5 mg (COMPLETED) 5 mg, intravenous, Once, On Tue05/01/24 at 2345, For 1 dose 2350 (Given - Provider: Dakota Rios RN) hydrALAZINE (APRESOLINE) tablet 50 mg 50 mg, oral, 3 times daily, First dose on Tue05/01/24 at 2099 2100 (Given - Provider: Dakota Rios RN) 0852 (Given - Provider: Heidi Wilson RN)1424 (Given - Provider: Heidi Wilson RN) insulin glargine (LANTUS) injection 30 Units 30 Units, subcutaneous, Once, On Tue05/01/24 at 172, For 1 dose 2100 (Not Given - Provider: Dakota Rios RN - Reason: Order parameters not met) insulin lispro injection 1-6 Units 1-6 Units, subcutaneous, 3 times daily before meals, First dose on Tue05/01/24 at 1721, Indication: Total Daily Dose (TDD) LESS than 40 units Correction Scale: Low Dose Administer with meal and/or mealtime dose of insulin to correct high blood glucose If mealtime insulin dose not given (e.g. patient NPO or not eating), still administer correction factor for high blood glucose 1726 (Not Given - Provider: Nguyen Amezcua RN - Reason: Order parameters not met) 0852 (Given - Provider: Heidi Wilson RN)1215 (Given - Provider: Heidi Wilson RN)1630 (Canceled Entry - Provider: Automatic Discharge Provider - Comment: Automatically canceled at discontinue of medication order) iopamidoL (ISOVUE-370) 370 mg iodine /mL (76 %) injection 90 mL (COMPLETED) 90 mL, intravenous, Once in imaging, Starting on Tue05/01/24 at 1443, For 1 dose 1444 (Given - Provider: Tim Linder) memantine (NAMENDA) tablet 10 mg 10 mg, oral, 2 times daily, First dose on Tue05/01/24 at 2100 2101 (Given - Provider: Dakota Rios RN) 0852 (Given - Provider: Heidi Wilson, SHARONA) metoprolol succinate (TOPROL-XL) 24 Hour tablet 25 mg 25 mg, oral, Every morning, First dose on Tue05/02/24 at 0700, Hold for HR less than 60 Do not crush or chew. 0615 (Not Given - Provider: Dakota Rios RN - Reason: Order parameters not met - Comment: HR 56) SITagliptin phosphate (JANUVIA) tablet 50 mg 50 mg, oral, Daily, First dose on Tue05/01/24 at 1721 2101 (Given - Provider: Dakota Rios RN) 0853 (Given - Provider: Heidi Wilson RN) sodium chloride 0.9 % flush 10 mL (COMPLETED) 10 mL, intravenous, Once, On Tue05/01/24 at 1444, For 1 dose 1443 (Given - Provider: Tim Linder) valsartan (DIOVAN) tablet 320 mg 320 mg, oral, Every morning, First dose on Tue05/02/24 at 0700 0617 (Given - Provid er: Dakota Rios RN) PRN Medication Order 04/30/2024 05/01/2024 05/02/2024 acetaminophen (TYLENOL) tablet 650 mg 650 mg, oral, Every 6 hours PRN, mild pain, Starting on Tue05/01/24 at 1719 bisacodyL (DULCOLAX) EC tablet 10 mg 10 mg, oral, Daily PRN, constipation, Starting on Tue05/01/24 at 1719, 1st line for treatment of constipation - give scheduled if no bowel movement in past 24 hours. Do not crush, chew, or split. dextrose (D50W) 50% injection 12.5 g 12.5 g, intravenous, Every 15 min PRN, low blood sugar, moderate hypoglycemia *Patient is Unconscious, NPO, unable to swallow: BG 54 - 69 mg/dl*, Starting on Tue05/01/24 at 1718 dextrose (D50W) 50% injection 25 g 25 g, intravenous, Every 15 min PRN, low blood sugar, severe hypoglycemia *Patient is Unconscious, NPO, unable to swallow: BG LESS than 54 mg/dL*, Starting on Tue05/01/24 at 1718 dextrose 15 gram/60 mL oral solution 15 g 15 g, oral, Every 15 min PRN, low blood sugar, hypoglycemia *Patient conscious AND able to drink and swallow safely*, Starting on Tue05/01/24 at 1718 dextrose 15 gram/60 mL oral solution 30 g 30 g, oral, Every 15 min PRN, low blood sugar, hypoglycemia *Patient conscious AND able to drink and swallow safely*, Starting on Tue05/01/24 at 1718 Glucagon HCl (rDNA) injection 1 mg 1 mg, intramuscular, Once as needed, low blood sugar, severe hypoglycemia, Starting on Tue05/01/24 at 1718, For 1 dose documented in this encounter Orders Medications Ordered That Aureliano ht Not Have Been Administered Count Last Ordered Date First Ordered Date acetaminophen (TYLENOL) tablet 650 mg 1 10/2024 bisacodyL (DULCOLAX) EC tablet 10 mg 10/2024 dextrose (D50W) 50% injection 12.5 g 10/2024 dextrose (D50W) 50% injection 25 g 1 2024 dextrose 15 gram/60 mL oral solution 15 g 05/01/2024 dextrose 15 gram/60 mL oral solution 30 g 05/01/2024 Glucagon HCl (rDNA) injection 1 mg 1 2024 insulin glargine (LANTUS) in jection 30 Units 05/01/2024 metoprolol succinate (TOPROL -XL) 24 Hour tablet 25 mg 1 05/01/2024 Lab Orders Without Results Count Last Ordered D ate First Ordered Date POCT GLUCOSE, BLOOD 3 05/02/2024 05/01/19 Diet Count Last Ordered Date First Orde red Date ADULT DISCHARGE DIET 1 05/02/2024 Nursing Count Last Ordered Date First Orde red Date NURSING SWALLOW SCREEN 1 05/01/2024 VITAL SIGNS 1 05/01/2024 IV Count Last Ordered Date First Orde red Date SALINE LOCK IV 1 05/01/2024 Admission Count Last Ordered Date First Orde red Date INITIATE OBSERVATION STATUS 1 05/01/2024 Transfer Count Last Ordered Date First Orde red Date ED TO FLOOR BED REQUEST 1 05/01/2024 Discharge Count Last Ordered Date First Orde red Date DISCHARGE PATIENT 1 05/02/2024 documented in this encounter Care Teams Composition Weatherboard Installer Relationship Specialty Start Date End Date Felipe Barrett MD [address] [place] [address] PCP - General Internal Medicine 05/01/24 documented as of this encounter
--- OUTSIDE RECORDS SUMMARY | 2024-05-24 16:07 | XMS_ITS | Encounter Summary ---
Author Organization [employer] Address [address] 7t [place] [address] Care Team Providers Care Glass Inserter Name Role Phone Felipe Rogers MD Primary Care Provide r Annabel Hope PharmD Unavailable [phone] Encounter Details Date Type Department Care Team (Latest Contact Info) Description 05/24/2024 Travel Social History Tobacco Use Types Packs/Day Years [...] the past 12 months, has t he [employer], gas, oil or water [employer] threatened to shut off services in your [...] Description 05/28/2024 11:30 AM EST Medication Management [facility] MEDICINE [address] [place] [address] Annabel Hope PharmD [address] [place] [address] documented as of this encounter Visit Diagnoses Not on filedocumented in this encounter Additional Health Concerns Assessment Noted Time PHQ-9 Depression Total Score: 0 01/19/20 24 1:15 PM EDT documented as of this encounter Care Teams Glass Inserter Relationship Specialty Start Date End Date Felipe Rogers MD [address] [place] [address] PCP - General Internal Medicine 03/16/16 Annabel Hope PharmD [address] [place] [address] Pharmacist Internal Medicine 03/30/24 [employer] 09/03/23 documented as of this encounter
--- OUTSIDE RECORDS SUMMARY | 2024-05-24 16:07 | XMS_ITS | Encounter Summary ---
Author Organization [employer] [facility] Address [address] [place] [address] 7t [place] [address] Care Team Providers Care Insurance Claims Supervisor Name Role Phone Felipe Rogers MD Primary Care Provide r Annabel Hope PharmD Unavailable [phone] Encounter Details Date Type Department Care Team ([facility] Contact Info) Description 05/13/2022 Orders Only [facility] MEDICINE [address] [place] [address] Fartun Mesa LPN Social History Tobacco Use Types Packs/Day Years Used Date Smoking Tobacco: Never Smokeless Tobacco: Never Alcohol Use Standard Drinks/Week Comments Never 0 (1 standard drink = 0.6 oz pur e alcohol) Depression Answer Date Recorded Patient Health Questionnaire-9 Score 0 05/13/2022 Depression Answer Date Recorded Patient Health Questionnaire-2 Score 0 05/13/2022 Sex and Gender Information Value Date Recorded Sex Assigned at Male 02/22/2022 10:14 AM EDT Legal Sex Male 10:14 AM EDT Gender Identity Male 02/22/2022 10:14 AM EDT Sexual Orientation Choose not to disclose 2021 10:14 AM EDT COVID-19 Exposure Response Date Recorded In the last 10 days, have yo u been in contact with someone who was confirmed or suspected to have Coronavirus/COVID-19? No / Unsure 05/13/2022 1:41 PM EST documented as of this encounter Plan of Treatment Upcoming Encounters Date Type Department Care Team (Late st Contact Info) Description 05/28/2024 11:30 AM EST Medication Management [address] [address] Annabel Hope, PharmD [address] [place] [address] documented as of this encounter Procedures Procedure Name Priority Date/Time Associated Diagnosis Comments XR RIBS 4 VIEWS BILATERAL Routine 05/13/2022 4:16 PM EST documented in this encounter Results * XR Ribs 4 Views Bilateral (05/13/2022 4:16 PM EST) Anatomical Region Laterality Modality Rib, Abdomen Bilateral Radiographic Dilma ging 05/13/2022 4:16 PM EST Narrative 05/18/2022 10:46 AM EST ? [facility] ?[address] ?[place] [address] ?XRay Report ? Signed ? Patient: Brain Hubbard ?MR#: [id number] ?? [id number] ? : 1955 ?Acct:[id number] ? Age/Sex: 67 / M ?ADM Date: 05/13/22 ? Loc: HO.XRAY ? Attending Dr: Felipe Barrett MD ? Ordering Physician: Felipe Barrett MD ?? Date of Service: 05/13/22 ?? Procedure(s): XR ribs BI min 4V w CXR1V ?? Accession Number(s): [id number] ? cc: Felipe Barrett MD ? EXAMINATION: ?? XR RIBS, BILATERAL ? CLINICAL INFORMATION: ?? Right-sided rib cage pain, status post fall ? COMPARISON: ?? None ? TECHNIQUE: ?? 3 views of the bilateral ribs were obtained. ? FINDINGS: ?? The lungs are hypoexpanded with platelike atelectasis right lung base. ?? Heart size and pulmonary vascularity is normal. There is moderate ?? spondylosis mid and lower dorsal spine. ? XR/XR ribs BI min 4V w CXR1V ?? IMPRESSION: ?? 1. ??Platelike atelectasis right lung base. ?? 2. ??Moderate spondylosis mid and lower dorsal spine. ? Dictated By: ?Alycia,Mendel S MD ? Signed By: ?<Electronically signed by Mendel S Alycia, MD in OV> ?05/18/22 1043 ? DD/ ? TD/TT: ? Litigation Secretary: JOSTIN ? Procedure Note Sulaiman, Image - 05/31/[address] [address] XRay Report Signed Patient: Brain HubbardMR#: [id number] : 5Acct:[id number] Age/Sex: 67 / MADM Date: 05/13/22 Loc: HO.XRAY Attending Dr: Felipe Barrett MD Ordering Physician: Felipe Barrett MD Date of Service: 05/13/22 Procedure(s): XR ribs BI min 4V w CXR1V Accession Number(s): [id number] cc: Felipe Barrett MD EXAMINATION: XR RIBS, BILATERAL CLINICAL INFORMATION: Right-sided rib cage pain, status post fall COMPARISON: None TECHNIQUE: 3 views of the bilateral ribs were obtained. FINDINGS: The lungs are hypoexpanded with platelike atelectasis right lung base. Heart size and pulmonary vascularity is normal. There is moderate spondylosis mid and lower dorsal spine. XR/XR ribs BI min 4V w CXR1V IMPRESSION: 1. Platelike atelectasis right lung base. 2. Moderate spondylosis mid and lower dorsal spine. Dictated By: Mendel Tong MD Signed By: <Electronically signed by Mendel Tong MD in OV> 05/18/22 1043 DD/ 1616 TD/TT: Litigation Secretary: JOSTIN [facility] External Provider IMG XR PROCEDURES Edited Result - Final documented in this encounter Visit Diagnoses Not on filedocumented in this encounter Additional Health Concerns Assessment Noted Time PHQ-9 Depression Total Score: 0 05/13/19 23 2:32 PM EST documented as of this encounter Care Teams Insurance Claims Supervisor Relationship Specialty Start Date End Date Felipe Rogers MD [address] [place] [address] PCP - General Internal Medicine 03/16/16 Annabel Hope PharmD [address] [place] [address] Pharmacist Internal Medicine 03/30/24 [employer] 09/03/23 documented as of this encounter
--- OUTSIDE RECORDS SUMMARY | 2024-05-24 16:07 | XMS_ITS | Encounter Summary ---
Author Organization [employer] Address [address] [facility] 7t [place] [address] Care Team Providers Care Hose Handler Name Role Phone Felipe Rogers MD Primary Care Provide r Annabel Hope PharmD Unavailable [phone] Reason for Visit * Reason Onset Date Comments Letter of necessity Needed 05/03/2023 Encounter Details Date Type Department Care Team ([facility] st Contact Info) Description 05/03/2023 Telephone [facility] MEDICINE [address] [place], [place] [phone] Felipe Rogers MD [address] [place], [place] [phone] Letter of necessity Needed Social History Tobacco Use Types Packs/Day Years [...] encounter Miscellaneous Notes * Telephone Encounter - Mag Snider RN - 05/17/2023 9:34 AM EST Telephone call to [employer] stating the note mentions Vascular dementia and Urinary incontinence but they will still need the CMN as the insurance needs it for the supplies. Stated they sent paperwork over 05/10. * Telephone Encounter - Neto Rhodes - 05/03/2023 10:33 AM EST Tc from Mary with [employer] stating that a Letter of necessity is needed for the Order of the Pull Ups and the Disposable Chucks due to clinical notes from Visit not stating a good reason in why patient needs them. Mary also informs that the wipes are not covered by his insurance. Please Fax @ [phone] If any questions please contact Mary @ [phone] documented in this encounter Plan of Treatment Upcoming Encounters Date Type Department Care Team (Late st Contact Info) Description 05/28/2024 11:30 AM EST Medication Management [facility] MEDICINE [address] [place] [address] Annabel Hope, JuanjoseD [address] [place] [address] documented as of this encounter Visit Diagnoses Not on filedocumented in this encounter Additional Health Concerns Assessment Noted Time PHQ-9 Depression Total Score: 0 05/13/19 23 2:32 PM EST documented as of this encounter Care Teams Hose Handler Relationship Specialty Start Date End Date Felipe Rogers MD [address] [place] [address] PCP - General Internal Medicine 03/16/16 Annabel Hope PharmD [address] [place] [address] Pharmacist Internal Medicine 03/30/24 [employer] 09/03/23 documented as of this encounter
--- OUTSIDE RECORDS SUMMARY | 2024-05-24 16:07 | XMS_ITS | Encounter Summary ---
Author Organization [employer] Address [address] [facility] 7t [place] [address] Care Team Providers Care Apron Worker Name Role Phone Felipe Rogers MD Primary Care Provide r Annabel Hope PharmD Unavailable [phone] Reason for Visit * Reason Onset Date Comments Med Refill 12/06/2023 Encounter Details Date Type Department Care Team (Late st Contact Info) Description 12/06/2023 Telephone [facility] MEDICINE [address] [place], [place] [phone] Felipe Rogers MD [address] [place], [place] [phone] Med Refill Social History Tobacco Use Types Packs/Day Years [...] encounter Miscellaneous Notes * Telephone Encounter - Rani Moe LPN - 12/06/2023 9:24 AM EDT Medication pended to PCP. * Telephone Encounter - Marilyn Hope - 12/06/2023 9:17 AM EDT TC from pt requesting medication refill. Medications needing refill : fenofibrate micronized (LoFibra) 200 MG capsule To be sent to: [facility] - [place], [place] - [address] [facility] documented in this encounter Plan of Treatment Upcoming Encounters Date Type Department Care Team (Late st Contact Info) Description 05/28/2024 11:30 AM EST Medication Management [facility] MEDICINE [address] [place] [address] Annabel Hope, PharmD [address] [place] [address] documented as of this encounter Visit Diagnoses Not on filedocumented in this encounter Additional Health Concerns Assessment Noted Time PHQ-9 Depression Total Score: 11 024 10:52 AM EST documented as of this encounter Care Teams Apron Worker Relationship Specialty Start Date End Date Felipe Rogers MD [address] [place] [address] PCP - General Internal Medicine 03/16/16 Annabel Hope PharmD [address] [place] [address] Pharmacist Internal Medicine 03/30/24 [employer] 09/03/23 documented as of this encounter
--- OUTSIDE RECORDS SUMMARY | 2024-05-24 16:07 | XMS_ITS | Encounter Summary ---
Author Organization [employer] Address [address] [facility] 7t [place] [address] Care Team Providers Care Career Consultant Name Role Phone Felipe Rogers MD Primary Care Provide r Annabel Hope PharmD Unavailable [phone] Reason for Visit * Reason Onset Date Comments Chart Prep 05/11/2024 Encounter Details Date Type Department Care Team ([facility] st Contact Info) Description 05/11/2024 Telephone [facility] MEDICINE [address] [place], [place] [phone] Felipe Rogers MD [address] [place], [place] [phone] Chart Prep Social History Tobacco Use Types Packs/Day Years [...] is your housing situation today? I have faizanabimbola mcdermott 06/03/[address] you [...] encounter Miscellaneous Notes * Telephone Encounter - Mary Bai MA - 05/11/2024 2:12 PM EST Chart Prep Labs: done Images: not applicable Vaccines due: Covid Due, Hep B Due, PCV20 Due, RSV in Pharmacy Due, and Shingles in pharmacy Due Referrals: Not Applicable Screenings: Colonoscopy , Eye Exam, and Foot Exam Overdue care gaps: Glucose, Sbirt, SDOH, and Oral Health Chart prep for upcoming appt with Dr.Esparza blanco. LB documented in this encounter Plan of Treatment Upcoming Encounters Date Type Department Care Team (Late st Contact Info) Description 05/28/2024 11:30 AM EST Medication Management [facility] MEDICINE [address] [place] [address] Annabel Hope, PharmD [address] [place] [address] documented as of this encounter Visit Diagnoses Not on filedocumented in this encounter Additional Health Concerns Assessment Noted Time PHQ-9 Depression Total Score: 0 01/19/20 24 1:15 PM EDT documented as of this encounter Care Teams Career Consultant Relationship Specialty Start Date End Date Felipe Rogers MD [address] [place] [address] PCP - General Internal Medicine 03/16/16 Annabel Hope PharmD [address] [place] [address] Pharmacist Internal Medicine 03/30/24 [employer] 09/03/23 documented as of this encounter
--- OUTSIDE RECORDS SUMMARY | 2024-05-24 16:07 | XMS_ITS | Encounter Summary ---
Author Organization [employer] [facility] Address [address] [facility] 7t [place] [address] Care Team Providers Care Occupational Therapy Aides Teacher Name Role Phone Felipe Rogers MD Primary Care Provide r Annabel Hope PharmD Unavailable [phone] Reason for Visit * Reason Onset Date Comments Call Back Request 10/31/2023 Appointment Request 10/31/2023 Encounter Details Date Type Department Care Team ([facility] st Contact Info) Description 10/31/2023 Telephone [facility] MEDICINE 230 [place], [place] [phone] Felipe Rogers MD 230 [place], [place] [phone] Call Back Request; Appointment Request Social History Tobacco Use Types Packs/Day Years [...] encounter Miscellaneous Notes * Telephone Encounter - Jay Jay Abrams - 10/31/2023 9:49 AM EDT Tc from the patients spouse calling in regards to the appt for 11/02 states had forgot to call for aambulance transport and would like to know if the appt can be changed to a Televisit documented in this encounter Plan of Treatment Upcoming Encounters Date Type Department Care Team (Late st Contact Info) Description 05/28/2024 11:30 AM EST Medication Management [facility] MEDICINE [address] [place] [address] Annabel Hope, PharmD [address] [place] [address] documented as of this encounter Visit Diagnoses Not on filedocumented in this encounter Additional Health Concerns Assessment Noted Time PHQ-9 Depression Total Score: 11 024 10:52 AM EST documented as of this encounter Care Teams Occupational Therapy Aides Teacher Relationship Specialty Start Date End Date Felipe Rogers MD [address] [place] [address] PCP - General Internal Medicine 03/16/16 Annabel Hope PharmD [address] [place] [address] Pharmacist Internal Medicine 03/30/24 [employer] 09/03/23 documented as of this encounter
--- OUTSIDE RECORDS SUMMARY | 2024-05-24 16:07 | XMS_ITS | Encounter Summary ---
Author Organization [employer] Address [address] [facility] 7t [place] [address] Care Team Providers Care Bowling Ball Assembler Name Role Phone Felipe Rogers MD Primary Care Provide r Annabel Hope PharmD Unavailable [phone] Reason for Visit * Reason Onset Date Comments Hospital Follow-up 06/03/2023 Encounter Details Date Type Department Care Team ([facility] st Contact Info) Description 06/03/2023 Telephone [facility] MEDICINE [address] [place], [place] [phone] Felipe Rogers MD [address] [place], [place] [phone] Hospital Follow-up Social History Tobacco Use Types Packs/Day Years [...] encounter Miscellaneous Notes * Telephone Encounter - Etta Enriquez - 06/03/2023 11:58 AM EST Tc from pt requesting a HDF appt. Hospital: [facility] Date of admission: 05/30 Discharge date: 06/01 Diagnosed: Hypokalemia documented in this encounter Plan of Treatment Upcoming Encounters Date Type Department Care Team (Late st Contact Info) Description 05/28/2024 11:30 AM EST Medication Management [facility] MEDICINE [address] [place] [address] Annabel Hope PharmD [address] [place] [address] documented as of this encounter Visit Diagnoses Not on filedocumented in this encounter Additional Health Concerns Assessment Noted Time PHQ-9 Depression Total Score: 0 05/13/19 23 2:32 PM EST documented as of this encounter Care Teams Bowling Ball Assembler Relationship Specialty Start Date End Date Felipe Rogers MD [address] [place] [address] PCP - General Internal Medicine 03/16/16 Annabel Hope PharmD [address] [place] [address] Pharmacist Internal Medicine 03/30/24 [employer] 09/03/23 documented as of this encounter
--- OUTSIDE RECORDS SUMMARY | 2024-05-24 16:07 | XMS_ITS | Encounter Summary ---
Author Organization [employer] [facility] Address [address] [place] [address] 7 [place] [address] Care Team Providers Care Inspection Manager Name Role Phone Felipe Rogers MD Primary Care Provide r Annabel Hope PharmD Unavailable [phone] Reason for Visit * Reason Comments Med Refill Encounter Details Date Type Department Care Team (Late st Contact Info) Description 08/10/2022 Refill [facility] [address] [place] [address] Felipe Rogers MD [address] [place], [place] [phone] Erectile dysfunction due to diseases classified elsewhere Social History Tobacco Use Types Packs/Day Years [...] Encounters Date Type Department Care Team (Late Contact Info) Description 05/28/2024 11:30 AM EST Medication Management [facility] MEDICINE [address] [place] [address] Annabel Hope, Bartolome [address] [place] [address] documented as of this encounter Visit Diagnoses Diagnosis Erectile dysfunction due to diseases classified elsewhere documented in this encounter Additional Health Concerns Assessment Noted Time PHQ-9 Depression Total Score: 0 05/13/19 23 2:32 PM EST documented as of this encounter Care Teams Inspection Manager Relationship Specialty Start Date End Date Felipe Rogers MD [address] [place] [address] PCP - General Internal Medicine 03/16/16 Annabel Hope PharmD [address] [place] [address] Pharmacist Internal Medicine 03/30/24 [employer] 09/03/23 documented as of this encounter
--- OUTSIDE RECORDS SUMMARY | 2024-05-24 16:07 | XMS_ITS | Encounter Summary ---
Author Organization [employer] Address [address] [facility] 7t [place] [address] Care Team Providers Care Laboratory Coordinator Name Role Phone Felipe Rogers MD Primary Care Provide r Annabel Hope PharmD Unavailable [phone] Reason for Visit * Reason Comments Med Refill Encounter Details Date Type Department Care Team (Late st Contact Info) Description 12/07/2023 Refill [facility] MEDICINE [address] [place], [place] [phone] Edith Galeano MD [address] [place] [address] Mixed hyperlipidemia Social History Tobacco Use Types Packs/Day Years [...] encounter Miscellaneous Notes * Telephone Encounter - Felipe Abrams MD - 12/07/2023 3:58 PM EDT Patient started on Lipitor 80 mg po qhs documented in this encounter Plan of Treatment Upcoming Encounters Date Type Department Care Team (Late st Contact Info) Description 05/28/2024 11:30 AM EST Medication Management [facility] MEDICINE [address] [place] [address] Annabel Hope PharmD [address] [place] [address] documented as of this encounter Visit Diagnoses Diagnosis Mixed hyperlipidemia documented in this encounter Additional Health Concerns Assessment Noted Time PHQ-9 Depression Total Score: 11 024 10:52 AM EST documented as of this encounter Care Teams Laboratory Coordinator Relationship Specialty Start Date End Date Felipe Rogers MD [address] [place] [address] PCP - General Internal Medicine 03/16/16 Annabel Hope PharmD [address] [place] [address] Pharmacist Internal Medicine 03/30/24 [employer] 09/03/23 documented as of this encounter
--- OUTSIDE RECORDS SUMMARY | 2024-05-24 16:07 | XMS_ITS | Encounter Summary ---
Author Organization [facility] Address [address] [place] [address] 7t [place] [address] Care Team Providers Care Baseball Coach Name Role Phone Felipe Rogers MD Primary Care Provide r Annabel Hope PharmD Unavailable [phone] Encounter Details Date Type Department Care Team (Late Contact Info) Description 09/01/2022 Abstract [facility] [address] [place] [address] Felipe Rogers MD [address] [place] [place] [address] Social History Tobacco Use Types Packs/Day Years [...] Description 05/28/2024 11:30 AM EST Medication Management [facility] [address] [place] [address] [phone] Annabel Hope, PharmD 230 [place] [address] documented as of this encounter Visit Diagnoses Not on filedocumented in this encounter Additional Health Concerns Assessment Noted Time PHQ-9 Depression Total Score: 0 05/13/19 23 2:32 PM EST documented as of this encounter Care Teams Baseball Coach Relationship Specialty Start Date End Date Felipe Rogers MD 230 [place] [address] PCP - General Internal Medicine 03/16/16 Annabel Hope PharmD 230 [facility] [place] [address] Pharmacist Internal Medicine 03/30/24 [employer] 09/03/23 documented as of this encounter
--- OUTSIDE RECORDS SUMMARY | 2024-05-24 16:07 | XMS_ITS | Encounter Summary ---
Author Organization [employer] Address 75 [facility] 7t [place] [address] Care Team Providers Care Wood Planer Name Role Phone Felipe Rogers MD Primary Care Provide r Annabel Hope PharmD Unavailable [phone] Reason for Visit * Reason Comments Med Refill Encounter Details Date Type Department Care Team (Late st Contact Info) Description 07/21/2023 Refill [facility] 230 [place], [place] [phone] Felipe Rogers MD 230 [place], [place] [phone] Essential hypertension; Low serum potassium Social History Tobacco Use Types Packs/Day Years [...] Description 05/28/2024 11:30 AM EST Medication Management [facility] 230 [place] [address] Annabel Hope PharmD 230 [place] [address] documented as of this encounter Visit Diagnoses Diagnosis Essential hypertension Unspecified essential hypertension Low serum potassium documented in this encounter Additional Health Concerns Assessment Noted Time PHQ-9 Depression Total Score: 11 024 10:52 AM EST documented as of this encounter Care Teams Wood Planer Relationship Specialty Start Date End Date Felipe Rogers MD [address] [place] [address] PCP - General Internal Medicine 03/16/16 Annabel Hope PharmD [address] [place] [address] Pharmacist Internal Medicine 03/30/24 [employer] 09/03/23 documented as of this encounter
--- OUTSIDE RECORDS SUMMARY | 2024-05-24 16:07 | XMS_ITS | Encounter Summary ---
Author Organization [employer] Address 75 [facility] 7t [place] [address] Care Team Providers Care Commercial Loan Reviewer Name Role Phone Felipe Rogers MD Primary Care Provide r Annabel Hpoe PharmD Unavailable [phone] Reason for Visit * Reason Comments Med Refill Encounter Details Date Type Department Care Team (Late st Contact Info) Description 09/27/2023 Refill [facility] [address] [place] [address] Felipe Rogers MD 230 [place] [address] Primary hypertension Social History Tobacco Use Types Packs/Day Years [...] 11:30 AM EST Medication Management [facility] 230 [place] [address] Annabel Hope PharmD 230 [place] [address] documented as of this encounter Visit Diagnoses Diagnosis Primary hypertension Unspecified essential hypertension documented in this encounter Additional Health Concerns Assessment Noted Time PHQ-9 Depression Total Score: 11 024 10:52 AM EST documented as of this encounter Care Teams Commercial Loan Reviewer Relationship Specialty Start Date End Date Felipe Rogers MD [address] [place] [address] PCP - General Internal Medicine 03/16/16 Annabel Hope PharmD [address] [place] [address] Pharmacist Internal Medicine 03/30/24 [employer] 09/03/23 documented as of this encounter
--- OUTSIDE RECORDS SUMMARY | 2024-05-24 16:07 | XMS_ITS | Encounter Summary ---
Author Organization [employer] Address 75 [facility] 7t [place] [address] Care Team Providers Care Pals Specialist Name Role Phone Felipe Rogers MD Primary Care Provide r Annabel Hope PharmD Unavailable [phone] Reason for Visit * Reason Onset Date Comments [facility] 05/04/2024 Encounter Details Date Type Department Care Team ([facility] st Contact Info) Description 05/04/2024 Telephone [facility] 230 [place], [place] [phone] Felipe Rogers MD 230 [place], [place] [phone] [facility] Medical Social History Tobacco Use Types Packs/Day Years [...] Telephone Encounter - Mary Bai [place] - 05/04/2024 10:23 AM EST Received confirmation in regards to incontinence supplies, sent to to scan. LB documented in this encounter Plan of Treatment Upcoming Encounters Date Type Department Care Team (Late st Contact Info) Description 05/28/2024 11:30 AM EST Medication Management [facility] 230 [place] [address] Annabel Hope PharmD 230 [place] [address] documented as of this encounter Visit Diagnoses Not on filedocumented in this encounter Additional Health Concerns Assessment Noted Time PHQ-9 Depression Total Score: 0 01/19/20 24 1:15 PM EDT documented as of this encounter Care Teams Pals Specialist Relationship Specialty Start Date End Date Felipe Rogers MD [address] [place] [address] PCP - General Internal Medicine 03/16/16 Annabel Hope, Bartolome [address] [place] [address] [place] [address] Pharmacist Internal Medicine 03/30/24 [employer] 09/03/23 documented as of this encounter
--- OUTSIDE RECORDS SUMMARY | 2024-05-24 16:07 | XMS_ITS | Encounter Summary ---
Author Organization [facility] Address 75 [facility] 7t [place] [address] Care Team Providers Care Scrap Sawyer Name Role Phone Felipe Rogers MD Primary Care Provide r Annabel Hope PharmD Unavailable [phone] Reason for Visit * Reason Comments Med Refill Encounter Details Date Type Department Care Team (Late st Contact Info) Description 04/20/2024 Refill [facility] 230 [place], [place] [phone] Rosina Greer ANP 230 [place] [address] Diabetic peripheral neuropathy (CMS/HCC) Social History Tobacco [...] Description 05/28/2024 11:30 AM EST Medication Management [facility] [address] [place] [address] Annabel Hope PharmD 230 [place] [address] documented as of this encounter Visit Diagnoses Diagnosis Diabetic peripheral neuropathy (CMS/HCC) Type II or unspecified type diabetes mellitus with neurological manifestations, not stated as uncontrolled documented in this encounter Additional Health Concerns Assessment Noted Time PHQ-9 Depression Total Score: 0 01/19/20 24 1:15 PM EDT documented as of this encounter Care Teams Scrap Sawyer Relationship Specialty Start Date End Date Felipe Rogers MD [address] [place] [address] PCP - General Internal Medicine 03/16/16 Annabel Hope PharmD [address] [place] [address] [phone] Pharmacist Internal Medicine 03/30/24 [employer] 09/03/23 documented as of this encounter
--- OUTSIDE RECORDS SUMMARY | 2024-05-24 16:07 | XMS_ITS | Encounter Summary ---
Author Organization [employer] Address 75 [facility] 7t [place] [address] Care Team Providers Care Urology Surgeon Name Role Phone Felipe Rogers MD Primary Care Provide r Annabel Hope PharmD Unavailable [phone] Reason for Visit * Reason Comments Med Refill Encounter Details Date Type Department Care Team (Late st Contact Info) Description 12/05/[address] [facility] MEDICINE 230 [place], [place] [phone] Edith Galeano MD 230 [place] [address] Mixed hyperlipidemia Social History Tobacco Use Types [...] 11:30 AM EST Medication Management [facility] MED[facility]INE 230 [place] [address] Annabel Hope PharmD 230 [place] [address] documented as of this encounter Visit Diagnoses Diagnosis Mixed hyperlipidemia documented in this encounter Additional Health Concerns Assessment Noted Time PHQ-9 Depression Total Score: 11 024 10:52 AM EST documented as of this encounter Care Teams Urology Surgeon Relationship Specialty Start Date End Date Felipe Rogers MD [address] [place] [address] PCP - General Internal Medicine 03/16/16 Annabel Hope PharmD [address] [place] [address] [phone] Pharmacist Internal Medicine 03/30/24 [employer] 09/03/23 documented as of this encounter
--- OUTSIDE RECORDS SUMMARY | 2024-05-24 16:07 | XMS_ITS | Encounter Summary ---
Author Organization [facility] Address [address] [place] [address] 7 [place] [address] Care Team Providers Care Wood Flooring Specialist Name Role Phone Felipe Rogers MD Primary Care Provide r Annabel Hope PharmD Unavailable [phone] Encounter Details Date Type Department Care Team (Late st Contact Info) Description 04/20/2022 Orders Only [facility] MED & PEDS 505 [place] [address] Rani Moe LPN Social History Tobacco Use Types Packs/Day [...] Description 05/28/2024 11:30 AM EST Medication Management [facility] 230 [place] [address] Annabel Hope PharmD 230 [place] [address] documented as of this encounter Visit Diagnoses Not on filedocumented in this encounter Care Teams Wood Flooring Specialist Relationship Specialty Start Date End Date Felipe Rogers MD 230 [place], [place] [phone] PCP - General Internal Medicine 03/16/16 Annabel Hope PharmD [address] [place] [address] Pharmacist Internal Medicine 03/30/24 [employer] 09/03/23 documented as of this encounter
--- OUTSIDE RECORDS SUMMARY | 2024-05-24 16:07 | XMS_ITS | Encounter Summary ---
Author Organization [facility] Address 100 [facility] 200 [place] [address] Phone Care Team Providers Care Postal Service Clerk Name Role Phone Felipe Dunne MD Primary Care Provider Unav ailable Reason for Referral * Imaging (Routine) - Closed Specialty Diagnoses / Procedures Referred By Contlisandro t Referred To Contact Diagnoses Persistent proteinuria Procedures US Guided Renal Biopsy Carlos Witt MD Phone: tel: fax: Referral ID Status Reason Start Date Expiration Date Visits Re quested Visits Authorized [id number] Closed 02/25/2023 02/25/2024 1 1 Encounter Details Date Type Department Care Team (Latest Contact Info) Description 02/25/2023 Office Communication [facility] 200 [place] [address] Carlos Witt MD 3550 [facility] [address] [place] [phone] Persistent proteinuria (Primary Dx) Social History Tobacco Use Types Packs/Day Years Used Date Smoking Tobacco: Former Cigarettes Q uit: 03/03/1985 Comments:Smoking History Inf o:Every day Sex and Gender Information Value Date Recorded Sex Assigned at Not on file Legal Sex Male 4:57 PM EST Gender Identity Not on file Sexual Orientation Not on file documented as of this encounter Miscellaneous Notes * Telephone Encounter - Carlos Witt MD - 02/25/2023 4:47 AM EDT Schedule kidney bx with dr valente hays in 4-5 wks documented in this encounter Plan of Treatment Upcoming Encounters Date Type Department Care Team (Late st Contact Info) Description 08/24/2024 10:45 AM EDT Office Visit [facility] [address] [phone] Carlos Witt MD [address] [address] Scheduled Orders Name Type Priority Associated Diagnoses Orde r Schedule US Guided Renal Biopsy Imaging Routine Persistent proteinuria Expected: 03/25/2023, Expires: 02/26/2024 documented as of this encounter Visit Diagnoses Diagnosis Persistent proteinuria- Primary documented in this encounter Care Teams Postal Service Clerk Relationship Specialty Start Date End Date Felipe Dunne MD 230 [place] [address] PCP - General 05/05/20 documented as of this encounter
--- OUTSIDE RECORDS SUMMARY | 2024-05-24 16:08 | XMS_ITS | Encounter Summary ---
Author Organization [facility] Address [address] [place] [address] 7 [place] [address] Care Team Providers Care Home Service Demonstrator Name Role Phone Felipe Rogers MD Primary Care Provide r Annabel Hope PharmD Unavailable [phone] Reason for Visit * Reason Comments Med Refill Encounter Details Date Type Department Care Team (Late st Contact Info) Description 12/16/2022 Refill [facility] MEDICINE [address] [place] [address] Felipe Rogers MD 230 [place] [address] Mixed hyperlipidemia Social History Tobacco Use Types [...] [facility] 230 [place] [address] Annabel Hope, Bartolome 230 [place] [address] documented as of this encounter Visit Diagnoses Diagnosis Mixed hyperlipidemia documented in this encounter Additional Health Concerns Assessment Noted Time PHQ-9 Depression Total Score: 0 05/13/19 23 2:32 PM EST documented as of this encounter Care Teams Home Service Demonstrator Relationship Specialty Start Date End Date Felipe Rogers MD 230 [place] [address] PCP - General Internal Medicine 03/16/16 Annabel Hope PharmD [address] [place] [address] Pharmacist Internal Medicine 03/30/24 [employer] 09/03/23 documented as of this encounter
--- OUTSIDE RECORDS SUMMARY | 2024-05-24 16:08 | XMS_ITS | Encounter Summary ---
Author Organization [employer] [facility] Address [address] [place] [address] 7t [place] [address] Care Team Providers Care It Risk And Assurance Senior Manager Name Role Phone Felipe Rogers MD Primary Care Provide r Annabel Hope PharmD Unavailable [phone] Reason for Referral * Imaging (Routine) - Closed Specialty Diagnoses / Procedures Referred By Contac t Referred To Contact Cardiology Diagnoses Syncope, unspecified syncope type Procedures Transthoracic Echo (TTE) Complete Arlene De La Torre MD [address] [place] [address] Phone: tel: fax: [facility] fax: Referral ID Status Reason Start Date Expiration Date V isits Requested Visits Authorized [id number] Closed Perform Procedure 12/21/2022 12/21/2023 1 1 Encounter Details Date Type Department Care Team (Late st Contact Info) Description 12/21/2022 Orders Only [facility] [address] [place] [address] Arlene De La Torre MD 230 [place], [place] [phone] Syncope, unspecified syncope type (Primary Dx) Social History Tobacco Use Types [...] 11:30 AM EST Medication Management [facility] 230 [place] [address] Annabel Hope, PharmD 230 [place] [address] Scheduled Orders Name Type Priority Associated Diagnoses Orde r Schedule Transthoracic Echo (TTE) Complete Echocardiography Routine Syncope, unspecified syncope type Expected: 12/21/2022 (Approximate), Expires: 12/21/2024 documented as of this encounter Procedures Procedure Name Priority Date/Time Associated Diagnosis Comments MR CERVICAL SPINE WO CONTRAST Routine 01/17/2023 5:31 PM EDT documented in this encounter Results * MR Cervical Spine w/o Contrast (01/17/2023 5:31 PM EDT) Anatomical Region Laterality Modality Spine, C-spine Magnetic Resonan ce 01/17/2023 5:31 PM EDT Narrative 01/17/2023 7:25 PM EDT ? [facility] ?[address] ?[place] [address] ? CT Scan Report ? Signed ? Patient: Kelly Calderón,Brain ?MR#: [id number] ?? [id number] ? : 1955 ?Acct:[id number] ? Age/Sex: 67 / M ?ADM Date: 09/25/23 ? Loc: HO.ED ? Attending Dr: ? Ordering Physician: Michael Cruz ?? Date of Service: 01/17/23 ?? Procedure(s): CT cervical spine wo IV con ?? Accession Number(s): [id number] ? cc: Michael Cruz; Felipe Barrett MD ? EXAMINATION: ?? CT CERVICAL SPINE WITHOUT CONTRAST ? CLINICAL INFORMATION: ?? Right posterior neck pain radiating down right arm ? COMPARISON: ?? None available. ? TECHNIQUE: ?? Axial images through the cervical spine without contrast. Sagittal ?? images workstation were performed. ? This CT examination was performed using dose optimization techniques as ?? appropriate, variously including the following: ?? *Automated exposure control ?? *Adjustment of mA and/or kV according to patient size (this includes ?? techniques or standardized protocols for targeted exams where dose is ?? matched to indication/reason for exam; i.e. extremities or head) ?? *Use of iterative reconstruction technique ? DLP: ?? 662 mGy-cm ? FINDINGS: ?? Bone alignment is normal. No fracture or dislocation. Degenerative ?? spondylosis at C5-C6 and C6-C7. ? At C2-C3 there is left paracentral disc bulge. ? At C3-C4 and C4-C5 there is central disc protrusion. ? At C5-C6 there is diffuse bulge. ? At C6-C7 and C7-T1 there is no disc herniation protrusion or bulge. ? Prevertebral soft tissues are normal. Lung apices are clear. ? CT/CT cervical spine wo IV con ?? IMPRESSION: ?? Mild degenerative changes. ? Fleischner guidelines were followed. ? Dictated By: ?Aspen Maza MD ? Signed By: ?<Electronically signed by Aspen Maza MD in [place]> ? 01/17/23 1922 ? DD/ 1731 ? TD/TT: ? Nurse Midwife/Clinical Instructor: SUJ ? Procedure Note Sulaiman, Image - 01/17/[address] [address] [address] Scan Report Signed Patient: Brain Hubbard#: [id number] : 5Acct:[id number] Age/Sex: 67 / MADM Date: 01/17/23 Loc: HO.ED Attending Dr: Ordering Physician: Michael Cruz Date of Service: 01/17/23 Procedure(s): CT cervical spine wo IV con Accession Number(s): [id number] cc: Michael Cruz; Felipe Barrett MD EXAMINATION: CT CERVICAL SPINE WITHOUT CONTRAST CLINICAL INFORMATION: Right posterior neck pain radiating down right arm COMPARISON: None available. TECHNIQUE: Axial images through the cervical spine without contrast. Sagittal images workstation were performed. This CT examination was performed using dose optimization techniques as appropriate, variously including the following: *Automated exposure control *Adjustment of mA and/or kV according to patient size (this includes techniques or standardized protocols for targeted exams where dose is matched to indication/reason for exam; i.e. extremities or head) *Use of iterative reconstruction technique DLP: 662 mGy-cm FINDINGS: Bone alignment is normal. No fracture or dislocation. Degenerative spondylosis at C5-C6 and C6-C7. At C2-C3 there is left paracentral disc bulge. At C3-C4 and C4-C5 there is central disc protrusion. At C5-C6 there is diffuse bulge. At C6-C7 and C7-T1 there is no disc herniation protrusion or bulge. Prevertebral soft tissues are normal. Lung apices are clear. CT/CT cervical spine wo IV con IMPRESSION: Mild degenerative changes. Fleischner guidelines were followed. Dictated By: Aspen Maza MD Signed By: <Electronically signed by Aspen Maza MD in [place]> 01/17/23 1922 DD/ 1731 TD/TT: Nurse Midwife/Clinical Instructor: HARSH [facility] External Provider IMG MRI PROCEDURES Final Result documented in this encounter Visit Diagnoses Diagnosis Syncope, unspecified syncope type- Primary documented in this encounter Additional Health Concerns Assessment Noted Time PHQ-9 Depression Total Score: 0 05/13/19 23 2:32 PM EST documented as of this encounter Care Teams It Risk And Assurance Senior Manager Relationship Specialty Start Date End Date Felipe Rogers MD 230 [place] [address] PCP - General Internal Medicine 03/16/16 Annabel Hope PharmD 230 [place] [address] Pharmacist Internal Medicine 03/30/24 [employer] 09/03/23 documented as of this encounter
--- OUTSIDE RECORDS SUMMARY | 2024-05-24 16:08 | XMS_ITS | Encounter Summary ---
Author Organization [facility] Address [address] [place] [address] 7t [place] [address] Care Team Providers Care Silk Weaver Name Role Phone Felipe Rogers MD Primary Care Provide r Annabel Hope PharmD Unavailable [phone] Reason for Visit * Reason Comments Med Refill Encounter Details Date Type Department Care Team ([facility] Contact Info) Description 01/07/2023 Refill [facility] MED & PEDS 505 [place], [place] [phone] Felipe Rogers MD 230 [place], [place] [phone] Erectile dysfunction due to diseases classified elsewhere [...] Upcoming Encounters Date Type Department Care Team ([facility] Contact Info) Description 05/28/2024 11:30 AM EST Medication Management [facility] MEDICINE 230 [place] [address] Annabel Hope PharmD 230 [place] [address] documented as of this encounter Visit Diagnoses Diagnosis Erectile dysfunction due to diseases classified elsewhere documented in this encounter Additional Health Concerns Assessment Noted Time PHQ-9 Depression Total Score: 0 05/13/19 23 2:32 PM EST documented as of this encounter Care Teams Silk Weaver Relationship Specialty Start Date End Date Felipe Rogers MD [address] [place] [address] PCP - General Internal Medicine 03/16/16 Annabel Hope PharmD [address] [place] [address] Pharmacist Internal Medicine 03/30/24 [employer] 09/03/23 documented as of this encounter
--- OUTSIDE RECORDS SUMMARY | 2024-05-24 16:08 | XMS_ITS | Encounter Summary ---
Author Organization [facility] Address [address] [facility] [address] [place] [address] Phone Care Team Providers Care Principal Military Analyst Name Role Phone Felipe Dunne MD Primary Care Provider Unav ailable Reason for Visit * Reason Comments Med Refill Encounter Details Date Type Department Care Team (Late st Contact Info) Description 05/13/2024 Refill [facility] [address] [facility] [address] [place] [address] Carlos Witt MD [address] [address] Social History Tobacco Use Types Packs/Day Years Used Date Smoking Tobacco: Former Cigarettes Q uit: 03/03/1985 Smokeless Tobacco: Never Comments:Smoking History Inf o:Every day Sex and Gender Information Value Date Recorded Sex Assigned at Not on file Legal Sex Male 4:57 PM EST Gender Identity Not on file Sexual Orientation Not on file documented as of this encounter Plan of Treatment Upcoming Encounters Date Type Department Care Team (Late st Contact Info) Description 08/24/2024 10:45 AM EDT Office [facility] [address] [phone] Carlos Witt MD [address] [address] documented as of this encounter Visit Diagnoses Not on filedocumented in this encounter Care Teams Principal Military Analyst Relationship Specialty Start Date End Date Felipe Dunne MD [address] [place] [address] PCP - General 05/05/20 documented as of this encounter
--- OUTSIDE RECORDS SUMMARY | 2024-05-24 16:08 | XMS_ITS | Encounter Summary ---
Author Organization [employer] Address [address] [facility] [address] [place] [address] Care Team Providers Care Sliding Joint Maker Name Role Phone Felipe Rogers MD Primary Care Provide r Annabel Hope PharmD Unavailable [phone] Encounter Details Date Type Department Care Team (Late st Contact Info) Description 05/24/2024 11:30 AM EST Office Visit [facility] [address] [place], [place] [phone] Felipe Rogers MD [address] [place], [place] [phone] Type 2 diabetes mellitus with stage 1 chronic kidney disease, with long-term current use of insulin (CMS/HCC) (Primary Dx); Essential hypertension; Mixed hyperlipidemia; Cerebrovascular accident (CVA), unspecified mechanism (CMS/HCC); Bradycardia; Stage 3a chronic kidney disease (CMS/HCC) Social History Tobacco Use Types Packs/Day [...] AM EDT documented as of this encounter Last Filed [...] Mass Index 29.62 05/24/2024 11:58 AM EST documented in this encounter Progress Notes * Felipe Abrams MD - 05/24/2024 11:30 AM EST SUBJECTIVE Brain Calderón is a 69 y.o. male who presents for No chief complaint on file.. Patient here for a follow up, recently seen at [facility] after he presented with confusion, Diagnosed with TIA, Bradycardia and hypoglycemia. Pt's tells me they theo stopped his Metoprololor lowered his Insulin Diabetes He presents for his follow-up diabetic visit. He has type 2 diabetes mellitus. Pertinent negatives for hypoglycemia include no headaches. Pertinent negatives for diabetes include no chest pain. Review of Systems Constitutional: Negative for fever. HENT: Negative for sore throat. Respiratory: Negative for cough and shortness of breath. Cardiovascular: Negative for chest pain. Gastrointestinal: Negative for abdominal pain. Neurological: Negative for headaches. Allergies Allergen Reactions Niacin Rash Metformin Other reaction(s): GI pain Morphine Other Rosiglitazone OBJECTIVE Vitals: 05/24/24 1158 BP: (!) 156/84 BP Location: Right arm Patient Position: Sitting BP Cuff Size: Large adult Pulse: 60 Resp: 16 Temp: 97.3 ??F (36.3 ??C) TempSrc: Temporal SpO2: 98% Weight: 178 lb (80.7 kg) Height: 5' 5 (1.651 m) Physical Exam Vitals reviewed. Constitutional: Appearance: Normal appearance. HENT: Head: Normocephalic and atraumatic. Right Ear: External ear normal. Left Ear: External ear normal. Nose: Nose normal. Mouth/Throat: Mouth: Mucous membranes are moist. Eyes: Conjunctiva/sclera: Conjunctivae normal. Cardiovascular: Rate and Rhythm: Normal rate and regular rhythm. Pulmonary: Effort: Pulmonary effort is normal. Breath sounds: Normal breath sounds. Skin: General: Skin is warm. Neurological: Mental Status: He is alert. Mental status is at baseline. Assessment/Plan Problem List Items Addressed This Visit Type 2 diabetes mellitus with diabetic chronic kidney disease (CMS/HCC) - Primary Patient is here for a follow up Did not bring Glucometer : Patient was under the care of [facility] at [facility] . 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 Eye exam was last done on: 01/2018 by (prop sawyer) Dr Sherman Microalbumin checked on: 07/14/2021 was: [...] check your feet on a daily basis Relevant Orders POCT Glucose (Completed) Essential hypertension Here for a follow up He is [...] about medication compliance, counseled about weight loss. Relevant Medications metoprolol succinate XL (Toprol XL) 25 MG 24 hr tablet Other Relevant Orders Basic Metabolic Panel Hyperlipidemia Pt here for a f/u Most recent [...] diet, counseled and educated about diet and exercise,Patient encouraged to come up with a personal goal for weight loss. f/u 4 months CVA (cerebral vascular accident) (CMS/HCC) Pt here for a follow up Pt s/p CVA- pt was hospitalized at [facility] 09/10-5/21hx of left sided hemiparesis from previous stroke, on morning of 09/10 noted right sided weakness, pt was transported to hospital via ambulance, CTA of brain and neck demonstrated mild atheroscleorisis and luminal narrowing of right carotid siphon. MRI of brain demonstrated acute or subacute paramedian pontine poolroom/poolhall manager infarct. Pt was started on plavix (hold aspirin) continue atorvastatin, thickened liquids Echo unremarkable, PT/OT evaluations, pt recommended for rehab but family and pt refused and he wassubsequently discharged home Over the phone, pt's reports he is now completely disabled Has to do everything little by little with food and medication has difficulty swallowing Adequate food intake, good uop. 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 Has home supports - He was seen at [facility] 05/01/2024 presented to the emergency room when witnessed by family patient had acute confusion. According to family he was not responding as he normally would somewhat resistant to care. Also at that time cbyoy-[id number] was checked and was 68. Patient came [...] again from 40 to 60 given hyperglycemia Bradycardia HR 60, at home reports lower HR He is on Metoprolol XR 25 mg po daily (prescribed by cardiology) upon discharge he was instructed to HOLD it, but did not Plan: lower dose to 12.5 mg po daily Follow with cardiology Stage 3a chronic kidney disease (CMS/HCC) Under the care of Dr de, last seen 01/23/2024 Repeat BMP documented in this encounter Miscellaneous Notes * Assessment & Plan Note - Felipe Abrams MD - 05/24/2024 12:41 PM EST Associated Problem(s): Stage 3a chronic kidney disease (CMS/HCC) Under the care of Dr de, last seen 01/23/2024 Repeat BMP * Assessment & Plan Note - Felipe Abrams MD - 05/24/2024 12:39 PM EST Associated Problem(s): Bradycardia HR 60, at home reports lower HR He is on Metoprolol XR 25 mg po daily (prescribed by cardiology) upon discharge he was instructed to HOLD it, but did not Plan: lower dose to 12.5 mg po daily Follow with cardiology * Assessment & Plan Note - Felipe Abrams MD - 05/24/2024 12:03 PM EST Associated Problem(s): CVA (cerebral vascular accident) ([facility]) Pt here for a follow up Pt s/p CVA- pt was hospitalized at [facility] 09/10-09/12hx of left sided hemiparesis from previous stroke, on morning of 09/10 noted right sided weakness, pt was transported to hospital via ambulance, CTA of brain and neck demonstrated mild atheroscleorisis and luminal narrowing of right carotid siphon. MRI of brain demonstrated acute or subacute paramedian pontine poolroom/poolhall manager infarct. Pt was started on plavix (hold aspirin) continue atorvastatin, thickened liquids Echo unremarkable, PT/OT evaluations, pt recommended for rehab but family and pt refused and he wassubsequently discharged home Over the phone, pt's reports he is now completely disabled Has to do everything little by little with food and medication has difficulty swallowing Adequate food intake, good uop. 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 Has home supports - He was seen at [facility] 05/01/2024 presented to the emergency room when witnessed by family patient had acute confusion. According to family he was not responding as he normally would somewhat resistant to care. Also at that time [id number] was checked and was 68. Patient came [...] again from 40 to 60 given hyperglycemia * Assessment & Plan Note - Felipe Abrams MD - 05/24/2024 11:06 AM EST Associated Problem(s): Hyperlipidemia Pt here for a f/u Most recent [...] diet, counseled and educated about diet and exercise,Patient encouraged to come up with a personal goal for weight loss. f/u 4 months * Assessment & Plan Note - Felipe Abrams MD - 05/24/2024 11:06 AM EST Associated Problem(s): Essential hypertension Here for a follow up He is [...] about medication compliance, counseled about weight loss. * Assessment & Plan Note - Felipe Abrams MD - 05/24/2024 11:06 AM EST Associated Problem(s): Type 2 diabetes mellitus with diabetic chronic kidney disease (CMS/HCC) Patient is here for a follow up Did not bring Glucometer : Patient was under the care of [facility] at [facility] . 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 Eye exam was last done on: 01/2018 by (prop sawyer) Dr Sherman Microalbumin checked on: 07/14/2021 was: [...] check your feet on a daily basis documented in this encounter Plan of Treatment Upcoming Encounters Date Type Department Care Team (Late st Contact Info) Description 05/28/2024 11:30 AM EST Medication Management [facility] [address] [place] [address] Annabel Hope PharmD [address] [place] [phone] documented as of this encounter Procedures Procedure Name Priority Date/Time Associated Diagnosis Comments BASIC METABOLIC PANEL Routine 05/24/2024 12:20 PM EST Essential hypertension POCT GLUCOSE Routine 05/24/2024 12:00 PM EST Type 2 diabetes mellitus with stage 1 chronic kidney disease, with long-term current use of insulin ([facility]) documented in this encounter Results * (ABNORMAL) Basic Metabolic Panel (05/24/2024 12:20 PM EST) Sodium 140 135 - 145 mmol/L [facility] Potassium 3.9 3.3 - 5.1 mmol/L [facility] Chloride 111(H) 96 - 108 mmol/L [facility] Carbon Dioxide 24 22 - 29 mmol/L [facility] Anion Gap 9(L) 12 - 20 [facility] Urea Nitrogen (BUN) 16 9 - 16 mg/dL [facility] Creatinine, Serum 1.07 0.5 - 1.4 mg/dL [facility] Estimated Glomerular Filt Rate >60 [facility] Comment:Chronic Kidney Disea se: Estimated GFR < 60 mL/min/1.67w0Jhupuc Kidney Disease: Estimated GFR < 15 mL/min/1.73m2 Glucose 106 60 - 115 mg/dL [facility] Calcium 8.4 8.4 - 10.2 mg/dL [facility] Blood Venous blood specimen / Unknown 05/24/2024 12:20 PM EST 05/24/2024 12:55 PM EST us Felipe Abrams MD LAB BLOOD ORDERABLES Final Result [facility] [address] [place] [address] [phone] * POCT Glucose (05/24/2024 12:00 PM EST) Glucose Blood, POC 114 60 - 200 mg/dL QC Media Lot # [id number] Lot# Expiration Date Blood Capillary blood specimen / Unknown 05/24/2024 12:00 PM EST Felipe Abrams MD POINT OF CARE TEST EN TER/EDIT ORDERABLES Final Result documented in this encounter Visit Diagnoses Diagnosis Type 2 diabetes mellitus with stage 1 chronic kidney disease, with long-term current use of insulin (CMS/HCC)- Primary Essential hypertension Unspecified essential hypertension Mixed hyperlipidemia Cerebrovascular accident (CVA), unspecified mechanism (CMS/HCC) Bradycardia Other specified cardiac dysrhythmias Stage 3a chronic kidney disease (CMS/HCC) documented in this encounter Additional Health Concerns Assessment Noted Time PHQ-9 Depression Total Score: 0 01/19/20 24 1:15 PM EDT documented as of this encounter Care Teams Sliding Joint Maker Relationship Specialty Start Date End Date Felipe Rogers MD [address] [place] [address] PCP - General Internal Medicine 03/16/16 Annabel Hope PharmD [address] [place] [address] Pharmacist Internal Medicine 03/30/24 [facility] 09/03/23 documented as of this encounter
--- OUTSIDE RECORDS SUMMARY | 2024-05-24 16:08 | XMS_ITS | Clinical Summary ---
Author Organization [facility] Address [address] [phone] Phone Care Team Providers Care Criminal Lawyer Name Role Phone Felipe Dunne MD Primary Care Provider Unav ailable Allergies Active Allergy Reactions Criticality Noted Date Comments Metformin 07/20/2021 Other reaction(s): GI pain Niacin Rash Medium 07/20/2021 Rosiglitazone 07/20/2021 Other reaction(s): edema Medications acetaminophen (TYLENOL) 500 MG tablet Take 1 tablet by mouth 3 (three) times a day Active atorvastatin (LIPITOR) 80 MG tablet Take 80 mg by mouth at bed time Active famotidine (PEPCID) 20 MG tablet Take 20 mg by mouth every morning and evening 12/23/19 21 Active fenofibrate micronized (LOFIBRA) 200 MG capsule Take 200 mg by mouth 1 (one) time each day Active furosemide (LASIX) 20 MG tablet Take 40 mg by mouth every morning 12/23/19 21 Active Insulin Lispro, 1 Unit Dial, 100 UNIT/ML solution pen-injector Active clopidogrel (PLAVIX) 75 MG tablet Take 75 mg by mouth 1 (one) time each day Active terazosin (HYTRIN) 2 MG capsule Take 2 mg by mouth 1 (one) time each day in the evening 12/23/19 21 Active metoprolol succinate XL (TOPROL XL) 25 MG 24 hr tablet Take 25 mg by mouth 1 (one) time each day Active sildenafil (VIAGRA) 100 MG tablet Active gabapentin (NEURONTIN) 300 MG capsule Take 300 mg by mouth 07/20/19 14 Active SITagliptin (JANUVIA) 50 MG tablet Take 50 mg by mouth 1 (one) time each day Active Tresiba FlexTouch 100 UNIT/ML injection INJECT 60 UNITS SUBCUTANEOUSLY EVERY DAY 12/15/19 22 Active NovoLOG FLEXPEN 100 UNIT/ML injection 13 units in the morning 23 units evening 23 units at nigh 11/28/19 22 Active memantine (NAMENDA) 10 MG tablet Take 10 mg by mouth in the morning and 10 mg in the evening. 12/03/19 23 Active hydrALAZINE 50 MG tablet Take 1 tablet (50 mg total) by mouth every morning and evening 180 tablet 05/19/19 24 Active potassium chloride 10 MEQ CR tablet Take 10 mEq by mouth 1 (one) time each day Do not crush, chew, or split. Active docusate sodium (COLACE) 100 MG capsule Take 100 mg by mouth in the morning and 100 mg in the evening. Active valsartan (DIOVAN) 320 MG tablet TAKE 1 TABLET BY MOUTH EVERY MORNING 30 tablet 3 05/14/19 25 Active valsartan (DIOVAN) 320 MG tablet TAKE 1 TABLET BY MOUTH AT BEDTIME 30 tablet 3 01/23/20 24 2024 Discontinued Active Problems Problem Noted Date Diagnosed Date Stage 3a chronic kidney disease 06/06/2023 Vascular dementia, unspecifi ed severity, without behavioral disturbance, psychotic disturbance, mood disturbance, and anxiety 09/14/2022 02/24/2023 Overview (02/24/2023): Last Assessment & Plan: Pt with hx of previous thalamic infarcts, now with c/o worsening forgetfulness. Most recent CT of brain 05/2022 showed brain volume loss Early Dementia ? Neurology consult with Dr Farr\ appreciated diagnosed with vasculr dementia started on Memantine 5 mg BID Diabetic peripheral neuropathy 05/13/2022 1 04/26/2022 Overview (02/24/2023): Last Assessment & Plan: Pt with c/o bilateral LE pain described as burning, mainly on his lower legs and feet, with associated tingling EMG showed: [id number] axonal sensory motor peripheral neuropathy. On Gabapentin 300 mg po TID I recommended a transport wheelchair given his severe peripheral neuropathy Other irritable bowel syndrome 05/13/2022 1 04/26/2022 Overview (02/24/2023): Last Assessment & Plan: Pt currently doing well. Hx of IBS [...] He was evaluated by Dr Hood at [facility] on 05/26/2012 who recommended an EGD done on 06/06/12 that showed gastritis. and abdominal US done on 06/09/2012 Patient encounter status 05/13/2022 023 Overview (02/24/2023): Last Assessment & Plan: Colonoscopy: Normal 2005 Dr Chan had repeat 05/18/2016: Syncope 05/13/2022 02/24/2023 Overview (02/24/2023): Last Assessment & Plan: Patient here with his for a follow [...] He has a follow up with his manager long term care Thalamic infarction 05/13/2022 02/24/2023 Overview (02/24/2023): Last Assessment & Plan: Pt doing ok at the moment Previously admitted to [facility] after he had been c/o one week of left sided numbness. patient is very poor historian. He was initially brought o [facility] by ambulance to rule out CVA. CTA [...] recommended to continue aggressive risk factor modification Obese class II 01/21/2022 Chronic kidney disease, stage 2 (mild) Type 2 diabetes mellitus wit h diabetic chronic kidney disease 01/21/2022 Chronic back pain 07/17/2021 Sleep apnea 07/17/2021 Vitamin D deficiency 07/17/2021 Chronic back pain 07/17/2021 02/24/2023 Overview (02/24/2023): Last Assessment & Plan: He has chronic [...] hrs prn . He was seen at [facility] and completed PT with good results he was last seen 08/09/2018 Benign hypertensive renal disease 01/05/2021 Chronic kidney disease stage 1 01/05/2021 Essential hypertension 01/05/2021 Proteinuria 01/05/2021 Renal disorder due to type 2 diabetes mellitus 0 01/05/2021 Uncomplicated moderate persistent asthma 018 02/24/2023 Overview (02/24/2023): Last Assessment & Plan: No recent exacerbations Pt uses his inhalers daily he is on a regimen of: Spiriva, Flovent 110 mcg 1 puff BID, and Proair PRN Benign prostatic hyperplasia 10/07/201105/2022 Depressive disorder 10/07/2011 02/24/2023 Overview (02/24/2023): Last Assessment & Plan: Pt used to have [place] [facility] [place] they no longer see adults and I have continued to prescribe his medications for now. I have prompted him to try to open his case at a different agency such as [facility] or [facility]. Erectile dysfunction 10/07/2011 02/24/2023 Resolved Problems Problem Noted Date Diagnosed Date Resolved Date Hyperlipidemia 01/05/2021 01/05/2021 Type 2 diabetes mellitus 01/05/2021 Encounters Date Type Department Care Team Description 05/13/2024 Refill [facility] [address] [facility] [address] [place] [id number] Carlos Witt MD 04/16/2024 Orders Only [facility] [address] [facility] [address] [place] [id number] Carlos Witt MD Persistent proteinuria; Stage 3a chronic kidney disease (HCC) from Last 3 Months Immunizations Name Administration Dates Next Due Hepatitis B 09/15/2006 Influenza Split 01/22/2013 Influenza, MDCK, PF, Quadrivalent 01/08/2019 Influenza, MDCK, Quadrivalen t, with preservative 01/12/2020 Influenza, Quadrivalent, Pre servative Free 01/21/2018,12/24/2016 Influenza, Quadrivalent, Wit h Preservative 01/15/2016,02/25/2015 Influenza, Unspecified 01/14/2022,2013,03/03/2012,12/24 Pneumococcal Polysaccharide 03/03/2010 Shingrix 02/09/2019 Td 01/14/2006 Tdap 03/16/2016 Zoster 03/16/2016 Social History Tobacco Use Types Packs/Day Years Used Date Smoking Tobacco: Former Cigarettes Q uit: 03/03/1985 Smokeless Tobacco: Never Tobacco Cessation:Counseling Given: Not Answered Comments:Smoking History Info:Every day Sex and Gender Information Value Date Recorded Sex Assigned at Not on file Legal Sex Male 4:57 PM EST Gender Identity Not on file Sexual Orientation Not on file Last Filed Vital Signs Vital Sign Reading Time Taken Comments Blood Pressure 132/62 01/23/2024 10:41 AM EDT Pulse 76 01/23/2024 10:41 AM EDT Temperature - - Respiratory Rate - - Oxygen Saturation 98% 01/23/2024 10:41 AM EDT Inhaled Oxygen Concentration - - Weight 78.9 kg (174 lb) 01/23/2024 10:41 AM EDT Height 165.1 cm (5' 5 ) 01/05/2021 1:16 PM EDT Body Mass Index 28.96 01/05/2021 1:16 PM EDT Plan of Treatment Upcoming Encounters Date Type Department Care Team (Late st Contact Info) Description 08/24/2024 10:45 AM EDT Office Visit [facility] [address] [phone] Carlos Witt MD [address] [phone] Health Maintenance Due Date Last Done Comments Colorectal Cancer Screening: Annual FOBT 2004 Colorectal Cancer Screening: Colonoscopy 2004 Colorectal Cancer Screening: Sigmoidoscopy 2004 Pneumococcal Vaccine: 65+ Years (2 of 2 - PCV) 03/03/2011 03/03/2010 Diabetes: Ophthalmology Exam 05/26/2020 Diabetes: Pedal Pulse Checked 05/26/2020 Diabetes: Sensory Foot Exam 05/26/2020 Diabetes: Visual Foot Exam 05/26/2020 Influenza Vaccine (#1) 2023 2, 01/12/2020, 01/08/2019, Additional history exists Diabetes: Hemoglobin A1C 04/19/2024 024, 04/26/2023, 12/07/2022 Hepatitis B Vaccine Aged Out 09/15/2006 No longe r eligible based on patient's age to complete this topic Insurance MEDICAID [place] [facility] DUAL COMPLETE ([id number]) [facility] DUAL COMPLETE ([id number]) [place] [address] MEDICAID [place] Care Teams Criminal Lawyer Relationship Specialty Start Date End Date Felipe Dunne MD [address] [place] [id number] PCP - General 05/05/20
--- OUTSIDE RECORDS SUMMARY | 2024-05-24 16:08 | XMS_ITS ---
Author Name Dakota HERNANDEZ MS. Noeshyanne Leal Address [address] [place] [address] Phone [phone] Organization [facility] Care Team Providers Care Swing Type Lathe Operator Name Role Phone Nuha Duncan Unavailable [phone] Unavailable Unavailable Unavailable Unavailable Unavailable Unavailable [facility], [facility] Unavailable [phone] Unavailable Unavailable [phone] [facility], [place] Unavailable Unavailable Unavailable Unavailable Reason for Referral Not Available Allergies, adverse reactions, alerts Allergen Type Reaction Severity Status Onset Date MetFORMIN Allergy to substance (disorder) None Mild Active 2021-07-20 Niacin Allergy to substance (disorder) Rash Mild Active 2012-04-11 Rosiglitazone Allergy to substance (disorder) None Mild Active 2019-11-22 History of medication use Medication Class Instructions Start Date End Date TRUEplus Lancets 33G Miscellaneous TEST BLOOD SUGAR FOUR TIMES DAILY 2022-04-15 No Data Available Easy Touch Pen [place] 31G X 5 MM MISC USE DIRECTED FIVE TIMES DAILY 2022-03-30 No Data Available NovoLOG FlexPen 100 UNIT/ML Solution Pen-injector Subcutaneous INJECT 13 UNITS WITH BREAKFAST, 25 UNITS WITH LUNCH AND 25 UNITS WITH SUPPER 2022 2023-04-26 Albuterol Sulfate (2.5 mg/3ML) 0.083% Nebulization Solution Inhalation Take 2.5 mg by nebulization if needed in the morning, at noon, in the evening, and at bedtime. 2021-01-06 No Data Available OneTouch Delica Lancets 33G Miscellaneous 1 Stick 4 times daily. Test blood sugars 4 times a day 2022-07-30 No Data Available OneTouch Verio Flex System w/Device Kit 1 kit 4 times daily. Test blood sugar 4 times a day 2022-07-30 No Data Available OneTouch Verio Strip In Vitro Test blood sugar 4 times a day 2022-07-30 No Data Available Atorvastatin Calcium 80 mg Tab TAKE 1 TABLET BY MOUTH AT BEDTIME 2022-11-16 No Data Available Clopidogrel Bisulfate 75 mg Tab TAKE 1 TABLET BY MOUTH EVERY MORNING 2022-11-16 No Data Available Ketotifen Fumarate 0.025 % Solution Ophthalmic Administer 1 drop into affected eye(s) every 12 (twelve) hours. 2023-01-18 No Data Available Acetaminophen Extra Strength 500 mg Tab TAKE 1 TABLET BY MOUTH EVERY 8 HOURS NEEDED FOR PAIN OR FEVER 2023-01-25 No Data Available Famotidine 20 mg Tab TAKE 1 TABLET BY MO UTH TWICE DAILY IN THE MORNING AND IN THE EVENING 2023-02-08 No Data Available Docusate Sodium 100 mg Cap TAKE 1 CAPSUL E BY MOUTH EVERY TWELVE HOURS 2023-02-08 No Data Available Gabapentin 300 mg Cap TAKE 1 CAPSULE BY MOUTH THREE TIMES DAILY 2023-03-14 2023-04-07 Tresiba FlexTouch 100 UNIT/ML Solution Pen-injector Subcutaneous INJECT 66 UNITS SUBCUTANEOUSLY AT BEDTIME 2023-04-01 No Data Available Gabapentin 300 mg Cap TAKE 1 CAPSULE BY MOUTH THREE TIMES DAILY 2023-04-07 No Data Available amLODIPine Besylate 5 mg Tab TAKE 1 TABL ET BY MOUTH EVERY MORNING 2022-08-16 2023-05-04 Fenofibrate 200 mg Cap TAKE 1 CAPSULE BY MOUTH EVERY MORNING WITH FOOD 2022-06-15 2024-02-28 Furosemide 20 mg Tab TAKE 2 TABLETS BY M OUTH ONCE DAILY IN THE MORNING 2022-11-15 No Data Available Januvia 50 mg Tab TAKE 1 TABLET BY PRIMITIVO TH EVERY MORNING 2022-08-15 No Data Available Medbox Status USE DIRECTED 2022-03-29 No Data Samira ilable Metoprolol Tartrate 25 mg Tab TAKE 1 TABLET BY MOUTH TWICE DAILY IN THE MORNING AND IN THE EVENING 2022-11-15 No Data Available Terazosin 2 mg Cap TAKE 1 CAPSULE BY MO UTH EVERY EVENING 2022-10-07 No Data Available Valsartan 320 mg Tab TAKE 1 TABLET BY MOUTH AT am 2022 No Data Available OneTouch Verio Strip TEST BLOOD SUGAR FI VE TIMES DAILY 2022-08-20 No Data Available Eye Itch Relief 0.035 % Solution INSTILL 1 DROP INTO THE AFFECTED EYE(S) EVERY 12 HOURS DIRECTED 2022-02-19 No Data Available Albuterol Sulfate HFA 108 (90 Base) MCG/ACT Aerosol Solution INHALE 2 PUFFS BY MOUTH EVERY 4 TO 6 HOURS NEEDED 2022-09-29 No Data Available HumaLOG KwikPen 100 UNIT/ML Solution Pen-injector INJECT 13 UNITS WITH BREAKFAST, 25 UNITS WITH LUNCH AND 25 UNITS WITH SUPPER 2022-08-23 No Data Available Viagra 100 mg Tab TAKE 1/2 TABLET BY M OUTH ONCE DAILY 1 HOUR BEFORE SEXUAL ACTIVITY NEEDED 2022-11-05 No Data Available Memantine 10 mg Tab TAKE 1 TABLET BY PRIMITIVO TH TWICE DAILY 2022-12-02 No Data Available Flovent HFA 110 MCG/ACT Aerosol INHALE 1 PUFF TWICE DAILY. RINSE MOUTH AFTER USING. 2022-06-15 No Data Available OneTouch Delica Plus [id number] Miscellaneous TEST BLOOD SUGAR FIVE TIMES DAILY 2022-08-11 No Data Available Easy Touch 31 gauge x 3/16 needle USE TO INJECT INSULIN FIVE TIMES DAILY 2022-08-11 No Data Available Acetaminophen 325 mg Tab TAKE 1 TABLET B Y MOUTH FOUR TIMES DAILY NEEDED FOR PAIN OR FOR FEVER 2022-06-10 No Data Available predniSONE 20 mg Tab TAKE 2 TABLETS BY M OUTH ONCE DAILY FOR 5 DAYS 2023-01-17 2023-05-04 oxyCODONE 5 mg Tab TAKE 1 TABLET BY PRIMITIVO TH THREE TIMES DAILY NEEDED FOR 3 DAYS 2023-01-17 No Data Available hydrALAZINE 50 mg Tab TAKE 1 TABLET BY M OUTH TWICE DAILY IN THE MORNING AND IN THE EVENING 2023-02-24 No Data Available Potassium Chloride Nilda ER 20 MEQ Tab ER TAKE 1 TABLET BY MOUTH TWICE DAILY IN THE MORNING AND IN THE EVENING 2023-06-08 2024-02-28 Cefuroxime Axetil 500 mg Tab TAKE 1 TABL ET BY MOUTH EVERY 12 HOURS 2023-07-30 No Data Available Clotrimazole 1 % Crm APPLY TO THE AFFECT ED AREA(S) TOPICALLY TWICE DAILY FOR 28 DAYS 2023-08-30 No Data Available oxyBUTYnin Chloride ER 5 mg Tab ER 24hr TAKE 1 TABLET BY MOUTH AT BEDTIME 2023-06-09 2024-02-28 TRUEdraw Lancing Device Miscellaneous USE DIRECTED 2024-02-13 No Data Available FreeStyle Martín 2 Christine Device USE DIRECTED TO TEST BLOOD SUGAR THREE TIMES DAILY 2024-02-13 No Data Available glucose 4 gram chewable tablet CHEW 4 TABLETS NEEDED FOR low blood sugar (LESS THAN 70mg/dL) 2024-03-16 No Data Available Problem List Problem Status Onset Date Resolved Date Diabetic peripheral neuropathy Active 2022-05-12 N/A Moderate persistent asthma without complication Active 2017-08-03 N/A Hyperlipidemia Active 2013-02-18 N/A Sleep apnea Active 2011-11-28 N/A Benign prostatic hyperplasia Active 2011-10-06 N/A Morbid obesity due to excess calories Active 07-24-09 N/A Syncope Resolved 2022-05-12 2023-05-25 Erectile dysfunction Active 2011-10-06 N/A Other problems related to [facility] facilities and other health care Active 2023-07-06 N/A Stage 3a chronic kidney disease (CKD) Active 07-26-10 N/A Hospital discharge follow-up Resolved 2023-07-04 2023-08-04 Thalamic strokehemiplegia Active 2022-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 N/ A Right sided weakness/ CVA Active 2023-09-14 N/ A Risk for falls Active 2023-12-16 N/A Gait abnormality Active 2023-05-25 N/A Bedbound Resolved 2023-08-04 2024-02-28 Dysphagia Active 2023-09-14 N/A Urinary incontinence Active 2023-05-04 N/A 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 Active 2021-01-04 N/A Vascular dementia Active 2023-05-04 N/A Goals of care, counseling/discussion Active 2023 N/A Hypertensive chronic kidney disease with stage 1 through stage 4 chronic kidney disease, or unspecified chronic kidney disease Active 2021-01-04 N/A Encounters Encounters Type Facility Date of Service Diagnosis/Co mplaint New patient,40-59min; chronic exacerbation, 2 stable chronic or 1 acute illness add add modifier 95 for video (do not use for phone, instead use [id number]) [facility] ([place] [place]2023 Vascular dementia without behavioral disturbanceEnlarged prostate without lower urinary tract symptomsEssential (primary) hypertensionHyperlipidemia, unspecifiedModerate persistent asthma, uncomplicatedSleep apnea, unspecifiedHemiplegia, unspecified affecting unspecified sideMale erectile dysfunction, unspecifiedType 2 diabetes mellitus with diabetic polyneuropathyType 2 diabetes mellitus with diabetic nephropathySyncope and collapseUnspecified urinary incontinenceMorbid (severe) obesity due to excess calories New patient,40-59min; chronic exacerbation, 2 stable chronic or 1 acute illness add add modifier 95 for video (do not use for phone, instead use [id number]) [facility], ([place]) [place]04[place] New patient,40-59min; chronic exacerbation, 2 stable chronic or 1 acute illness add add modifier 95 for video (do not use for phone, instead use [id number]) [facility] New patient,40-59min; chronic exacerbation, 2 stable chronic or 1 acute illness add add modifier 95 for video (do not use for phone, instead use [id number]) [facility] New patient,40-59min; chronic exacerbation, 2 stable chronic or 1 acute illness add add modifier 95 for video (do not use for phone, instead use [id number]) [facility] New patient,40-59min; chronic exacerbation, 2 stable chronic or 1 acute illness add add modifier 95 for video (do not use for phone, instead use [id number]) [facility]04/[place] New patient,40-59min; chronic exacerbation, 2 stable chronic or 1 acute illness add add modifier 95 for video (do not use for phone, instead use [id number]) [facility] 05[place]04/[place] New patient,40-59min; chronic exacerbation, 2 stable chronic or 1 acute illness add add modifier 95 for video (do not use for phone, instead use [id number]) [facility] New patient,40-59min; chronic exacerbation, 2 stable chronic or 1 acute illness add add modifier 95 for video (do not use for phone, instead use [id number]) [facility] [place]/2023 No Data Available [facility], ([place]/2023 Male erectile dysfunction, unspecifiedEssential (primary) hypertensionVascular dementia without behavioral disturbanceHemiplegia, unspecified affecting unspecified sidePrsnl hx of TIA (TIA), and cereb infrc w/o resid deficitsUnspecified urinary incontinenceType 2 diabetes mellitus with diabetic nephropathy No Data Available [facility]20[place] No Data Available [facility] No Data Available [facility]20[place] No Data Available [facility] No Data Available [facility] No Data Available [facility]08/2023 Hemiplegia, unspecified affecting unspecified sideOther cerebral infarction due to occlusion or stenosis of small arteryVascular dementia without behavioral disturbanceOther specified counselingUnspecified abnormalities of gait and mobility No Data Available [facility]/2023 No Data Available [facility] No Data Available [facility]20[place] No Data Available [facility]2023 Type 2 diabetes mellitus wit h diabetic chronic kidney diseaseChronic kidney disease, stage 3aType 2 diabetes mellitus with diabetic polyneuropathyVascular dementia without behavioral disturbanceHemiplegia, unspecified affecting unspecified sideEnlarged prostate without lower urinary tract symptomsHypertensive chronic kidney disease w stg 1-4/unsp chr kdnyHyperlipidemia, unspecifiedModerate persistent asthma, uncomplicatedSleep apnea, unspecifiedMale erectile dysfunction, unspecifiedUnspecified urinary incontinenceUnspecified abnormalities of gait and mobilityOther specified counselingEncntr for f/u exam aft trtmt for cond oth than malig neoplmOther problems related to medical facilities and other health care No Data Available [facility]20[place] No Data Available [facility] No Data Available [facility]20[place] No Data Available [facility]/04[place]20[place] No Data Available [facility] [place] 07/04/20[place] No Data Available [facility] 07[place]2023 No Data Available [facility] [place] 08/04/2023 Hemiplegia, unspecified affecting unspecified sideOther cerebral infarction due to occlusion or stenosis of small arteryVascular dementia without behavioral disturbanceUnspecified abnormalities of gait and mobilityOther specified counselingChronic kidney disease, stage 3aBed confinement status No Data Available [facility] [place] 08/04/2023 No Data Available [facility] [place] 09[place]/2023 Bed confinement statusWeaknessPrsnl hx of TIA (TIA), and cereb infrc w/o resid deficitsDysphagia, unspecified No Data Available [facility] [place] 09/14/2023 No Data Available [facility] 12/16/2023 Vascular dementia without behavioral disturbanceHemiplegia, unspecified affecting unspecified sideUnspecified urinary incontinenceUnspecified abnormalities of gait and mobilityOther specified counselingWeakness No Data Available [facility] [place] 12/16/2023 No Data Available [facility] 12/16/2023 No Data Available [facility] 02[place]/2024 Unspecified abnormalities of gait and mobilityDysphagia, unspecifiedUnspecified urinary incontinenceEssential (primary) hypertension No Data Available [facility] 02/28/2024 No Data Available [facility] 02/28/2024 No Data Available [facility] 02/[place]/2024 No Data Available [facility] 03/26/2024 Type 2 diabetes mellitus wit h diabetic nephropathyEssential (primary) hypertensionOther problems related to medical facilities and other health care No Data Available [facility] 03/26/2024 No Data Available [facility] 03/26/[place] Estab. patient 10-29min; 1 minor problem; add add modifier 95 for video, modifier 93 for phone [facility] [place] 05/02/2024 Vascular dementia without behavioral disturbanceOther specified counseling Estab. patient 10-29min; 1 minor problem; add add modifier 95 for video, modifier 93 for phone [facility], [place]/02/2024 Immunizations Vaccine Date Status Influenza, MDCK, quadrivalent, PF 2019-01-07 Complete Influenza, MDCK, quadrivalent, preservative 2019 Complete Influenza, split virus, trivalent, preservative 2012 Complete Influenza, split virus, trivalent, preservative 2014-01-22 Complete Influenza, split virus, trivalent, preservative 2010-12-23 Complete Influenza, high-dose, quadrivalent, PF 2021-12-25 1 Complete Influenza, split virus, quadrivalent, PF 2016-11 Complete Influenza, split virus, quadrivalent, PF 2017-12 Complete Influenza, split virus, quadrivalent, preservati ve 2015-02-24 Complete Influenza, split virus, quadrivalent, preservati ve 2016-01-14 Complete Hep B, adult 2006-09-14 Complete influenza, split (incl. purified surface antigen ) 2013-01-21 Complete pneumococcal polysaccharide PPV23 2010 Complete zoster recombinant 2019-02-08 Complete Tdap 2016-03-15 Complete Td (adult), 2 Lf tetanus toxoid, preservative fr ee, adsorbed 2006-01-13 Complete zoster 2016-03-15 Complete Vital Signs Date of Collection Vitals 2023-05-04 13:53:47 Height - 165.1 cmWei ght - 96.16 kgBody Mass Index (BMI) - 35.28 kg/m2BP Diastolic - 82.0 mm[Hg]BP Systolic - 179.0 mm[Hg]Heart Rate - 57.0 /minPain Scale - 0.0 {score} 2023-05-25 14:00:58 Weight - 97.07 kgBod y Mass Index (BMI) - 35.61 kg/m2BP Diastolic - 79.0 mm[Hg]BP Systolic - 170.0 mm[Hg]Heart Rate - 66.0 /min 2023-06-08 15:11:14 BP Diastolic - 94.0 mm[Hg]BP Systolic - 157.0 mm[Hg] 2023-07-04 10:59:57 Height - 165.1 cmWei ght - 77.57 kgBody Mass Index (BMI) - 28.46 kg/m2BP Diastolic - 56.0 mm[Hg]BP Systolic - 96.0 mm[Hg]Pain Scale - 0.0 {score} 2023-08-04 10:23:34 Weight - 88.45 kg 2023-12-16 11:01:01 Weight - 74.84 kgBod y Mass Index (BMI) - 27.46 kg/m2 2024-02-28 11:16:38 BP Diastolic - 80.0 mm[Hg]BP Systolic - 130.0 mm[Hg] 2024-03-26 10:03:18 Pain Scale - 0.0 {sc ore} Social History Social History Social History Observation Description Effec tive Time Current Smoking Status Never smoker 2024-04-27 0 Sex Male History of Procedures Procedures Service Procedure code Service date Servicing provider Phone# New patient,40-59min; chronic exacerbation, 2 stable chronic or 1 acute illness add add modifier 95 for video (do not use for phone, instead use [id number]) [id number] 2023-05-04 No Data Available No Data Availa ble Pain Assessment - NO pain present (1126F) 1126F 2023-05-04 No Data Available No Data A vailable Medication List Documented (1159F) 1159F 2023-05-04 No Data Available No Data Samira ilable Medication Review by prescribing provider or pharmacist documented (1160F) 1160F 2023-05-04 No Data Available No Data Samira ilable Advance Care Directive Advance care planning discussion documented in the medical record (1158F) 1158F 2023-05-04 No Data Available No Data Availa ble BMI obtained (3008F) 3008F 2023-05-04 No Data Availab le No Data Available Advance care planning discussed and documented ? advance care plan or surrogate decision-maker was documented in the medical record. (1123F) 1123F 2023-05-04 No Data Available No Data Availa ble SBP >= 140 3077F 2023-05-04 No Data Available No Data Available DBP 80-89 (3079F) 3079F 2023-05-04 No Data Available No Data Available No Data Available [id number] 2023-05-25 No Data Available No Data Available SBP >= 140 3077F 2023-05-25 No Data Available No Data Available DBP <80 (3078F) 3078F 2023-05-25 No Data Available No Data Available Medication List Documented (1159F) 1159F 2023-05-25 No Data Available No Data Samira ilable Pain Assessment - NO pain present (1126F) 1126F 2023-05-25 No Data Available No Data A vailable BMI obtained (3008F) 3008F 2023-05-25 No Data Availab le No Data Available No Data Available 2023-06-08 No Data Available No Data Available Medication List Documented (1159F) 1159F 2023-06-08 No Data Available No Data Samira ilable SBP >= 140 3077F 2023-06-08 No Data Available No Data Available DBP >=90 3080F 2023-06-08 No Data Available No Data Available No Data Available 2023-07-04 No Data Available No Data Available Medication List Documented (1159F) 1159F 2023-07-04 No Data Available No Data Samira ilable SBP < 130 (3074F) 3074F 2023-07-04 No Data Available No Data Available DBP <80 (3078F) 3078F 2023-07-04 No Data Available No Data Available Pain Assessment - NO pain present (1126F) 1126F 2023-07-04 No Data Available No Data A vailable Medications prescribed in hospital were reviewed and reconciled against what they were taking prior to admission during today's visit. (1111F) 1111F 2023-07-04 No Data Available No Data Availa ble BMI obtained (3008F) 3008F 2023-07-04 No Data Availab le No Data Available No Data Available 2023-08-04 No Data Available No Data Available Medication List Documented (1159F) 1159F 2023-08-04 No Data Available No Data Samira ilable No Data Available 2023-09-14 No Data Available No Data Available Medication List Documented (1159F) 1159F 2023-09-14 No Data Available No Data Samira ilable No Data Available 2023-12-16 No Data Available No Data Available Medication List Documented (1159F) 1159F 2023-12-16 No Data Available No Data Samira ilable BMI obtained (3008F) 3008F 2023-12-16 No Data Availab le No Data Available No Data Available 19808 2024-02-28 No Data Available No Data Available SBP 130-139 (3075F) 3075F 2024-02-28 No Data Availabl e No Data Available DBP 80-89 (3079F) 3079F 2024-02-28 No Data Available No Data Available Medication List Documented (1159F) 1159F 2024-02-28 No Data Available No Data Samira ilable No Data Available [id number] 2024-03-26 No Data Available No Data Available Pain Assessment - NO pain present (1126F) 1126F 2024-03-26 No Data Available No Data A vailable Medication List Documented (1159F) 1159F 2024-03-26 No Data Available No Data Samira ilable Estab. 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 ambulates with cane 2023-05-04 ADL: Bathing Independent , B athing Needs Assistance , Dressing Independent , Dressing Needs Assistance , Eating Independent , Ambulation Independent , Ambulation Needs Assistance , Transferring Independent , Transferring Needs Assistance and Toileting Independent 2023-05-04 Cognition Status: Oriented to Person, Pl jerica and Time 2023-05-04 IADL: Medication Needs Cristal tance , Meal Prep Needs Assistance , Shopping Needs Assistance , Driving or Public Transport Needs Assistance , Housework Needs Assistance and Finances Needs Assistance 2023-05-04 Falls in last 6 Months: Yes 2023-05-04 Social Supports - # of Inter actions with Friends/Family in a typical week: 2023-05-04 he is starting in home PT therapy 2-14 he is no longer ambulating 2023-06-08 Mental Status Status Date aox3 2023-05-04 Assessments Date of Service Assessments 2023-05-04 13:53:47 Vascular dementiaBen ign prostatic hyperplasiaEssential hypertensionHyperlipidemiaModerate persistent asthma without complicationSleep apneaThalamic infarctionhemiplegiaErectile dysfunctionDiabetic peripheral neuropathyDiabetic nephropathy associated with type 2 diabetes mellitusSyncopeUrinary incontinenceMorbid obesity due to excess calories 2023-05-25 14:00:58 Erectile dysfunction Essential hypertensionVascular dementiaThalamic strokehemiplegiaUrinary incontinenceDiabetic nephropathy associated with type 2 diabetes mellitus 2023-06-08 15:11:14 Thalamic strokehemip legiaVascular dementiaGoals of care, counseling/discussionGait abnormalityGait abnormality 2023-07-04 10:59:57 Vascular dementiaBen ign prostatic hyperplasiaEssential hypertensionHyperlipidemiaModerate persistent asthma without complicationSleep apneaThalamic strokehemiplegiaErectile dysfunctionDiabetic peripheral neuropathyDiabetic nephropathy associated with type 2 diabetes mellitusUrinary incontinenceMorbid obesity due to excess caloriesGait abnormalityGoals of care, counseling/discussionStage 3a chronic kidney disease (CKD)Hospital discharge follow-upOther problems related to medical facilities and other health care 2023-08-04 10:23:34 Thalamic strokehemip legiaVascular dementiaGait abnormalityGoals of care, counseling/discussionStage 3a chronic kidney disease (CKD)Bedbound 2023-09-14 07:07:23 BedboundRight sided weakness/ CVADysphagia 2023-12-16 11:01:01 Vascular dementiaTha lamic strokehemiplegiaUrinary incontinenceGait abnormalityGoals of care, counseling/discussionRight sided weakness/ CVA 2024-02-28 11:16:38 Gait abnormalityDysp hagiaUrinary incontinenceEssential hypertension 2024-03-26 10:03:18 Diabetic nephropathy associated with type 2 diabetes mellitusEssential hypertensionOther problems related to medical facilities and other health care 2024-05-02 09:54:04 Other problems relat ed to medical facilities and other health careVascular dementiaGoals of care, counseling/discussion Plan of Care Date of Service Plans 2023-05-04 13:53:47 Pain Assessment - NO pain documented (1126F)Medication Review by prescribing provider or pharmacist documented (1160F)Medication List Documented (1159F)Functional Status Assessed (1170F)Advance Care Directive Advance care planning discussion documented in the medical record (1158F)BMI obtained (3008F)SBP >= 140DBP 80-89 (3079F)Televideo new patient,40-59min; chronic exacerbation, 2 stable chronic or 1 acute illness add modifier 95Advance care planning discussed and documented ? advance care plan or surrogate decision-maker was documented in the medical record. (1123F)Continue to see PCP. Follow-up with Ling as needed for any acute or disease education needs that may arise.recently diagnosed by neuro now on memantine tolerating wellhe is aox3 during visit said he is forgetful at times and become confused at times, he recently started with depends and a decreased appetiteon terazosinannual PSA checkson metoprolol, valsartan, hydralazine monitor BP maintain < 140/80low na dietexercise as toleratedon atorvastatin dietary modificationsflovent and albuterolfollowed by pcp denies any recent episode, cough, congestionuses cpapfollowed by neurology recent syncopal episode they think was a ministroke, he has had weakness to his left side and new urinary incontinenceon plavix, atorvastatinon viagra as neededon gabapentin followed by neuro and endoon atorvastatin, gabapentin, plavix, januvia, Humalog, tresiba managed by pcp/ endocrinologylast HBA1C 7.2 % 2 weeks ago (05/04)monitor BS 200last pcp appt 2 weeks agorecently had a syncopal episode but they did not take him to the ER, they found his BP was low and his glucose was 54, they followed up with pcp and they think it could have been a stroke, member did not want to go to ER and so they stood home and monitored him, he did follow up with pcp and neuro since the fall last pcp appt 1.5 weeks ago and they did not recommend to go to ER but if it did occur again to go to ER, they are aware to go to ER for scans of recurrence, he currently has no complaints of dizziness or headachesrecently after his syncopal episode, he is followed by neuro and pcpdietary modifications exercise as tolerated BMI 35/ DM 2023-05-25 14:00:58 Phone (patient, pare nt, or guardian); 11-20 minutes of medical discussion (no modifier 95)Continue to see PCP. Follow-up with [facility] as needed for any acute or disease education needs that may arise 15/11.on viagra as needed 05/25 aware not to take in the presence of having uncontrolled HTNon metoprolol, valsartan, hydralazine monitor BP maintain < 140/80low na dietexercise as tolerated 05/25 has nephrology appt 06/06 aware to discuss BPrecently diagnosed by neuro now on memantine tolerating wellhe is aox3 during visit said he is forgetful at times and become confused at times, he recently started with depends and a decreased appetite05/25 he still eats but does have decreased appetite, urinary incontinencefollowed by neurology recent syncopal episode they think was a ministroke, he has had weakness to his left side and new urinary incontinenceon plavix, atorvastatin 05/25 would like to have in home PT for strengthrecently after his syncopal episode, he is followed by neuro and pcpon atorvastatin, gabapentin, plavix, januvia, Humalog, tresiba managed by pcp/ endocrinologylast HBA1C 7.2 % 2 weeks ago (05/04)monitor BS 200last pcp appt 2 weeks ago 05/25 BS 200 this AM 2023-06-08 15:11:14 Phone (patient, pare nt, or guardian); 11-20 minutes of medical discussion (no modifier 95)Continue to see PCP. Follow-up with [facility] as needed for any acute or disease education needs that may arise 15/11.followed by neurology recent syncopal episode they think was a ministroke, he has had weakness to his left side and new urinary incontinenceon plavix, atorvastatin 05/25 would like to have in home PT for strength 06/08 per caregiver since his last visit he had another ER visit 05/30 for weakness, states he is now in bed and does not want to walk or get out of bed, she states his electrolytes were all abnormal in the ER, she states he is stable now today and he was verbal but he will not get out of bed, he has a pcp appt 06/27. Had repeat in home labs today with an RN and vitals check, he had 3 RNS today, the one who does his vials, one who does his PT, and another, he went to [facility] and did scan and nothing came uprecently diagnosed by neuro now on memantine tolerating wellhe is aox3 during visit said he is forgetful at times and become confused at times, he recently started with depends and a decreased appetite05/25 he still eats but does have decreased appetite, urinary incontinence2/14 per she states his dementia has progressed he is now bedbound the last 2 weeks but is starting PT, his appetite has diminished as well, he is drinking glucerna, they are now doing everything in the bed, [facility] and palliative care, per she wants him to have in home PT, she is aware of hospice and palliative care services, he is currently with home care services per spouseambulates with cane 2/14 per no longer wanting to ambulate for the last 2 weeksambulates with cane 2/14 per no longer wanting to ambulate for the last 2 weeks due to weakness per spouse but he also appears confused, per spouse she states he talked to her this morning fine but goes to episodes where he doesnt want to talk, aware if confusion occurs again to go to ER 2023-07-04 10:59:57 Phone (patient, pare nt, or guardian); 5-10 minutes of medical discussion (no modifier 95)Medications prescribed in hospital were reviewed and reconciled against what they were taking prior to admission during today's visit. ([id number])Continue to see PCP. Follow-up with [facility] as needed for any acute or disease education needs that may arise 15/11.recently diagnosed by neuro now on memantine tolerating wellhe is aox3 during visit said he is forgetful at times and become confused at times, he recently started with depends and a decreased appetite05/25 he still eats but does have decreased appetite, urinary incontinence2/14 per she states his dementia has progressed he is now bedbound the last 2 weeks but is starting PT, his appetite has diminished as well, he is drinking glucerna, they are now doing everything in the bed, will request records from [facility] 07/04/23: Syncopal episode with loss of consciousness; witnessed by 06/13/23. Called EMSvitals during episode (taken by ) 02: 95 and [id number] during syncopal episodeWife reports increased decompensation since incidenton terazosinannual PSA checkson metoprolol, valsartan, hydralazine monitor BP maintain < 140/80low na dietexercise as tolerated 05/25 has nephrology appt 06/06 aware to discuss BPon atorvastatin dietary modificationsflovent and albuterolfollowed by pcp denies any recent episode, cough, congestionuses cpapfollowed by neurology recent syncopal episode they think was a ministroke, he has had weakness to his left side and new urinary incontinenceon plavix, atorvastatin 05/25 would like to have in home PT for strength 06/08 per caregiver since his last visit he had another ER visit 05/30 for weakness, states he is now in bed and does not want to walk or get out of bed, she states his electrolytes were all abnormal in the ER, she states he is stable now today and he was verbal but he will not get out of bed, he has a pcp appt 06/27. Had repeat in home labs today with an RN and vitals check, he had 3 RNS today, the one who does his vials, one who does his PT, and another, he went to [facility] and did scan and nothing came upon viagra as needed 05/25 aware not to take in the presence of having uncontrolled HTNon gabapentin followed by neuro and endoon atorvastatin, gabapentin, plavix, januvia, Humalog, tresiba managed by pcp/ endocrinologylast HBA1C 7.2 % 2 weeks ago (05/04)monitor BS 200last pcp appt 2 weeks ago 05/25 BS 200 this AMrecently after his syncopal episode, he is followed by neuro and pcp 06/08 using depends total caredietary modifications exercise as tolerated BMI 35/ DMambulates with cane 06/08 per no longer wanting to ambulate for the last 2 weeks due to weakness per spouse but he also appears confused, per spouse she states he talked to her this morning fine but goes to episodes where he doesnt want to talk, aware if confusion occurs again to go to ERdiscussed hospice care and palliative care, per she wants him to have in home PT, she is aware of hospice and palliative care services, he is currently with home care services per spousefollowed by nephrology no change in meds; in future may be candidate for Kerendia but would hold off for now; cont RASi; cont to track HBPs; avoid NSAIDs;+proteinuriaAd[facility] 06/19/2023/ he presented to the hospital [...] with moerate stenosis of right P2 segment COMMISSARY CLERK and focal short segment mid to moderate stenosis of the right P2 segment COMMISSARY CLERK and focal short segment mid to moderate stenosis of the left P3 segment COMMISSARY CLERK. MRI of the brain showed no acute strole. He was intubated for airway protection and admitted to the ICU. Routine testing also revealed that he was positive for Covid-19. Pt was extubated and transferred to medical floor on 06/16/2023 Pt needs a positioning bed,Metabolic encephalopathyPt here today, feels better , oriented in placeDuring his hospitalization, Initial BP in the ED was 87/52 bot BP remained elevated in the hospital. EEG was done showed moderate encephalopathy but no epileptoid discharges. Neurology thought etiology could have been syncope or TIA, recommended to continue Plavix and statins. Pt recommended to go to rehab but family declinedPt has a follow up with neurology according to his son [id number] with 3 days of remdesevirAdmitted [facility]23/ he presented [...] with moerate stenosis of right P2 segment COMMISSARY CLERK and focal short segment mid to moderate stenosis of the right P2 segment COMMISSARY CLERK and focal short segment mid to moderate stenosis of the left P3 segment COMMISSARY CLERK. MRI of the brain showed no acute strole. He was intubated for airway protection and admitted to the ICU. Routine testing also revealed that he was positive for Covid-19. Pt was extubated and transferred to medical floor on 06/16/2023t needs a positioning bed, [facility]: 1. If bp is elevated sbp>150; dbp>90 or symptomatic-h/a, dizziness, cp, sob. 2. if there is a fall 3. if BS >300 or BS<90 or symptomatic; i.e., dizzy, off balance , shaky, general weakness. 4. if UTI symptoms arise-urinary frequency, dysuria, low abd pain. 5. if pain in knees increases/ or joint pain increased Please remember [facility]. Follow-up with [facility] as needed for any acute or disease education needs that may arise 15/11.what should be done when the member calls: see each individual diagnosis for contingency plan 2023-08-04 10:23:34 Phone (patient, pare nt, or guardian); 11-20 minutes of medical discussion (no modifier 95)Continue to see PCP. Follow-up with [facility] as needed for any acute or disease education needs that may arise 15/11.followed by neurology recent syncopal episode they think was a ministroke, he has had weakness to his left side and new urinary incontinenceon plavix, atorvastatin 05/25 would like to have in home PT for strength 06/08 per caregiver since his last visit he had another ER visit 05/30 for weakness, states he is now in bed and does not want to walk or get out of bed, she states his electrolytes were all abnormal in the ER, she states he is stable now today and he was verbal but he will not get out of bed, he has a pcp appt 06/27. Had repeat in home labs today with an RN and vitals check, he had 3 RNS today, the one who does his vials, one who does his PT, and another, he went to [facility] and did scan and nothing came up 08/03 continues with left side hemiplegia that has not changedrecently diagnosed by neuro now on memantine tolerating wellhe is aox3 during visit said he is forgetful at times and become confused at times, he recently started with depends and a decreased appetite05/25 he still eats but does have decreased appetite, urinary incontinence2/14 per she states his dementia has progressed he is now bedbound the last 2 weeks but is starting PT, his appetite has diminished as well, he is drinking glucerna, they are now doing everything in the bed, will request records from [facility] 07/04/23: Syncopal episode with loss of consciousness; witnessed by 06/13/23. Called EMS vitals during episode (taken by ) 02: 95 and [id number] during syncopal episodeWife reports increased decompensation since incident 08/03 continues bed bound, he is verbal but difficulty understanding, aox1-2, continue with normal diet, denies choking with eating, he remains incontinent, depends useambulates with cane 06/08 per no longer wanting to ambulate for the last 2 weeks due to weakness per spouse but he also appears confused, per spouse she states he talked to her this morning fine but goes to episodes where he doesnt want to talk, aware if confusion occurs again to go to ER 08/03 no longer ambulates he gets OOB with assistance to electric wheelchair but he rarely gets out of beddiscussed hospice care and palliative care, per she wants him to have in home PT, she is aware of hospice and palliative care services, he is currently with home care services per spouse 08/03 cont with highway engineering technician in home, they had thought of putting in rehab home but per spouse children did not want him there and he is home, per she has the highway engineering technician and family support, will place palliative care order for raúlllowed by nephrology no change in meds; in future may be candidate for Kerendia but would hold off for now; cont RASi; cont to track HBPs; avoid NSAIDs;+proteinuria 08/03 follows with specialist no changesprimarily bedbound 2023-09-14 07:07:23 Phone (patient, pare nt, or guardian); 5-10 minutes of medical discussion (no modifier 95)Continue to see PCP. Follow-up with [facility] as needed for any acute or disease education needs that may arise 15/11.primarily bedbounddue to recent stroke per he is now immobile of both sides he is verbal at times and per she can understandhe is having difficulty swallowing and pending NEWS ANALYST eval aware of aspiration precautionsdue to recent strokes and dementia, pending NEWS ANALYST joseph, aware of aspiration precautions 2023-12-16 11:01:01 Phone (patient, pare nt, or guardian); 5-10 minutes of medical discussion (no modifier 95)Continue to see PCP. Follow-up with [facility] as needed for any acute or disease education needs that may arise 15/11.recently diagnosed by neuro now on memantine tolerating wellhe is aox3 during visit said he is forgetful at times and become confused at times, he recently started with depends and a decreased appetite05/25 he still eats but does have decreased appetite, urinary incontinence06/08 per she states his dementia has progressed he is now bedbound the last 2 weeks but is starting PT, his appetite has diminished as well, he is drinking glucerna, they are now doing everything in the bed, will request records from [facility] 07/04/23: Syncopal episode with loss of consciousness; witnessed by 06/13/23. Called EMS vitals during episode (taken by ) 02: 95 and [id number]:[id number] during syncopal episodeWife reports increased decompensation since incident 08/03 continues bed bound, he is verbal but difficulty understanding, aox1-2, continue with normal diet, denies choking with eating, he remains incontinent, depends use 12/15 uses belt weight for transfer with PT to ambulate and use walker, OOB with assist, he is aox1, he continues aphasic, uses depends and toilet, appetite is okay, pureed diet, reports skin intactfollowed by neurology recent syncopal episode they think was a ministroke, he has had weakness to his left side and new urinary incontinenceon plavix, atorvastatin 05/25 would like to have in home PT for strength 2/14 per caregiver since his last visit he had another ER visit 05/30 for weakness, states he is now in bed and does not want to walk or get out of bed, she states his electrolytes were all abnormal in the ER, she states he is stable now today and he was verbal but he will not get out of bed, he has a pcp appt 06/27. Had repeat in home labs today with an RN and vitals check, he had 3 RNS today, the one who does his vials, one who does his PT, and another, he went to [facility] and did scan and nothing came up 08/03 continues with left side hemiplegia that has not changed 12/15 he is total assist for all ADLSs, pureed diet, aphasicrecently after his syncopal episode, he is followed by neuro and pcp 06/08 using depends total care 12/15 uses depends oob to toilet with assistance06/08 per no longer wanting to ambulate for the last 2 weeks due to weakness per spouse but he also appears confused, per spouse she states he talked to her this morning fine but goes to episodes where he doesnt want to talk, aware if confusion occurs again to go to ER 08/03 no longer ambulates he gets OOB with assistance to electric wheelchair but he rarely gets out of bed 12/15 completed PT OOB with walker with assistancediscussed hospice care and palliative care, per she wants him to have in home PT, she is aware of hospice and palliative care services, he is currently with home care services per spouse 08/03 cont with highway engineering technician in home, they had thought of putting in rehab home but per spouse children did not want him there and he is home, per she has the highway engineering technician and family support, will place palliative care order for casimiro 12/15 cont stabledue to recent stroke per he is now immobile of both sides he is verbal at times and per she can understandhe is having difficulty swallowing and pending NEWS ANALYST eval aware of aspiration precautions 12/15 has weakness to both extremities 2024-02-28 11:16:38 Phone (patient, pare nt, or guardian); 5-10 minutes of medical discussion (no modifier 95)Continue to see PCP. Follow-up with [facility] as needed for any acute or disease education needs that may arise 15/11.06/08 per no longer wanting to ambulate for the last 2 weeks due to weakness per spouse but he also appears confused, per spouse she states he talked to her this morning fine but goes to episodes where he doesnt want to talk, aware if confusion occurs again to go to ER 08/03 no longer ambulates he gets OOB with assistance to electric wheelchair but he rarely gets out of bed 12/15 completed PT OOB with walker with assistance 02/27 ambulates with walker and assistancedue to recent strokes and dementia, pending NEWS ANALYST eval, aware of aspiration precautions12/15 pureed diet 02/27 stablerecently after his syncopal episode, he is followed by neuro and pcp 06/08 using depends total care 12/15 uses depends oob to toilet with [id number] stableon metoprolol, valsartan, hydralazine monitor BP maintain < 140/80low na dietexercise as tolerated 05/25 has nephrology appt 06/06 aware to discuss BP 02/27 had recent cardio appt 2024-03-26 10:03:18 Phone (patient, pare nt, or guardian); 5-10 minutes of medical discussion (no modifier 95)Continue to see PCP. Follow-up with [facility] as needed for any acute or disease education needs that may arise 15/11.on atorvastatin, gabapentin, plavix, januvia, Humalog, tresiba managed by pcp/ endocrinologylast HBA1C 7.2 % 2 weeks ago (05/04)monitor BS 200last pcp appt 2 weeks ago 05/25 BS 200 this AM03/26/2024 Patient reports that her was given a dexom and he is doing much better with his sugars that are running in the 70's and 100.on metoprolol, valsartan, hydralazine monitor BP maintain < 140/80low na dietexercise as tolerated 05/25 has nephrology appt 06/06 aware to discuss BP 02/27 had recent cardio appt105/27/2023 - blood pressure is stable no changesWhen member to call: 1. If bp is elevated sbp>150; dbp>90 or symptomatic-h/a, dizziness, cp, sob. 2. if there is a fall 3. if BS >300 or BS<90 or symptomatic; i.e., dizzy, off balance , shaky, general weakness. 4. if UTI symptoms arise-urinary frequency, dysuria, low abd pain. 5. if pain in knees increases/ or joint pain increased Please remember to call CBContinue to see PCP. Follow-up with [facility] as needed for any acute or disease education needs that may arise 15/11.what should be done when the member calls: see each individual diagnosis for contingency plan 2024-05-02 09:54:04 Televideo 10-29min; 1 minor problem; add add modifier 95 for video, modifier 93 for phoneContinue to see PCP. Follow-up with [facility] as needed for any acute or disease education needs that may arise 15/11.Add Contingency Planrecently diagnosed by neuro now on memantine tolerating wellhe is aox3 during visit said he is forgetful at times and become confused at times, he recently started with depends and a decreased appetite05/25 he still eats but does have decreased appetite, urinary incontinence06/08 per she states his dementia has progressed he is now bedbound the last 2 weeks but is starting PT, his appetite has diminished as well, he is drinking glucerna, they are now doing everything in the bed, will request records from [facility] 07/04/23: Syncopal episode with loss of consciousness; witnessed by 06/13/23. Called EMS vitals during episode (taken by ) 02: 95 and [id number]:[id number] during syncopal episodeWife reports increased decompensation since incident 08/03 continues bed bound, he is verbal but difficulty understanding, aox1-2, continue with normal diet, denies choking with eating, he remains incontinent, depends use 12/15 uses belt weight for transfer with PT to ambulate and use walker, OOB with assist, he is aox1, he continues aphasic, uses depends and toilet, appetite is okay, pureed diet, reports skin intact 05/02 per he was speaking gibberish and not responding to commands so she called 911 and took him to ER, he was there for 24 hours doing diagnostics and MRI per everything was negative, he is doing PT, aware to follow up with pcp and call CB if any assistance, aware as dementia progresses he may worsen mobility silva. plans for hospice of palliative care should be in the works, by wanting PT appears is not ready for those forms of care. will continue to conversate regarding this.discussed hospice care and palliative care, per she wants him to have in home PT, she is aware of hospice and palliative care services, he is currently with home care services per spouse 08/03 cont with highway engineering technician in home, they had thought of putting in rehab home but per spouse children did not want him there and he is home, per she has the highway engineering technician and family support, will place palliative care order for casimiro 12/15 cont stable 05/02 spouse not ready for either hospice/palliative as she wants to continue PT, will continue to have conversations at future visits Goals Date Goal 2023-05-04 continue medications as prescribed 2023-05-04 call if you feel ill , have any questions or concerns 2023-05-04 no new concerns at t his time 2023-05-25 continue medications as prescribed 2023-05-25 call if you feel ill , have any questions or concerns 2023-05-25 no new concerns at t his time, requested records from recent visit 2023-05-25 will order in home P T 2023-05-25 will order blood pre ssure machine 2023-06-08 aware if confusion w ith weakness occurs to go to ER 2023-06-08 she states she was t old it could be his dementia progressing 2023-06-08 vitals were stable t nataly and member was verbal 2023-06-08 will request records form [facility] 2023-06-08 provided with [employer] contact info for incontinent supplies 2023-08-04 cont meds as prescri bed 2023-08-04 call if you feel ill , have any questions or concerns 2023-08-04 no new concerns at t his time 2023-08-[address] pall[address]iv e care 2023-09-[address] c are referral 2023-09-14 cont meds as prescri bed 2023-09-14 call if you feel ill , have any questions or concerns 2023-12-16 cont meds as prescri bed 2023-12-16 call if you feel ill , have any questions or concerns 2023-12-16 no new concerns at t his time 2024-02-28 Continue taking medi cations as directed and keep all follow up appointments with established PCP and Specialist. 2024-02-28 At least 50% of time spent counseling patient, discussing diagnosis, treatment plan, complicance, and coordinating follow up care. 2024-03-26 Continue taking medi cations as directed and keep all follow up appointments with established PCP and Specialist. 2024-05-02 Continue taking medi cations as directed and keep all follow up appointments with established PCP and Specialist. 2024-05-02 At least 50% of time spent counseling patient, discussing diagnosis, treatment plan, complicance, and coordinating follow up care. Health Concerns Date Concern 2024-05-02 Visit completed via audio by telephone. Patient/Guardian agreed to visit via telehealth.Time spent in visit: minutes 2024-05-02 Most recent hospital stay(s) or ER visit(s) and precipitating factors: recent ER due to AMS 2024-05-02 HEDIS review: done
--- OUTSIDE RECORDS SUMMARY | 2024-05-24 16:08 | XMS_ITS | Encounter Summary ---
Author Organization [employer] Address [address] [facility] [address] [place] [address] Care Team Providers Care Automotive Parts Specialist Name Role Phone Felipe Rogers MD Primary Care Provide r Annabel Hope PharmD Unavailable [phone] Reason for Visit * Reason Comments Med Refill Encounter Details Date Type Department Care Team ([facility] st Contact Info) Description 05/13/2024 Refill [facility] MED & PEDS [address] [place] [address] Cookie Zuniga MD [address] [place] [address] Social History Tobacco Use Types Packs/Day Years [...] Description 05/28/2024 11:30 AM EST Medication Management [facility] MEDICINE [address] [place] [address] Annabel Hope PharmD [address] [place] [address] documented as of this encounter Visit Diagnoses Not on filedocumented in this encounter Additional Health Concerns Assessment Noted Time PHQ-9 Depression Total Score: 0 01/19/20 24 1:15 PM EDT documented as of this encounter Care Teams Automotive Parts Specialist Relationship Specialty Start Date End Date Felipe Rogers MD [address] [place] [phone] PCP - General Internal Medicine 03/16/16 Annabel Hope PharmD [address] [place] [phone] Pharmacist Internal Medicine 03/30/24 [place] 09/03/23 documented as of this encounter
== END 2024-05-24 12:20 | disposition home or self-care (01) ==
LOC: HO.HHCL 12:19
PROVIDERS: Visit Provider Internal Medicine
DX: I10 Essential (primary) hypertension (principal)
CPT/HCPCS: 36415; 80048

== ENCOUNTER 2024-11-02 09:43 | Outpatient (REF) | payer OTHER, SELFPAY ==
--- OUTSIDE RECORDS SUMMARY | 2024-11-02 10:01 | XMS_ITS | Encounter Summary ---
Author Organization [employer] Address [address] [facility] [address] [place] [address] Care Team Providers Care Product Mgmt Dev Manager Name Role Phone Felipe Rogers MD Primary Care Provide r Annabel Hope PharmD Unavailable [phone] Reason for Visit * Reason Comments Med Refill Encounter Details Date Type Department Care Team ([facility] st Contact Info) Description 09/27/2023 Refill [facility] MED & PEDS [address] [place] [address] Felipe Rogers MD [address] [place], [place] [phone] Primary hypertension Social History Tobacco Use Types [...] Care Team (Late st Contact Info) Description 11/15/2024 11:30 AM EDT Telemedicine [facility] MEDICINE [address] [place] [phone] Annabel Hope PharmD [address] [place] [phone] 12/18/2024 11:30 AM EDT Office Visit [facility] MEDICINE [address] [place] [phone] Felipe Rogers MD [address] [place] [phone] documented as of this encounter Visit Diagnoses Diagnosis Primary hypertension Unspecified essential hypertension documented in this encounter Additional Health Concerns Assessment Noted Time PHQ-9 Depression Total Score: 11 024 10:52 AM EST documented as of this encounter Care Teams Product Mgmt Dev Manager Relationship Specialty Start Date End Date Felipe Rogers MD [address] [place] [phone] PCP - General Internal Medicine 03/16/16 Annabel Hope PharmD [address] [place] [address] Pharmacist Internal Medicine 03/30/24 [place] 09/03/23 documented as of this encounter
--- OUTSIDE RECORDS SUMMARY | 2024-11-02 10:01 | XMS_ITS | Encounter Summary ---
Author Organization [facility] Address [address] [facility] [address] [place] [address] Phone Care Team Providers Care Scientific Photographer Name Role Phone Felipe Dunne MD Primary Care Provider Unav ailable Reason for Visit * Reason Comments Med Refill Encounter Details Date Type Department Care Team (Late Contact Info) Description 09/08/2024 Refill [facility] [address] [facility] [address] [place] [address] Robert Go MD [address] [address] Social History Tobacco Use Types [...] Department Care Team (Late Contact Info) Description 02/25/2025 10:45 AM EST Office Visit [facility] [address] [facility] [address] [place] [address] Rani Elizalde ARNP [address] [address] documented as of this encounter Visit Diagnoses Not on filedocumented in this encounter Care Teams Scientific Photographer Relationship Specialty Start Date End Date Felipe Dunne MD [address] [place] [id number] PCP - General 05/05/20 documented as of this encounter
--- OUTSIDE RECORDS SUMMARY | 2024-11-02 10:01 | XMS_ITS ---
Author Name Dakota HERNANDEZ MS. Noeshyanne Leal Address [address] [place] [address] Phone [phone] Organization [facility] [facility] Care Team Providers Care Repairer Controller Tester Name Role Phone Nuha Duncan Unavailable [phone] Unavailable Unavailable Unavailable Unavailable Unavailable Unavailable Unavailable Unavailable Unavailable [place], [facility] Unavailable Unavailable Unavailable [phone] [place], [place] Unavailable Reason for Referral Not Available Allergies, [...] 2022-04-15 No Data Available Easy Touch Pen Ezel 31G X 5 MM MISC USE DIRECTED [...] FlexTouch 100 UNIT/ML Solution Pen-injector Subcutaneous INJECT 50 UNITS SUBCUTANEOUSLY AT BEDTIME 2023-04-01 No Data [...] ilable Metoprolol Tartrate 25 mg Tab TAKE 1/2 TABLET BY MOUTH TWICE DAILY IN THE MORNING AND IN THE EVENING 2022-11-15 2024-07-10 Terazosin 2 mg Cap TAKE 1 CAPSULE [...] 1 HOUR BEFORE SEXUAL ACTIVITY NEEDED 2022-11-05 2024-09-12 Memantine 10 mg Tab TAKE 1 TABLET BY PRIMITIVO TH TWICE DAILY 2022-12-02 No Data Available Flovent HFA 110 MCG/ACT Aerosol INHALE 1 PUFF TWICE DAILY. RINSE MOUTH AFTER USING. 2022-06-15 No Data Available OneTouch Delica Plus [id number] Miscellaneous TEST BLOOD SUGAR FIVE TIMES DAILY [...] 2024-02-13 No Data Available FreeStyle Martín 2 [place] Device USE DIRECTED TO TEST BLOOD SUGAR THREE TIMES DAILY 2024-02-13 No Data Available glucose 4 gram chewable tablet CHEW 4 TABLETS NEEDED FOR low blood sugar (LESS THAN 70mg/dL) 2024-03-16 No Data Available Alcohol Prep 70 % Pad USE DIRECTED FI VE TIMES DAILY 2024-02-13 No Data Available BD Ultra-Fine Mini Pen Needle 31 gauge x 3/16 USE FIVE TIMES DAILY 2023-09-07 No Data Availab le Metoprolol Succinate ER 25 mg Tab ER 24hr TAKE 1/2 TABLET BY MOUTH EVERY MORNING DO NOT BREAK, CRUSH, DISSOLVE OR CHEW 2024-05-24 2024-09-12 Problem List Problem Status Onset Date Resolved Date Synopsis Diabetic peripheral neuropathy Active 2022-05-12 N/A on gabapentin fo llowed by neuro and endo Moderate persistent asthma without complication Active 2017-08-03 N/A flovent and albuterolfollowed by pcp denies any recent episode, cough, congestion HyperlipidemiaType 2 diabetes mellitus with other specified complication Active 2013-02-18 N/A on atorvastatin dietary modifications Sleep apnea Active 2011-11-28 N/A uses cpap Benign prostatic hyperplasia Active 2011-10-06 N/A on terazosinannu al PSA checks Morbid obesity due to excess calories Resolved 2023-05-04 2024-09-26 dietary modifica tions exercise as tolerated BMI 35/ DM Syncope Resolved 2022-05-12 2023-05-25 recently had a syncopal episode but they did [...] currently has no complaints of dizziness or headaches Stage 3a chronic kidney disease (CKD) Active 2023-07-04 N/A followed by neph rology no change in meds; in future may be candidate for Kerendia but would hold off for now; cont RASi; cont to track HBPs; avoid NSAIDs;+proteinuria 08/03 follows with specialist no changes Hospital discharge follow-up Resolved 2023-07-04 2023-08-04 Admitted to [facility] from 06/13/2023 until 06/19/2023/ he presented [...] with moerate stenosis of right P2 segment [place] and focal short segment mid to moderate stenosis of the right P2 segment [place] and focal short segment mid to moderate stenosis of the left P3 segment [place]. MRI of the brain showed no acute [...] 4COVID-19Treated with [address]/ he presented to [...] with moerate stenosis of right P2 segment [place] and focal short segment mid to moderate stenosis of the right P2 segment [place] and focal short segment mid to moderate stenosis of the left P3 segment [place]. MRI of the brain showed no acute strole. He was intubated for airway protection and admitted to the ICU. Routine testing also revealed that he was positive for Covid-19. Pt was extubated and transferred to medical floor on 06/16/2023t needs a positioning bed, Risk for falls Active 2023-12-16 N/A aware of r isk and fall safety Bedbound Resolved 2023-08-04 2024-02-28 primarily bedb ound Dysphagia Active 2023-09-14 N/A due to recent strokes and dementia, pending RECYCLING CENTER OPERATOR eval, aware of aspiration precautions12/15 pureed diet 02/27 stable Type 2 diabetes mellitus with diabetic chronic kidney disease Active 2021-01-04 N/A on atorvastatin, gabapentin, plavix, januvia, Humalog, tresiba managed by pcp/ endocrinologylast HBA1C 7.2 % 2 weeks ago (05/04)monitor BS 200last pcp appt 2 weeks ago 05/25 BS 200 this AM03/26/2024 Patient reports that her was given a dexom and he is doing much better with his sugars that are running in the 70's and 100. Other problems related to medical facilities and other health care Active 2023-07-06 N/A When member to call: 1. If bp is elevated sbp>150; dbp>90 or symptomatic-h/a, dizziness, cp, sob. 2. if there is a fall 3. if BS >300 or BS<90 or symptomatic; i.e., dizzy, off balance , shaky, general weakness. 4. if UTI symptoms arise-urinary frequency, dysuria, low abd pain. 5. if pain in knees increases/ or joint pain increased Please remember to call [facility] to see PCP. Follow-up with [facility] as needed for any acute or disease education needs that may arise 15/11.what should be done when the member calls: see each individual diagnosis for contingency planPSYCH CONTINGENCY PLANLast updated: 06/04/2024Member to call for the following symptoms: Anxiety/ Insomnia/ RestlessnessPlanned intervention: Trazodone 50mg at bedtime/ Increase dose of current medication:/ Limit extra stimulation Right sided weakness/ CVA Inactive 2023-09-14 N/A due to recent stroke per he is now immobile of both sides he is verbal at times and per she can understandhe is having difficulty swallowing and pending RECYCLING CENTER OPERATOR eval aware of aspiration precautions 12/15 has weakness to both extremities 07/10/24 ambulates seldomly with walker and assistance he is more bedbound Gait abnormality Active 2023-05-25 N/A 06/08 per no longer wanting to ambulate [...] with assistance 02/27 ambulates with walker and assistance07/10/24 he is more bedbound as of lately Vascular dementia Active 2023-05-04 N/A recentl y diagnosed by neuro now on memantine tolerating [...] in the bed, will request records from [facility] 07/04/23: Syncopal episode with loss of [...] of care. will continue to conversate regarding this. 06/04/24 Patient is having episodes of where he is not present in his mind and taking his clothes off. We discussed Palliative care option07/10/2024 they are not ready for hospice or palliative but reports he is ambulating less and coughs while eating, aware of progression of dementia, and discuss with family 08/13/2024 has had random episodes of more confusion at times, when they occur they assess his BS, BS, and BP and they are always WNL, she denies one sides weakness Thalamic strokehemiplegia Inactive 2022-05-12 N/A followed by neurology recent syncopal episode they think [...] his PT, and another, he went to [facility] and did scan and nothing came up 08/03 continues with left side hemiplegia that has not changed 12/15 he is total assist for all ADLSs, pureed diet, aphasic 08/13/2024 no changes to one sided weakness Goals of care, counseling/discussion Active 2023-06-08 N/A discussed hospice care and palliative care, per she wants him to have in home PT, she is aware of hospice and palliative care services, he is currently with home care services per spouse 08/03 cont with steam fitter helper in home, they had thought of putting in rehab home but per spouse children did not want him there and he is home, per she has the steam fitter helper and family support, will place palliative care order for casimiro 12/15 cont stable 05/02 spouse not ready for either hospice/palliative as she wants to continue PT, will continue to have conversations at future visits 08/13/2024 family and spouse stated they are not ready for palliative or hospice care Hypertensive heart and chronic kidney disease with heart failure Active 2021-01-04 N/A on metoprolol , valsartan, hydralazine monitor BP maintain < 140/80low na dietexercise as tolerated 05/25 has nephrology appt 06/06 aware to discuss BP 02/27 had recent cardio appt105/27/2023 - blood pressure is stable no changes09/12/2024 followed by nephro Erectile dysfunction Inactive 2011-10-06 N/A on v iagra as needed 05/25 aware not to take in the presence of having uncontrolled HTN Urinary incontinence Active 2023-05-04 N/A rece ntly after his syncopal episode, he is followed by neuro and pcp 06/08 using depends total care 12/15 uses depends oob to toilet with [id number]/5 stable 09/12/2024 new order of supplies 1XL, wipes , xl gloves History of recent hospitalization Inactive 2024-06-04 N/A 06/04/2024Patient reports that patient was in the hospital on 05/02/2024 and was admitted for about 2 days per spouse. He was not reacting to her, she shared that he just had a blank stare and wouldn't react to nothing. He then started to take all his clothes off. She called 911 at that time. During his admission they shared with her that his blood sugar had been low. They went for a visit after his discharge and followed with the PCP. They found that his pulse was very low in the mid 40's. The PCP changed the Metoprolol and the patient is now only taking 1/2 tablet. She reports that the her had another episode where he blanked out and just started to stare. He started taking his clothes off. She didn't take him to the hospital. She and her boys sat with him and he came around after an hour. Palliative care encounter Inactive 2024-06-04 N/A 06/04/24 Discussion with patient spouse on Palliative and the benefits of service with patient with dementia. she shared that the primary care provider shared the same conversation with her. She has to talk to her sons and family. At this time, she doesn't not want a referral. Suggested that she meet with palliative team, so that they can answer their questions. She will consider it, but wants to discuss with the family History of CVA (cerebrovascular accident)Hemiplegia and hemiparesis following cerebral infarction affecting right dominant sideHemiplegia and hemiparesis following cerebral infarction affecting left Active 2024-09-26 N/A 05/25 would like to have in home [...] his PT, and another, he went to [facility] and did scan and nothing came up 08/03 continues with left side hemiplegia that has not changed 12/15 he is total assist for all ADLSs, pureed diet, aphasic 08/13/2024 no changes to one sided weakness ___due to recent stroke per he is now immobile of both sides he is verbal at times and per she can understandhe is having difficulty swallowing and pending RECYCLING CENTER OPERATOR eval aware of aspiration precautions 12/15 has weakness to both extremities 07/10/24 ambulates seldomly with walker and assistance he is more bedbound Unspecified diastolic (congestive) heart failure Active 2024-09-26 N/A per outside care - addressed at Cardio visit 07/03/24Echo and Stress test orderedcontinue to f/u with cardio Encounters Encounters Type Facility Date of Service Diagnosis/Co mplaint New patient,40-59min; chronic exacerbation, 2 stable chronic or 1 acute illness add add modifier 95 for video (do not use for phone, instead use [id number]) [facility] ([place]) 05/04/2023 Vascular dementia [...] (do not use for phone, instead use [id number]) [facility], ([place]) 05/04/2023 New patient,40-59min; chronic exacerbation, 2 stable chronic or 1 acute illness add add modifier 95 for video (do not use for phone, instead use [id number]) [facility] ([place] 05[place]04/2023 New patient,40-59min; chronic exacerbation, 2 stable chronic or 1 acute illness add add modifier 95 for video (do not use for phone, instead use [id number]) [facility] ([place] 05/04/2023 New patient,40-59min; chronic exacerbation, 2 stable chronic or 1 acute illness add add modifier 95 for video (do not use for phone, instead use [id number]) [facility] ([place] 05[place]04/2023 New patient,40-59min; chronic exacerbation, 2 stable chronic or 1 acute illness add add modifier 95 for video (do not use for phone, instead use [id number]) [facility] ([place] 05[place]04/2023 New patient,40-59min; chronic exacerbation, 2 stable chronic or 1 acute illness add add modifier 95 for video (do not use for phone, instead use [id number]) [facility] ([place]04/2023 New patient,40-59min; chronic exacerbation, 2 stable chronic or 1 acute illness add add modifier 95 for video (do not use for phone, instead use [id number]) [facility] ([place] 05[place]04/2023 New patient,40-59min; chronic exacerbation, 2 stable chronic or 1 acute illness add add modifier 95 for video (do not use for phone, instead use [id number]) [facility] ([place] 05/04/2023 No Data Available [facility] 05[place]25/2023 Male erectile dysfunction, unspecifiedEssential (primary) hypertensionVascular dementia without behavioral disturbanceHemiplegia, unspecified affecting unspecified sidePrsnl hx of TIA (TIA), and cereb infrc w/o resid deficitsUnspecified urinary incontinenceType 2 diabetes mellitus with diabetic nephropathy No Data Available [facility] 05/25/2023 No Data Available [facility] 05/25/2023 No Data Available [facility] 05[place]25/2023 No Data Available [facility] 05/25/2023 No Data Available [facility] 05/25/2023 No Data Available [facility] 06/08/2023 Hemiplegia, unspecified affecting unspecified sideOther cerebral infarction due to occlusion or stenosis of small arteryVascular dementia without behavioral disturbanceOther specified counselingUnspecified abnormalities of gait and mobility No Data Available [facility] 06/08/2023 No Data Available [facility] 06/08/2023 No Data Available [facility] 06/08/2023 No Data Available [facility] 07/04/2023 Type 2 diabetes mellitus wit [...] and other health care No Data Available [facility] 07/04/2023 No Data Available [facility] 07/04/2023 No Data Available [facility] 07/04/2023 No Data Available [facility] 07/04/2023 No Data Available [facility] 07/04/2023 No Data Available [facility] 07/04/2023 No Data Available [facility] 08/04/2023 Hemiplegia, unspecified affecting unspecified sideOther cerebral infarction due to occlusion or stenosis of small arteryVascular dementia without behavioral disturbanceUnspecified abnormalities of gait and mobilityOther specified counselingChronic kidney disease, stage 3aBed confinement status No Data Available [facility] ([place] 08/04/2023 No Data Available [facility] ([place] 09/14/2023 Bed confinement statusWeaknessPrsnl hx of TIA (TIA), and cereb infrc w/o resid deficitsDysphagia, unspecified No Data Available [facility] 09/14/2023 No Data Available [facility] 12/16/2023 Vascular dementia without behavioral disturbanceHemiplegia, unspecified affecting unspecified sideUnspecified urinary incontinenceUnspecified abnormalities of gait and mobilityOther specified counselingWeakness No Data Available [facility] 12/16/2023 No Data Available [facility] [place] 12[place]16/2023 No Data Available [facility] 02/28/2024 Unspecified abnormalities of gait and mobilityDysphagia, unspecifiedUnspecified urinary incontinenceEssential (primary) hypertension No Data Available [facility] 02/28/2024 No Data Available [facility] 02/28/2024 No Data Available [facility] 02/28/2024 No Data Available [facility] 03/26/2024 Type 2 diabetes mellitus wit h diabetic nephropathyEssential (primary) hypertensionOther problems related to medical facilities and other health care No Data Available [facility] 03/26/2024 No Data Available [facility] 03/26/2024 Estab. patient 10-29min; 1 minor problem; add add modifier 95 for video, modifier 93 for phone [facility], ([place] 05/02/2024 Vascular dementia without behavioral disturbanceOther specified counseling Estab. patient 10-29min; 1 minor problem; add add modifier 95 for video, modifier 93 for [facility], ([place] 05/02/2024 Estab. patient 10-29min; 1 minor problem; add add modifier 95 for video, modifier 93 for [facility], ([place] 06/04/2024 Vascular dementia without behavioral disturbanceEncounter for palliative careOther problems related to medical facilities and other health carePersonal history of other medical treatment Estab. patient 10-29min; 1 minor problem; add add modifier 95 for video, modifier 93 for [facility] 06/04/2024 Estab. patient 10-29min; 1 minor problem; add add modifier 95 for video, modifier 93 for [facility] ([place] 07/10/2024 Hemiplga following cerebral infrc aff right dominant sideOther problems related to medical facilities and other health careUnspecified abnormalities of gait and mobilityVascular dementia without behavioral disturbanceDysphasia following cerebral infarction Estab. patient 10-29min; 1 minor problem; add add modifier 95 for video, modifier 93 for [facility] 07/10/2024 Estab. patient 10-29min; 1 minor problem; add add modifier 95 for video, modifier 93 for [facility] ([place] 08/13/2024 Vascular dementia without behavioral disturbanceHemiplegia, unspecified affecting unspecified sideOther cerebral infarction due to occlusion or stenosis of small arteryOther specified counseling Estab. patient 10-29min; 1 minor problem; add add modifier 95 for video, modifier 93 for [facility], ([place] 08/13/2024 Estab. patient 20-29min; 1 stable chronic or 2 minor; add add modifier 95 for video, modifier 93 for [facility] ([place] 09/12/2024 Vascular dementia without behavioral disturbanceEnlarged prostate without lower urinary tract symptomsType 2 diabetes mellitus with diabetic chronic kidney diseaseHypertensive chronic kidney disease w stg 1-4/unsp chr kdnyUnspecified diastolic (congestive) heart failureChronic kidney disease, stage 3aHyperlipidemia, unspecifiedModerate persistent asthma, uncomplicatedSleep apnea, unspecifiedHemiplegia, unspecified affecting unspecified sideType 2 diabetes mellitus with diabetic polyneuropathyType 2 diabetes mellitus with diabetic nephropathyUnspecified urinary incontinenceMorbid (severe) obesity due to excess caloriesUnspecified abnormalities of gait and mobilityOther specified counselingOther problems related to medical facilities and other health careOther sequelae of cerebral infarctionWeaknessDysphagia, unspecifiedHistory of falling Estab. patient 20-29min; 1 stable chronic or 2 minor; add add modifier 95 for video, modifier 93 for [facility] Estab. patient 20-29min; 1 stable chronic or 2 minor; add add modifier 95 for video, modifier 93 for phone [facility]/12[place] Estab. patient 20-29min; 1 stable chronic or 2 minor; add add modifier 95 for video, modifier 93 for phone [facility] [place] Estab. patient 20-29min; 1 stable chronic or 2 minor; add add modifier 95 for video, modifier 93 for phone [facility] [place] Estab. patient 20-29min; 1 stable chronic or 2 minor; add add modifier 95 for video, modifier 93 for phone [facility] [place]/12/2024 Estab. patient 20-29min; 1 stable chronic or 2 minor; add add modifier 95 for video, modifier 93 for phone [facility] [place]/12/2024 Estab. patient 20-29min; 1 stable chronic or 2 minor; add add modifier 95 for video, modifier 93 for phone [facility] [place]/12/2024 Estab. patient 20-29min; 1 stable chronic or 2 minor; add add modifier 95 for video, modifier 93 for phone [facility] Immunizations Vaccine Date Status Influenza, MDCK, quadrivalent, [...] 10:03:18 Pain Scale - 0.0 {sc ore} 2024-09-12 06:16:53 Height - 154.94 cmWe ight - 76.2 kgBody Mass Index (BMI) - 31.74 kg/m2BP Diastolic - 80.0 mm[Hg]BP Systolic - 140.0 mm[Hg]Pain Scale - 0.0 {score} Social History Social History Social History Observation Description Effec tive Time Current Smoking Status Never smoker 2024-10-23 1 Sex Male History of Procedures Procedures Service Procedure code Service date Servicing provider Phone# New patient,40-59min; chronic exacerbation, 2 stable chronic or 1 acute illness add add modifier 95 for video (do not use for phone, instead use [id number]) [id number] 2023-05-04 No Data Available No Data Availa [...] Available Advance care planning discussed and documented advance care plan or surrogate decision-maker was documented in the medical record. (1123F) 1123F 2023-05-04 No Data Available No Data Availa ble SBP >= 140 3077F 2023-05-04 No Data Available No Data Available DBP 80-89 (3079F) 3079F 2023-05-04 No Data Available No Data Available No Data Available [id number] 2023-05-25 No Data Available No Data Available [...] le No Data Available No Data Available 2024-02-28 No Data Available No Data Available SBP 130-139 (3075F) 3075F 2024-02-28 No Data Availabl e No Data Available DBP 80-89 (3079F) 3079F 2024-02-28 No Data Available No Data Available Medication List Documented (1159F) 1159F 2024-02-28 No Data Available No Data Samira ilable No Data Available [id number] 2024-03-26 No Data Available No Data Available Pain Assessment - NO pain present (1126F) 1126F 2024-03-26 No Data Available No Data A vailable Medication List Documented (1159F) 1159F 2024-03-26 No Data Available No Data Samira ilable Estab. patient 10-29min; 1 minor problem; add add modifier 95 for video, modifier 93 for phone [id number] 2024-05-02 No Data Available No Data Availa ble Medication List Documented (1159F) 1159F 2024-05-02 No Data Available No Data Samira ilable Estab. patient 10-29min; 1 minor problem; add add modifier 95 for video, modifier 93 for phone [id number] 2024-06-04 No Data Available No Data Availa ble Medication List Documented (1159F) 1159F 2024-06-04 No Data Available No Data Samira ilable Estab. patient 10-29min; 1 minor problem; add add modifier 95 for video, modifier 93 for phone [id number] 2024-07-10 No Data Available No Data Availa ble Medication List Documented (1159F) 1159F 2024-07-10 No Data Available No Data Samira ilable Estab. patient 10-29min; 1 minor problem; add add modifier 95 for video, modifier 93 for phone [id number] 2024-08-13 No Data Available No Data Availa ble Medication List Documented (1159F) 1159F 2024-08-13 No Data Available No Data Samira ilable Estab. patient 20-29min; 1 stable chronic or 2 minor; add add modifier 95 for video, modifier 93 for phone [id number] 2024-09-12 No Data Available No Data Availa ble Medication List Documented (1159F) 1159F 2024-09-12 No Data Available No Data Samira ilable Medication Review by prescribing provider or pharmacist documented (1160F) 1160F 2024-09-12 No Data Available No Data Samira ilable Functional Status Assessed (1170F) 1170F 2024-09-12 No Data Available No Data Avail able Advance Care Directive Advance care planning discussion documented in the medical record (1158F) 1158F 2024-09-12 No Data Available No Data Availa ble Advance care planning discussed and documented advance care plan or surrogate decision-maker was documented in the medical record. (1123F) 1123F 2024-09-12 No Data Available No Data Availa ble Pain Assessment - NO pain present (1126F) 1126F 2024-09-12 No Data Available No Data A vailable SBP >= 140 3077F 2024-09-12 No Data Available No Data Available DBP <80 (3078F) 3078F 2024-09-12 No Data Available No Data Available Functional Status Functional Category Effective Dates lives with 2023-05-04 steam fitter helper goes to home 2023-05-04 ambulates with cane 2023-05-04 Cognition Status: Oriented to Person, Pl jerica and Time 2023-05-04 ADL: Bathing Needs Assistanc e Dressing Needs Assistance , Eating needs assistance, Ambulation Needs Assistance , Transferring Independent , Transferring Needs Assistance and Toileting needs assistance 2024-09-12 IADL: Medication Needs Cristal tance , Meal [...] longer ambulating 2023-06-08 Mental Status Status Date alert not oriented dementia 2024-09-12 Assessments Date of Service Assessments 2023-05-04 13:53:47 [...] other health careVascular dementiaGoals of care, counseling/discussion 2024-06-04 09:19:23 History of recent ho spitalizationVascular dementiaPalliative care encounterOther problems related to medical facilities and other health care 2024-07-10 09:54:36 Right sided weakness / CVAOther problems related to medical facilities and other health careGait abnormalityVascular dementia 2024-08-13 13:23:26 Vascular dementiaTha lamic strokehemiplegiaGoals of care, counseling/discussion 2024-09-12 06:16:53 Vascular dementiaBen ign prostatic hyperplasiaHypertensive chronic kidney disease with stage 1 through stage 4 chronic kidney disease, or unspecified chronic kidney diseaseHyperlipidemiaModerate persistent asthma without complicationSleep apneaThalamic strokehemiplegiaDiabetic peripheral neuropathyDiabetic nephropathy associated with type 2 diabetes mellitusUrinary incontinenceMorbid obesity due to excess caloriesGait abnormalityGoals of care, counseling/discussionStage 3a chronic kidney disease (CKD)Other problems related to medical facilities and other health careRight sided weakness/ CVADysphagiaRisk for fallsUnspecified diastolic (congestive) heart failure Plan of Care Date of Service Plans [...] modifier 95Advance care planning discussed and documented advance care plan or surrogate decision-maker was documented in the medical record. (1123F)Continue to see PCP. [facility] or disease [...] 200 this AM 2023-06-08 15:11:14 Phone (patient, naomiee nt, or guardian); 11-20 minutes of medical [...] to have in home PT for strength 2 per caregiver since his last visit he [...] his PT, and another, he went to [facility] and did scan and nothing came [...] [facility] bed, [facility], per she wants him to have in home PT, she is aware of hospice and palliative care services, he is currently with home care services per spouseambulates with cane /14 per no longer wanting to ambulate for [...] visit. (1111F)Continue to see PCP. Follow-up with Ling as [...] in the bed, will request records from [facility] 07/04/23: Syncopal episode with loss of [...] his PT, and another, he went to [facility] and did scan and nothing came [...] cont to track HBPs; avoid NSAIDs;+proteinuriaAd[facility] until [facility]19[facility]2023/ he presented to [...] with moerate stenosis of right P2 segment STRAW HAT BRUSHER and focal short segment mid to moderate stenosis of the right P2 segment [place] BRUSHER and focal short segment mid to moderate stenosis of the left P3 segment STR[place] HAT BRUSHER. MRI of the brain showed no acute [...] up with neurology according to his son 07/12/2023OVID-19Treated with 3 [address] [facility]2023 until 06/19/2023/ he presented to [...] with moerate stenosis of right P2 segment STR[place] HAT BRUSHER and focal short segment mid to moderate stenosis of the right P2 segment STRAW H[place] BRUSHER and focal short segment mid to moderate stenosis of the left P3 segment STRAW HAT BRUSHER. MRI of the brain showed no acute strole. He was intubated for airway protection and admitted to the ICU. Routine testing also revealed that he was positive for Covid-19. Pt was extubated and transferred to medical floor on 06/16/2023t needs a positioning bed, hen member to call: 1. If bp is elevated sbp>150; dbp>90 or symptomatic-h/a, dizziness, cp, sob. 2. if there is a fall 3. if BS >300 or BS<90 or symptomatic; i.e., dizzy, off balance , shaky, general weakness. 4. if UTI symptoms arise-urinary frequency, dysuria, low abd pain. 5. if pain in knees increases/ or joint pain increased Please remember to call [facility] to see PCP. Follow-up with Ling as [...] last visit he had another ER visit 2/ for weakness, states he is now in [...] his PT, and another, he went to [facility] and did scan and nothing came [...] in the bed, will request records from [facility] 07/04/23: Syncopal episode with loss of [...] care services per spouse 08/03 cont with steam fitter helper in home, they had thought of putting in rehab home but per spouse children did not want him there and he is home, per she has the steam fitter helper and family support, will place palliative care order for sophycassandraowed by nephrology no change in meds; in [...] understandhe is having difficulty swallowing and pending RECYCLING CENTER OPERATOR eval aware of aspiration precautionsdue to recent strokes and dementia, pending RECYCLING CENTER OPERATOR eval, aware of aspiration precautions 2023-12-16 11:01:01 Phone [...] in the bed, will request records from [facility] 07/04/23: Syncopal episode with loss of [...] his PT, and another, he went to [facility] and did scan and nothing came [...] care services per spouse 08/03 cont with steam fitter helper in home, they had thought of putting in rehab home but per spouse children did not want him there and he is home, per she has the steam fitter helper and family support, will place palliative care order for casimiro 12/15 cont stabledue to recent stroke per he is now immobile of both sides he is verbal at times and per she can understandhe is having difficulty swallowing and pending RECYCLING CENTER OPERATOR eval aware of aspiration precautions 12/15 has [...] assistancedue to recent strokes and dementia, pending RECYCLING CENTER OPERATOR joseph, aware of aspiration precautions12/15 pureed diet 02/27 stablerecently after his syncopal episode, he is followed by neuro and pcp 06/08 using depends total care 12/15 uses depends oob to toilet with [id number]/5 stableon metoprolol, valsartan, hydralazine monitor BP maintain [...] call CBContinue to see PCP. Follow-up with [facility] as needed for any acute or disease education needs that may arise 15/11.what should be done when the member calls: see each individual diagnosis for contingency plan 2024-05-02 09:54:04 Televideo 10-29min; 1 minor problem; add add modifier 95 for video, modifier 93 for phoneContinue to see PCP. Follow-up with [facility] as needed for any acute or disease [...] in the bed, will request records from [facility] 07/04/23: Syncopal episode with loss of [...] care services per spouse 08/03 cont with steam fitter helper in home, they had thought of putting in rehab home but per spouse children did not want him there and he is home, per she has the steam fitter helper and family support, will place palliative care order for casimiro 12/15 cont stable 05/02 spouse not ready for either hospice/palliative as she wants to continue PT, will continue to have conversations at future visits 2024-06-04 09:19:23 Estab. patient 10-29 min; 1 minor problem; add add modifier 95 for video, modifier 93 for phoneContinue to see PCP. Follow-up with Ling as needed for any acute or disease education needs that may arise 15/11.06/04/2024Patient reports that patient was in the hospital on 05/02/2024 and was admitted for about 2 days per spouse. He was not reacting to her, she shared that he just had a blank stare and wouldn't react to nothing. He then started to take all his clothes off. She called 911 at that time. During his admission they shared with her that his blood sugar had been low. They went for a visit after his discharge and followed with the PCP. They found that his pulse was very low in the mid 40's. The PCP changed the Metoprolol and the patient is now only taking 1/2 tablet. She reports that the her had another episode where he blanked out and just started to stare. He started taking his clothes off. She didn't take him to the hospital. She and her boys sat with him and he came around after an hour.recently diagnosed by neuro now on memantine tolerating [...] in the bed, will request records from [facility] 07/04/23: Syncopal episode with loss of [...] of care. will continue to conversate regarding this. 06/04/24 Patient is having episodes of where he is not present in his mind and taking his clothes off. We discussed Palliative care option06/04/24 Discussion with patient spouse on Palliative and the benefits of service with patient with dementia. she shared that the primary care provider shared the same conversation with her. She has to talk to her sons and family. At this time, she doesn't not want a referral. Suggested that she meet with palliative team, so that they can answer their questions. She will consider it, but wants to discuss with the familyWhen member to call: 1. If bp is elevated sbp>150; dbp>90 or symptomatic-h/a, dizziness, cp, sob. 2. if there is a fall 3. if BS >300 or BS<90 or symptomatic; i.e., dizzy, off balance , shaky, general weakness. 4. if UTI symptoms arise-urinary frequency, dysuria, low abd pain. 5. if pain in knees increases/ or joint pain increased [facility]. [facility] acute or disease education needs that may arise 15/11.what should be done when the member calls: see each individual diagnosis for contingency planPSYCH CONTINGENCY PLANLast updated: 06/04/2024[facility] to call for the following symptoms: Anxiety/ Insomnia/ RestlessnessPlanned intervention: Trazodone 50mg at bedtime/ Increase dose of current medication:/ Limit extra stimulation 2024-07-10 09:54:36 Estab. patient 10-29 min; 1 minor problem; add add modifier 95 for video, modifier 93 for phoneContinue to see PCP. [facility] any acute or disease education needs that may arise 15/11.due to recent stroke per he is now immobile of both sides he is verbal at times and per she can understandhe is having difficulty swallowing and pending RECYCLING CENTER OPERATOR eval aware of aspiration precautions 12/15 has weakness to both extremities 07/10/24 ambulates seldomly with walker and assistance he is more bedboundWhen member to call: 1. If bp is elevated sbp>150; dbp>90 or symptomatic-h/a, dizziness, cp, sob. 2. if there is a fall 3. if BS >300 or BS<90 or symptomatic; i.e., dizzy, off balance , shaky, general weakness. 4. if UTI symptoms arise-urinary frequency, dysuria, low abd pain. 5. if pain in knees increases/ or joint pain increased Please remember to [facility]. [facility] any acute or disease education needs that may arise 15/11.what should be done when the member calls: see each individual diagnosis for contingency planPSYCH CONTINGENCY PLANLast updated: 06/04/2024[facility] to call for the following symptoms: Anxiety/ Insomnia/ RestlessnessPlanned intervention: Trazodone 50mg at bedtime/ Increase dose of current medication:/ Limit extra stimulation06/08 per no longer wanting to ambulate for [...] with assistance 02/27 ambulates with walker and assistance07/10/24 he is more bedbound as of latelyrecently diagnosed by neuro now on memantine tolerating [...] in the bed, will request records from [facility] 07/04/23: Syncopal episode with loss of [...] of care. will continue to conversate regarding this. 06/04/24 Patient is having episodes of where he is not present in his mind and taking his clothes off. We discussed Palliative care option07/10/2024 they are not ready for hospice or palliative but reports he is ambulating less and coughs while eating, aware of progression of dementia, and discuss with family 2024-08-13 13:23:26 Estab. patient 10-29 min; 1 minor problem; add add modifier 95 for video, modifier 93 for phoneContinue to see PCP. Follow-up with [facility] as needed for any acute or disease [...] in the bed, will request records from [facility] 07/04/23: Syncopal episode with loss of [...] of care. will continue to conversate regarding this. 06/04/24 Patient is having episodes of where he is not present in his mind and taking his clothes off. We discussed Palliative care option07/10/2024 they are not ready for hospice or palliative but reports he is ambulating less and coughs while eating, aware of progression of dementia, and discuss with family 08/13/2024 has had random episodes of more confusion at times, when they occur they assess his BS, BS, and BP and they are always WNL, she denies one sides weaknessfollowed by neurology recent syncopal episode they think [...] his PT, and another, he went to [facility] and did scan and nothing came up 08/03 continues with left side hemiplegia that has not changed 12/15 he is total assist for all ADLSs, pureed diet, aphasic 08/13/2024 no changes to one sided weaknessdiscussed hospice care and palliative care, per she wants him to have in home PT, she is aware of hospice and palliative care services, he is currently with home care services per spouse 08/03 cont with steam fitter helper in home, they had thought of putting in rehab home but per spouse children did not want him there and he is home, per she has the steam fitter helper and family support, will place palliative care order for casimiro 12/15 cont stable 05/02 spouse not ready for either hospice/palliative as she wants to continue PT, will continue to have conversations at future visits 08/13/2024 family and spouse stated they are not ready for palliative or hospice care 2024-09-12 06:16:53 Functional Status As sessed (1170F)Advance Care Directive Advance care planning discussion documented in the medical record (1158F)Advance care planning discussed and documented advance care plan or surrogate decision-maker was documented in the medical record. (1123F)SBP >= 140DBP <80 (3078F)Estab. patient 20-29min; 1 stable chronic or 2 minor; add add modifier 95 for video, modifier 93 for phoneMedication List Documented (1159F)Medication Review by prescribing provider or pharmacist documented (1160F)Pain Assessment - NO pain present (1126F)Continue to see PCP. Follow-up with [facility] as [...] in the bed, will request records from [facility] 07/04/23: Syncopal episode with loss of [...] of care. will continue to conversate regarding this. 06/04/24 Patient is having episodes of where he is not present in his mind and taking his clothes off. We discussed Palliative care option07/10/2024 they are not ready for hospice or palliative but reports he is ambulating less and coughs while eating, aware of progression of dementia, and discuss with family 08/13/2024 has had random episodes of more confusion at times, when they occur they assess his BS, BS, and BP and they are always WNL, she denies one sides weaknesson terazosinannual PSA checkson metoprolol, valsartan, hydralazine monitor BP maintain < 140/80low na dietexercise as tolerated 05/25 has nephrology appt 06/06 aware to discuss BP 02/27 had recent cardio appt105/27/2023 - blood pressure is stable no changes09/12/2024 followed by nephroon atorvastatin dietary modificationsflovent and albuterolfollowed by pcp [...] his PT, and another, he went to [facility] and did scan and nothing came up 08/03 continues with left side hemiplegia that has not changed 12/15 he is total assist for all ADLSs, pureed diet, aphasic 08/13/2024 no changes to one sided weaknesson gabapentin followed by neuro and endoon atorvastatin, gabapentin, plavix, januvia, Humalog, tresiba managed by pcp/ endocrinologylast HBA1C 7.2 % 2 weeks ago (05/04)monitor BS 200last pcp appt 2 weeks ago 05/25 BS 200 this AM03/26/2024 Patient reports that her was given a dexom and he is doing much better with his sugars that are running in the 70's and 100.recently after his syncopal episode, he is followed by neuro and pcp 06/08 using depends total care 12/15 uses depends oob to toilet with qrncypynux14/5 stable 09/12/2024 new order of supplies 1XL, wipes , xl glovesdietary modifications exercise as tolerated BMI 35/ DM2/14 per no longer wanting to ambulate for [...] with assistance 02/27 ambulates with walker and assistance07/10/24 he is more bedbound as of latelydiscussed hospice care and palliative care, per she wants him to have in home PT, she is aware of hospice and palliative care services, he is currently with home care services per spouse 08/03 cont with steam fitter helper in home, they had thought of putting in rehab home but per spouse children did not want him there and he is home, per she has the steam fitter helper and family support, will place palliative care order for casimiro 12/15 cont stable 05/02 spouse not ready for either hospice/palliative as she wants to continue PT, will continue to have conversations at future visits 08/13/2024 family and spouse stated they are not ready for palliative or hospice carefollowed by nephrology no change in meds; in future may be candidate for Kerendia but would hold off for now; cont RASi; cont to track HBPs; avoid NSAIDs;+proteinuria 08/03 follows with specialist no changesWhen member to call: 1. If [...] call CBContinue to see PCP. Follow-up with [facility] needed for any acute or disease education needs that may arise 15/11.what should be done when the member calls: see each individual diagnosis for contingency planPSYCH CONTINGENCY PLANLast updated: 06/04/2024Member to call for the following symptoms: Anxiety/ Insomnia/ RestlessnessPlanned intervention: Trazodone 50mg at bedtime/ Increase dose of current medication:/ Limit extra stimulationdue to recent stroke per he is now immobile of both sides he is verbal at times and per she can understandhe is having difficulty swallowing and pending RECYCLING CENTER OPERATOR eval aware of aspiration precautions 12/15 has weakness to both extremities 07/10/24 ambulates seldomly with walker and assistance he is more bedbounddue to recent strokes and dementia, pending RECYCLING CENTER OPERATOR eval, aware of aspiration precautions12/15 pureed diet 02/27 stableaware of risk and fall safetyper outside care- addressed at Cardio visit 07/03/24Echo and Stress test orderedcontinue to f/u with cardio Goals Date Goal 2023-05-04 continue medications as [...] was verbal 2023-06-08 will request records form [facility] 2023-06-08 provided with [employer] contact info for incontinent supplies 2023-08-04 cont [...] plan, complicance, and coordinating follow up care. 2024-06-04 Continue taking medi cations as directed and keep all follow up appointments with established PCP and Specialist. 2024-07-10 Continue taking medi cations as directed and keep all follow up appointments with established PCP and Specialist. 2024-07-10 At least 50% of time spent counseling patient, discussing diagnosis, treatment plan, complicance, and coordinating follow up care. 2024-07-10 aware to give us a c all when ready for CBN task 2024-08-13 Continue taking medi cations as directed and keep all follow up appointments with established PCP and Specialist. 2024-08-13 At least 50% of time spent counseling patient, discussing diagnosis, treatment plan, complicance, and coordinating follow up care. 2024-09-12 Continue taking medi cations as directed and keep all follow up appointments with established PCP and Specialist. 2024-09-12 At least 50% of time spent counseling patient, discussing diagnosis, treatment plan, complicance, and coordinating follow up care. Health Concerns Date Concern 2024-09-12 Visit completed in g audio/video.Patient/Guardian agreed to visit via telehealth. Today, patient has chief complaint of: follow up care and comprehensive review.Reviewed Allergies, Medications, Active Medical conditions, past medical/surgical history, Social history. 2024-09-12 Advance Care Plan an d Serious Illness ConversationLife Limiting Diagnosis: Diagnosis: Date of Conversation: 09/12/2024Goals of Care: Unknown or Did not DiscussCurrently on Hospice No, will send referral today Code Status: full code Do you have a Durable Power of Farm Agent for Healthcare, or Healthcare Proxy Or Guardianship? Yes, preferred proxy but not named POANutrition goals: No decision made about nutrition today; not discussedDo you have a written Advance Directive? Has Advance DirectiveOther details of discussion: (Who was present, patients description of wishes/goals)Today's plan: 2024-09-12 Most recent hospital stay(s) or ER visit(s) and precipitating factors: denies 2024-09-12 Open HEDIS Measure r crescencio: done 2024-09-12 had neuro appt yeste amy
--- OUTSIDE RECORDS SUMMARY | 2024-11-02 10:01 | XMS_ITS | Clinical Summary ---
Author Organization [facility] Address [address] [place] [address] Phone Care Team Providers Care Meatcutter Name Role Phone Felipe Barrett MD Primary Care Provi caron Allergies Active Allergy Reactions Criticality Noted Date Comments Morphine Unknown 09/11/2023 Niacin 09/11/2023 Other Reaction(s): PER PACU ASSESSMENT Medications atorvastatin (LIPITOR) 80 mg tablet Take 1 [...] under the skin at bedtime. 05/02/2024 Active Active Problems Problem Noted Date Diagnosed Date TIA (transient ischemic attack) 05/01/2024 Abdominal wall mass 04/26/2023 Vascular dementia, unspecifi ed severity, without behavioral disturbance, psychotic disturbance, mood disturbance, and anxiety ([facility] V24, [facility] V28) 09/14/2022 Overview (05/01/2024): Last Assessment & Plan: Pt with hx of previous thalamic infarcts, now with c/o worsening forgetfulness. Most recent CT of brain 05/2022 showed brain volume loss Early Dementia ? Neurology consult with Dr Farr\ appreciated diagnosed with vasculr dementia started on Memantine 5 mg BID Diabetic peripheral neuropathy ([facility] V24, [facility] V28) 05/13/2022 Overview (05/01/2024): Last Assessment & Plan: Pt with c/o bilateral LE pain described as burning, mainly on his lower legs and feet, with associated tingling EMG showed: [id number] axonal sensory motor peripheral neuropathy. On Gabapentin 300 mg po TID I recommended a transport wheelchair given his severe peripheral neuropathy Thalamic infarction ([facility] V24, [facility] V28) 0 05/13/2022 Overview (05/01/2024): Last Assessment & Plan: Pt doing ok at the moment Previously admitted to [facility] after he had been c/o one week of left sided numbness. patient is very poor historian. He was initially brought [place] [facility] [place] ambulance to rule out CVA. CTA [...] mellitus wit h diabetic chronic kidney disease ([facility] V24, [facility] V28) 01/21/2022 Overview (05/01/2024): Pharmacotherapy: Updated 11/14/23 - [...] hrs prn . He was seen at [facility] and completed PT with good results he was last seen 08/09/2018 Benign hypertensive renal disease 01/05/2021 Essential hypertension 01/05/2021 Hyperlipidemia 02/19/2013 Benign prostatic hyperplasia 10/07/2011 Erectile dysfunction 10/07/2011 Resolved Problems Problem Noted Date Diagnosed Date Resolved Date Hypokalemia 06/28/2023 05/02/2024 Medical History Medical History Date Comments Diabetes mellitus ([facility] V24, [facility] V28) GERD (gastroesophageal reflux disease) Hypercholesteremia Hypertension Chronic kidney disease Neuromuscular disorder ([facility] V24, [facility] V28 ) CVA (cerebral vascular accident) ([facility] V24, [facility] V28) Social History Tobacco Use Types Packs/Day Years [...] at Not on file Legal Sex Male 8:57 PM EST Gender Identity Not on file Sexual Orientation Not on file Obstetrics History Last Filed Vital Signs Vital Sign Reading Time Taken Comments Blood Pressure 153/77 05/02/2024 11:23 AM EST Pulse 65 05/02/2024 11:23 AM EST Temperature 36.9 C (98.5 F) 05/02/2024 11:23 AM EST Respiratory Rate 18 05/02/2024 11:23 AM EST [...] 2 - PCV) 03/03/2011 03/03/2010 RSV Immunization Adult Patients (1 - Risk 60-74 years 1-dose series) 2015 Zoster Vaccines (3 of 3) 04/06/2019 02/09/2019, 02/24 Colorectal Cancer Screening: Colonoscopy 05/20/2023 Hepatitis C Screening 05/20/2023 Social Influencers of Health Screening 05/20/2023 COVID-19 Vaccine ( season) 2023 03/18/2021, 08/04/2020, 07/07/2020 Diabetes: Annual Urine Albumin-Creatinine Ratio (uACR) 05/01/2024 Diabetes: Blood Sugar Control Test (HGBA1C) 10/30/2024 05/02/2024, 01/19/2024 Influenza Vaccine (#1) 2024 , 01/27/2023, 01/14/2022, Additional history exists Depression Screening 01/18/2025 01/19/2024 Diabetes: Annual GFR (Glomerular Filtration Rate) 05/02/2025 05/02/2024, 05/01/2024 Falls Risk Assessment 05/02/2025 05/02/2024 Hypertension/CHF/CAD Annual BMP Blood Test 05/02/2025 05/02/2024, 05/01/2024 DTaP,Tdap,and Td Vaccines (3 - Td or Tdap) 03/16/2026 03/16/2016, 01/14/2006 Cholesterol Screening (Lipid Panel) 05/02/2029 05/02/2024, 01/19/2024 HIB Vaccines Aged Out No longer eligi [...] patient's age to complete this topic Meningococcal B Vaccine Aged Out No l onger eligible based on patient's age to complete this topic RSV Immunization Patients Under 20 months Aged Out No longer eligible based on patient's age to complete this topic Varicella Vaccines Aged Out No longer eligible based on patient's age to complete this topic Procedures Procedure Name Priority Date/Time Associated Diagnosis Comments BASIC METABOLIC PANEL Routine 05/02/2024 5:59 AM EST HEMOGLOBIN A1C Routine 05/02/2024 5:59 AM EST LIPID PANEL WITH REFLEX TO DIRECT LDL Routine 05/02/2024 5:59 AM EST from Last 3 Months or Most Recently Relevant to Health Maintenance Results * (ABNORMAL) Lipid panel with reflex to direct LDL (05/02/2024 5:59 AM EST) Cholesterol 196 0 - 200 mg/dL LAB CHEMISTRY METHOD 05/02/2024 8:24 AM [facility] Triglycerides 280(H) 0 - 150 mg/dL LAB CHEMISTRY METHOD 05/02/2024 8:24 AM [facility] HDL 36(L) >=40 mg/dL LAB CHEMISTRY METHOD 05/02/2024 8:24 AM [facility] LDL Calculated 104(H) 0 - 100 mg/dL LAB CHEMISTRY METHOD 05/02/2024 8:24 AM [facility] VLDL Cholesterol Naman 56 mg/dL LAB CHEMISTRY METHOD 05/02/2024 8:24 AM [facility] Non HDL Chol. (LDL+VLDL) 160(H) <145 mg/dL LAB CHEMISTRY METHOD 05/02/2024 8:24 AM EST [facility] Chol/HDL Ratio 5.4(H) 0.0 - 4.4 LAB CHEMISTRY METHOD 05/02/2024 8:24 AM [facility] Blood Venous blood specimen / Unknown Venipuncture / Unknown 05/02/2024 5:59 AM EST 05/02/2024 7:17 AM EST us Riri CHAMORRO LAB BLOOD ORDERABLES Final Re sult [facility] [address] [place] [address], * (ABNORMAL) Hemoglobin A1c (05/02/2024 5:59 AM EST) Pathologist [facility] Hemoglobin A1C 7.5(H) <6.5 % LAB CHEMISTRY METHOD 05/02/2024 1:04 PM EST [facility] Mean Bld Glu Estim. 169 mg/dL LAB CHEMISTRY METHOD 05/02/2024 1:04 PM [facility] Blood Venous blood specimen / Unknown Venipuncture / Unknown 05/02/2024 5:59 AM EST 05/02/2024 7:16 AM EST Riri CHAMORRO LAB BLOOD ORDERABLES Final Ruchi dalal Performing Organization Address [facility]/ZIP Co de Phone Number [facility] [address] [place] [address], * (ABNORMAL) Basic metabolic panel (05/02/2024 5:59 AM EST) [facility] Sodium 140 133 - 145 mmol/L LAB CHEMISTRY METHOD 05/02/2024 8:24 AM [facility] Potassium 3.7 3.5 - 5.5 mmol/L LAB CHEMISTRY METHOD 05/02/2024 8:24 AM EST [facility] Chloride 107 96 - 110 mmol/L LAB CHEMISTRY METHOD 05/02/2024 8:24 AM [facility] CO2 25 21 - 32 mmol/L LAB CHEMISTRY METHOD 05/02/2024 8:24 AM [facility] Anion Gap 8 3 - 11 LAB CHEMISTRY METHOD 05/02/2024 8:24 AM [facility] Glucose 221(H) 70 - 100 mg/dL LAB CHEMISTRY METHOD 05/02/2024 8:24 AM [facility] BUN 17 5 - 25 mg/dL LAB CHEMISTRY METHOD 05/02/2024 8:24 AM EST [facility] Creatinine 1.36(H) 0.70 - 1.30 mg/dL LAB CHEMISTRY METHOD 05/02/2024 8:24 AM [facility] eGFR 56(L) >=60 mL/min/1. 73m2 LAB CHEMISTRY METHOD 05/02/2024 8:24 AM EST [facility] Comment:Calculation based on the Chronic Kidney Disease Epidemiology Collaboration (CKD-EPI) equation refit without adjustment for race. BUN/Creatinine Ratio 12.5 LAB CHEMISTRY METHOD 05/02/2024 8:24 AM [facility] Calcium 8.3(L) 8.5 - 10.5 mg/dL LAB CHEMISTRY METHOD 05/02/2024 8:24 AM [facility] Blood Venous blood specimen / Unknown Venipuncture / Unknown 05/02/2024 5:59 AM EST 05/02/2024 7:17 AM EST us Cordell Centeno MD LAB BLOOD ORDERABLES Final Res ult [facility] [address] [place] [address], [place] [phone] from Last 3 Months or Most Recently Relevant to Health Maintenance Insurance [place] [facility] [place] [id number] Advance Directives Documents on File Type Date Recorded 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
[2024-11-02 12:05] LABS: Cholesterol 198 mg/dL (<200); HDL Cholesterol 28 mg/dL (>40); Triglycerides 429 mg/dL (<150)
[2024-11-02 12:23] LABS: Microalbum/Creatinine Ratio Ur 1550.0 ug/mg cr (<30)
== END 2024-11-02 09:44 | disposition home or self-care (01) ==
LOC: HO.HHCL 09:43
PROVIDERS: PCP Internal Medicine; Visit Provider Internal Medicine
DX: E11.22 Type 2 diabetes mellitus with diabetic chronic kidney disease (principal); N18.1 Chronic kidney disease, stage 1; Z79.4 Long term (current) use of insulin; E78.2 Mixed hyperlipidemia
CPT/HCPCS: 36415; 80061; 82043; 82570

== ENCOUNTER 2024-11-21 11:59 | Outpatient (AMB) | payer OTHER, MEDICAID, SELFPAY ==
--- NOTE | 2024-11-21 12:01 | MHC.OFFVIS ---
Intake Visit Reasons: After 48 hrs Allergies niacin (NIACIN) Allergy (Intermediate, Verified 05/08/23 19:24) RASH Medication List - Last Reconciled 11/21/24 by Britta Farr MD acetaminophen 325 mg PO QID PRN 7 days atorvastatin 80 mg PO BEDTIME clopidogrel 75 mg PO DAILY furosemide 20 mg PO BID metoprolol succinate ER 12.5 mg PO DAILY oxycodone 5 mg PO TID PRN 3 days prednisone 40 mg (2 x 20 mg) PO DAILY 5 days terazosin 2 mg PO BEDTIME valsartan 320 mg PO QAM HPI Comments Details: 69 yo man with HTN, DM, and vascular dementia. He apparently had stroke in 08/2023 that affected his right side and was seen at [facility]. There were no records available for review.?He was here with his son. He had one episode in 07/2024 where he was seemed off , picking his hands, and not answering appropriately. He seemed more confused afterward which lasted?for the rest of the day. He went to sleep and was?okay the next morning. Routine EEG at office was ok. Family reported that he was still having episodes as described before but not that frequently, maybe once every few days. His EEG at [facility] revealed paroxysmal left frontotemporal slowing. [facility] Medical History (Updated 11/21/24 @ 12:17 by Britta Farr MD) Seizure disorder Alzheimer disease HLD (hyperlipidemia) Vascular dementia Multifactorial gait disorder Peripheral neuropathy Obesity Hypertension Insulin dependent type 2 diabetes mellitus Thalamic infarct, acute Cerebral microvascular disease Review of Systems Const Details: No headaches, anxiety, depression, or agitation. Physical Exam Neuro Other: He is alert and awake not communicating but navigating his motorized scooter with his right hand. Assessment & Plan Assessment & Plan (1) Complex partial seizure disorder: Comment: 24 hr EEG at [facility] in October 2024: Left temp slowing Routine EEG at [facility] in September 2024: Slow MRI brain WO at [facility] in Nov 2019: mod sized R thalamic acute infarct, mod MVD, mild atrophy CTA brain and neck at [facility] in Nov 2019: no sig stenosis Code(s): G40.209 - Localization-related (focal) (partial) symptomatic epilepsy and epileptic syndromes with complex partial seizures, not intractable, without status epilepticus Category: Medical (2) Vascular dementia: Code(s): F01.50 - Vascular dementia, unspecified severity, without behavioral disturbance, psychotic disturbance, mood disturbance, and anxiety Category: Medical Qualifiers: Dementia severity: severe Dementia behavioral or psychological symptom: without behavioral, psychotic, or mood disturbance or anxiety Qualified Code(s): F01.C0 - Vascular dementia, severe, without behavioral disturbance, psychotic disturbance, mood disturbance, and anxiety Plan Impression: a: Vascular dementia, severe b: Probably complex partial seizure disorder Rec: a. Divalproex acid 250mg one at bedtime b: Memantine 10mg bid Medications: New memantine (Namenda) 10 mg PO BID 180 tabs 1RF divalproex 250 mg PO ONCE 90 tabs 1RF Coding Level of Care Code Est Pt Level 4 (19519) Diagnoses Complex partial seizure disorder G40.209 Severe vascular dementia without behavioral disturbance, psychotic disturbance, mood disturbance, or anxiety F01.C0 Dementia severity: severe Dementia behavioral or psychological symptom: without behavioral, psychotic, or mood disturbance or anxiety
--- OUTSIDE RECORDS SUMMARY | 2024-11-21 12:50 | XMS_ITS ---
Author Name Dakota HERNANDEZ MS. Noeshyanne Leal Address [address] [place] [address] Phone [phone] Organization [facility] Care Team Providers Care General Education Instructor Name Role Phone Nuha Duncan Unavailable [phone] Unavailable Unavailable Unavailable Unavailable Unavailable Unavailable Unavailable Unavailable Unavailable [facility], [facility] Unavailable Unavailable Unavailable [phone] [facility], [place] Unavailable [phone] Reason for Referral Not Available Allergies, adverse [...] 2022-04-15 No Data Available Easy Touch Pen [place] 31G X 5 MM MISC USE DIRECTED [...] 2022-06-15 No Data Available OneTouch Delica Plus [id number] Miscellaneous TEST BLOOD SUGAR FIVE TIMES DAILY [...] 2024-02-13 No Data Available FreeStyle Martín 2 [place] Device USE DIRECTED TO TEST BLOOD SUGAR [...] discharge follow-up Resolved 2023-07-04 2023-08-[address] [facility] from 06/13/2023 until 06/19/2023/ he presented to [...] with moerate stenosis of right P2 segment ABLE SEAMAN and focal short segment mid to moderate stenosis of the right P2 segment ABLE SEAMAN and focal short segment mid to moderate stenosis of the left P3 segment ABLE SEAMAN. MRI of the brain showed no acute [...] 4COVID-19Treated with 3 days of remdesevirAd[facility]/ he presented [...] with moerate stenosis of right P2 segment ABLE SEAMAN and focal short segment mid to moderate stenosis of the right P2 segment ABLE SEAMAN and focal short segment mid to moderate stenosis of the left P3 segment ABLE SEAMAN. MRI of the brain showed no acute [...] due to recent strokes and dementia, pending [employer] eval, aware of aspiration precautions12/15 pureed diet [...] increased Please remember to call [facility] to see PCP. 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, they had thought of putting in rehab home but per spouse children did not want him there and he is home, per she has the self propelled mining machine operator and family support, will place palliative care [...] 12/15 uses depends oob to toilet with [id number]/5 stable 09/12/2024 new order of supplies 1XL, [...] his PT, and another, [facility] and [facility] scan and nothing came [...] understandhe is having difficulty swallowing and pending [employer] eval aware of aspiration precautions 12/15 has [...] (do not use for phone, instead use 14349-61) [facility] [place]20[place] Vascular [...] (do not use for phone, instead use 75894-07) [facility] [place]20[place] New patient,40-59min; chronic exacerbation, 2 stable chronic or 1 acute illness add add modifier 95 for video (do not use for phone, instead use 75938-59) [facility] [place] New patient,40-59min; chronic exacerbation, 2 stable chronic or 1 acute illness add add modifier 95 for video (do not use for phone, instead use 37630-07) [facility] [place] New patient,40-59min; chronic exacerbation, 2 stable chronic or 1 acute illness add add modifier 95 for video (do not use for phone, instead use 40555-67) [facility] [place]20[place] New patient,40-59min; chronic exacerbation, 2 stable chronic or 1 acute illness add add modifier 95 for video (do not use for phone, instead use 70680-77) [facility] [place] New patient,40-59min; chronic exacerbation, 2 stable chronic or 1 acute illness add add modifier 95 for video (do not use for phone, instead use 47999-42) [facility] [place] 05/[place] New patient,40-59min; chronic exacerbation, 2 stable chronic or 1 acute illness add add modifier 95 for video (do not use for phone, instead use 20940-43) [facility] [place] 05/04[place]20[place] New patient,40-59min; chronic exacerbation, 2 stable chronic or 1 acute illness add add modifier 95 for video (do not use for phone, instead use 59792-48) [facility] No Data Available [facility]2023 Male erectile dysfunction, unspecifiedEssential (primary) hypertensionVascular dementia without behavioral disturbanceHemiplegia, unspecified affecting unspecified sidePrsnl hx of TIA (TIA), and cereb infrc w/o resid deficitsUnspecified urinary incontinenceType 2 diabetes mellitus with diabetic nephropathy No Data Available [facility] [place] 05[place]2023 No Data Available [facility] [place]2023 No Data Available [facility] [place]2023 No Data Available [facility] [place]2023 No Data Available [facility] [place] 05[place]/2023 No Data Available [facility] [place] 06[place]08/2023 Hemiplegia, unspecified affecting unspecified sideOther cerebral infarction due to occlusion or stenosis of small arteryVascular dementia without behavioral disturbanceOther specified counselingUnspecified abnormalities of gait and mobility No Data Available [facility] [place] 06/08/2023 No Data Available [facility] [place] 06/08[place]2023 No Data Available [facility] [place]/08[place]2023 No Data Available [facility] [place] 07[place]04/2023 Type 2 diabetes [...] and other health care No Data Available [facility] [place] 07/04[place]2023 No Data Available [facility] [place] 07/04[place]2023 No Data Available [facility] [place]04[place]2023 No Data Available [facility] [place] 07/04[place]2023 No Data Available [facility] [place]04[place]2023 No Data Available [facility] [place] 07[place]04[place]2023 No Data Available [facility] [place] 08/04/2023 Hemiplegia, unspecified affecting unspecified sideOther cerebral infarction due to occlusion or stenosis of small arteryVascular dementia without behavioral disturbanceUnspecified abnormalities of gait and mobilityOther specified counselingChronic kidney disease, stage 3aBed confinement status No Data Available [facility] [place] 08[place]04[place]2023 No Data Available [facility] [place] 09/14/2023 Bed confinement statusWeaknessPrsnl hx of TIA (TIA), and cereb infrc w/o resid deficitsDysphagia, unspecified No Data Available [facility] [place] 09/14/2023 No Data Available [facility] [place] 12/16/2023 Vascular dementia without behavioral disturbanceHemiplegia, unspecified affecting unspecified sideUnspecified urinary incontinenceUnspecified abnormalities of gait and mobilityOther specified counselingWeakness No Data Available [facility] [place] 12/16/2023 No Data Available [facility] [place] 12[place]16/2023 No Data Available [facility] [place] 02/28/2024 Unspecified abnormalities of gait and mobilityDysphagia, unspecifiedUnspecified urinary incontinenceEssential (primary) hypertension No Data Available [facility] [place] 02/28/2024 No Data Available [facility] [place] 02/28/2024 No Data Available [facility] [place] 02/28/2024 No Data Available [facility] [place] 03/26/2024 Type 2 diabetes mellitus wit h diabetic nephropathyEssential (primary) hypertensionOther problems related to medical facilities and other health care No Data Available [facility] [place] 03/26/2024 No Data Available [facility] [place] 03/26/20[place] Estab. patient 10-29min; 1 minor problem; add add modifier 95 for video, modifier 93 for phone [facility] [place] 05/02/2024 Vascular dementia without behavioral disturbanceOther specified counseling Estab. patient 10-29min; 1 minor problem; add add modifier 95 for video, modifier [address] [facility]02[place] Estab. patient 10-29min; 1 minor problem; add add modifier 95 for video, modifier [address] [facility] [place] 06/04/2024 Vascular dementia without behavioral disturbanceEncounter for palliative careOther problems related to medical facilities and other health carePersonal history of other medical treatment Estab. patient 10-29min; 1 minor problem; add add modifier 95 for video, modifier [address] [facility] 06/04/[place] Estab. patient 10-29min; 1 minor problem; add add modifier 95 for video, modifier [address] [facility] [place] 07/10/2024 Hemiplga following cerebral infrc aff right dominant sideOther problems related to medical facilities and other health careUnspecified abnormalities of gait and mobilityVascular dementia without behavioral disturbanceDysphasia following cerebral infarction Estab. patient 10-29min; 1 minor problem; add add modifier 95 for video, modifier [address] [facility] 07/10/2024 Estab. patient 10-29min; 1 minor problem; add add modifier 95 for video, modifier [address] [facility] [place] 08/13/2024 Vascular dementia without behavioral disturbanceHemiplegia, unspecified affecting unspecified sideOther cerebral infarction due to occlusion or stenosis of small arteryOther specified counseling Estab. patient 10-29min; 1 minor problem; add add modifier 95 for video, modifier [address] [facility] 08/13/2024 Estab. patient 20-29min; 1 stable chronic or 2 minor; add add modifier 95 for video, modifier 93 for [email or web address] [email or web address] [facility] 09/12/2024 Vascular dementia without behavioral [...] 95 for video, modifier 93 for phone [facility] [place] Estab. patient 20-29min; 1 stable chronic or 2 minor; add add modifier 95 for video, modifier 93 for phone [facility] [place] 09/12/2024 Estab. patient 20-29min; 1 stable chronic or 2 minor; add add modifier 95 for video, modifier 93 for phone [facility] [place] 09/12/2024 Estab. patient 20-29min; 1 stable chronic or 2 minor; add add modifier 95 for video, modifier 93 for phone [facility] [place] 09/12/2024 Estab. patient 20-29min; 1 stable chronic or 2 minor; add add modifier 95 for video, modifier 93 for phone [facility] [place] 09/12/2024 Estab. patient 20-29min; 1 stable chronic or 2 minor; add add modifier 95 for video, modifier 93 for phone [facility] [place] 09/12/2024 Estab. patient 20-29min; 1 stable chronic or 2 minor; add add modifier 95 for video, modifier 93 for phone [facility] [place] 09/12/2024 Estab. patient 20-29min; 1 stable chronic or 2 minor; add add modifier 95 for video, modifier 93 for phone [facility] [place] 09/12/2024 Immunizations [...] tive Time Current Smoking Status Never smoker 2024-10-25 0 Sex Male History of Procedures Procedures Service Procedure code Service date Servicing provider Phone# New patient,40-59min; chronic exacerbation, 2 stable chronic or 1 acute illness add add modifier 95 for video (do not use for phone, instead use 30178-26) [id number] 2023-05-04 No Data Available No Data Availa [...] Available No Data Available No Data Available 19604 2023-05-25 No Data Available No Data Available [...] No Data Samira ilable No Data Available 11030 2024-03-26 No Data Available No Data Available Pain Assessment - NO pain present (1126F) 1126F 2024-03-26 No Data Available No Data A vailable Medication List Documented (1159F) 1159F 2024-03-26 No Data Available No Data Samira ilable Estab. patient 10-29min; 1 minor problem; add add modifier 95 for video, modifier 93 for phone [id number] 2024-05-02 No Data Available No Data Availa ble Medication List Documented (1159F) 1159F 2024-05-02 No Data Available No Data Samira ilable Estab. patient 10-29min; 1 minor problem; add add modifier 95 for video, modifier 93 for phone [id number] 2024-06-04 No Data Available No Data Availa ble Medication List Documented (1159F) 1159F 2024-06-04 No Data Available No Data Samira ilable Estab. patient 10-29min; 1 minor problem; add add modifier 95 for video, modifier 93 for phone [id number] 2024-07-10 No Data Available No Data Availa ble Medication List Documented (1159F) 1159F 2024-07-10 No Data Available No Data Samira ilable Estab. patient 10-29min; 1 minor problem; add add modifier 95 for video, modifier 93 for phone [id number] 2024-08-13 No Data Available No Data Availa ble Medication List Documented (1159F) 1159F 2024-08-13 No Data Available No Data Samira ilable Estab. 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 (1123F)Continue to see PCP. [facility] as needed for any acute [...] his PT, and another, [facility] and [facility] came [...] in the bed, [facility], per [...] in the bed, [facility] 07/04/23: Syncopal episode with loss of [...] his PT, and another, [facility] and [facility] scan and nothing came [...] cont to track HBPs; avoid NSAIDs;+proteinuriaAdmitted [facility]19[facility]2023/ he presented [...] with moerate stenosis of right P2 segment ABLE SEAMAN and focal short segment mid to moderate stenosis of the right P2 segment ABLE SEAMAN and focal short segment mid to moderate stenosis of the left P3 segment ABLE SEAMAN. MRI of the brain showed no acute [...] 07/12/2023OVID-19Treated with 3 days of remdesevirAdmitted to [facility]19[facility]2023/ he presented [...] with moerate stenosis of right P2 segment ABLE SEAMAN and focal short segment mid to moderate stenosis of the right P2 segment ABLE SEAMAN and focal short segment mid to moderate stenosis of the left P3 segment ABLE SEAMAN. MRI of the brain showed no acute [...] increased Please remember to call [facility] to see PCP. 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, they had thought of putting in rehab home but per spouse children did not want him there and he is home, per she has the self propelled mining machine operator and family support, will place palliative care [...] understandhe is having difficulty swallowing and pending [employer] eval aware of aspiration precautionsdue to recent strokes and dementia, pending [employer] eval, aware of aspiration precautions 2023-12-16 11:01:01 [...] in the bed, [facility] 07/04/23: Syncopal episode with loss of [...] his PT, and another, [facility] and nothing came [...] care services per spouse 08/03 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, they had thought of putting in rehab home but per spouse children did not want him there and he is home, per she has the self propelled mining machine operator and family support, will place palliative care order for casimiro 12/15 cont stabledue to recent stroke per he is now immobile of both sides he is verbal at times and per she can understandhe is having difficulty swallowing and pending [employer] eval aware of aspiration precautions 12/15 has [...] assistancedue to recent strokes and dementia, pending [employer] joseph, aware of aspiration precautions12/15 pureed diet 02/27 stablerecently after his syncopal episode, he is followed by neuro and pcp 06/08 using depends total care 12/15 uses depends oob to toilet with [id number]/5 stableon metoprolol, valsartan, hydralazine monitor BP maintain [...] call CBContinue to see PCP. Follow-up with [facility] as needed for any acute or disease education needs that may arise 15/11.what should be done when the member calls: see each individual diagnosis for contingency plan 2024-05-02 09:54:04 Televideo 10-29min; 1 minor problem; add add modifier 95 for video, modifier 93 for phoneContinue to see PCP. 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 [facility] for any acute or disease education needs that may arise 15/11.what should be done when the member calls: see each individual diagnosis for contingency planPSYCH CONTINGENCY PLANLast updated: 06/04/2024[facility] to call for the following symptoms: Anxiety/ Insomnia/ RestlessnessPlanned intervention: Trazodone 50mg at bedtime/ Increase dose of current medication:/ Limit extra stimulation 2024-07-10 09:54:36 Estab. patient 10-29 min; 1 minor problem; add add modifier 95 for video, modifier 93 for phoneContinue to see PCP. [facility] for any acute or disease education needs that may arise 15/11.due to recent stroke per he is now immobile of both sides he is verbal at times and per she can understandhe is having difficulty swallowing and pending [employer] eval aware of aspiration precautions 12/15 has [...] joint pain increased Please [facility]. [facility] for any acute or disease education needs that may arise 15/11.what should be done when the member calls: see each individual diagnosis for contingency planPSYCH CONTINGENCY PLANLast updated: 06/04/2024[facility] to call for the following [...] in the bed, [facility] 07/04/23: Syncopal episode with loss of [...] for phoneContinue to see PCP. 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, they had thought of putting in rehab home but per spouse children did not want him there and he is home, per she has the self propelled mining machine operator and family support, will place palliative care [...] in the bed, [facility] 07/04/23: Syncopal episode with loss of [...] his PT, and another, [facility] and [facility] and nothing came [...] 12/15 uses depends oob to toilet with [id number]/5 stable 09/12/2024 new order of supplies 1XL, [...] care services per spouse 08/03 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, they had thought of putting in rehab home but per spouse children did not want him there and he is home, per she has the self propelled mining machine operator and family support, will place palliative care [...] understandhe is having difficulty swallowing and pending [employer] eval aware of aspiration precautions 12/15 has weakness to both extremities 07/10/24 ambulates seldomly with walker and assistance he is more bedbounddue to recent strokes and dementia, pending [employer] eval, aware of aspiration precautions12/15 pureed diet [...] was verbal 2023-06-08 [facility] 2023-06-08 provided with [employer] contact info for incontinent supplies 2023-08-04 cont [...] Do you have a Durable Power of Belt Press Operator for Healthcare, or Healthcare Proxy Or Guardianship? [...]
--- OUTSIDE RECORDS SUMMARY | 2024-11-21 12:51 | XMS_ITS | Clinical Summary ---
Author Organization [facility] Address [address] [place] [address] Phone Care Team Providers Care Field Sales Specialist Name Role Phone Felipe Barrett MD Primary [...] disturbance, psychotic disturbance, mood disturbance, and anxiety ([facility] V24, [facility] V28) 09/14/2022 Overview (05/01/2024): Last Assessment & Plan: Pt with hx of previous thalamic infarcts, now with c/o worsening forgetfulness. Most recent CT of brain 05/2022 showed brain volume loss Early Dementia ? 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 On Gabapentin 300 mg po TID I recommended a transport wheelchair given his severe peripheral neuropathy Thalamic infarction ([facility] V24, [facility] V28) 0 05/13/2022 Overview (05/01/2024): Last Assessment & Plan: Pt doing ok at the moment Previously admitted to [facility] after he had been c/o one week of left sided numbness. patient is very poor historian. He was initially brought o [facility] by ambulance to rule out CVA. CTA [...] mellitus wit h diabetic chronic kidney disease ([facility] V24, [facility] V28) 01/21/2022 Overview (05/01/2024): Pharmacotherapy: Updated 11/14/23 [...] hrs prn . He was seen at [facility] and completed PT with good results he was last seen 08/09/2018 Benign hypertensive renal disease 01/05/2021 Essential hypertension 01/05/2021 Hyperlipidemia 02/19/2013 Benign prostatic hyperplasia 10/07/2011 Erectile dysfunction 10/07/2011 Resolved Problems Problem Noted Date Diagnosed Date Resolved Date Hypokalemia 06/28/2023 05/02/2024 Medical History Medical History Date Comments Diabetes mellitus ([facility] V24, [facility] V28) GERD (gastroesophageal reflux disease) Hypercholesteremia Hypertension Chronic kidney disease Neuromuscular disorder ([facility] V24, [facility] V28 ) CVA (cerebral vascular accident) ([facility] V24, [facility] [place]/[facility] V28) Social History Tobacco Use Types Packs/Day [...] Vaccine ( season) 2023 03/18/2021, 08/04/2020, 07/07/2020 Depression Screening 04/25/2024 Diabetes: Annual Urine Albumin-Creatinine Ratio (uACR) 05/01/2024 Diabetes: Blood Sugar Control Test (HGBA1C) 10/30/2024 05/02/2024, 01/19/2024 Influenza Vaccine (#1) 2024 , 01/27/2023, 01/14/2022, Additional history exists Diabetes: Annual GFR (Glomerular Filtration Rate) 05/02/2025 [...] LAB CHEMISTRY METHOD 05/02/2024 8:24 AM EST [facility] Triglycerides 280(H) 0 - 150 mg/dL LAB CHEMISTRY METHOD 05/02/2024 8:24 AM [facility] HDL 36(L) >=40 mg/dL LAB CHEMISTRY METHOD 05/02/2024 8:24 AM EST [facility] LDL Calculated 104(H) 0 - 100 mg/dL LAB CHEMISTRY METHOD 05/02/2024 8:24 AM [facility] VLDL Cholesterol Naman 56 mg/dL LAB CHEMISTRY METHOD 05/02/2024 8:24 AM [facility] Non HDL Chol. (LDL+VLDL) 160(H) <145 mg/dL LAB CHEMISTRY METHOD 05/02/2024 8:24 AM EST [facility] Chol/HDL Ratio 5.4(H) 0.0 - 4.4 LAB CHEMISTRY METHOD 05/02/2024 8:24 AM [facility] Blood Venous blood specimen / Unknown Venipuncture / Unknown 05/02/2024 5:59 AM EST 05/02/2024 7:17 AM EST us Riri CHAMORRO LAB BLOOD ORDERABLES Final Re sult [facility] [address] [place] [address], * (ABNORMAL) Hemoglobin A1c (05/02/2024 5:59 AM EST) Hemoglobin A1C 7.5(H) <6.5 % LAB CHEMISTRY METHOD 05/02/2024 1:04 PM EST [facility] Mean Bld Glu Estim. 169 mg/dL LAB CHEMISTRY METHOD 05/02/2024 1:04 PM [facility] Blood Venous blood specimen / Unknown Venipuncture / Unknown 05/02/2024 5:59 AM EST 05/02/2024 7:16 AM EST Riri CHAMORRO LAB BLOOD ORDERABLES Final Re sult Performing Organization Address [facility]/State/ZIP Co de Phone Number [facility] [address] [place] [address], * (ABNORMAL) Basic metabolic panel (05/02/2024 5:59 AM EST) [facility] Sodium 140 133 - 145 mmol/L LAB CHEMISTRY METHOD 05/02/2024 8:24 AM [facility] Potassium 3.7 3.5 - 5.5 mmol/L LAB CHEMISTRY METHOD 05/02/2024 8:24 AM [facility] Chloride 107 96 - 110 mmol/L LAB CHEMISTRY METHOD 05/02/2024 8:24 AM [facility] CO2 25 21 - 32 mmol/L LAB CHEMISTRY METHOD 05/02/2024 8:24 AM [facility] Anion Gap 8 3 - 11 LAB CHEMISTRY METHOD 05/02/2024 8:24 AM [facility] Glucose 221(H) 70 - 100 mg/dL LAB CHEMISTRY METHOD 05/02/2024 8:24 AM [facility] BUN 17 5 - 25 mg/dL LAB CHEMISTRY METHOD 05/02/2024 8:24 AM EST [facility] Creatinine 1.36(H) 0.70 - 1.30 mg/dL LAB CHEMISTRY METHOD 05/02/2024 8:24 AM EST [facility] eGFR 56(L) >=60 mL/min/1. 73m2 LAB CHEMISTRY METHOD 05/02/2024 8:24 AM EST [facility] Comment:Calculation based on the Chronic Kidney Disease Epidemiology Collaboration (CKD-EPI) equation refit without adjustment for race. BUN/Creatinine Ratio 12.5 LAB CHEMISTRY METHOD 05/02/2024 8:24 AM [facility] Calcium 8.3(L) 8.5 - 10.5 mg/dL LAB CHEMISTRY METHOD 05/02/2024 8:24 AM EST [facility] Blood Venous blood specimen / Unknown Venipuncture / Unknown 05/02/2024 5:59 AM EST 05/02/2024 7:17 AM EST us Cordell Centeno MD LAB BLOOD ORDERABLES Final Res ult [facility] [address] [place] [address], from Last 3 Months or Most Recently Relevant to Health Maintenance Insurance [place] [facility] [place] [id number] Advance Directives Documents on File Type Date Recorded Patient Baker Second Expl anation Health Care Decision (hx) 09/13/2023 [...] Agents on File Name Relationship Healthcare Agent [facility] Communication Leah Pitts Spouse Health Care Agent Care Teams Field Sales Specialist Relationship Specialty Start Date End Date Felipe Barrett MD [address] [place] [address] PCP - General Internal Medicine 05/01/24
--- OUTSIDE RECORDS SUMMARY | 2024-11-21 12:51 | XMS_ITS | Encounter Summary ---
Author Organization [facility] Address [address] [place] [address] Phone Care Team Providers Care Master Scheduler Name Role Phone Unavailable Primary Care Provider Unavailabl e Encounter Details Date Type Department Care Team (Latest Contact Info) Description 02/20/2020 Ancillary Orders [facility] [address] [place] [address] Shakira Varner PA [address] [place] [address] [email or web address] Syncope, unspecified syncope type Social History Tobacco Use Types Packs/Day Years Used Date Smoking Tobacco: Never Assessed Sex and Gender Information Value Date Recorded Sex Assigned at Not on file Legal Sex Male 12:05 PM EDT Gender Identity Not on file Sexual Orientation Not on file documented as of this encounter Plan of Treatment Not on file documented as of this encounter Results * Holter Monitor 48 Hours (02/20/2020 8:47 AM EDT) Anatomical Region Laterality Modality Heart Other Narrative 02/20/2020 12:54 PM EDT 48-hour monitor: The baseline rhythm is sinus. The minimum heart rate is 49, maximum 100, average 65 bpm. There are no long pauses present. Rare PACs and PVCs present. There is no diary submitted. There are no patient event markers. Impression: Normal 48-hour monitor. No diary submitted. No patient event markers. Procedure Note Jefry Anderson MD - 02/20/2020 48-hour monitor: The baseline rhythm is sinus. The minimum heart rate is49, maximum 100, average 65 bpm. There are no long pauses present. RarePACs and PVCs present. There is no diary submitted. There are no patientevent markers. Impression: Normal 48-hour monitor. No diary submitted. No patient eventmarkers. Shakira CHAMORRO [facility] ORDERA BLES Final Result documented in this encounter Visit Diagnoses Diagnosis Syncope, unspecified syncope type Syncope, unspecified syncope type documented in this encounter Additional Source Comments The information contained in this document represents components of the legal health record. It is not the complete legal health record.[facility]
--- OUTSIDE RECORDS SUMMARY | 2024-11-21 12:51 | XMS_ITS | Encounter Summary ---
Author Organization [employer] Address [address] [place] [address] Care Team Providers Care Chief Cardiopulmonary Technologist Name Role Phone Felipe Rogers MD Primary Care Provide r Annabel Hope PharmD Unavailable [phone] Reason for Visit * Reason Comments Med Refill Encounter Details Date Type Department Care Team ([facility] st Contact Info) Description 09/27/2023 Refill [facility] [address] [place] [address] Felipe Rogers MD [address] [place] [address] Primary hypertension Social History Tobacco Use Types [...] Care Team (Late st Contact Info) Description 12/18/2024 11:30 AM EDT Office Visit [facility] [address] [place] [phone] Felipe Rogers MD [address] [place] [address] 02/18/2025 11:30 AM EDT Telemedicine [facility] [address] [place] [phone] Annabel Hope PharmD [address] [place] [phone] documented as of this encounter Visit Diagnoses Diagnosis Primary hypertension Unspecified essential hypertension documented in this encounter Additional Health Concerns Assessment Noted Time PHQ-9 Depression Total Score: 11 024 10:52 AM EST documented as of this encounter Care Teams Chief Cardiopulmonary Technologist Relationship Specialty Start Date End Date Felipe Rogers MD [address] [place] [phone] PCP - General Internal Medicine 03/16/16 Annabel Hope PharmD [address] [place] [address] Pharmacist Internal Medicine 03/30/24 [employer] 09/03/23 documented as of this encounter
--- OUTSIDE RECORDS SUMMARY | 2024-11-21 12:51 | XMS_ITS | Clinical Summary ---
Author Organization [facility] Address [address] [address] Phone Care Team Providers Care Pcat Instructor Name Role Phone Felipe Dunne MD Primary [...] and 100 mg in the evening. Active Finerenone (Kerendia) 10 MG tablet Take 10 mg by mouth 1 (one) time each day 90 tablet 1 08/25/19 25 026 Active valsartan (DIOVAN) 320 MG tabletIndicatio ns:Stage 3a chronic kidney disease (HCC),Persisten t proteinuria Take 1 tablet (320 mg total) by mouth 1 (one) time each day 30 tablet 3 09/19/19 25 Active Active Problems Problem Noted Date Diagnosed [...] and feet, with associated tingling EMG showed: Qnnlhqcq-lq-czmtyd axonal sensory motor peripheral neuropathy. On Gabapentin [...] He was evaluated by Dr Hood at [facility] on 05/26/2012 who recommended an EGD done [...] He has a follow up with his licensed plumber Thalamic infarction 05/13/2022 02/24/2023 Overview (02/24/2023): Last Assessment & Plan: Pt doing ok at the moment Previously admitted to [facility] after he had been c/o one week of left sided numbness. patient is very poor historian. He was initially brought o [facility] by ambulance to rule out CVA. CTA [...] hrs prn . He was seen at [facility] and completed PT with [...] case at a different agency such as [facility] or [facility]. Erectile dysfunction 10/07/2011 02/24/2023 Resolved Problems Problem Noted Date Diagnosed Date Resolved Date Hyperlipidemia 01/05/2021 01/05/2021 Type 2 diabetes mellitus 01/05/2021 Encounters Date Type Department Care Team Description 09/18/2024 Orders Only [facility] [address] [phone] Rani Elizalde ARNP Stage 3a chronic kidney disease (HCC) (Primary Dx); Persistent proteinuria 09/08/2024 Refill [facility] [address] [facility] [address] [place] [phone] Robert Go MD 09/07/2024 Orders Only [facility] [address] [place] [address] Carlos Witt MD Chronic kidney disease, stage 2 (mild); Type 2 diabetes mellitus with diabetic chronic kidney disease (HCC) 08/24/2024 10:45 AM EDT Office Visit [facility] [address] [phone] Carlos Witt MD Chronic kidney disease, stage 2 (mild) (Primary Dx); Type 2 diabetes mellitus with diabetic chronic kidney disease (HCC) from Last 3 Months Immunizations Immunization Administration Dates Next Due Hepatitis B 09/15/2006 [...] Sign Reading Time Taken Comments Blood Pressure 148/85 08/24/2024 10:50 AM EDT Pulse 87 08/24/2024 10:50 AM EDT Temperature - - Respiratory Rate - - Oxygen Saturation 97% 08/24/2024 10:50 AM EDT Inhaled Oxygen Concentration - - Weight 80.7 kg (178 lb) 08/24/2024 10:50 AM EDT Height 165.1 cm (5' 5 ) 01/05/2021 1:16 PM EDT Body Mass Index 29.62 01/05/2021 1:16 PM EDT Plan of Treatment Upcoming Encounters Date Type Department Care Team (Late st Contact Info) Description 02/25/2025 10:45 AM EST Office Visit [facility] [address] [phone] Rani Elizalde ARNP [address] [phone] Health Maintenance Due Date Last Done Comments Colorectal Cancer Screening: Annual FOBT 2004 Colorectal Cancer Screening: Colonoscopy 2004 Colorectal Cancer Screening: Sigmoidoscopy 2004 Pneumococcal Vaccine: 50+ Years (2 of 2 - PCV) 03/03/2011 03/03/2010 Diabetes: Ophthalmology Exam 05/26/2020 Diabetes: Pedal Pulse Checked 05/26/2020 Diabetes: Sensory Foot Exam 05/26/2020 Diabetes: Visual Foot Exam 05/26/2020 Diabetes: Hemoglobin A1C 12/05/2024 025, 05/21/2024, 05/02/2024, Additional history exists Influenza Vaccine (#1) 2024 2, 01/12/2020, 01/08/2019, Additional history exists Hepatitis B Vaccine Aged Out 09/15/2006 No longe r eligible based on patient's age to complete this topic Pneumococcal Vaccine: Peds (0 to 5 Years) and At-Risk Patients (6 to 49 Years) Discontinued 03/03/2010 Insurance [place] [facility] ([id number]) [facility] ([id number]) Medicaid [place] Care Teams Pcat Instructor Relationship Specialty Start Date End Date Felipe Dunne MD [address] [place] [address] PCP - General 05/05/20
== END 2024-11-21 12:22 | disposition home or self-care (01) ==
LOC: HO.HSM 12:00
PROVIDERS: PCP Internal Medicine; Visit Provider Psychiatry & Neurology Neurology
DX: G40.209 Localization-related (focal) (partial) symptomatic epilepsy and epileptic syndromes with complex partial seizures, not intractable, without status epilepticus (principal); F01.C0 Vascular dementia, severe, without behavioral disturbance, psychotic disturbance, mood disturbance, and anxiety
CPT/HCPCS: 99214

== ENCOUNTER → 2024-11-21 11:59 | Outpatient (BNVA) | payer OTHER, SELFPAY | PROVIDERS: PCP Internal Medicine; Visit Provider Psychiatry & Neurology Neurology | DX: G40.209 Localization-related (focal) (partial) symptomatic epilepsy and epileptic syndromes with complex partial seizures, not intractable, without status epilepticus (principal); F01.C0 Vascular dementia, severe, without behavioral disturbance, psychotic disturbance, mood disturbance, and anxiety | CPT/HCPCS: 99212 ==